=== PATIENT | female | born 1930 | race Caucasian/White ===

== ENCOUNTER 2018-01-20 19:40 | Emergency (ER) | payer MEDICARE, BC ==
[2018-01-20] MEDS: MORPHINE 2 MG/ML 1ML SYRINGE (J2270) IM (20:15)
[2018-01-20] MEDS: OXYCODONE/APAP 5MG/325MG(BULK FOR ED) 1 TABLET PO (21:30)
== END 2018-01-20 21:51 | disposition home or self-care (01) ==
LOC: M ED 19:40
DX: S43.102A Unspecified dislocation of left acromioclavicular joint, initial encounter (principal); X50.1XXA Overexertion from prolonged static or awkward postures, initial encounter; Y92.098 Other place in other non-institutional residence as the place of occurrence of the external cause; I10 Essential (primary) hypertension; K21.9 Gastro-esophageal reflux disease without esophagitis; F41.9 Anxiety disorder, unspecified; Z79.899 Other long term (current) drug therapy; Z79.4 Long term (current) use of insulin
CPT/HCPCS: J2270

== ENCOUNTER → 2019-01-15 | Outpatient (CLI) | payer MEDICARE, BC ==
[~2019-01-15] MED LIST: AMLO10TA2 PO; ASPI-1 PO; ASPI81TA26 PO; ATOR40TA75 PO; AUGM875T28 PO; BENA25TA10 PO; BENA40TA2 PO; BENA40TA7 PO; CALC20SPR; CALCTAB68 PO; CARV12.5 PO; CITA20TA2 PO; CITA20TA6 PO; CITA20TA7 PO; DOCU100C16 PO; DONETAB6 PO; ESTR62CR PV; GABA-845 PO; HYDR7.5T30 PO; INSUH10VL SC; INSUH10VL SQ; INSULANT SQ; LANTINJ4 SC; LEVE1INJ5 SC; LEVO25TA4 PO; LEVO25TA5 PO; LIPI1TAB2 PO; OMEP20CA3 PO; OMEP20CA4 PO; OXYB5TAB10 PO; PERC5TAB12 PO; TEMA15CA2 PO; TORS10TA3 PO; TOVI4TAB PO; VITMTA PO; ZOFR4TAB14 PO; ZOLP-187 PO
--- NOTE | 2019-01-15 18:34 | REP ---
MRI brain without contrast: History: Headache, weakness, memory loss, unsteady gait. Comparison CT study December 11, 2012. Technique: Axial and sagittal imaging planes are utilized for T1 and T2-weighted scans. Sequences include spin-echo, fast spin echo, FLAIR, and diffusion weighted sequences. MRI findings: Craniocervical junction and upper cervical cord are normal in appearance. 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 This is noted incidentally. This appears to produce mild central canal stenosis at this level in the neck. The bony calvarium is intact. There is no MR evidence of significant paranasal sinus disease. No intraorbital abnormality is appreciated. There is generalized volume loss. Diffusion weighted scans show no evidence to suggest acute ischemia. No extra-axial fluid collection or mass is seen. There is periventricular and subcortical white matter T2 hyperintensity consistent with microvascular ischemic changes. Impression: There is no evidence of acute intracranial abnormality. Generalized volume loss and small vessel changes. Incidental note is made of a 3 mm anterolisthesis at the C4-5 in the upper cervical spine producing what appears to be mild central canal stenosis. Electronically Signed by Jared Bruno MD 01/15/2019 07:27 P
== END ==
LOC: M RAD 15:33
PROVIDERS: ATTEND Nurse Practitioner Family
DX: R20.2 Paresthesia of skin (principal); G31.84 Mild cognitive impairment of uncertain or unknown etiology

== ENCOUNTER → 2019-03-06 | Outpatient (CLI) | payer MEDICARE, BC ==
[2019-03-06 20:12] LABS: CREATININE FOR GFR 1.14 MG/DL (0.55-1.30); GLOMERULAR FILTRATION RATE 48.1 (>32)
== END ==
LOC: M LABDRWAD 13:35
PROVIDERS: ATTEND Internal Medicine Cardiovascular Disease
DX: I50.30 Unspecified diastolic (congestive) heart failure (principal)

== ENCOUNTER → 2019-04-01 | Outpatient (REF) | payer MEDICARE, BC ==
[2019-04-01 13:33] LABS: ALBUMIN 3.5 GM/DL (3.2-5.2); BILIRUBIN,TOTAL 0.5 MG/DL (0.2-1.0); CALCIUM LEVEL 8.9 MG/DL (8.8-10.2); CHOLESTEROL RISK RATIO 1.706 (<5); CREATININE FOR GFR 1.05 MG/DL (0.55-1.30); FOLATE 17.2 NG/ML; FREE T4 0.95 NG/DL (0.76-1.46); GLOMERULAR FILTRATION RATE 52.9 (>32); POTASSIUM SERUM 4.6 MEQ/L (3.5-5.1); PTH INTACT 108.1 PG/ML (18.5-88.0); THYROID STIMULATING HORMONE 2.86 uIU/ML (0.358-3.740); TOTAL 25(OH) VITAMIN D 39.3 NG/ML (30.0-100.0); TOTAL PROTEIN 6.5 GM/DL (6.4-8.2)
[2019-04-01 13:54] LABS: CREATININE, URINE 49.2 MG/DL; CREATININE,RANDOM URINE 49.2 MG/DL; MALB URINE SIEMENS 25.5 MG/L; MAU/CREAT RATIO 51.8 MCG/MG (0.0-30.0)
[2019-04-01 14:22] LABS: HEMOGLOBIN A1c 7.3 %
== END ==
LOC: M LABDRWAD 12:41
DX: E11.9 Type 2 diabetes mellitus without complications (principal); E21.3 Hyperparathyroidism, unspecified; N18.3 Chronic kidney disease, stage 3 (moderate); I10 Essential (primary) hypertension; E03.9 Hypothyroidism, unspecified; M85.80 Other specified disorders of bone density and structure, unspecified site; R80.0 Isolated proteinuria; D64.9 Anemia, unspecified; G62.9 Polyneuropathy, unspecified

== ENCOUNTER → 2020-04-08 | Outpatient (REF) | payer MEDICARE, BC ==
[~2020-04-08] MED LIST changes: +BENA40TA5 PO; -BENA40TA7 PO; +OMEP1CAP73 PO; -OMEP20CA4 PO
[2020-04-08 13:26] LABS: ALBUMIN 3.9 GM/DL (3.2-5.2); BILIRUBIN,TOTAL 0.3 MG/DL (0.2-1.0); CALCIUM LEVEL 9.4 MG/DL (8.8-10.2); CHOLESTEROL RISK RATIO 1.91 (<5); CREATININE FOR GFR 1.24 MG/DL (0.55-1.30); GLOMERULAR FILTRATION RATE 43.6 (>32); POTASSIUM SERUM 4.7 MEQ/L (3.5-5.1); THYROID STIMULATING HORMONE 4.22 uIU/ML (0.358-3.740); TOTAL PROTEIN 6.9 GM/DL (6.4-8.2)
== END ==
LOC: M LABDRWAD 12:11
PROVIDERS: ATTEND Internal Medicine
DX: E78.5 Hyperlipidemia, unspecified (principal); E11.9 Type 2 diabetes mellitus without complications; I10 Essential (primary) hypertension; E03.9 Hypothyroidism, unspecified

== ENCOUNTER → 2020-04-14 | Outpatient (REF) | payer MEDICARE, BC ==
[2020-04-14 18:26] LABS: CREATININE, URINE 38.1 MG/DL; CREATININE,RANDOM URINE 38.1 MG/DL; MALB URINE SIEMENS 54.5 MG/L
== END ==
LOC: M LAB REF 16:54
PROVIDERS: ATTEND Internal Medicine
DX: E03.9 Hypothyroidism, unspecified (principal); E11.9 Type 2 diabetes mellitus without complications; E78.5 Hyperlipidemia, unspecified; I10 Essential (primary) hypertension

== ENCOUNTER 2021-04-01 13:08 | Inpatient (IN) | payer MEDICARE, BC ==
[~2021-04-01] VITALS: Ht 149.9 cm; Wt 51.4 kg
[~2021-04-01 13:08] MED LIST changes: +GABA-283 PO; -GABA-845 PO
--- OUTSIDE RECORDS SUMMARY | 2021-04-01 13:17 | CCD ---
Author Author [facility] Organization [facility] Address Unknown Phone Unavailable Care Team Providers Care Buffet Server Name Role Phone Keon KAUFMAN MD Unavailable Unavailable Wise, D Caroline PA Unavailable Unavailable Wise, D Caroline PA Unavailable Unavailable Wise, D Caroline PA Unavailable Unavailable Wise, D Caroline PA Unavailable Unavailable Wise, D Caroline PA Unavailable Unavailable Wise, D Caroline PA Unavailable Unavailable Wise, D Caroline PA Unavailable Unavailable Wise, D Caroline PA Unavailable Unavailable Wise, D Caroline PA Unavailable Unavailable Wise, D Caroline PA Unavailable Unavailable Wise, D Caroline PA Unavailable Unavailable Wise, D Caroline PA Unavailable Unavailable Wise, D Acroline PA Unavailable Unavailable Wise, D Caroline PA Unavailable Unavailable Wise, D Caroline PA Unavailable Unavailable Wise, D Caroline PA Unavailable Unavailable Wise, D Caroline PA Unavailable Unavailable Yanick Guerrero MD Unavailable Unavailable Yanick Guerrero MD Unavailable Unavailable Yanick Guerrero MD Unavailable Unavailable Yanick Guerrero MD Unavailable Unavailable Yanick Guerrero MD Unavailable Unavailable Yanick Guerrero MD Unavailable Unavailable Yanick Guerrero MD Unavailable Unavailable Yanick Guerrero MD Unavailable Unavailable Yanick Guerrero MD Unavailable Unavailable Yanick Guerrero MD Unavailable Unavailable Yolanda, Yanick MD Unavailable Unavailable Yolanda, Yanick MD Unavailable Unavailable Yolanda, Yanick MD Unavailable Unavailable Yolanda, Yanick MD Unavailable Unavailable Yolanda, Yanick MD Unavailable Unavailable Yolanda, Yanick MD Unavailable Unavailable Yolanda, Yanick MD Unavailable Unavailable Yolanda, Yanick MD Unavailable Unavailable Yolanda, Yanick MD Unavailable Unavailable Yolanda, Yanick MD Unavailable Unavailable Yolanda, Yanick MD Unavailable Unavailable Yolanda, Yanick MD Unavailable Unavailable Yolanda, Yanick MD Unavailable Unavailable Yolanda, Yanick MD Unavailable Unavailable Yolanda, Yanick MD Unavailable Unavailable Yolanda, Yanick MD Unavailable Unavailable Yolanda, Yanick MD Unavailable Unavailable Yolanda, Yanick MD Unavailable Unavailable Yolanda, Yanick MD Unavailable Unavailable Yolanda, Yanick MD Unavailable Unavailable Yolanda, Yanick MD Unavailable Unavailable Yolanda, Yanick MD Unavailable Unavailable Yolanda, Yanick MD Unavailable Unavailable Yolanda, Yanick MD Unavailable Unavailable Yolanda, Yanick MD Unavailable Unavailable Yolanda, Yanick MD Unavailable Unavailable Yolanda, Yanick MD Unavailable Unavailable Yolanda, Yanick MD Unavailable Unavailable Yolanda, Yanick MD Unavailable Unavailable Yolanda, Yanick MD Unavailable Unavailable Yolanda, Yanick MD Unavailable Unavailable Yolanda, Yanick MD Unavailable Unavailable Yolanda, Yanick MD Unavailable Unavailable Yolanda, Yanick MD Unavailable Unavailable Yolanda, Yanick MD Unavailable Unavailable Yolanda, Yanick MD Unavailable Unavailable Yolanda, Yanick MD Unavailable Unavailable Yolanda, Yanick MD Unavailable Unavailable Yolanda, Yanick MD Unavailable Unavailable Yolanda, Yanick MD Unavailable Unavailable Yolanda, Yanick MD Unavailable Unavailable Yolanda, Yanick MD Unavailable Unavailable Yolanda, Yanick MD Unavailable Unavailable Yolanda, Yanick MD Unavailable Unavailable Yolanda, Yanick MD Unavailable Unavailable Yolanda, Yanick MD Unavailable Unavailable Yolanda, Yanick MD Unavailable Unavailable Yolanda, Yanick MD Unavailable Unavailable Yolanda, Yanick MD Unavailable Unavailable Yolanda, Yanick MD Unavailable Unavailable Yolanda, Yanick MD Unavailable Unavailable Yolanda, Yanick MD Unavailable Unavailable Yolanda, Yanick MD Unavailable Unavailable Yolanda, Yanick MD Unavailable Unavailable Yolanda, Yanick MD Unavailable Unavailable Yolanda, Yanick MD Unavailable Unavailable Yolanda, Yanick MD Unavailable Unavailable Yolanda, Yanick MD Unavailable Unavailable Yolanda, Yanick MD Unavailable Unavailable Yolanda, Yanick MD Unavailable Unavailable Yolanda, Yanick MD Unavailable Unavailable Yolanda, Yanick MD Unavailable Unavailable Yolanda, Yanick MD Unavailable Unavailable Yolanda, Yanick MD Unavailable Unavailable Yolanda, Yanick MD Unavailable Unavailable PERRY, ELIZABETH MD Unavailable Unavailable PERRY, ELIZABETH MD Unavailable Unavailable PERRY, ELIZABETH MD Unavailable Unavailable PERRY, ELIZABETH MD Unavailable Unavailable PERRY, ELIZABETH MD Unavailable Unavailable PERRY, ELIZABETH MD Unavailable Unavailable PERRY, ELIZABETH MD Unavailable Unavailable PERRY, ELIZABETH MD Unavailable Unavailable PERRY, ELIZABETH MD Unavailable Unavailable PERRY, ELIZABETH MD Unavailable Unavailable PERRY, ELIZABETH MD Unavailable Unavailable PERRY, ELIZABETH MD Unavailable Unavailable PERRY, ELIZABETH MD Unavailable Unavailable PERRY, ELIZABETH MD Unavailable Unavailable PERRY, ELIZABETH MD Unavailable Unavailable PERRY, ELIZABETH MD Unavailable Unavailable PERRY, ELIZABETH MD Unavailable Unavailable PERRY, ELIZABETH MD Unavailable Unavailable PERRY, ELIZABETH MD Unavailable Unavailable PERRY, ELIZABETH MD Unavailable Unavailable PERRY, ELIZABETH MD Unavailable Unavailable PERRY, ELIZABETH MD Unavailable Unavailable PERRY, ELIZABETH MD Unavailable Unavailable PERRY, ELIZABETH MD Unavailable Unavailable PERRY, ELIZABETH MD Unavailable Unavailable PERRY, ELIZABETH MD Unavailable Unavailable PERRY, ELIZABETH MD Unavailable Unavailable PERRY, ELIZABETH MD Unavailable Unavailable PERRY, ELIZABETH MD Unavailable Unavailable PERRY, ELIZABETH MD Unavailable Unavailable PERRY, ELIZABETH MD Unavailable Unavailable PERRY, ELIZABETH MD Unavailable Unavailable PERRY, ELIZABETH MD Unavailable Unavailable PERRY, ELIZABETH MD Unavailable Unavailable PERRY, ELIZABETH MD Unavailable Unavailable PERRY, ELIZABETH MD Unavailable Unavailable PERRY, ELIZABETH MD Unavailable Unavailable PERRY, ELIZABETH MD Unavailable Unavailable PERRY, ELIZABETH MD Unavailable Unavailable PERRY, ELIZABETH MD Unavailable Unavailable PERRY, ELIZABETH MD Unavailable Unavailable PERRY, ELIZABETH MD Unavailable Unavailable PERRY, ELIZABETH MD Unavailable Unavailable PERRY, ELIZABETH MD Unavailable Unavailable PERRY, ELIZABETH MD Unavailable Unavailable PERRY, ELIZABETH MD Unavailable Unavailable PERRY, ELIZABETH MD Unavailable Unavailable PERRY, ELIZABETH MD Unavailable Unavailable PERRY, ELIZABETH MD Unavailable Unavailable PERRY, ELIZABETH MD Unavailable Unavailable PERRY, ELIZABETH MD Unavailable Unavailable PERRY, ELIZABETH MD Unavailable Unavailable PERRY, ELIZABETH MD Unavailable Unavailable PRERY, ELIZABETH MD Unavailable Unavailable PERRY, ELIZABETH MD Unavailable Unavailable PERRY, ELIZABETH MD Unavailable Unavailable PERRY, ELIZABETH MD Unavailable Unavailable PERRY, ELIZABETH MD Unavailable Unavailable PERRY, ELIZABETH MD Unavailable Unavailable PERRY, ELIZABETH MD Unavailable Unavailable PERRY, ELIZABETH MD Unavailable Unavailable PERRY, ELIZABETH MD Unavailable Unavailable PERRY, ELIZABETH MD Unavailable Unavailable PERRY, ELIZABETH MD Unavailable Unavailable PERRY, ELIZABETH MD Unavailable Unavailable PERRY, ELIZABETH MD Unavailable Unavailable PERRY, ELIZABETH MD Unavailable Unavailable PERRY, ELIZABETH MD Unavailable Unavailable PERRY, ELIZABETH MD Unavailable Unavailable PERRY, ELIZABETH MD Unavailable Unavailable PERRY, ELIZABETH MD Unavailable Unavailable PERRY, ELIZABETH MD Unavailable Unavailable PERRY, ELIZABETH MD Unavailable Unavailable PERRY, ELIZABETH MD Unavailable Unavailable PERRY, ELIZABETH MD Unavailable Unavailable PERRY, ELIZABETH MD Unavailable Unavailable PERRY, ELIZABETH MD Unavailable Unavailable PERRY, ELIZABETH MD Unavailable Unavailable PERRY, ELIZABETH MD Unavailable Unavailable PERRY, ELIZABETH MD Unavailable Unavailable PERRY, ELIZABETH MD Unavailable Unavailable PERRY, ELIZABETH MD Unavailable Unavailable PERRY, ELIZABETH MD Unavailable Unavailable PERRY, ELIZABETH MD Unavailable Unavailable PERRY, ELIZABETH MD Unavailable Unavailable PERRY, ELIZABETH MD Unavailable Unavailable PERRY, ELIZABETH MD Unavailable Unavailable PERRY, ELIZABETH MD Unavailable Unavailable PERRY, ELIZABETH MD Unavailable Unavailable PERRY, ELIZABETH MD Unavailable Unavailable PERRY, ELIZABETH MD Unavailable Unavailable PERRY, ELIZABETH MD Unavailable Unavailable PERRY, ELIZABETH MD Unavailable Unavailable PERRY, ELIZABETH MD Unavailable Unavailable PERRY, ELIZABETH MD Unavailable Unavailable PERRY, ELIZABETH MD Unavailable Unavailable PERRY, ELIZABETH MD Unavailable Unavailable PERRY, ELIZABETH MD Unavailable Unavailable PERRY, ELIZABETH MD Unavailable Unavailable PERRY, ELIZABETH MD Unavailable Unavailable PERRY, ELIZABETH MD Unavailable Unavailable PERRY, ELIZABETH MD Unavailable Unavailable PERRY, ELIZABETH MD Unavailable Unavailable PERRY, ELIZABETH MD Unavailable Unavailable PERRY, ELIZABETH MD Unavailable Unavailable BALBUENA, R CAROLINE DO Unavailable Unavailable BALBUENA, R CAROLINE DO Unavailable Unavailable BALBUENA, R CAROLINE DO Unavailable Unavailable BALBUENA, R CAROLINE DO Unavailable Unavailable BALBUENA, R CAROLINE DO Unavailable Unavailable BALBUENA, R CAROLINE DO Unavailable Unavailable BALBUENA, R CAROLINE DO Unavailable Unavailable BALBUENA, R CAROLINE DO Unavailable Unavailable BALBUENA, R CAROLINE DO Unavailable Unavailable BALBUENA, R CAROLINE DO Unavailable Unavailable BALBUENA, R CAROLINE DO Unavailable Unavailable BALBUENA, R CAROLINE DO Unavailable Unavailable BALBUENA, R CAROLINE DO Unavailable Unavailable BALBUENA, Marino VELAZQUEZ DO Unavailable Unavailable BALBUENA, Marino VELAZQUEZ DO Unavailable Unavailable BALBUENA, R CAROLINE DO Unavailable Unavailable BALBUENA, R CAROLINE DO Unavailable Unavailable BALBUENA, R CAROLINE DO Unavailable Unavailable BALBUENA, R CAROLINE DO Unavailable Unavailable BALBUENA, R CAROLINE DO Unavailable Unavailable Han, Aram DO Unavailable Unavailable Han, Aram DO Unavailable Unavailable Han, Aram DO Unavailable Unavailable Han, Aram DO Unavailable Unavailable Han, Aram DO Unavailable Unavailable Han, Aram DO Unavailable Unavailable Han, Aram DO Unavailable Unavailable Han, Aram DO Unavailable Unavailable Han, Aram DO Unavailable Unavailable Han, Aram DO Unavailable Unavailable Han, Aram DO Unavailable Unavailable Han, Aram DO Unavailable Unavailable Han, Aram DO Unavailable Unavailable Han, Aram DO Unavailable Unavailable Han, Aram DO Unavailable Unavailable Han, Aram DO Unavailable Unavailable Han, Aram DO Unavailable Unavailable Han, Aram DO Unavailable Unavailable Han, Aram DO Unavailable Unavailable Han, Aram DO Unavailable Unavailable Han, Aram DO Unavailable Unavailable Han, Aram DO Unavailable Unavailable Han, Aram DO Unavailable Unavailable Han, Aram DO Unavailable Unavailable Han, Aram DO Unavailable Unavailable Han, Aram DO Unavailable Unavailable Han, Aram DO Unavailable Unavailable Han, Aram DO Unavailable Unavailable Han, Aram DO Unavailable Unavailable Han, Aram DO Unavailable Unavailable Han, Aram DO Unavailable Unavailable Han, Aram DO Unavailable Unavailable Han, Aram DO Unavailable Unavailable Han, Aram DO Unavailable Unavailable Han, Aram DO Unavailable Unavailable Han, Aram DO Unavailable Unavailable Han, Aram DO Unavailable Unavailable Han, Aram DO Unavailable Unavailable Han, Aram DO Unavailable Unavailable Han, Aram DO Unavailable Unavailable Han, Aram DO Unavailable Unavailable Han, Aram DO Unavailable Unavailable Han, Aram DO Unavailable Unavailable Han, Aram DO Unavailable Unavailable Han, Aram DO Unavailable Unavailable Han, Aram DO Unavailable Unavailable Han, Aram DO Unavailable Unavailable Han, Aram DO Unavailable Unavailable Han, Aram DO Unavailable Unavailable Han, Aram DO Unavailable Unavailable Han, Aram DO Unavailable Unavailable Han, Aram DO Unavailable Unavailable Han, Aram DO Unavailable Unavailable Han, Aram DO Unavailable Unavailable Han, Aram DO Unavailable Unavailable Han, Aram DO Unavailable Unavailable Han, Aram DO Unavailable Unavailable Han, Aram DO Unavailable Unavailable Han, Aram DO Unavailable Unavailable Han, Aram DO Unavailable Unavailable Han, Aram DO Unavailable Unavailable Han, Aram DO Unavailable Unavailable Han, Aram DO Unavailable Unavailable Han, Aram DO Unavailable Unavailable Han, Aram DO Unavailable Unavailable Han, Aram DO Unavailable Unavailable Han, Aram DO Unavailable Unavailable Han, Aram DO Unavailable Unavailable Han, Aram DO Unavailable Unavailable Han, Aram DO Unavailable Unavailable Han, Aram DO Unavailable Unavailable Han, Aram DO Unavailable Unavailable Han, Aram DO Unavailable Unavailable Han, Aram DO Unavailable Unavailable Patria Cormier MD Unavailable Unavailable Patria Cormier MD Unavailable Unavailable Patria Cormier MD Unavailable Unavailable Patria Cormier MD Unavailable Unavailable Patria Cormier MD Unavailable Unavailable Patria Cormier MD Unavailable Unavailable Patria Cormier MD Unavailable Unavailable Patria Cormier MD Unavailable Unavailable Patria Cormier MD Unavailable Unavailable Patria Cormier MD Unavailable Unavailable Patria Cormier MD Unavailable Unavailable Iris MCNULTY MD Unavailable Unavailable Iris MCNULTY MD Unavailable Unavailable Iris MCNULTY MD Unavailable Unavailable Iris MCNULTY MD Unavailable Unavailable Iris MCNULTY MD Unavailable Unavailable Iris MCNULTY MD Unavailable Unavailable Iris MCNULTY MD Unavailable Unavailable Iris MCNULTY MD Unavailable Unavailable Iris MCNULTY MD Unavailable Unavailable Iris MCNULTY MD Unavailable Unavailable Iris MCNULTY MD Unavailable Unavailable Iris MCNULTY MD Unavailable Unavailable Iris MCNULTY MD Unavailable Unavailable Iris MCNULTY MD Unavailable Unavailable Iris MCNULTY MD Unavailable Unavailable Iris MCNULTY MD Unavailable Unavailable Iris MCNULTY MD Unavailable Unavailable Iris MCNULTY MD Unavailable Unavailable Iris MCNULTY MD Unavailable Unavailable Iris MCNULTY MD Unavailable Unavailable HAMLET, Iris REAL MD Unavailable Unavailable HAMLET, B MISSAEL FARLEY Unavailable Unavailable Iris MCNULTY MD Unavailable Unavailable HAMLET, B MISSAEL FARLEY Unavailable Unavailable HAMLET, Iris REAL MD Unavailable Unavailable HAMLET, Iris REAL MD Unavailable Unavailable TRUSILO, Pawel IQBAL MD Unavailable Unavailable TRUSILO, Pawel IQBAL MD Unavailable Unavailable TRUSILO, Pawel IQBAL MD Unavailable Unavailable TRUSILO, Pawel IQBAL MD Unavailable Unavailable TRUSILO, Pawel IQBAL MD Unavailable Unavailable TRUSILO, Pawel IQBAL MD Unavailable Unavailable TRUSILO, Pawel IQBAL MD Unavailable Unavailable TRUSILO, Pawel IQBAL MD Unavailable Unavailable TRUSILO, Pawel IQBAL MD Unavailable Unavailable TRUSILO, Pawel IQBAL MD Unavailable Unavailable TRUSILO, Pawel IQBAL MD Unavailable Unavailable TRUSILO, Pawel IQBAL MD Unavailable Unavailable TRUSILO, Pawel IQBAL MD Unavailable Unavailable TRUSILO, Pawel IQBAL MD Unavailable Unavailable TRUSILO, Pawel IQBAL MD Unavailable Unavailable TRUSILO, Pawel IQBAL MD Unavailable Unavailable TRUSILO, Pawel IQBAL MD Unavailable Unavailable TRUSILO, Pawel IQBAL MD Unavailable Unavailable TRUSILO, Pawel IQBAL MD Unavailable Unavailable TRUSILO, Pawel IQBAL MD Unavailable Unavailable TRUSILO, Pawel IQBAL MD Unavailable Unavailable TRUSILO, Pawel IQBAL MD Unavailable Unavailable TRUSILO, Pawel IQBAL MD Unavailable Unavailable TRUSILO, Pawel IQBAL MD Unavailable Unavailable TRUSILO, Pawel IQBAL MD Unavailable Unavailable TRUSILO, Pawel IQBAL MD Unavailable Unavailable TRUSILO, Pawel IQBAL MD Unavailable Unavailable TRUSILO, Pawel IQBAL MD Unavailable Unavailable TRUSILO, Pawel IQBAL MD Unavailable Unavailable TRUSILO, Pawel IQBAL MD Unavailable Unavailable TRUSILO, Pawel IQBAL MD Unavailable Unavailable TRUSILO, Pawel IQBAL MD Unavailable Unavailable TRUSILO, Pawel IQBAL MD Unavailable Unavailable TRUSILO, Pawel IQBAL MD Unavailable Unavailable TRUSILO, Pawel IQBAL MD Unavailable Unavailable TRUSILO, Pawel IQBAL MD Unavailable Unavailable TRUSILO, Pawel IQBAL MD Unavailable Unavailable TRUSILO, Pawel IQBAL MD Unavailable Unavailable TRUSILO, Pawel IQBAL MD Unavailable Unavailable TRUSILO, Pawel IQBAL MD Unavailable Unavailable TRUSILO, Pawel IQBAL MD Unavailable Unavailable TRUSILO, Pawel IQBAL MD Unavailable Unavailable TRUSILO, Pawel IQBAL MD Unavailable Unavailable TRUSILO, Pawel IQBAL MD Unavailable Unavailable Other, Other Unavailable Unavailable Reina GONZALES MD Unavailable Unavailable Reina GONZALES MD Unavailable Unavailable Reina GONZALES MD Unavailable Unavailable SAGCAN, G MAILE MD Unavailable Unavailable SAGCAN, G MAILE MD Unavailable Unavailable SAGCAN, G MAILE MD Unavailable Unavailable SAGCAN, G MAILE MD Unavailable Unavailable SAGCAN, G MAILE MD Unavailable Unavailable SAGCAN, G MAILE MD Unavailable Unavailable SAGCAN, G MAILE MD Unavailable Unavailable SAGCAN, G MAILE MD Unavailable Unavailable SAGCAN, G MAILE MD Unavailable Unavailable SAGCAN, G MAILE MD Unavailable Unavailable SAGCAN, G MAILE MD Unavailable Unavailable SAGCAN, G MAILE MD Unavailable Unavailable SAGCAN, G MAILE MD Unavailable Unavailable SAGCAN, G MAILE MD Unavailable Unavailable SAGCAN, G MAILE MD Unavailable Unavailable SAGCAN, G MAILE MD Unavailable Unavailable Paoletti, J Becky Unavailable Unavailable Paoletti, J Becky Unavailable Unavailable Paoletti, J Becky Unavailable Unavailable Paoletti, J Becky Unavailable Unavailable Paoletti, J Becky Unavailable Unavailable Paoletti, J Becky Unavailable Unavailable Paoletti, J Becky Unavailable Unavailable Paoletti, J Becky Unavailable Unavailable Paoletti, J Becky Unavailable Unavailable Paoletti, J Becky Unavailable Unavailable Paoletti, J Becky Unavailable Unavailable Paoletti, J Becky Unavailable Unavailable Paoletti, J Becky Unavailable Unavailable Paoletti, J Becky Unavailable Unavailable Paoletti, J Becky Unavailable Unavailable Paoletti, J Becky Unavailable Unavailable Paoletti, J Becky Unavailable Unavailable Paoletti, J Becky Unavailable Unavailable Paoletti, J Becky Unavailable Unavailable Rodrigo Ba MD Unavailable Unavailable Rodrigo Ba MD Unavailable Unavailable Rodrigo Ba MD Unavailable Unavailable Rodrigo Ba MD Unavailable Unavailable Rodrigo Ba MD Unavailable Unavailable Rodrigo Ba MD Unavailable Unavailable Rodrigo Ba MD Unavailable Unavailable Rodrigo Ba MD Unavailable Unavailable Rodrigo Ba MD Unavailable Unavailable Rodrigo Ba MD Unavailable Unavailable Rodrigo Ba MD Unavailable Unavailable Rodrigo Ba MD Unavailable Unavailable Rodrigo Ba MD Unavailable Unavailable Rodrigo Ba MD Unavailable Unavailable Rodrigo Ba MD Unavailable Unavailable Rodrigo Ba MD Unavailable Unavailable Rodrigo Ba MD Unavailable Unavailable Rodrigo Ba MD Unavailable Unavailable Rodrigo Ba MD Unavailable Unavailable Rodrigo Ba MD Unavailable Unavailable Rodrigo Ba MD Unavailable Unavailable Rodrigo Ba MD Unavailable Unavailable Rodrigo Ba MD Unavailable Unavailable Hardeman, Rodrigo Fran MD Unavailable Unavailable Hardeman, Rodrigo Fran MD Unavailable Unavailable Mejia, Rodrigo Fran MD Unavailable Unavailable Mejia, Rodrigo Fran MD Unavailable Unavailable Hardeman, Rodrigo Fran MD Unavailable Unavailable Mejia, Rodrigo Fran MD Unavailable Unavailable Hardeman, Rodrigo Fran MD Unavailable Unavailable Hardeman, Rodrigo Fran MD Unavailable Unavailable Hardeman, Rodrigo Fran MD Unavailable Unavailable Mejia, Rodrigo Fran MD Unavailable Unavailable Mejia, Rodrigo Fran MD Unavailable Unavailable Hardeman, Rodrigo Fran MD Unavailable Unavailable Hardeman, Rodrigo Fran MD Unavailable Unavailable Hardeman, Rodrigo Fran MD Unavailable Unavailable Mejia, Rodrigo Fran MD Unavailable Unavailable Hardeman, Rodrigo Fran MD Unavailable Unavailable Mejia, Rodrigo Fran MD Unavailable Unavailable Mejia, Rodrigo Fran MD Unavailable Unavailable Mejia, Rodrigo Fran MD Unavailable Unavailable Hardeman, Rodrigo Fran MD Unavailable Unavailable Hardeman, Rodrigo Fran MD Unavailable Unavailable Mejia, Rodrigo Fran MD Unavailable Unavailable Hardeman, Rodrigo Fran MD Unavailable Unavailable Hardeman, Rodrigo Fran MD Unavailable Unavailable Mejia, Rodrigo Fran MD Unavailable Unavailable Hardeman, Rodrigo Fran MD Unavailable Unavailable Hardeman, Rodrigo Fran MD Unavailable Unavailable Mejia, Rodrigo Fran MD Unavailable Unavailable Hardeman, Rodrigo Fran MD Unavailable Unavailable Hardeman, Rodrigo Fran MD Unavailable Unavailable Mejia, Rodrigo Fran MD Unavailable Unavailable Hardeman, Rodrigo Fran MD Unavailable Unavailable Hardeman, Rodrigo Fran MD Unavailable Unavailable Hardeman, Rodrigo Fran MD Unavailable Unavailable Hardeman, Rodrigo Fran MD Unavailable Unavailable Hardeman, Rodrigo Fran MD Unavailable Unavailable Hardeman, Rodrigo Fran MD Unavailable Unavailable Hardeman, Rodrigo Fran MD Unavailable Unavailable Hardeman, Rodrigo Fran MD Unavailable Unavailable Hardeman, Rodrigo Fran MD Unavailable Unavailable Re-disclosure Warning The records that you are about to access may contain information from federally-assisted alcohol or drug abuse programs. If such information is present, then the following federally mandated warning applies: This information has been disclosed to you from records protected by federal confidentiality rules (42 CFR part 2). The federal rules prohibit you from making any further disclosure of this information unless further disclosure is expressly permitted by the written consent of the person to whom it pertains or as otherwise permitted by 42 CFR part 2. A general authorization for the release of medical or other information is NOT sufficient for this purpose. The Federal rules restrict any use of the information to criminally investigate or prosecute any alcohol or drug abuse patient.The records that you are about to access may contain highly sensitive health information, the redisclosure of which is protected by Article 27-F of the [place] State Public Health law. If you continue you may have access to information: Regarding HIV / AIDS; Provided by facilities licensed or operated by the [facility] Office of Mental Health; or Provided by the [facility] Office for People With Developmental Disabilities. If such information is present, then the following [facility] mandated warning applies: This information has been disclosed to you from confidential records which are protected by state law. State law prohibits you from making any further disclosure of this information without the specific written consent of the person to whom it pertains, or as otherwise permitted by law. Any unauthorized further disclosure in violation of state law may result in a fine or half-way sentence or both. A general authorization for the release of medical or other information is NOT sufficient authorization for further disc losure. Allergies and Adverse Reactions Type Description Substance Reaction Status Data Source(s ) Drug allergy No Known Allergies No Known Allergies [facility] Propensity to adverse reactions NO KNOWN ALLERGIES NO KNOWN ALLERGIES [facility] Family History Family Member Name Family Member Gender Family Member Status Date o f Status Description Data Source(s) Unknown Condition [facility] Unknown [facility] Unknown Condition [facility] Unknown Condition [facility] Unknown Condition [facility] Unknown Condition [facility] Unknown Condition [facility] Unknown [facility] Unknown [facility] Unknown Condition [facility] Unknown Condition [facility] Unknown Condition [facility] Unknown Male Problem [facility] ([facility]) Unknown Unknown Problem [facility] ([facility] Encounters Encounter Providers Location Date Indications Data Source(s ) Outpatient Attender: Caroline Wise PAReferrer: Yanick Guerrero MD 05/17/2021 02:30:00 PM EST 3 mo f/u [facility] 3 mo f/u Outpatient Referrer: ELIZABETH PERRY MD 02/22/2021 03:23:22 PM EDT [facility] Outpatient Referrer: ELIZABETH PERRY MD 02/17/2021 10:31:22 AM EDT [facility] Outpatient Attender: CAROLINE Clark: Yanick Guerrero MD 02/14/2021 03:30:00 PM EDT - 02/14/2021 04:07:00 PM EDT Right hip pain, injection [facility] Right hip pain, injection Patient discharged. Outpatient Attender: Caroline Rojo: Yanick Guerrero MD 02/08/2021 01:52:00 PM EDT - 02/08/2021 02:32:00 PM EDT 3 mo fu [facility] 3 mo fu Patient discharged. Outpatient Referrer: ELIZABETH PERRY MD 02/08/2021 10:34:49 AM EDT [facility] Outpatient Attender: CAROLINE Clark: Yanick Guerrero MD 01/14/2021 10:14:00 AM EDT - 01/14/2021 11:13:00 AM EDT Bilateral hip pain, left worse [facility] Bilateral hip pain, left worse Patient discharged. Outpatient Attender: CAROLINE Clark: Yanick Guerrero MD 01/14/2021 10:14:00 AM EDT - 01/14/2021 11:13:00 AM EDT [facility] Outpatient Attender: Yanick Guerrero MD Main Office 12/29/2020 02:00:00 PM EDT [facility] ([facility]) Outpatient Attender: Caroline Rojo: Fran Ba MD 11/24/2020 01:18:00 PM EDT - 11/24/2020 02:05:00 PM EDT 1yr f/u - LMTC [facility] 1yr f/u - LMTC Patient discharged. Outpatient Attender: CAROLINE BALBUENA DOAtt jill: Other OtherReferrer: Yanick Guerrero MD 11/22/2020 11:41:00 AM EDT - 11/22/2020 12:50:00 PM EDT L hip trochanteric bursitis [facility] L hip trochanteric bursitis Patient discharged. Outpatient Attender: CAROLINE Clark: Yanick Guerrero MD 11/22/2020 11:41:00 AM EDT - 11/22/2020 12:50:00 PM EDT [facility] Outpatient Attender: Yanick Guerrero MD 11/11/2020 01:12:00 P M EDT [facility] lab Outpatient Attender: Yanick Guerrero MD Main Office 11/02/2020 02:15:00 PM EDT [facility] ([facility]) Recurring Patient Attender: CHARMAINE SOLISCARMEN MDReferrer: Yanick Quezada i, MD 04/14/2020 09:34:[address] [facility] Outpatient Attender: CHARMAINE CORBETT MDReferrer: Yanick Guerrero MD 04/09/2020 01:08:[address] [facility] Recurring Patient Attender: CHARMAINE CORBETT MDReferrer: Yanick Quezada i, MD 04/08/2020 01:33:[address] [facility] Recurring Patient Referrer: Yanick Guerrero MD 04/08/2020 07: 47:[address] [facility] Outpatient Attender: Yanick Guerrero MD Main Office 03/24/2020 02:00:00 PM EDT [facility] ([facility]) Recurring Patient Referrer: Yanick Guerrero MD 03/24/2020 08: 30:[address] [facility] Outpatient Attender: Becky Harrell 03/03/2020 02:04:00 PM EDT [facility] Outpatient Attender: Aram Short DO [id number] 03/03/20 20 12:00:00 AM EDT - 03/03/2020 04:02:57 PM EDT Chronic kidney disease, stage 3 (moderate) [facility] Chronic kidney disease, stage 3 (moderat e) Outpatient Attender: Yanick Guerrero MD Main Office 02/11/2020 01:45:00 PM EDT [facility] ([facility]) Outpatient Attender: MAILE Del Rio nder: Patria Cormier MDAttender: MISSAEL MCNULTY MDAttender: EUGENIO KAUFMAN MDAdmitter: MISSAEL MCNULTY MDReferrer: EUGENIO KAUFMAN MD 1-OB2 02/04/2020 12:23:30 AM EDT - 02/06/2020 01:51:00 PM EDT [facility] Patient discharged. Outpatient Attender: Aram Short DO 02/04/2020 12:00:00 AM EDT [facility] Immunizations Vaccine Date Status Description Data Source(s) New in 2012. IIV4 03/24/2020 02:15:00 PM EDT completed [facility] ([facility]) Medications Medication Brand Name Start Date Product Form Dose Route Admi nistrative Instructions Pharmacy Instructions Status Indications Reaction Description Data Source(s) 3 mg 03/23/2021 12:00:00 AM EDT tablet 90 TAKE ONE TABLET BY MOUTH EVERY DAY TAKE ONE TABLET BY MOUTH EVERY DAY SOLD: 03/25/2021 [facility] 50 mcg 03/19/2021 12:00:00 AM EDT tablet 90 TAKE ONE TABLET BY MOUTH EVERY DAY TAKE ONE TABLET BY MOUTH EVERY DAY SOLD: 03/22/2021 [facility] 5 mg 03/09/2021 12:00:00 AM EDT tablet 90 TAKE ONE TABLET BY MOUTH EVERY DAY TAKE ONE TABLET BY MOUTH EVERY DAY SOLD: 03/10/2021 [facility] 100 mg 03/09/2021 12:00:00 AM EDT capsule 90 TAKE ONE CAPSULE BY MOUTH EVERY MORNING AND 2 CAPSULES EVERY EVENING TAKE ONE CAPSULE BY MOUTH EVERY MORNING AND 2 CAPSULES EVERY EVENING SOLD: 03/10/2021 [facility] 40 mg 02/17/2021 12:00:00 AM EDT tablet 90 TAKE ONE TABLET BY MOUTH EVERY DAY TAKE ONE TABLET BY MOUTH EVERY DAY SOLD: 02/19/2021 [facility] 10 mg 02/17/2021 12:00:00 AM EDT tablet 90 TAKE 1 TABLET BY MOUTH AT NIGHT TAKE 1 TABLET BY MOUTH AT NIGHT SOLD: 02/19/2021 [facility] methylprednisolone acetate 80 MG/ML Inje ctable Suspension Depo-Medrol (methylprednisolone acetate) 80 mg/mL suspension for injection Depo-Medrol (methylprednisolone acetate) 80 mg/mL suspension for injection 02/14/2021 03:30:52 PM EDT SUSPENSION 80 MG INTRAMUSC completed [facility] Lidocaine Hydrochloride 10 MG/ML Injecta ble Solution lidocaine (PF) 10 mg/mL (1 %) injection solution lidocaine (PF) 10 mg/mL (1 %) injection solution 02/14/2021 03:30:52 PM EDT SOLUTION 40 MG INTRAMUSC completed [facility] rivaroxaban 15 MG Oral Tablet Rivaroxaban (Xarelto) 15 mg tablet Rivaroxaban (Xarelto) 15 mg tablet 02/11/2021 04:04:49 PM EDT TABLET TABLET active [facility] apixaban 2.5 MG Oral Tablet Apixaban (Eliquis) 2.5 mg tablet Apixaban (Eliquis) 2.5 mg tablet 02/11/2021 08:25:57 AM EDT TABLET TABLET complet ed [facility] 15 mg 02/10/2021 12:00:00 AM EDT tablet 30 TAKE ONE TABLET BY MOUTH EVERY DAY WITH EVENING MEAL TAKE ONE TABLET BY MOUTH EVERY DAY WITH EVENING MEAL S OLD: 02/10/2021 [facility] 10 mg 02/10/2021 12:00:00 AM EDT tablet 90 TAKE ONE TABLET BY MOUTH THREE TIMES A DAY TAKE ONE TABLET BY MOUTH THREE TIMES A DAY SOLD: 02/10/2021 [facility] Hydralazine Hydrochloride 10 MG Oral Tablet Hydralazine 02/09/2021 02:23:29 PM EDT TABLET 10 MG ORAL active [facility] 50 mg 02/08/2021 12:00:00 AM EDT tablet 120 TAKE ONE TABLET BY MOUTH FOUR TIMES A DAY NEEDED MAXIMUM DAILY DOSE = 4 TAKE ONE TABLET BY MOUTH FOUR TIMES A DAY NEEDED MAXIMUM DAILY DOSE = 4 SOLD: 02/10/2021 [facility] 50 mg 02/08/2021 12:00:00 AM EDT tablet 120 TAKE ONE TABLET BY MOUTH FOUR TIMES A DAY NEEDED MAXIMUM DAILY DOSE = 4 TAKE ONE TABLET BY MOUTH FOUR TIMES A DAY NEEDED MAXIMUM DAILY DOSE = 4 SOLD: 03/22/2021 [facility] rivaroxaban 15 MG Oral Tablet Rivaroxaban (Xarelto) 15 mg tablet Rivaroxaban (Xarelto) 15 mg tablet 02/04/2021 11:11:35 AM EDT TABLET 15 MG ORAL active [facility] 5 mg 02/03/2021 12:00:00 AM EDT tablet 30 TAKE ONE TABLET BY MOUTH EVERY DAY TAKE ONE TABLET BY MOUTH EVERY DAY SOLD: 02/03/2021 [facility] 250 mg 02/02/2021 12:00:00 AM EDT tablet 6 TAKE ONE TABLET BY MOUTH TWICE A DAY TAKE ONE TABLET BY MOUTH TWICE A DAY SOLD: 02/03/2021 [facility] 50 mg 02/02/2021 12:00:00 AM EDT tablet 90 TAKE ONE TABLET BY MOUTH EVERY EVENING NEEDED TAKE ONE TABLET BY MOUTH EVERY EVENING NEEDED SOLD: 02/03/2021 [facility] carvedilol 12.5 MG Oral Tablet CARVEDILOL 01/29/2021 12:00:00 AM EDT tablet 90 TAKE ONE TABLET BY MOUTH TWICE A DAY TAKE ONE TABLET BY MOUT H TWICE A DAY SOLD: 01/30/2021 [facility] carvedilol 12.5 MG Oral Tablet CARVEDILOL 01/29/2021 12:00:00 AM EDT tablet 90 TAKE ONE TABLET BY MOUTH TWICE A DAY TAKE ONE TABLET BY MOUT H TWICE A DAY SOLD: 03/10/2021 [facility] apixaban 2.5 MG Oral Tablet Apixaban (Eliquis) 2.5 mg tablet Apixaban (Eliquis) 2.5 mg tablet 01/26/2021 04:37:21 PM EDT TABLET 2.5 MG ORAL complet [facility] 100 mg 01/26/2021 12:00:00 AM EDT capsule 90 TAKE ONE CAPSULE BY MOUTH EVERY MORNING AND TAKE TWO CAPSULES IN THE EVENING TAKE ONE CAPSULE BY MOUTH EVERY MORNING AND TAKE TWO CAPSULES IN THE EVENING SOLD: 01/30/2021 [facility] atorvastatin 40 MG Oral Tablet ATORVASTATIN CALCIUM 01/24/2021 1 2:00:00 AM EDT tablet 90 TAKE ONE TABLET BY MOUTH EVERY D AY TAKE ONE TABLET BY MOUTH EVERY DAY SOLD: 01/26/2021 [facility] 100 unit/mL (3 mL) 01/23/2021 12:00:00 AM EDT insulin pen 15 INJECT 3 UNITS UNDER THE SKIN BEFORE BREAKFAST , 5 UNITS BEFORE LUNCH AND 10 UNITS BEFORE DINNER INJECT 3 UNITS UNDER THE SKIN BEFORE NIYAH AKFAST , 5 UNITS BEFORE LUNCH AND 10 UNITS BEFORE DINNER SOLD: 01/23/2021 [facility] Lidocaine Hydrochloride 10 MG/ML Injecta ble Solution lidocaine (PF) 10 mg/mL (1 %) injection solution lidocaine (PF) 10 mg/mL (1 %) injection solution 01/14/2021 10:14:25 AM EDT SOLUTION 40 MG INTRAMUSC [facility] methylprednisolone acetate 80 MG/ML Inje ctable Suspension Depo-Medrol (methylprednisolone acetate) 80 mg/mL suspension for injection Depo-Medrol (methylprednisolone acetate) 80 mg/mL suspension for injection 01/14/2021 10:14:25 AM EDT SUSPENSION 80 MG INTRAMUSC completed [facility] 2.5 mg 01/09/2021 12:00:00 AM EDT tablet 60 TAKE ONE TABLET BY MOUTH TWICE A DAY TAKE ONE TABLET BY MOUTH TWICE A DAY SOLD: 01/09/2021 [facility] 100 mg 12/29/2020 12:00:00 AM EDT capsule 90 TAKE ONE CAPSULE BY MOUTH EVERY MORNING AND TWO CAPSULES IN THE EVENING TAKE ONE CAPSULE BY MOUTH EVERY MORNING AND TWO CAPSULES IN THE EVENING SOLD: 12/31/2020 [facility] Clonidine Hydrochloride 0.1 MG Oral Tablet CLONIDINE HCL 2020 12:00:00 AM EDT tablet 90 TAKE ONE TABLET BY MOUTH CAITY TAKE ONE TABLET BY MOUTH EVERY DAY SOLD: 12/31/2020 [facility] carvedilol 12.5 MG Oral Tablet CARVEDILOL 12/13/2020 12:00:00 AM EDT tablet 90 TAKE ONE TABLET BY MOUTH TWICE A DAY TAKE ONE TABLET BY MOUT H TWICE A DAY SOLD: 12/14/2020 [facility] 25 mcg 12/08/2020 12:00:00 AM EDT tablet 90 TAKE ONE TABLET BY MOUTH EVERY DAY TAKE ONE TABLET BY MOUTH EVERY DAY SOLD: 12/08/2020 [facility] pantoprazole 40 MG Delayed Release Oral Tablet PANTOPRAZOLE SODIUM 12/02/2020 12:00:00 AM EDT tablet,delayed release (DR/EC) 180 T BIRGIT ONE TABLET BY MOUTH TWICE A DAY NEEDED TAKE ONE TABLET BY MOUTH TWICE A DAY NEEDED SOLD: 12/05/2020 [facility] 100 mg 12/02/2020 12:00:00 AM EDT capsule 90 TAKE ONE CAPSULE BY MOUTH EVERY MORNING AND TWO CAPSULES IN THE EVENING TAKE ONE CAPSULE BY MOUTH EVERY MORNING AND TWO CAPSULES IN THE EVENING SOLD: 12/05/2020 [facility] pantoprazole 40 MG Delayed Release Oral Tablet PANTOPRAZOLE SODIUM 12/02/2020 12:00:00 AM EDT tablet,delayed release (DR/EC) 180 T BIRGIT ONE TABLET BY MOUTH TWICE A DAY NEEDED TAKE ONE TABLET BY MOUTH TWICE A DAY NEEDED SOLD: 02/26/2021 [facility] 50 mg 11/30/2020 12:00:00 AM EDT tablet 120 TAKE ONE TABLET BY MOUTH FOUR TIMES A DAY NEEDED MAXIMUM DAILY DOSE = 4 TAKE ONE TABLET BY MOUTH FOUR TIMES A DAY NEEDED MAXIMUM DAILY DOSE = 4 SOLD: 01/09/2021 [facility] 50 mg 11/30/2020 12:00:00 AM EDT tablet 120 TAKE ONE TABLET BY MOUTH FOUR TIMES A DAY NEEDED MAXIMUM DAILY DOSE = 4 TAKE ONE TABLET BY MOUTH FOUR TIMES A DAY NEEDED MAXIMUM DAILY DOSE = 4 SOLD: 12/05/2020 [facility] 40 mg 11/26/2020 12:00:00 AM EDT tablet 90 TAKE ONE TABLET BY MOUTH EVERY DAY TAKE ONE TABLET BY MOUTH EVERY DAY SOLD: 11/29/2020 [facility] Amlodipine 10 MG Oral Tablet Amlodipine 11/24/2020 01:59:13 PM EDT TA BLET 10 MG ORAL active [facility] Cholecalciferol 1000 UNT Oral Capsule Cholecalciferol (Vitamin D3) Cholecalciferol (Vitamin D3) 11/24/2020 01:49:24 PM EDT CAPSULE 25 MCG ORAL active [facility] Amlodipine 5 MG Oral Tablet Amlodipine 11/24/2020 01:49:00 PM EDT TAB LET 5 MG ORAL completed [facility] Levothyroxine Sodium 0.05 MG Oral Capsule Levothyroxine 11/24/2020 01:48:51 PM EDT CAPSULE 50 MCG ORAL active [facility] Trazodone Hydrochloride 50 MG Oral Tablet Trazodone 2020 01:47:52 PM EDT TABLET 50 MG ORAL active [facility] torsemide 10 MG Oral Tablet Torsemide Torsemide 11/24/2020 01:47:12 PM EDT TABLET 10 MG ORAL active [facility] Clonidine Hydrochloride 0.1 MG Oral Tablet Clonidine Hcl Aviva nidine Hcl 11/24/2020 01:42:24 PM EDT TABLET 0.1 MG ORAL active [facility] Diphenhydramine Hydrochloride 25 MG Oral Capsule Diphenhydramine Hcl (Allergy Medication) 25 mg capsule Diphenhydramine Hcl (Allergy Medication) 25 mg capsule 11/22/2020 12:08:18 PM EDT CAPSULE 25 MG [facility]AL [facility] 3 ML insulin detemir 100 UNT/ML Pen Inje ctor Insulin Detemir U-100 (Levemir Flextouch U-100 Insuln) 100 unit/mL (3 mL) insulin pen Insulin Detemir U-100 (Levemir Flextouch U-100 Insuln) 100 unit/mL (3 mL) insulin pen 11/22/2020 12:07:54 PM EDT UNASSIGNED 10 UNIT SUBCUTANEOUSLY active [facility] Trazodone Hydrochloride 50 MG Oral Tablet Trazodone 2020 12:07:23 PM EDT TABLET 25 MG ORAL [facility] Clonidine Hydrochloride 0.1 MG Oral Tablet Clonidine Hcl Aviva nidine Hcl 11/22/2020 12:05:10 PM EDT TABLET 0.05 MG ORAL [facility] Lidocaine Hydrochloride 10 MG/ML Injecta ble Solution lidocaine (PF) 10 mg/mL (1 %) injection solution lidocaine (PF) 10 mg/mL (1 %) injection solution 11/22/2020 11:41:51 AM EDT SOLUTION 40 MG INTRAMUSC [facility] methylprednisolone acetate 40 MG/ML Inje ctable Suspension Depo-Medrol (methylprednisolone acetate) 40 mg/mL suspension for injection Depo-Medrol (methylprednisolone acetate) 40 mg/mL suspension for injection 11/22/2020 11:41:51 AM EDT SUSPENSION 40 MG INTRAMUSC [facility] Basaglar Kwikpen Basaglar Kwikpen 11/03/2020 12:00:00 AM EDT active [facility] ([facility]) Amlodipine 5 MG Oral Tablet Amlodipine Besylate 11/02/2020 12:00:00 A M EDT ORAL active [facility] ([facility]) salmon calcitonin 200 UNT/ACTUAT Nasal [place] [Miacalcin] Jayna calcin 11/02/2020 12:00:00 AM EDT active M [facility] ([facility]) gabapentin 100 MG Oral Capsule Gabapentin 04/27/2020 12:00:00 AM EST active [facility] ([facility]) Levothyroxine Sodium 0.05 MG Oral Tablet Levothyroxine Sodiu m 04/23/2020 12:00:00 AM EST active M [facility] ([facility]) 5 mg 03/25/2020 12:00:00 AM EDT tablet 60 TAKE ONE TABLET BY MOUTH TWICE A DAY TAKE ONE TABLET BY MOUTH TWICE A DAY SOLD: 03/06/2021 [facility] 5 mg 03/25/2020 12:00:00 AM EDT tablet 60 TAKE ONE TABLET BY MOUTH TWICE A DAY TAKE ONE TABLET BY MOUTH TWICE A DAY SOLD: 01/26/2021 [facility] Oxybutynin chloride 5 MG Oral Tablet OXYBUTYNIN CHLORIDE 01/2020 12:00:00 AM EDT tablet 60 TAKE ONE TABLET BY MOUTH TWI CE A DAY TAKE ONE TABLET BY MOUTH TWICE A DAY SOLD: 03/26/2020 [facility] Clonidine Hydrochloride 0.1 MG Oral Tablet CLONIDINE HCL 03/25/2020 12:00:00 AM EDT tablet 90 TAKE ONE TABLET BY MOUTH TAKE ONE TABLET BY MOUTH EVERY DAY SOLD: 03/26/2020 [facility] 5 mg 03/25/2020 12:00:00 AM EDT tablet 60 TAKE ONE TABLET BY MOUTH TWICE A DAY TAKE ONE TABLET BY MOUTH TWICE A DAY SOLD: 12/31/2020 [facility] 50 mg 03/25/2020 12:00:00 AM EDT tablet 120 TAKE ONE TABLET BY MOUTH FOUR TIMES A DAY NEEDED * MAXIMUM DAILY DOSE = 4 TAKE ONE TABLET BY MOUTH FOUR TIMES A DAY NEEDED * MAXIMUM DAILY DOSE = 4 SOLD: 03/26/2020 [facility] 5 mg 03/25/2020 12:00:00 AM EDT tablet 60 TAKE ONE TABLET BY MOUTH TWICE A DAY TAKE ONE TABLET BY MOUTH TWICE A DAY SOLD: 12/05/2020 [facility] 0.5 ML darbepoetin cristel 0.2 MG/ML Prefil led Syringe darbepoetin cristel (ARANESP) 100 MCG/0.5ML injection 100 mcg darbepoetin cristel (ARANESP) 100 MCG/0.5ML injection 100 mcg 03/03/2020 03:45:00 PM EDT 100 ug Subcutaneous completed Anemia 100 mcg, Subcutaneou s, Once, Indications: Anemia, 03/03/20 at 1545, For 1 dose [facility] Anemia Medication administered onsite carvedilol 12.5 MG Oral Tablet CARVEDILOL 03/02/2020 12:00:00 AM EDT tablet 90 TAKE ONE TABLET BY MOUTH TWICE A DAY TAKE ONE TABLET BY MOUT H TWICE A DAY SOLD: 03/05/2020 [facility] carvedilol 12.5 MG Oral Tablet CARVEDILOL 03/02/2020 12:00:00 AM EDT tablet 90 TAKE ONE TABLET BY MOUTH TWICE A DAY TAKE ONE TABLET BY MOUT H TWICE A DAY SOLD: 04/14/2020 [facility] BLOOD SUGAR DIAGNOSTIC 02/27/2020 12:00:00 AM EDT strip 100 TEST BLOOD SUGAR THREE TIMES A DAY TEST BLOOD SUGAR THREE TIMES A DAY SOLD: 02/29/2020 [facility] 40 mg 02/27/2020 12:00:00 AM EDT tablet,delayed release (DR/EC) 180 TAKE ONE TABLET BY MOUTH TWICE A DAY NEEDED TAKE ONE TABLET BY MOUTH TWICE A DAY NEEDED SOLD: 02/29/2020 [facility] BLOOD SUGAR DIAGNOSTIC 02/27/2020 12:00:00 AM EDT strip 100 TEST BLOOD SUGAR THREE TIMES A DAY TEST BLOOD SUGAR THREE TIMES A DAY SOLD: 01/23/2021 [facility] 40 mg 02/17/2020 12:00:00 AM EDT tablet 90 TAKE ONE TABLET BY MOUTH EVERY DAY TAKE ONE TABLET BY MOUTH EVERY DAY SOLD: 02/20/2020 [facility] 50 mg 02/12/2020 12:00:00 AM EDT tablet 120 TAKE ONE TABLET BY MOUTH FOUR TIMES A DAY NEEDED * MAXIMUM DAILY DOSE = 4 TAKE ONE TABLET BY MOUTH FOUR TIMES A DAY NEEDED * MAXIMUM DAILY DOSE = 4 SOLD: 02/12/2020 [facility] Clonidine Hydrochloride 0.1 MG Oral Tablet Clonidine HCL 02/11/2020 12:00:00 AM EDT ORAL active [facility] ([facility]) Clonidine Hydrochloride 0.1 MG Oral Tablet CLONIDINE HCL 02/06/2020 12:00:00 AM EDT tablet 60 TAKE ONE TABLET BY MOUTH TWI CE A DAY TAKE ONE TABLET BY MOUTH TWICE A DAY SOLD: 02/07/2020 [facility] Clonidine Hydrochloride 0.1 MG Oral Tablet cloNIDine ( CATAPRES) 0.1 MG tablet cloNIDine (CATAPRES) 0.1 MG tablet 02/06/2020 12:00:00 AM EDT 0.1 mg Oral active Take 1 tablet (0.1 mg total) by mouth 2 (two) times a day [facility] carvedilol 12.5 MG Oral Tablet carvedilol (COREG) 12.5 MG tablet carvedilol (COREG) 12.5 MG tablet 02/06/2020 12:00:00 AM EDT 12.5 mg Oral active Take 1 tablet (12.5 mg total) by mouth 2 (two) times a day [facility] technetium sestamibi (CARDIOLITE) injection 11 millicurie 02/05/2020 03:00:00 PM EDT 11 mCi Intravenous completed 11 millicurie, Intravenous, Once, Cher 820 at 1500, For 1 dose [facility] Medication administered onsite technetium sestamibi (CARDIOLITE) injection 34 millicurie 02/05/2020 03:00:00 PM EDT 34 mCi Intravenous completed 34 millicurie, Intravenous, Once, Cher 820 at 1500, For 1 dose [facility] Medication administered onsite Hydralazine Hydrochloride 25 MG Oral Tab let hydrALAZINE (APRESOLINE) tablet 25 mg hydrALAZINE (APRESOLINE) tablet 25 mg 02/05/2020 02:00:00 PM EDT 25 mg Oral active 25 mg, Oral, E very 8 hours (scheduled), First dose on Cher 02/05/20 at 1400
Hold for systolic blood pressure less than 140
[facility] Medication administered onsite Clonidine Hydrochloride 0.1 MG Oral Tablet cloNIDine ( CATAPRES) tablet 0.1 mg cloNIDine (CATAPRES) tablet 0.1 mg 02/05/2020 10:00:00 AM EDT 0.1 mg Oral active 0.1 mg, Oral, 2 times daily, Fir st dose on Cher 02/05/20 at 1000 [facility] Medication administered onsite gabapentin 100 MG Oral Capsule gabapentin (NEURONTIN) capsule 100 mg gabapentin (NEURONTIN) capsule 100 mg 02/05/2020 09:00:00 AM EDT 100 mg Oral active 100 mg, Oral, Daily, First dose on Sun at 0900 [facility] Medication administered onsite Hydralazine Hydrochloride 20 MG/ML Injec table Solution hydrALAZINE (APRESOLINE) injection 10 mg hydrALAZINE (APRESOLINE) injection 10 mg 02/05/2020 07 :00:00 AM EDT 10 mg completed 10 mg, Intravenous Push, Once, Cher 02/05/20 at 0700, For 1 dose [facility] Medication administered onsite gabapentin 100 MG Oral Capsule gabapentin (NEURONTIN) capsule 200 mg gabapentin (NEURONTIN) capsule 200 mg 02/04/2020 09:00:00 PM EDT 200 mg Oral active 200 mg, Oral, Nightly, First dose on Sun02/04/20 at 2100 [facility] Medication administered onsite Trazodone Hydrochloride 50 MG Oral Tablet traZODone (D ESYREL) tablet 50 mg traZODone (DESYREL) tablet 50 mg 02/04/2020 09:00:00 PM EDT 50 mg Oral active 50 mg, Oral, Nightly, First dose on Sun02/04/20 at 2100 [facility] Medication administered onsite Benazepril hydrochloride 10 MG Oral Tablet benazepril (LOTENSIN) tablet 40 mg benazepril (LOTENSIN) tablet 40 mg 02/04/2020 09:00:00 PM EDT 40 mg Oral active 40 mg, Oral, Nightly , First dose on Sun02/04/20 at 2099
Hold if SBP < 115 or DBP < 70 and call if held to discuss.
[facility] Medication administered onsite Donepezil hydrochloride 10 MG Oral Tablet donepezil (A RICEPT) tablet 10 mg donepezil (ARICEPT) tablet 10 mg 02/04/2020 09:00:00 PM EDT 10 mg Oral active 10 mg, Oral, Nightly, First dose on Sun02/04/20 at 2099 [facility] Medication administered onsite Hydralazine Hydrochloride 10 MG Oral Tab let hydrALAZINE (APRESOLINE) tablet 10 mg hydrALAZINE (APRESOLINE) tablet 10 mg 02/04/2020 06:00:00 PM EDT 10 mg Oral aborted 10 mg, Oral, E very 8 hours (scheduled), First dose on Sun02/04/20 at 1800
Hold for systolic blood pressure less than 140
[facility] Medication administered onsite regadenoson (LEXISCAN) solution 0.4 mg [id number] 02/04/2020 11:5 0:00 AM EDT 0.4 mg Intravenous completed 0.4 mg, Intravenous, Once, Sun02/04/20 at 1150, For 1 dose, [employer]
No Caffeine, Theophylline, or Dipyridamole (Aggrenox) for 12 hours prior to dose. If patient has had any of these, contact MD immediately
[facility] Medication administered onsite pantoprazole 40 MG Delayed Release Oral Tablet pantoprazole (PROTONIX) EC tablet 40 mg pantoprazole (PROTONIX) EC tablet 40 mg 02/04/2020 09:00:00 AM E DT 40 mg Oral active Gastroesophageal Reflux Diseas e 40 mg, Oral, 2 times daily, Indications: Gastroesophageal Reflux Disease, First dose on Sun02/04/20 at 0900 [facility] Gastroesophageal Reflux Disease Medication administered onsite Amlodipine 10 MG Oral Tablet amLODIPine (NORVASC) tabl et 10 mg amLODIPine (NORVASC) tablet 10 mg 02/04/2020 09:00:00 AM EDT 10 mg Oral active 10 mg, Oral, Daily, First dose on Sun02/04/20 at 0900
Hold if SBP < 115 or DBP < 70 and call if held to discuss.
[facility] Medication administered onsite atorvastatin 40 MG Oral Tablet atorvastatin (LIPITOR) tablet 40 mg atorvastatin (LIPITOR) tablet 40 mg 02/04/2020 09:00:00 AM EDT 40 mg Oral active 40 mg, Oral, Daily, First dose on Sun02/04/20 at 0900 [facility] Medication administered onsite Citalopram 20 MG Oral Tablet citalopram (CeleXA) table t 20 mg citalopram (CeleXA) tablet 20 mg 02/04/2020 09:00:00 AM EDT 20 mg Oral active 20 mg, Oral, Daily, First dose on Sun02/04/20 at 0900 [facility] Medication administered onsite gabapentin 100 MG Oral Capsule gabapentin (NEURONTIN) capsule 200 mg gabapentin (NEURONTIN) capsule 200 mg 02/04/2020 09:00:00 AM EDT 200 mg Oral aborted 200 mg, Oral, TIDSS, First dose on Sun at 0900 [facility] Medication administered onsite Oxybutynin chloride 5 MG Oral Tablet oxybutynin (DITRO NEVES) tablet 5 mg oxybutynin (DITROPAN) tablet 5 mg 02/04/2020 09:00:00 AM EDT 5 mg Oral active 5 mg, Oral, 2 times daily, First dose on Sun02/04/20 at 0900 [facility] Medication administered onsite Aspirin 81 MG Chewable Tablet aspirin chewable tablet 81 mg aspirin chewable tablet 81 mg 02/04/2020 09:00:00 AM EDT 81 mg Oral activ e 81 mg, Oral, Daily, First dose on Sun02/04/20 at 0900 [facility] Medication administered onsite heparin (porcine) injection 5,000 Units [id number] 02/04/20 09:00:00 AM EDT 5000 U Subcutaneous active 5,000 Units , Subcutaneous, Every 12 hours (scheduled), First dose on Sun02/04/20 at 0900
If platelet count is less than 100,000 or hematocrit is less than 25, or if there is a 5 point decrease in hematocrit, do not give the dose and call physician/designee.
[facility] Medication administered onsite tramadol hydrochloride 50 MG Oral Tablet traMADol (ULT EL) tablet 50 mg traMADol (ULTRAM) tablet 50 mg 02/04/2020 08:19:32 AM EDT 50 mg Oral active 50 mg, Oral, Every 8 hours PRN, moderate pain (4-6), severe pain (7-10), Starting Sun02/04/20 at 0819 [facility] Medication administered onsite Nitroglycerin 0.02 MG/MG Topical Ointmen t nitroglycerin (NITROSTAT) 2 % ointment 0.5 inch nitroglycerin (NITROSTAT) 2 % ointment 0.5 inch 2019 08:10:00 AM EDT 0.5 g Topical completed Angina Pectoris 0.5 inch (0.5 g), Topical, Once, Sun02/04/20 at 0810, For 1 dose [facility] Angina Pectoris Medication administered onsite carvedilol 6.25 MG Oral Tablet carvedilol (COREG) tabl et 12.5 mg carvedilol (COREG) tablet 12.5 mg 02/04/2020 08:10:00 AM EDT 12.5 mg Oral active 12.5 mg, Oral, 2 times daily, First dose on Sun02/04/20 at 0810
Hold if HR < 60 or SBP < 105 and call if held.
[facility] Medication administered onsite Insulin Lispro 100 UNT/ML Injectable Irena ution insulin lispro (HumaLOG) injection 1-6 Units insulin lispro (HumaLOG) injection 1-6 Units 0 08:00:00 AM EDT Subcutaneous active 1-6 Units, Subcutaneous, MEALSS, First dose on Sun02/04/20 at 0800
Frail 3 units Nutritional and Correction Insulin Scale Blood Glucose (mg/dl) <70 start hypoglycemia protocol Glucose &nbsp ; Eats >=50% Eats &l t;50% Eats Nothing (mg/dl) of meal of meal or NPO &nb sp; 70- 120 2 units 1 units 0 units 121-170 & nbsp; 3 units 2 units 0 units 171-220 &nbsp ; 4 units 2 units 1 units 221-270 &am p;nbsp; 4 units 3 units 1 units 271-320 &n bsp; 5 units 3 units 2 units 321- 370 5 units 4 units 2 units 371- 420 6 units 4 units 3 units >420 call MD 6 units 5 units 3 units Test glucose within 30 minutes of insulin administration. Administer insulin within 15 minutes (before or after) of t he patient starting to eat. For patients that are NPO, use the NPO (correction) scale to cover POC glucose at 08:00, 12:00, 17:00.
[facility] Medication administered onsite sodium chloride 0.9% (NS) infusion [id number] 02/04/2020 07:00:00 A M EDT Intravenous aborted at 50 mL/hr, Intravenous, Continuous, Starting Sun02/04/20 at 0700 [facility] Medication administered onsite Levothyroxine Sodium 0.025 MG Oral Table t levothyroxine (SYNTHROID, LEVOTHROID) tablet 25 mcg levothyroxine (SYNTHROID, LEVOTHROID) tablet 25 mcg 06:40:00 AM EDT 25 ug Oral active 25 mcg, Oral, Daily, First dose on Sun02/04/20 at 0640
hold for 1 hour before and 1 hour after tube feeds if patient is on tube feed
[facility] Medication administered onsite Docusate Sodium 100 MG Oral Capsule docusate sodium (C OLACE) capsule 100 mg docusate sodium (COLACE) capsule 100 mg 02/04/2020 06:26:22 AM EDT 100 mg Oral active 100 mg, Oral, 2 times daily PRN, constipation, Starting Sun02/04/20 at 0626
hold for loose stools
[facility] Medication administered onsite Acetaminophen 325 MG Oral Tablet acetaminophen (TYLENO L) 325 MG tablet 650 mg acetaminophen (TYLENOL) 325 MG tablet 650 mg 02/04/2020 06:25:10 AM EDT 650 mg Oral active 650 mg, Or al, Every 4 hours PRN, mild pain (1-3), headaches, Starting Sun02/04/20 at 0625
"Maximum dose of acetaminophen is 4,000 mg from all sources in 24 hours."
[facility] Medication administered onsite tramadol hydrochloride 50 MG Oral Tablet traMADol (ULT EL) tablet 50 mg traMADol (ULTRAM) tablet 50 mg 02/04/2020 03:45:00 AM EDT 50 mg Oral completed 50 mg, Oral, Once, Sun02/04/20 at 0345, For 1 dose [facility] Medication administered onsite iopamidol (ISOVUE-370) 76 % 70 mL [id number] 02/04/2020 02:54:43 AM E DT 70 mL Intravenous completed 70 mL, Intrav enous, Once in imaging, contrast, Starting Sun02/04/20 at 0254, For 1 dose [facility] Medication administered onsite Labetalol HCl SOSY 20 mg [id number] 02/04/2020 02:30:00 AM EDT 20 mg completed 20 mg, Intravenous P ush, Once, Sun02/04/20 at 0230, For 1 dose
See Labetalol Notice for Special Handling Instructions
[facility] Medication administered onsite sodium chloride 0.9% (NS) bolus 1,000 mL [id number] 02/04/2020 01:30:00 AM EDT 1000 mL Intravenous completed 1, 000 mL, Intravenous, Administer over 1 Hours, Once, Sun02/04/20 at 0130, For 1 dose [facility] Medication administered onsite pantoprazole 40 MG Delayed Release Oral Tablet PANTOPRAZOLE SODIUM 02/01/2020 12:00:00 AM EDT tablet,delayed release (DR/EC) 60 T BIRGIT ONE TABLET BY MOUTH TWICE A DAY NEEDED TAKE ONE TABLET BY MOUTH TWICE A DAY NEEDED SOLD: 02/01/2020 [facility] 25 mcg 01/29/2020 12:00:00 AM EDT tablet 90 TAKE ONE TABLET BY MOUTH EVERY DAY TAKE ONE TABLET BY MOUTH EVERY DAY SOLD: 02/01/2020 [facility] torsemide 10 MG Oral Tablet Torsemide Torsemide 2019 01:22:08 PM EDT TABLET 10 MG ORAL completed [facility] Oxybutynin chloride 5 MG Oral Tablet OXYBUTYNIN CHLORIDE 01/2020 12:00:00 AM EDT tablet 60 TAKE ONE TABLET BY MOUTH TWI CE A DAY TAKE ONE TABLET BY MOUTH TWICE A DAY SOLD: 02/17/2020 [facility] 100 mg 03/28/2019 12:00:00 AM EDT capsule 180 TAKE ONE CAPSULE BY MOUTH TWICE A DAY FOR 1 WEEK THEN 2 CAPSULES TWO TIMES A DAY TAKE ONE CAPSULE BY MOUTH TWICE A DAY FOR 1 WEEK THEN 2 CAPSULES TWO TIMES A DAY SOLD: 02/17/2020 [facility] 10 mg 02/05/2019 12:00:00 AM EDT tablet 90 TAKE ONE TABLET BY MOUTH EVERY DAY TAKE ONE TABLET BY MOUTH EVERY DAY SOLD: 02/01/2020 [facility] Amlodipine 10 MG Oral Tablet Amlodipine 02/04/2019 02:27:16 PM EDT TA BLET 10 MG ORAL completed [facility] Zolpidem tartrate 5 MG Oral Tablet Zolpidem 03/13/2017 01:31:00 PM EDT TABLET 5 MG ORAL completed [facility] Aspirin 81 MG Delayed Release Oral Tablet Aspirin 2016 10:23:25 AM EDT UNASSIGNED 81 MG ORAL completed [facility] Levothyroxine Sodium 0.025 MG Oral Tablet Levothyroxine 12/07/2016 02:05:41 PM EDT TABLET 25 MCG ORAL completed [facility] Citalopram 20 MG Oral Tablet Citalopram (Celexa) 20 MG tablet Citalopram (Celexa) 20 MG tablet 12/07/2016 02:05:41 PM EDT TABLET 20 MG ORAL completed [facility] 3 ML Insulin Glargine 100 UNT/ML Pen Inj tanner Insulin Glargine (Lantus Solostar U-100 Insulin) 100 UNIT/ML insulin pen Insulin Glargine (Lantus Solostar U-100 Insulin) 100 UNIT/ML insulin pen 12/07/2016 02:05:41 PM EDT UNASSIGNED 16 U NIT SUBCUTANEOUSLY completed [facility] Insulin Glargine 100 UNT/ML Injectable S olution insulin glargine (LANTUS) 100 UNIT/ML injection insulin glargine (LANTUS) 100 UNIT/ML injection 16 U Subcutaneous aborted Inject 16 Units u nder the skin nightly [facility] meloxicam 7.5 MG Oral Tablet meloxicam (MOBIC) 7.5 MG tablet meloxicam (MOBIC) 7.5 MG tablet 7.5 mg Oral aborted Ta ke 7.5 mg by mouth 2 (two) times a day [facility] Docusate Sodium 100 MG Oral Capsule docusate sodium (C OLACE) 100 MG capsule docusate sodium (COLACE) 100 MG capsule 50 mg Oral aborted Take 50 mg by mouth 2 (two) times a day [facility] carvedilol 12.5 MG Oral Tablet carvedilol (COREG) 12.5 MG tablet carvedilol (COREG) 12.5 MG tablet 12.5 mg Oral aborted Take 12.5 mg by mouth 2 (two) times a day [facility] Zolpidem tartrate 5 MG Oral Tablet zolpidem (AMBIEN) 5 MG tablet zolpidem (AMBIEN) 5 MG tablet 5 mg Oral aborted Take 5 mg by mouth nightly as needed for sleep [facility] Insurance Providers Payer name Policy type / Coverage type Policy ID Covered democrat ID Covered democrat's relationship to portillo Policy [place] Plan Information MEDICARE A [id number] Self [id number] N77 [facility] [id number] Self [id number] MEDICARE [id number] Taya [id number] N77 MEDICARE [id number] SP [id number] N77 Medicare C [id number] SELF [id number] A MEDICARE A [id number] Self [id number] A MEDICARE [id number] SP [id number] A MEDICARE [id number] [id number] MEDICARE A [id number] Self [id number] U97 MEDICARE [id number] Taya [id number] U97 Blue Cross Blue Shield P [id number] SELF [id number] Blue Cross Blue Shield P [id number] SELF [id number] Blue Cross Blue Shield P [id number] SELF [id number] BC/BS Pos Health Maintenance Organization (HMO) [id number] Self [id number] [id number] BC/BS Pos Health Maintenance Organization (HMO) [id number] [id number] Self [id number] [id number] BLUE CROSS [id number] SP [id number] EXCELLUS C [id number] Self [id number] BC/BS Pos Health Maintenance Organization (HMO) [id number] 2.16.840.1.061258.3.227.99.8656.462.0 Self VY [id number] BC/BS Pos Health Maintenance Organization (HMO) [id number] Self [id number] EXCELLUS BCBS [id number] [employer]CELLUS BCBS [id number] Taya [id number] BC/BS Pos Health Maintenance Organization (HMO) [id number] 2.16.840.1.164731.3.227.99.8656.462.0 Self VY [id number] BC/BS Pos Health Maintenance Organization (HMO) [id number] Self [id number] BC/BS Pos Health Maintenance Organization (HMO) [id number] 07 2.16.840.1.711665.3.227.99.8656.462.0 Self VY [id number] BC/BS Pos Health Maintenance Organization (HMO) [id number] 07 2.16.840.1.704025.3.227.99.8656.462.0 Self VY [id number] BC/BS Pos Health Maintenance Organization (HMO) [id number] 07 2.16.840.1.233392.3.227.99.8656.462.0 Self VY [id number] BC/BS Pos Health Maintenance Organization (HMO) [id number] 07 2.16.840.1.841834.3.227.99.8656.462.0 Self VY [id number] BC/BS Pos Health Maintenance Organization (HMO) [id number] Se lf BLUE CROSS [id number] SP [id number] BC/BS Pos Health Maintenance Organization (HMO) [id number] 07 2.16.840.1.592569.3.227.99.8656.462.0 Self VY [id number] BC/BS Pos Health Maintenance Organization (HMO) [id number] 07 2.16.840.1.786167.3.227.99.8656.462.0 Self VY [id number] BC/BS Pos Health Maintenance Organization (HMO) [id number] 07 2.16.840.1.104967.3.227.99.8656.462.0 Self VY [id number] BC/BS Pos Health Maintenance Organization (HMO) [id number] 07 2.16.840.1.604834.3.227.99.8656.462.0 Self VY [id number] BC/BS Pos Health Maintenance Organization (HMO) [id number] 07 2.16.840.1.949228.3.227.99.8656.462.0 Self VY [id number] DME Jurisdiction A NHIC C [id number] SELF [id number] BS [employer] Medigap Part B [id number] 2.16.840.1.989739.3.227.99.991.373344.0 Self [id number] Medicare [place] Medicare Primary [id number] 2.0.1.548756.3.227.99.991.601040.0 Self [id number] [facility] Part B [id number] 2.0.1.175872.3.227.99.991.425372.0 Self [id number] Medicare [place] Medicare Primary [id number] 2.0.1.509934.3.227.99.991.251964.0 Self [id number] BLUE CROSS [id number] SP [id number] SELF PAY MEDICARE [id number] SP [id number] N77 SELF PAY MEDICARE [id number] SP [id number] N77 BLUE CROSS [id number] SP [id number] SELF PAY BLUE CROSS [id number] SP [id number] MEDICARE [id number] SP [id number] N77 SELF PAY BLUE CROSS [id number] SP [id number] MEDICARE [id number] SP [id number] N77 MEDICARE [id number] SP [id number] N77 SELF PAY BLUE CROSS [id number] SP [id number] MEDICARE [id number] SP [id number] N77 SELF PAY SELF PAY BLUE CROSS [id number] SP [id number] MEDICARE [id number] SP [id number] N77 SELF PAY BLUE CROSS [id number] SP [id number] MEDICARE [id number] SP [id number] N77 MEDICARE [id number] SP [id number] U97 SELF PAY BLUE CROSS [id number] SP [id number] MEDICARE [id number] SP [id number] N77 SELF PAY BLUE CROSS [id number] SP [id number] BLUE CROSS [id number] SP [id number] SELF PAY MEDICARE [id number] SP [id number] N77 MEDICARE [id number] SP [id number] U97 SELF PAY BLUE CROSS [id number] SP [id number] MEDICARE [id number] SP [id number] N77 Medicare C [id number] SELF [id number] U97 SELF PAY BLUE CROSS [id number] SP [id number] SELF PAY MEDICARE [id number] SP [id number] U97 MEDICARE [id number] SP [id number] N77 INSURANCE COVID-19 COVID Taya C OVID SELF PAY BLUE CROSS [id number] SP [id number] MEDICARE [id number] SP [id number] U97 MEDICARE [id number] SP [id number] U97 BLUE CROSS [id number] SP [id number] SELF PAY BLUE CROSS [id number] SP [id number] MEDICARE [id number] SP [id number] SELF PAY SELF PAY SELF PAY SELF PAY BLUE CROSS [id number] SP [id number] MEDICARE [id number] SP [id number] U97 MEDICARE [id number] SP [id number] U97 SELF PAY BLUE CROSS [id number] SP [id number] SELF PAY BLUE CROSS [id number] SP [id number] MEDICARE [id number] SP [id number] U97 BLUE CROSS [id number] SP [id number] SELF PAY MEDICARE [id number] SP [id number] U97 BS CN[place] Medigap Part B [id number] Self [id number] BS [place] Medigap Part B [id number] 2.16.840.1.183156.3.227.99.8656. 462.0 Self [id number] Medicare Medicare Primary [id number] 2.16.840.1.197576.3.227.99.865 6.462.0 Self [id number] MEDICARE [id number] SP [id number] A MEDICARE [id number] SP [id number] N77 MEDICARE [id number] SP [id number] U97 Medicare Medicare Primary [id number] 2.16.840.1.502445.3.227.99.865 6.462.0 Self [id number] [place] Medigap Part B [id number] 2.0.1.679807.3.227.99.8656. 462.0 Self [id number] Medicare Medicare Primary [id number] 2.840.1.415835.3.227.99.865 6.462.0 Self [id number] BS [place] Medigap Part B [id number] 2.840.1.944804.3.227.99.8656. 462.0 Self [id number] BS [place] Medigap Part B [id number] 2.840.1.520142.3.227.99.8656. 462.0 Self [id number] [place] Medigap Part B [id number] Self [id number] Medicare Medicare Primary [id number] 2.840.1.920669.3.227.99.865 6.462.0 Self [id number] [id number] S [id number] BS [place] Medigap Part B [id number] 2.0.1.128345.3.227.99.8656. 462.0 Self [id number] Medicare Medicare Primary [id number] 2.840.1.124755.3.227.99.865 6.462.0 Self [id number] MEDICARE C [id number] S [id number] A BS [place] Medigap Part B [id number] 2.840.1.275814.3.227.99.8656. 462.0 Self [id number] Medicare Medicare Primary [id number] 2.840.1.252736.3.227.99.865 6.462.0 Self [id number] BCBS [place] 304/804 [id number] SP [id number] BS [place] Medigap Part B [id number] 2.0.1.957633.3.227.99.8656. 462.0 Self [id number] Medicare Medicare Primary [id number] 2.0.1.872058.3.227.99.865 6.462.0 Self [id number] Medicare Medicare Primary [id number] Self [id number] [place] Medigap Part B [id number] 2.0.1.269065.3.227.99.8656. 462.0 Self [id number] Medicare Medicare Primary [id number] 2.0.1.219291.3.227.99.865 6.462.0 Self [id number] BLUE CROSS [id number] SP [id number] BS [place] Medigap Part B [id number] 2.0.1.281400.3.227.99.8656. 462.0 Self [id number] Medicare Medicare Primary [id number] 2.0.1.560161.3.227.99.865 6.462.0 Self [id number] [place]BS [place] 306/806 [id number] SP [id number] BS [place] Medigap Part B [id number] 2.16.840.1.703268.3.227.99.8656. 462.0 Self [id number] Medicare Medicare Primary [id number] 2.16.840.1.678914.3.227.99.865 6.462.0 Self [id number] Medicare Medicare Primary [id number] 2.16.840.1.092182.3.227. 99.8656.462.0 Self [id number] [place] Medigap Part B [id number] 2.16.840.1.913400.3.227.99.8656. 462.0 Self [id number] Medicare Medicare Primary [id number] 2.16.840.1.911160.3.227.99.865 6.462.0 Self [id number] BS [place] Medigap Part B [id number] 2.16.840.1.777297.3.227.99.8656. 462.0 Self [id number] BS [place] Medigap Part B [id number] 2.16.840.1.696801.3.227.99.8656. 462.0 Self [id number] Medicare Medicare Primary [id number] 2.16.840.1.326500.3.227.99.865 6.462.0 Self [id number] [employer] BCBS B [id number] S [id number] MEDICARE C [id number] S [id number] N77 BC/BS [employer] [id number] Self BS [place] Medigap Part [id number] Self Medicare Medicare Primary 1430 Self BCBS [place] 304/804 [id number] SP [id number] BCBS [place] 304/804 [id number] SP [id number] BC/BS [employer] [id number] Self [id number] Medicare Medicare Primary [id number] Self [id number] Problems, Conditions, and Diagnoses Code Display Name Description Problem Type Effective Dates Data Source(s) M25.551 Pain in right hip M25.551 - Pain in right hip Diagnosi s 02/14/2021 03:30:00 PM EDT [facility] M16.11 Unilateral primary osteoarthritis, right hip M16.11 - Unilateral primary osteoarthritis, right hip Diagnosis 01/14/2021 10:14:00 AM EDT [facility] M70.62 Trochanteric bursitis, left hip M70.62 - Trochan teric bursitis, left hip Diagnosis 01/14/2021 10:14:00 AM EDT [facility] M48.061 Spinal stenosis, lumbar region without n eurogenic claudication M48.061 - Spinal stenosis, lumbar region without neurogenic claudication Diagnosis 01/14/2021 10:14:00 AM EDT [facility] M48.062 Spinal stenosis, lumbar region with neur ogenic claudication M48.062 - Spinal stenosis, lumbar region with neurogenic claudication Diagnosis 01/14/2021 10:14:00 AM EDT [facility] N18.30 N18.30 - Chronic kidney disease, stage 3 unspecified N18.30 - Chronic kidney disease, stage 3 unspecified Diagnosis 11/24/2020 01:18:00 PM E DT [facility] I34.0 Nonrheumatic mitral (valve) insufficienc y I34.0 - Nonrheumatic mitral (valve) insufficiency Diagnosis 11/24/2020 01:18:00 PM EDT [facility] I50.30 Unspecified diastolic (congestive) heart failure I50.30 - Unspecified diastolic (congestive) heart failure Diagnosis 11/24/2020 01:18:00 PM EDT [facility] I48.0 Paroxysmal atrial fibrillation I48.0 - Paroxysma l atrial fibrillation Diagnosis 11/24/2020 01:18:00 PM EDT [facility] E78.5 Hyperlipidemia, unspecified E78.5 - Hyperlipidemia, un specified Diagnosis 11/24/2020 01:18:00 PM EDT [facility] I10 Essential (primary) hypertension I10 - Essential (primary) hypertension Diagnosis 11/24/2020 01:18:00 PM EDT [facility] Z98.61 Coronary angioplasty status Z98.61 - Coronary an gioplasty status Diagnosis 11/24/2020 01:18:00 PM EDT [facility] I25.10 Atherosclerotic heart diseas e of [place] coronary artery without angina pectoris I25.10 - Atherosclerotic heart disease o f [place] coronary artery without angina pectoris Diagnosis 11/24/2020 01:18:00 PM EDT [facility] E87.1 Hypo-osmolality and hyponatremia E87.1 - Hypo-os molality and hyponatremia Diagnosis 11/11/2020 01:12:00 PM EDT [facility] E61.1 Iron deficiency Iron deficiency Diagnosis 03/03/2020 03:4 4:23 PM EDT [facility] N18.3 Chronic kidney disease, stage 3 (moderat e) N18.3 - Chronic kidney disease, stage 3 (moderate) Diagnosis 03/03/2020 02:04:00 [facility] I16.1 Hypertensive emergency Hypertensive emergency Diagnosi s 02/04/2020 12:23:30 AM EDT [facility] F02.80 Dementia in other diseases c lassified elsewhere without behavioral disturbance Dementia in other diseases classified el Diagnosis 02/04/2020 12:23:30 AM EDT [facility] 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 Diagnosis 02/04/2020 12:23:30 AM EDT [facility] R07.9 Chest pain, unspecified Chest pain, unspecified Diagno sis 02/04/2020 12:23:30 AM EDT [facility] R07.9 Chest pain Chest pain [id number] 02/05/2020 12:00:00 AM ED T [facility] G30.1 Uncomplicated late onset Alzheimer's dem entia Uncomplicated late onset Alzheimer's dementia [id number] 02/04/2020 12:00:00 AM EDT [facility] I25.10 Coronary artery disease, moderate, 2019 CATH Coronary artery disease, moderate, 2019 CATH [id number] 02/04/2020 12:00:00 AM EDT [facility] I38 VHD (valvular heart disease) VHD (valvular heart disea se) [id number] 02/04/2020 12:00:00 AM EDT [facility] I16.1 Hypertensive emergency Hypertensive emergency [id number] 02/04/2020 12:00:00 AM EDT [facility] I10 Episode of hypertension, severe Episode of hypertensio n, severe [id number] 02/04/2020 12:00:00 AM EDT [facility] R07.89 Chest discomfort Chest discomfort [id number] 02/04/2020 12 :00:00 AM EDT [facility] E78.5 Hyperlipidemia Hyperlipidemia [id number] 02/04/2020 12:00: 00 AM EDT [facility] E03.9 Hypothyroidism Hypothyroidism [id number] 02/04/2020 12:00: 00 AM EDT [facility] I10 Essential hypertension Essential hypertension [id number] 02/04/2020 12:00:00 AM EDT [facility] Surgeries/Procedures Procedure Description Date Indications Data Source(s) Plain x-ray of pelvis and lower extremity (procedure) 01/14/2021 10:33:48 AM EDT [facility] OFFICE OUTPATIENT VISIT 25 MINUTES 12/29/2020 12:00:00 AM EDT [facility] ([facility]) OFFICE OUTPATIENT VISIT 25 MINUTES 11/02/2020 12:00:00 AM EDT [facility] ([facility]) GLUC BLD GLUC MNTR DEV CLEARED FDA SPEC HOME USE <td>P OCT GLUCOSE</td><td>Routine</td><td>02/05/2020 5:29 PM EDT</td><td></td><td> </td> 02/05/2020 09:29:00 PM EDT [facility] MYOCARDIAL SPECT MULTIPLE STUDIES <td>NM CARDIAC GATED SPEC IMG EFWM</td><td>Routine</td><td>02/05/2020 2:43 PM EDT</td><td></td><td> </td> 02/05/2020 06:43:45 PM EDT [facility] CV STRS TST XERS&/OR RX CONT ECG PHYS SI&R <td>STRESS TEST, CARDIOVASCULAR</td><td>Routine</td><td>02/05/2020 1:36 PM EDT</td><td></td><td></td> 02/05/2020 05:36:56 PM EDT [facility] GLUC BLD GLUC MNTR DEV CLEARED FDA SPEC HOME USE <td>P OCT GLUCOSE</td><td>Routine</td><td>02/05/2020 9:03 AM EDT</td><td></td><td> </td> 02/05/2020 01:03:00 PM EDT [facility] GLUC BLD GLUC MNTR DEV CLEARED FDA SPEC HOME USE <td>P OCT GLUCOSE</td><td>Routine</td><td>02/04/2020 4:41 PM EDT</td><td></td><td> </td> 02/04/2020 08:41:00 PM EDT [facility] ECHO TTHRC R-T 2D W/WOM-MODE COMPL SPEC&COLR DOP <td>E CHOCARDIOGRAM TRANSTHORACIC</td><td>Routine</td><td>02/04/2020 3:29 PM EDT</td><td></td><td> </td> 02/04/2020 07:29:01 PM EDT [facility] GLUC BLD GLUC MNTR DEV CLEARED FDA SPEC HOME USE <td>P OCT GLUCOSE</td><td>Routine</td><td>02/04/2020 2:01 PM EDT</td><td></td><td> </td> 02/04/2020 06:01:00 PM EDT [facility] CV STRS TST XERS&/OR RX CONT ECG PHYS SI&R <td>STRESS TEST, CARDIOVASCULAR</td><td>Routine</td><td>02/04/2020 11:34 AM EDT</td><td></td><td></td> 02/04/2020 03:34:54 PM EDT [facility] 2018 NCOV AMPLIFIED <td>2018 NCOV AMPLIFIED</td> <td>STAT</td><td>02/04/2020 4:37 AM EDT</td><td></td><td> </td> 02/04/2020 08:37:00 AM EDT [facility] TROPONIN QUANTITATIVE <td>POCT TROPONIN</td><td>Ro utine</td><td>02/04/2020 4:28 AM EDT</td><td></td><td> </td> 02/04/2020 08:28:00 AM EDT [facility] ECG ROUTINE ECG W/LEAST 12 LDS TRCG ONLY W/O I&R <td>E CG 12- LEAD</td><td>STAT</td><td>02/04/2020 4:17 AM EDT</td><td></td><td> </td> 02/04/2020 08:17:10 AM EDT [facility] CT ANGIOGRAPHY CHEST W/CONTRAST/NONCONTRAST <td>CT ANG IOGRAM CHEST</td><td>STAT</td><td>02/04/2020 3:20 AM EDT</td><td></td><td> </td> 02/04/2020 07:20:51 AM EDT [facility] XR CHEST PA AND LATERAL <td>XR CHEST PA AND LATERAL</td><td>STAT</td><td>02/04/2020 1:40 AM EDT</td><td></td><td> </td> 02/04/2020 05:40:56 AM EDT [facility] TROPONIN QUANTITATIVE <td>POCT TROPONIN</td><td>Ro utine</td><td>02/04/2020 12:51 AM EDT</td><td></td><td> </td> 02/04/2020 04:51:00 AM EDT [facility] ECG ROUTINE ECG W/LEAST 12 LDS TRCG ONLY W/O I&R <td>E CG 12- LEAD</td><td>STAT</td><td>02/04/2020 12:44 AM EDT</td><td></td><td> </td> 02/04/2020 04:44:31 AM EDT [facility] NT PRO BNP <td>NT PRO BNP</td><td>STAT< /td><td>02/04/2020 12:42 AM EDT</td><td></td><td> </td> 02/04/2020 04:42:00 AM EDT [facility] TROPONIN QUANTITATIVE <td>TROPONIN I</td><td>STAT< /td><td>02/04/2020 12:42 AM EDT</td><td></td><td> </td> 02/04/2020 04:42:00 AM EDT [facility] THROMBOPLASTIN TIME PARTIAL PLASMA/WHOLE BLOOD <td>APT T</td><td>Add- On</td><td>02/04/2020 12:42 AM EDT</td><td></td><td> </td> 02/04/2020 04:42:00 AM EDT [facility] PROTHROMBIN TIME <td>PROTIME-INR</td><td>Add- On</td><td>02/04/2020 12:42 AM EDT</td><td></td><td> </td> 02/04/2020 04:42:00 AM EDT [facility] BLOOD COUNT COMPLETE AUTO&AUTO DIFRNTL WBC COUNT <td>C BC AND DIFFERENTIAL</td><td>STAT</td><td>02/04/2020 12:42 AM EDT</td><td></td><td> </td> 02/04/2020 04:42:00 AM EDT [facility] THYROID STIMULATING HORMONE TSH <td>TSH</td><td>Add-On </td><td>02/04/2020 12:42 AM EDT</td><td></td><td> </td> 02/04/2020 04:42:00 AM EDT [facility] THYROXINE FREE <td>T4, FREE</td><td>Add-On< /td><td>02/04/2020 12:42 AM EDT</td><td></td><td> </td> 02/04/2020 04:42:00 AM EDT [facility] MAGNESIUM <td>MAGNESIUM</td><td>STAT</ td><td>02/04/2020 12:42 AM EDT</td><td></td><td> </td> 02/04/2020 04:42:00 AM EDT [facility] LIPASE <td>LIPASE</td><td>STAT</td> <td>02/04/2020 12:42 AM EDT</td><td></td><td> </td> 02/04/2020 04:42:00 AM EDT [facility] HEMOGLOBIN GLYCOSYLATED A1C <td>HEMOGLOBIN A1C</td><td >Add-On</td><td>02/04/2020 12:42 AM EDT</td><td></td><td> </td> 02/04/2020 04:42:00 AM EDT [facility] HEPATIC FUNCTION PANEL <td>HEPATIC FUNCTION PANEL</td><td>STAT</td><td>02/04/2020 12:42 AM EDT</td><td></td><td> </td> 02/04/2020 04:42:00 AM EDT [facility] BASIC METABOLIC PANEL CALCIUM TOTAL <td>BASIC METABOLI C PANEL</td><td>STAT</td><td>02/04/2020 12:42 AM EDT</td><td></td><td> </td> 02/04/2020 04:42:00 AM EDT [facility] Results ID Date Data Source [id number] 02/14/2021 03:31:00 PM EDT [facility] [address], [address] [place] [address] [place] [address] Orthopedics Follow Up : [id number] Signed Patient: Manasa Calle Acct:[id number] Visit Date: 02/14/21 : 1930 Intake Vital Signs 02/14/21 15:42 Height 4 ft 8 in Weight 52.617 kg BMI 25.9 BP 166/68 H Blood Pressure Location Left Arm Position Sitting / Chair Pulse 60 Pulse Source O2 sat Monitor Temp 98.2 F Temp Source Temporal Artery Scan Pulse Oximetry (%) 95 Intake Patient Status Have you had an UC/ED visit and/or been admitted to the hospital since your last visit?: No Have you been diagnosed with COVID- 19?: No Visit Reasons: Right hip pain Nurse Note: 89 yr old female, follow up for right hip pain. Patient as a left hip injection on 01/14/21 and is requesting a right hip injection today. Zhane Cade LPN acted as a painting supervisor and accompanied Dr. Balbuena through out the entire office visit. Gyroscope Technician Required: No Is patient in pain?: Yes Pain Scale (0-10): 6 Pain scale used: 0- 10 numeric scale Primary Care Physician:: Perla Guerrero Have you smoked within the past year: No Allergies No Known Allergies Allergy (Verified 02/14/21 15:32) Home Medications - Last Reconciled 02/14/21 by Zhane Cade LPN amlodipine 10 mg tablet 10 mg PO QDAY atorvastatin 40 mg tablet (Lipitor) 40 mg PO DAILY benazepril 40 mg tablet 40 mg PO QDAY calcium carbonate 600 mg (1,500 mg)- vitamin D3 400 unit tablet 1 tab PO DAILY carvedilol 12.5 mg tablet 12.5 mg PO BID cholecalciferol (vitamin D3) 25 mcg (1,000 unit) capsule 25 mcg PO DAILY clonidine HCl 0.1 mg tablet 0.1 mg PO DAILY diphenhydramine HCl 25 mg capsule (Allergy Medication) 25 mg PO TID PRN docusate sodium 50 mg capsule (Colace Clear) 50 mg PO DAILY donepezil 10 mg tablet 10 mg PO HS gabapentin 300 mg capsule 300 mg PO TID hydralazine 10 mg tablet 10 mg PO TID insulin aspart U-100 100 unit/mL subcutaneous cartridge (Novolog PenFill U-100 Insulin aspart) 10 units subcut AC BREAKFAST SUPPER insulin detemir U- 100 100 unit/mL (3 mL) subcutaneous pen (Levemir FlexTouch U-100 Insulin) 10 units subcut DAILY levothyroxine 50 mcg capsule 50 mcg PO DAILY multivitamin,ol-dcjo-zjydlxth (Complete Multivitamin) 1 tab PO DAILY oxybutynin chloride 5 mg tablet 5 mg PO BID pantoprazole 40 mg tablet,delayed release (Protonix) 40 mg PO BID rivaroxaban 15 mg tablet 15 mg PO DAILY rivaroxaban 15 mg tablet (Xarelto) [Sample] torsemide 10 mg tablet 10 mg PO DAILY tramadol 50 mg tablet 50 mg PO Q4H PRN trazodone 50 mg tablet 50 mg PO DAILY Patient understands their medications: Yes Patient given information on their new medications: No History of Smoking/Tobacco Use: Never Smoker Tobacco Product: Cigarettes Annual Influenza Vaccine: Yes Pneumococcal Vaccine (+65): Yes Have you received the Covid-19 vaccine?: Yes Did you complete the series?: Yes Immunizations up to date: Yes Recent Travel Travel Outside of the country in last 30 days?: No Mask given: Yes [facility] Medical History Alzheimer's disease Anemia Chronic renal insufficiency, stage III (moderate) Coronary artery disease catheterization 1996 - LAD 40% stenosis, fist diagonal 75% followed by a 90% stenosis, RCA 20% stenosis. At that time PCI to the diagonal branch of the LAD was performed. Diastolic dysfunction Gastroesophageal reflux disease Hiatal hernia Hyperlipidemia Hypertension Mild aortic stenosis Moderate mitral insufficiency Osteoarthritis Severe tricuspid valve insufficiency Type II diabetes mellitus Surgical History Stented coronary artery 1996 - LAD 40% stenosis, fist diagonal 75% followed by a 90% stenosis, RCA 20% stenosis. Mrs. Calle underwent PCI to the diagonal branch of the LAD. Family History Mother Diabetes mellitus Stroke Father Heart failure Social History Marital Status: / Occupational status: retired Nutrition Concerns: No Concerns at this time Alcohol Use: None Substance Use: never Orthopedics - HPI Injury/Condition Work related: No No fault: No Ortho Exam- F/U ONLY Exam Details: Subjective: The patient presents today for re- evaluation of her previous left hip injection and also presents today requesting a right hip injection. The patient is being evaluated with Zhane Cade LPN, who functioned as a painting supervisor and was present during the entire office visi t. The patient also presents with her daughter. The patient states that for 2 weeks her left hip felt wonderful after the injection, but that the pain has returned back to normal at this time. She does have complaints of global right hip pain. Objective: Evaluation of the left hip reveals improvement in her overall function with a preponderance of her pain still most likely stemming from referred lumbar pain. Full consent, taking a time-out, and marking the right greater trochanteric hip area, the area was injected with 80 mg of Depo- Medrol. 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 Mild bilateral hip bursitis Plan: We discussed the natural history. We discussed the my concern that most her pain is probably stemming from referred lumbar spine pain, and that the injections will not be all that effective for long periods of time. We will continue to monitor. Unfortunately, she is not a candidate for any other aggressive intervention related to her spine in terms of any surgery. Her condition was discussed with her and her daughter. Their questions were fielded to her satisfaction. I will see her back only as needed Assessment Plan (AMB) Assessment Plan (1) Right hip pain: Code(s): M25.551 - Pain in right hip Problems Did you add a problem (diagnosis code) to the patient?: No Medications Patient given information on their new medications: No Ortho Charges Long Injections Major joint/bursa: Yes Coding Diagnoses Right hip pain M25.551 Additional Codes Injections - Major joint/bursa: Yes () Comment mod25 Signed By:Caroline Balbuena DO <<Signature on File>> Signed Date/Time: 02/14/21 1604 Co-Signer: Co-Signed Date/Time: Initializing User: Caroline Balbuena DO 01/18 1531 1531 153 Name Value Range Interpretation Code Description Data Nita rce(s) Supporting Document(s) ID Date Data Source [id number] 02/08/2021 01:55:00 PM EDT [facility] [address], [address] [place] [address] Cardiology Note : [id number] Signed Patient: Manasa Calle Acct:[id number] Visit Date: 02/08/21 : 1930 cc: Yanick Guerrero MD Cardiology HPI History of present illness History of present illness: 89-year-old female who has a past medical history that is significant for coronary artery disease. She is status post percutaneous intervention to the diagonal branch ofthe LAD in 1996. Cardiac catheterization on March 05, 2019 revealed 60% stenosis involving the LAD, 60% stenosis involving the diagonal, 50% stenosis involving the right coronary artery, a 50% stenosis involving the ramus. Her other medical problems include paroxysmal atrial fibrillation, hypertension, diastolic heart dysfunctio n, mild mitral regurgitation, mild tricuspid regurgitation, mild aortic stenosis, hyperlipidemia, stage III chronic renal insufficiency, and Alzheimer disease. ----- She reports she slid off the edge of her bed the other day. She reports she usually slides forward to stand up and she just slid too far and she slid to the ground. She did bump her buttocks. She is having some back pain. She did not have a syncopal episode. She denies chest pain. Her dyspnea is stable. Denies palpitations. Does have some lower extremityedema. She reports the swelling came back once her left hip started to hurt again. Denies lightheadedness and syncope. She had a bed delivered today. She forgot to take her medications. She is still on Eliquis. She has not yet picked up the Xarelto. She reports she saw Nephrology in [place]. ----- TTE August of 2020 in [place]. Normal LVEF. Moderately dilated left atrium. Moderate MR. Moderate TR with no pulmonary hypertension. She underwent a TTE on 02/04/2020 at [facility]. LVEF 60%, diastolic dysfunction, moderate concentric LVH,left atrium moderately dilated, mild MR, mild TR with RVSP 40 mmHg. She underwent a pharmacologic nuclear stress test on 02/05/2020. No ischemia or infarct with normalLVEF. Intake Vital Signs 02/08/21 13:55 02/08/21 14:32 02/08/21 14:33 Height 4 ft 8 in Weight 51.71 kg BMI 25.5 BP 228/78 H 200/70 H 190/72 H Blood Pressure Location Left Arm Left Arm Right Arm Position Sitting / Chair Sitting / Chair Sitting / Chair Respiration 16 Pulse 58 L Pulse Source O2 sat Monitor Temp 98.0 F Temp Source Temporal Artery Scan Pulse Oximetry (%) 98 Oxygen Delivery Method room air Cardiology Intake Patient Status Have you had an UC/ED visit and/or been admitted to the hospital since your last visit?: No Have you been diagnosed with COVID-19?: No Recent Travel Travel Outside of the country in last 30 days?: No Mask given: No Visit Reasons: 3 mo fu Nurse Note: Manasa presents today for a follow up visit. She complains of swelling in her lower extremities. Gyroscope Technician Required: No Primary Care Physician:: Yanick Guerrero MD Have you smoked within the past year: No Allergies No Known Allergies Allergy (Verified 02/08/21 14:04) Home Medications - Last Reconciled 02/08/21 by TYRON Bhat amlodipine 10 mg tablet 10 mg PO QDAY atorvastatin 40 mg tablet (Lipitor) 40 mg PO DAILY benazepril 40 mg tablet 40 mg PO QDAY calcium carbonate 600 mg (1,500 mg)-vitamin D3 400 unit tablet 1 tab PO DAILY carvedilol 12.5 mg tablet 12.5 mg PO BID cholecalciferol (vitamin D3) 25 mcg (1,000 unit) capsule 25 mcg PO DAILY clonidine HCl 0.1 mg tablet 0.1 mg PO DAILY diphenhydramine HCl 25 mg capsule (Allergy Medication) 25 mg PO TID PRN docusate sodium 50 mg capsule (Colace Clear) 50 mg PO DAILY donepezil 10 mg tablet 10 mg PO HS gabapentin 300 mg capsule 300 mg PO TID insulin aspart U-100 100 unit/mL subcutaneous cartridge (Novolog PenFill U-100 Insulin aspart) 10 units subcut AC BREAKFAST SUPPER insulin detemir U-100 100 unit/mL (3 mL) subcutaneous pen (Levemir FlexTouch U-100 Insulin) 10 units subcut DAILY levothyroxine 50 mcg capsule 50 mcg PO DAILY multivitamin,sf-ubab-eltaxuxg (Complete Multivitamin) 1 tab PO DAILY oxybutynin chloride 5 mg tablet 5 mg PO BID pantoprazole 40 mg tablet,delayed release (Protonix) 40 mg PO BID rivaroxaban 15 mg tablet 15 mg PO DAILY torsemide 10 mg tablet 10 mg PO DAILY tramadol 50 mg tablet 50 mg PO Q4H PRN trazodone 50 mg tablet 50 mg PO DAILY History of Smoking/Tobacco Use: Never Smoker Tobacco Product: Cigarettes Annual Influenza Vaccine: Yes Pneumococcal Vaccine (+65): Yes Have you received the Covid-19 vaccine?: Yes Did you complete the series?: Yes Immunizations up to date: Yes Risk Assessment Predictor Tool (RAPT) Which gait aid do you use (more often t bowser not): Single-point stick [facility] Medical History Alzheimer's disease Anemia Chronic renal insufficiency, stage III (moderate) Coronary artery disease catheterization 1996 - LAD 40% stenosis, fist diagonal 75% followed by a 90% stenosis, RCA 20% stenosis. At that time PCI to the diagonal branch of the LAD was performed. Diastolic dysfunction Gastroesophageal reflux disease Hiatal hernia Hyperlipidemia Hypertension Mild aortic stenosis Moderate mitral insufficiency Osteoarthritis Severe tricuspid valve insufficiency Type II diabetes mellitus Surgical History Stented coronary artery 1996 - LAD 40% stenosis, fist diagonal 75% followed by a 90% stenosis, RCA 20% stenosis. Mrs. Calle underwent PCI to the diagonal branch of the LAD. Family History Mother Diabetes mellitus Stroke F ather Heart failure Social History Marital Status: / Occupational status: retired Nutrition Concerns: No Concerns at this time Alcohol Use: None Substance Use: never Cardiology ROS Const Details: A complete review of systems was performed and pertinent positives and negatives are noted in the HPI and below. Musc Details: Back pain, left hip pain Cardiology Exam Const General: cooperative, comfortable, no acute distress and well developed Nutritional Appearance: average body habitus Orientation: alert and awake Skin General skin exam: other (Warm and dry) Normal color: Yes Neck Neck: supple and no JVD present Carotids: normal carotid upstroke and no bruits Chest Chest: normal inspection of the chest Resp Effort Inspection: normal respiratory effort and able to speak in complete sentences Auscultation: clear to auscultation bilaterally, No rales, no rhonchi heard and No wheezes Cardio Rate: regular rate Rhythm: regular rhythm Heart Sounds: Yes S1 normal, S2 normal, gallop S4 gallop and murmur (Systolic 2/6 at the right uppersternal border and the apex) Pulses: radial pulses present bilaterally and posterior tibial pulses present bilaterally Neuro General: patient alert and patient awake Extrem General: no calf tenderness bilaterally, no cyanosis and edema (+1 left lower extremity, trace to +1on the right) Pulse: Posterior tibial R/L and Radial R/L Assessment Plan (AMB) Assessment Plan (1) Coronary artery disease: Status: Chronic Code(s): I25.10 - Atherosclerotic heart disease of grayling coronary artery without angina pectoris SNOMED Code(s): 15391278 Category: Medical Qualifiers: Coronary Disease-Associated Artery/Lesion type: grayling artery Associated angina: with otherforms of angina (2) Percutaneous transluminal coronary angioplasty status: Code(s): Z98.61 - Coronary angioplasty status (3) Hypertension: Code(s): I10 - Essential (primary) hypertension (4) Hyperlipidemia: Code(s): E78.5 - Hyperlipidemia, unspecified (5) Paroxysmal atrial fibrillation: Code(s): I48.0 - Paroxysmal atrial fibrillation (6) Diastolic heart failure: Code(s): I50.30 - Unspecified diastolic (congestive) heart failure (7) Mild mitral regurgitation: Code(s): I34.0 - Nonrheumatic mitral (valve) insufficiency (8) Chronic renal insufficiency, stage III (moderate): Code(s): N18.30 - Chronic kidney disease, stage 3 unspecified Problems Did you add a problem (diagnosis code) to the patient?: Yes Plan: Hypertension. Significantly elevated. She is asymptomatic. She reports she did not take themedications today. She forgot. She is going to go home and take them. I will have the nurse call her tomorrow and see what her blood pressures are. She was advised to call 911 if she develops any symptoms with her high blood pressure. Coronary artery disease status post PCI. No chest pain and dyspnea is stable. Continue statin therapy. Continue beta-blockade. She is on systemic anticoagulant. Nuclear stress test last year was normal. Hyperlipidemia. Continue atorvastatin for goal LDL less than 70. Moderate mitral and tricuspid regurgitation. Routine outpatient surveillance. Repeat echocardiogram in spring. Back pain. I encouraged her to call her PCP or go to the urgent care. Chronic renal insufficiency stage III. She is following with nephrology. Paroxysmal atrial fibrillation. No symptoms. Continue anticoagulant. She is finishing up the Eliquis and then will go to Xarelto. Continue beta-blockade. Call for questions or concerns or changes. Follow-up in 3 months. We will call her tomorrow regarding the blood p ressures. Comment: Please note that this document or parts of this document were dictated using HEXIO software. A reasonable attempt at proofreading has been made to minimize errors. Please call with any questions or corrections. Please do not hesitate to contact me with any questions. Coding Level of Care Code 50671 Estab Pt Level 4 Diagnoses Coronary artery disease I25.10 Coronary Disease-Associated Artery/Lesion type: grayling artery Associated angina: with other forms of angina Percutaneous transluminal coronary angioplasty status Z98.61 Hypertension I10 Hyperlipidemia E78.5 Paroxysmal atrial fibrillation I48.0 Diastolic heart failure I50.30 Mild mitral regurgitation I34.0 Chronic renal insufficiency, stage III (moderate) N18.30 Signed By:Caroline Wise <<Signature on File>> Signed Date/Time: 02/08/21 1441 Co-Signer: Fran Ba MD Co-Signed Date/Time: 02/08/21 1508 Initializing User: Caroline ACKERMAN [id number] 1355 Name Value Range Interpretation Code Description Data Nita rce(s) Supporting Document(s) ID Date Data Source [id number] 01/14/2021 11:56:00 [place] [address] Patient Name: Manasa Calle Exam Date: 01/14/21 : 1930 Ordering Doctor: Caroline Balbuena DO Attending Doctor: Caroline Balbuena DO CC: AP pelvis with right Hip: CLINICAL HISTORY: Pain Digital Radiography was utilized for this exam. Comparisons are made with a AP view of the pelvis obtained on 11/22/2020 Three views obtained. AP pelvis, AP and lateral views right hip were obtained. FINDINGS: No acute fracture, dislocation or bony abnormalities identified. There is mild narrowing of the superior aspect of the right hip joint.. The femoral head is normal and symmetric without deformity or other abnormality. There are no abnormal periarticular calcifications. The bones are osteopenic. There is a small enthesophyte arising from the inferior aspect of the greater trochanter. IMPRESSION: 1. There are no acute osseous abnormalities. There is mild narrowing of the superior aspect of the right hip joint. Professional interpretation performed at [facility] . End of diagnostic report: [id number] Signed: Buddy Campos MD 01/14/21 3087 Interpreted by: Corrine Camposcribed by: Buddy Campos Name Value Range Interpretation Code Description Data Nita rce(s) Supporting Document(s) ID Date Data Source [id number] 01/14/2021 10:20:00 AM EDT [facility] [address] [place] [address] [place] [address] Orthopedics Follow Up : Signed with Trina Patient: Manasa Calle Acct:[id number] Visit Date: 01/14/21 : 1930 ADDENDUM Office Procedure Documentation entered by Franky Guzmán MA 01/14/21 13:23: Office Meds Depo-Medrol Performing Provider: Caroline Balbuena DO Administered by: Caroline Balbuena DO on 01/14/21 13:22 Dose Route Admin Location Lot Number Expiration Date [facility] Manufactu rer 80 mg IM Left Hip [id number] 03/18/22 PFIZER lidocaine (PF) Performing Provider: Caroline Balbuena DO Administered by: Caroline Balbuena DO on 01/14/21 13:22 Dose Route Admin Location Lot Number Expiration Date [facility] Manufactu rer 40 mg IM Left Hip [id number] 05/18/22 HOSPIRA Addendum Signed By: Signed Date/Time: 01/14/21 1324 Addendum Co-Sign By: Co- Sign Date/Time: Intake Vital Signs 01/14/21 10:36 Height 4 ft 8 in Weight 58.06 kg BMI 28.7 BP 134/82 Blood Pressure Location Left Arm Position Sitting / Chair Pulse 82 Pulse Source O2 sat Monitor Temp 98.1 F Temp Source Temporal Artery Scan Pulse Oximetry (%) 94 L Intake Patient Status Have you had an UC/ED visit and/or been admitted to the hospital since your last visit?: No Have you been diagnosed with COVID-19?: No Visit Reasons: Bilateral hip pain, left worse Nurse Note: 89 y/o establitshed female presents with new problem of Bilateral Hip pain. Patient was evaluated by Dr. Caroline Balbuena with Maddie Guzmán CMA acting as Pilot Safety Inspector for the entirety of the visit. Gyroscope Technician Required: No Is patient in pain?: Yes Pain Scale (0-10): 6 Pain scale used: 0-10 numeric scale Primary Care Physician:: Yolanda Have you smoked within the past year: No Allergies No Known Allergies Allergy (Verified 01/14/21 10:22) Home Medications - Last Reconciled 01/14/21 by Franky Guzmán MA amlodipine 5 mg tablet 5 mg PO DAILY amlodipine 10 mg tablet 10 mg PO QDAY aspirin 81 mg tablet,delayed release 81 mg PO DAILY atorvastatin 40 mg tablet (Lipitor) 40 mg PO DAILY benazepril 40 mg tablet 40 mg PO QDAY calcium carbonate 600 mg (1,500 mg)-vitamin D3 400 unit tablet 1 tab PO DAILY carvedilol 12.5 mg tablet 12.5 mg PO BID cholecalciferol (vitamin D3) 25 mcg (1,000 unit) capsule 25 mcg PO DAILY clonidine HCl 0.1 mg tablet 0.1 mg PO DAILY diphenhydramine HCl 25 mg capsule (Allergy Medication) 25 mg PO TID PRN docusate sodium 50 mg capsule (Colace Clear) 50 mg PO DAILY donepezil 10 mg tablet 10 mg PO HS gabapentin 300 mg capsule 300 mg PO TID insulin aspart U-100 100 unit/mL subcutaneous cartridge (Novolog PenFill U-100 Insulin aspart) 10 units subcut AC BREAKFAST SUPPER insulin detemir U-100 100 unit/mL (3 mL) subcutaneous pen (Levemir FlexTouch U-100 Insulin) 10 units subcut DAILY levothyroxine 50 mcg capsule 50 mcg PO DAILY multivitamin,[id number]-[id number] (C omplete Multivitamin) 1 tab PO DAILY oxybutynin chloride 5 mg tablet 5 mg PO BID pantoprazole 40 mg tablet,delayed release (Protonix) 40 mg PO BID torsemide 10 mg tablet 10 mg PO DAILY tramadol 50 mg tablet 50 mg PO Q4H PRN trazodone 50 mg tablet 50 mg PO DAILY Patient understands their medications: Yes History of Smoking/Tobacco Use: Never Smoker Tobacco Product: Cigarettes Annual Influenza Vaccine: Yes Pneumococcal Vaccine (+65): Yes Have you received the Covid-19 vaccine?: Yes Did you complete the series?: Yes Immunizations up to date: Yes Recent Travel Travel Outside of the country in last 30 days?: No Mask given: Yes [facility] Medical History (Updated 01/14/21 @ 11:15 by Caroline Balbuena DO) Alzheimer's disease Anemia Chronic renal insufficiency, stage III (moderate) Coronary artery disease catheterization 1996 - LAD 40% stenosis, fist diagonal 75% followed by a 90% stenosis, RCA 20% stenosis. At that time PCI to the diagonal branch of the LAD was performed. Diastolic dysfunction Gastroesophageal reflux disease Hiatal hernia Hyperlipidemia Hypertension Mild aortic stenosis Moderate mitral insufficiency Osteoarthritis Severe tricuspid valve insufficiency Type II diabetes mellitus Surgical History Stented coronary artery 1996 - LAD 40% stenosis, fist diagonal 75% followed by a 90% stenosis, RCA 20% stenosis. Mrs. Calle underwent PCI to the diagonal branch of the LAD. Family History Mother Diabetes mellitus Stroke Father Heart failure Social History Marital Status: / Occupational status: retired Nutrition Concerns: No Concerns at this time Alcohol Use: None Substance Use: never Orthopedics - HPI Injury/Condition Referring Physician: Yolanda Work related: No No fault: No Ortho Exam- F/U ONLY Exam Details: Subjective: Patient is a pleasant 82-year-old woman presents today to establish care for both her hips. Patient is being evaluated with Franky Guzmán CMA, functioned as a painting supervisor was present during theentire office visit. The patient presents to day with complaints of global bilateral hip and leg pain. Patient has symptoms consistent with lumbar dysfunction with sciatica. She also has symptoms consistent with osteoarthritis, and also presents with symptoms consistent with hip bursitis. The patient has no complaints of bowel or bladder dysfunction. Patient ambulates with a cane. She has no complaints of significant left lower extremity weakness. Objective: Past medical and surgical histories reviewed. Allergies and review of systems was also performed. Evaluation of both her hips reveals evidence of swelling about the left greater trochanter and pain to palpation consistent with greater trochanteric bursitis. The right hip is involved to a lesser extent. There is no evidence to suggest infection or DVT. The patient does exhibit mild bilateral degenerative changes with bilateral Tereso and FRANKIE tests,right worse than left. X-rays of the pelvis were interpreted, which revealed evidence of moderate to advanced right hip osteoarthritis, and mild to moderate left hip osteoarthritis with significant osteopenia. After full consent, taking a time-out, and marking the left hip, the left greater trochanteric bursawas injected with 80 mg of Depo-Medrol. Impression: 1. Bilateral greater trochanteric bursitis, left worse than right 2. Bilateral hip osteoarthritis, right worse than left 3. Chronic lumbar dysfu nction with neurogenic claudication and bilateral transient sciatica Plan: We discussed her condition in detail. We discussed that her condition appears to be multifactorial. We discussed that the only reasonable treatment will be her hip bursitis, with cortisone injections. Patient would not appear to be a suitable candidate for total hip arthroplasty or lumbar surgery atthis time. Good news is that the patient is still ambulating quite well. Discussed the natural history. Her questions were fielded to her satisfaction. The patient is well informed about her orthopedic condition and additional treatment options available. Assessment Plan (AMB) Assessment Plan (1) Right hip pain: Status: Acute Code(s): M25.551 - Pain in right hip SNOMED Code(s): 47860547 Category: Medical (2) Lumbar stenosis with neurogenic claudication: Status: Acute Code(s): M48.062 - Spinal stenosis, lumbar region with neurogenic claudication SNOMED Code(s): 75268393 Category: Medical (3) Spinal stenosis of lumbar region: Status: Acute Code(s): M48.061 - Spinal stenosis, lumbar region without neurogenic claudication SNOMED Code(s): 69776907 Category: Medical (4) Trochanteric bursitis, left hip: Status: Acute Code(s): M70.62 - Trochanteric bursitis, left hip SNOMED Code(s): 4038102 Category: Medical (5) Osteoarthritis of right hip: Status: Acute Code(s): M16.11 - Unilateral primary osteoarthritis, right hip SNOMED Code(s): 626134910036687 Category: Medical Orders: Orders XR HIP W PEL 2 OR 3 VW RT Today M25.551 - Pain in right hip Problems Did you add a problem (diagnosis code) to the patient?: No Coding Level of Care Code 78261 Estab Pt Level 3 Diagnoses Right hip pain M25.551 Lumbar stenosis with neurogenic claudication M48.062 Spinal stenosis of lumbar region M48.061 Trochanteric bursitis, left hip M70.62 Osteoarthritis of right hip M16.11 Signed By:Caroline Balbuena DO <<Signature on File>> Signed Date/Time: 01/14/21 1148 Co-Signer: Co-Signed Date/Time: Initializing User: Caroline Balbuena DO 12/18 1020 1020 1020 Name Value Range Interpretation Code Description Data Nita rce(s) Supporting Document(s) ID Date Data Source [id number] 12/29/2020 02:39:00 PM EDT [facility] ([facility] [place] [facility]) Name Value Range Interpretation Code Description Data Nita rce(s) Supporting Document(s) Glucose [Mass/volume] in Serum or Plasma 143 [facility] ([facility] [place] [facility]) ID Date Data Source [id number] 12/29/2020 02:11:00 PM EDT [facility] ([facility]) Name Value Range Interpretation Code Description Data Nita rce(s) Supporting Document(s) Dexa Scan, Axial Skeleton, One Or More Sites Laboratory test result [facility] ([facility] and [facility]) ID Date Data Source [id number] 11/24/2020 01:21:00 PM EDT [facility] [address] [place] [address], [address] [place] [address] Cardiology Note : [phone] Signed Patient: Manasa Calle Acct:[id number] Visit Date: 11/24/20 : 1930 Cardiology HPI History of present illness History of present illness: 89-year-old female who has a past medical history that is significant for coronary artery disease. She is status post percutaneous intervention to the diagonal branch ofthe LAD in 1996. Cardiac catheterization on March 05, 2019 revealed 60% stenosis involving the LAD, 60% stenosis involving the diagonal, 50% stenosis involving the right coronary artery, a 50% stenosis involving the ramus. Her other medical problems include hypertension, diastolic heart dysfunction, mild mitral regurgitation, mild tricuspid regurgit ation, mild aortic stenosis, hyperlipidemia, stage III chronicrenal insufficiency, and Alzheimer disease. Since her last visit she was admitted to [facility] in January of 2020 for chest pain and hypertensive urgency. Her blood pressure was managed. She underwent a TTE on 02/04/2020. LVEF 60%, diastolic dysfunction, moderate concentric LVH, left atrium moderately dilated, mild MR, mild TR with RVSP 40 mmHg. She underwent a pharmacologic nuclear stress test on 02/05/2020. No ischemiaor infarct with normal LVEF. She then went to [place] for the winter. She reports she was in a hospital in [place] in August 2020. She reports she was diagnosed with atrial fibrillation. She reports she was on Eliquis but does not know the dose. Records are not available to me today. She reports her PCP is sending her to Nephrology. She presents today reporting overall she is doing fairly well. She has no symptoms suggestive ischemic heart disease and/or congestive heart failure. The patient denies chest pressure, shortness of breath at rest, palpitations, orthopnea, PND, bipedal edema, lightheadedness, and syncope. Intake Vital Signs 11/24/20 13:21 11/24/20 14:04 Height 4 ft 10 in Weight 51.313 kg BMI 23.6 BP 148/72 H 158/70 H Blood Pressure Location Left Arm Left Arm Position Sitting / Chair Sitting / Chair Pulse 59 L Pulse Source O2 sat Monitor Temp 97.8 F Temp Source Temporal Artery Scan Pulse Oximetry (%) 97 Oxygen Delivery Method room air Cardiology Intake Patient Status Have you had an UC/ED visit and/or been admitted to the hospital since your last visit?: Yes Have you been diagnosed with COVID-19?: No Recent Travel Travel Outside of the country in last 30 days?: No Mask given: Yes Visit Reasons: 1yr f/u - LMTC Nurse Note: Manasa presents today for a follow up visit. She states she was evaluated at a Hospital in [place] a few months ago. She states she was diagnosed with afib and started on Eliquis. She c/o SOB. Gyroscope Technician Required: No Primary Care Physician:: Yanick Guerrero MD Have you smoked within the past year: No Allergies No Known Allergies Allergy (Verified 11/22/20 11:52) Home Medications - Last Reconciled 11/24/20 by Meghna Casas amlodipine 5 mg tablet 5 mg PO DAILY aspirin 81 mg tablet,delayed release 81 mg PO DAILY atorvastatin 40 mg tablet (Lipitor) 40 mg PO DAILY benazepril 40 mg tablet 40 mg PO QDAY calcium carbonate 600 mg (1,500 mg)-vitamin D3 400 unit tablet 1 tab PO DAILY carvedilol 12.5 mg tablet 12.5 mg PO BID cholecalciferol (vitamin D3) 25 mcg (1,000 unit) capsule 25 mcg PO DAILY clonidine HCl 0.1 mg tablet 0.1 mg PO DAILY diphenhydramine HCl 25 mg capsule (Allergy Medication) 25 mg PO TID PRN docusate sodium 50 mg capsule (Colace Clear) 50 mg PO DAILY donepezil 10 mg tablet 10 mg PO HS gabapentin 300 mg capsule 300 mg PO TID insulin aspart U-100 100 unit/mL subcutaneous cartridge (Novolog PenFill U-100 Insulin aspart) 10 units subcut AC BREAKFAST SUPPER insulin detemir U-100 100 unit/mL (3 mL) subcutaneous pen (Levemir FlexTouch U-100 Insulin) 10 units subcut DAILY levothyroxine 50 mcg capsule 50 mcg PO DAILY multivitamin,[id number]-[id number] (Complete Multivitamin) 1 tab PO DAILY oxybutynin chloride 5 mg tablet 5 mg PO BID pantoprazole 40 mg tablet,delayed release (Protonix) 40 mg PO BID torsemide 10 mg tablet 10 mg PO DAILY tramadol 50 mg tablet 50 mg PO Q4H PRN trazodone 50 mg tablet 50 mg PO DAILY History of Smoking/Tobacco Use: Never Smoker Annual Influenza Vaccine: Yes Pneumococcal Vaccine (+65): Yes Have you received the Covid-19 vaccine?: Yes Did you complete the series?: Yes Immunizations up to date: Yes Patient or : No Risk Assessment Predictor Tool (RAPT) Which gait aid do you use (more often than not): Single-point stick PFSH - [place] PFSH - [place] Medical History Alzheimer's disease Anemia Chronic renal insufficiency, stage III (moderate) Coronary artery disease catheterization 1996 - LAD 40% stenosis, fist diagonal 75% followed by a 90% stenosis, RCA 20% stenosis. At that time PCI to the diagonal branch of the LAD was performed. Diastolic dysfunction Gastroesophageal reflux disease Hiatal hernia Hyperlipidemia Hypertension Mild aortic stenosis Moderate mitral insufficiency Osteoarthritis Severe tricuspid valve insufficiency Type II diabetes mellitus Surgical History Stented coronary artery 1996 - LAD 40% stenosis, fist diagonal 75% followed by a 90% stenosis, RCA 20% stenosis. Mrs. Calle underwent PCI to the diagonal branch of the LAD. Family History Mother Diabetes mellitus Stroke Father Heart failure Social History Marital Status: / Occupational status: retired Nutrition Concerns: No Concerns at this time Alcohol Use: None Substance Use: never Cardiology ROS Const Const All systems reviewed are unremarkable except as noted in HPI and below Cardiology Exam Const General: cooperative, comfortable, no acute distress, well developed and other (Walks with a cane, hard of hearing) Nutritional Appearance: average body habitus Orientation: alert, awake and oriented x3 Skin General skin exam: other (Warm and dry) Normal color: Yes Neck Neck: supple and no JVD present Carotids: normal carot id upstroke and no bruits Chest Chest: normal inspection of the chest Resp Effort Inspection: normal respiratory effort and able to speak in complete sentences Auscultation: clear to auscultation bilaterally, No rales, no rhonchi heard and No wheezes Cardio Rate: bradycardic Rhythm: regular rhythm Heart Sounds: Yes S1 normal, S2 normal, gallop S4 gallop and murmur (Systolic 2/6 at left lower sternal border); No rub Pulses: radial pulses present bilaterally and posterior tibial pulses present bilaterally Extrem General: no calf tenderness bilaterally, no cyanosis and no edema Pulse: Posterior tibial R/L and Radial R/L ECG Results Date of this EC11/24/20 Additional details: Sinus bradycardia with a heart rate of 57 beats per minute, left axis deviation,LVH with ST-T abnormalities Assessment Plan (AMB) Assessment Plan (1) Coronary artery disease: Status: Chronic Code(s): I25.10 - Atherosclerotic heart disease of grayling coronary artery without angina pectoris SNOMED Code(s): 76523393 Category: Medical Qualifiers: Coronary Disease-Associated Artery/Lesion type: grayling artery Associated angina: with otherforms of angina (2) Percutaneous transluminal coronary angioplasty status: Code(s): Z98.61 - Coronary angioplasty status (3) Hypertension: Code(s): I10 - Essential (primary) hypertension (4) Hyperlipidemia: Code(s): E78.5 - Hyperlipidemia, unspecified (5) Paroxysmal atrial fibrillation: Code(s): I48.0 - Paroxysmal atrial fibrillation (6) Diastolic heart failure: Code(s): I50.30 - Unspecified diastolic (congestive) heart failure (7) Mild mitral regurgitation: Code(s): I34.0 - Nonrheumatic mitral (valve) insufficiency (8) Chronic renal insufficiency, stage III (moderate): Code(s): N18.30 - Chronic kidney disease, stage 3 unspecified Problems Did you add a problem (diagnosis code) to the patient?: Yes Plan: Coronary artery disease status post PCI. No anginal symptoms. Recent nuclear stress test in January of 2020 without ischemia or infarct and normal LVEF. Continue high- intensity statin therapy. For now continue aspirin. Call for any anginal symptoms. Hypertension. Elevated today. Increase amlodipine from 5 mg to 10 mg. Continue other medications and reassess in 2 months. Hyperlipidemia. 04/08/2020. LDL 54 with an HDL of 78 and triglycerides 84. Continue atorvastatin 40 mg once daily. Paroxysmal atrial fibrillation. New diagnosis. Request records from [place]. She is on Eliquis. We will try to get the dose to make sure she is dosed correctly. Continue beta-percy. Diastolic dysfunction. Euvolemic today. Continue torsemide 10 mg. Low-salt diet. Mild MR. Continue routine outpatient surveillance. CKD 3. Stable. PCP is referring to Nephrology. Call for questions or concerns or changes. Return to clinic in 2 months time or sooner if clinically indicated. Other Medications: Refilled: amlodipine 10 mg PO QDAY 90 tabs 3RF Cardiology Charges Charges 73902 Electrocardiogram Complete: Yes Incident To Is this Incident to:: No Coding Level of Care Code 20687 Estab Pt Level 4 Exam Detailed Diagnoses Coronary artery disease I25.10 Coronary Disease-Associated Artery/Lesion type: grayling artery Associated angina: with other forms of angina Percutaneous transluminal coronary angioplasty status Z98.61 Hypertension I10 Hyperlipidemia E78.5 Paroxysmal atrial fibrillation I48.0 Diastolic heart failure I50.30 Mild mitral regurgitation I34.0 Chronic renal insufficiency, stage III (moderate) N18.30 Additional Codes Charges - 79373 Electrocardiogram Complete: Yes (35505) Signed By:Caroline Wise <<Signature on File>> Signed Date/Time: 11/28/20 0840 Co-Signer: Fran Ba MD Co-Signed Date/Time: 11/29/20 0544 Initializing User: Caroline ACKERMAN 03/08 1321 1321 132 Name Value Range Interpretation Code Description Data Nita rce(s) Supporting Document(s) ID Date Data Source [id number] 11/22/2020 12:26:00 PM EDT [facility] [address] [address] Patient Name: Manasa Calle Exam Date: 11/22/20 : 1930 Ordering Doctor: Caroline Balbuena DO Attending Doctor: Caroline Balbuena DO CC: Hip LEFT 2V Or 3V WOW Pelvis INDICATION: M70.62 - Trochanteric bursitis, left hip COMPARISON: 03/01/2011 FINDINGS: There is no fracture or dislocation of the left hip. The femoral head has a normal configuration. Bone density is normal. Diffuse vascular calcification, new compared with 2010. No focal soft tissue abnormality. CONCLUSION: Diffuse arteriosclerosis. No arthropathy or fracture. Professional interpretation performed at [facility] [phone]. End of diagnostic report: [id number] Signed: Parker Blakely MD 11/22/20 1458 Interpreted by: Parker BlakelyTranscribed by: Parker Blakely Name Value Range Interpretation Code Description Data Nita rce(s) Supporting Document(s) ID Date Data Source [id number] 11/22/2020 11:43:00 AM EDT [facility] [address], [address], [address] [place] [address] [place] [address] Orthopedics Initial Consult : [phone] Signed Patient: Manasa Calle Acct:[id number] Visit Date: 11/22/20 : 1930 Intake Vital Signs 11/22/20 11:44 Height 4 ft 10 in Weight 51.71 kg BMI 23.8 BP 156/87 H Blood Pressure Location Right Arm Position Sitting / Chair Pulse 58 L Pulse Source O2 sat Monitor Temp 98.3 F Temp Source Temporal Artery Scan Pulse Oximetry (%) 96 Oxygen Delivery Method room air Intake Patient Status Have you had an UC/ED visit and/or been admitted to the hospital since your last visit?: No Have you been diagnosed with COVID-19?: No Visit Reasons: L hip trochanteric bursitis Nurse Note: Patient here today for initial consult for left hip bursitis. Patient states that she has had lower back issues and she had a procedure about 5-6 weeks ago for her back. She states that she was told originally that her back was the cause of her hip pain, but her hip pain has only gotten worse since the procedure. Patient denies any numb ness or tingling at this time in her legs,but previous the back procedure she had numbness and tingling in her feet. Patient states she does have pain in her groin which started about 10 days ago. Patient takes pain pills prescribed by her primary care physician daily to help every 4 hours. Natty Machuca LPN acted as a painting supervisor for patient's entire office visit with Dr Balbuena today. Gyroscope Technician Required: No Is patient in pain?: Yes Pain Scale (0-10): 9 Primary Care Physician:: Yolanda Have you smoked within the past year: No Allergies No Known Allergies Allergy (Verified 11/22/20 11:52) Home Medications - Last Reconciled 11/22/20 by Natty Machuca LPN amlodipine 10 mg tablet 10 mg PO QDAY aspirin 81 mg tablet,delayed release 81 mg PO DAILY atorvastatin 40 mg tablet (Lipitor) 40 mg PO DAILY benazepril 40 mg tablet 40 mg PO QDAY calcium carbonate 600 mg (1,500 mg)-vitamin D3 400 unit tablet 1 tab PO DAILY carvedilol 12.5 mg tablet 12.5 mg PO BID citalopram 20 mg tablet (Celexa) 20 mg PO DAILY clonidine HCl 0.1 mg tablet 0.05 mg PO DAILY diphenhydramine HCl 25 mg capsule (Allergy Medication) 25 mg PO TID PRN docusate sodium 50 mg capsule (Colace Clear) 50 mg PO DAILY donepezil 10 mg tablet 10 mg PO HS gabapentin 300 mg capsule 300 mg PO TID insulin aspart U-100 100 unit/mL subcutaneous cartridge (Novolog PenFill U-100 Insulin aspart) 10 units subcut AC BREAKFAST SUPPER insulin detemir U-100 100 unit/mL (3 mL) subcutaneous pen (Levemir FlexTouch U-100 Insulin) 10 units subcut DAILY insulin glargine 100 unit/mL (3 mL) subcutaneous pen (Lantus Solostar U-100 Insulin) 16 units subcut HS levothyroxine 25 mcg tablet 25 mcg PO DAILY multivitamin,[id number]-rvrrreuu (Complete Multivitamin) 1 tab PO DAILY oxybutynin chloride 5 mg tablet 5 mg PO BID pantoprazole 40 mg tablet,delayed release (Protonix) 40 mg PO BID torsemide 10 mg tablet 10 mg PO DAILY PRN tramadol 50 mg tablet 50 mg PO Q4H PRN trazodone 50 mg tablet 25 mg PO DAILY zolpidem 5 mg tablet 5 mg PO HS Patient understands their med ications: Yes Patient given information on their new medications: No History of Smoking/Tobacco Use: Never Smoker Annual Influenza Vaccine: Yes Pneumococcal Vaccine (+65): Yes Have you received the Covid-19 vaccine?: Yes Did you complete the series?: Yes Immunizations up to date: Yes Patient or : No Recent Travel Travel Outside of the country in last 30 days?: No Mask given: Yes [facility] Medical History (Updated 11/22/20 @ 17:03 by Caroline Balbuena DO) Alzheimer's disease Anemia Chronic renal insufficiency, stage III (moderate) Coronary artery disease catheterization 1996 - LAD 40% stenosis, fist diagonal 75% followed by a 90% st enosis, RCA 20% stenosis. At that time PCI to the diagonal branch of the LAD was performed. Diastolic dysfunction Gastroesophageal reflux disease Hiatal hernia Hyperlipidemia Hypertension Mild aortic stenosis Moderate mitral insufficiency Osteoarthritis Severe tricuspid valve insufficiency Type II diabetes mellitus Surgical History Stented coronary artery 1996 - LAD 40% stenosis, fist diagonal 75% followed by a 90% stenosis, RCA 20% stenosis. Mrs. Calle underwent PCI to the diagonal branch of the LAD. Family History Mother Diabetes mellitus Stroke Father Heart failure Social History Marital Status: / Occupational status: retired Nutrition Concerns: No Concerns at this time Alcohol Use: None Substance Use: never Orthopedics - HPI Injur y/Condition Work related: No No fault: No Ortho Exam- H P Exam Details: Subjective: The patient is a pleasant 89-year-old woman who presents with a family member today for evaluation of her lumbar spine and left hip. The patient is being evaluated with Natty Machuca LPN, who functioned as a painting supervisor and was presentduring the entire office visit. The patient presents with complaints of chronic lumbar dysfunction. Patient underwent a lumbar surgical procedure approximately 6 weeks ago. The patient notes improvement, but still presents with complaints of bilateral leg pain and weakness when ambulating and standing for long periods of time. The patient also presents with complaints of mechanical left hip pain as well as soft tissue pain topalpation. The patient presents with a cane. The patient presents with no complaints of a progressive neurological deficit. No bowel or bladder dysfunction is noted. Objective: Past medical and surgical histories were reviewed. Allergies and review of systems was also performed. Evaluation of the left hip reveals intact range of motion with negative Tereso and FRANKIE test. No hip pain is noted with provocative range of motion maneuvers. Patient has intact left hip range of motion. She exhibits an ectomorphic body habitus. Patient does have left greater trochanteric pain to palpation with mild bursal swelling. X- rays reveal no evidence of advanced degenerative changes about the left hip. After full consent, taking a time-out, and marking the left hip, the left hip was injected in an extra-articular fashion with 40 mg of Depo-Medrol. Impression: 1. Left hip greater check tear bursitis 2. 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 The patient does appear to have symmetrical lower extremity symptoms and weakness consistent with a lumbar spine etiology. We discussed that I would recommend a return to her spine surgeon to discuss additional treatment options for would appear to be spinal stenosis. We will assess the efficacy of the greater trochanteric hip injection. I do not believe that the intra-articular hip structures are contributing all that much in terms of pain. We discussed the natural history. The patient and her caregivers questions were fielded to their satisfaction. I will see her back only as needed. We discussed that we can proceed with a right hip greater trochanteric cortisone injection if the left hip injection is effective. We also discussed she can receive these injections every 6 months. Their questions were fielded to their satisfaction. They were pleased with her visit. They are well informed about her orthopedic issues as well as the differential diagnosis and overlap between her spine pathology and soft tissue leg pathology. I do suspect that the preponderance of dysfunction and pain she is experiencing in her lower extremities, is related to her lumbar spine yung referred pain pattern. Office Meds Depo-Medrol Performing Provider: Caroline Balbuena DO Administered by: Caroline Balbuena DO on 11/22/20 15:54 Dose Route Admin Location Lot Number Expiration Date [facility] Manufactu rer 40 mg IM Left Hip Bursa [id number] 03/18/21 [employer] lidocaine (PF) Performing Provider: Caroline Balbuena DO Administered by: Caroline Balbuena DO on 11/22/20 15:54 Dose Route Admin Location Lot Number Expiration Date [employer] Manufactu rer 40 mg IM Left Hip Bursa [id number] 05/18/22 [facility] Assessment Plan (AMB) Assessment Plan (1) Trochanteric bursitis, left hip: Status: Acute Code(s): M70.62 - Trochanteric bursitis, left hip SNOMED Code(s): 8742744 Category: Medical Orders: Orders: XR HIP W PEL 2 OR 3 VWS LT Today (2) Spinal andrew nosis of lumbar region: Status: Acute Code(s): M48.061 - Spinal stenosis, lumbar region without neurogenic claudication SNOMED Code(s): 05364900 Category: Medical (3) Lumbar stenosis with neurogenic claudication: Status: Acute Code(s): M48.062 - Spinal stenosis, lumbar region with neurogenic claudication SNOMED Code(s): 14674377 Category: Medical Problems Did you add a problem (diagnosis code) to the patient?: Yes Other Orders: Orders: Depo-Medrol Injection 40 mg Today Lidocaine injection 4 mg Today Medications Patient given information on their new medications: No Coding Level of Care Code 91951 New Patient Level 3 Diagnoses Trochanteric bursitis, left hip M70.62 Spinal stenosis of lumbar region M48.061 Lumbar stenosis with neurogenic claudication M48.062 Signed By:Caroline Balbuena DO <<Signature on File>> Signed Date/Time: 11/22/20 1704 Co-Signer: Co-Signed Date/Time: Initializing User: Caroline Balbuena DO 01/05 1143 1143 1143 Name Value Range Interpretation Code Description Data Nita rce(s) Supporting Document(s) ID Date Data Source [id number] 11/11/2020 01:24:00 PM EDT [facility] ([facility] [employer] [facility] and [facility]) Name Value Range Interpretation Code Description Data Nita rce(s) Supporting Document(s) Sodium [Moles/volume] in Serum or Plasma 137 meq/L 135-145 MED[facility] ([place] [employer] [facility] and [facility]) Carbon dioxide, total [Moles/volume] in Serum or Plasma 27 meq/L 22 -33 MED[facility] ([facility]) Potassium [Moles/volume] in Serum or Plasma 4.0 meq/L 3.5-5.3 [facility] ([facility] and [facility]) Chloride [Moles/volume] in Serum or Plasma 106 meq/L 94-110 [facility] ([facility]) Urea nitrogen [Mass/volume] in Serum or Plasma 14 mg/dL 7-25 [facility] ([facility] and [facility]) Anion gap in Serum or Plasma 8 5-16 [facility] ([facility] and [facility]) Creatinine [Mass/volume] in Serum or Plasma 1.0 mg/dL 0.6-1.4 [facility] ([facility] and [facility]) GFR 52.4 mL/min MED[facility] ([facility] and [facility]) Stage G3a - Mildly to moderately decreas ed kidney function The GFR is an estimate of the Glomerular Filtration Rate. It is an aid to assess a patient's renal function. It is not a conclusive diagnosis of kidney disease. GFR normal is >=90 The MDRD GFR calculation is considered valid between the ages of 18 and 75 years only. Calcium [Mass/volume] in Serum or Plasma 9.0 mg/dL 8.7-10.5 MED[facility] ([facility] and [facility]) Glucose [Mass/volume] in Serum or Plasma 206 mg/dL 70-100 [facility] ([facility]) Urea nitrogen/Creatinine [Mass Ratio] in Serum or Plasma 14 8 -36 [facility] ([facility]) ID Date Data Source [id number] 11/11/2020 02:31:00 PM EDT [facility] Name Value Range Interpretation Code Description Data Nita rce(s) Supporting Document(s) SODIUM 137 MEQ/L 135-145 N [facility] POTASSIUM 4.0 MEQ/L 3.5-5.3 N [facility] CHLORIDE 106 MEQ/L 94-110 [facility] CARBON DIOXIDE 27 MEQ/L 22-33 N [facility] ANION GAP 8 5-16 N [facility] BLOOD UREA NITRO 14 MG/DL 7-25 N [facility] CREATININE 1.0 MG/DL 0.6-1.4 N [facility] GFR 52.4 ML/MIN [facility] Stage G3a - Mildly to moderately decrea sed kidney function The GFR is an estimate of the Glomerular Filtration Rate. It is an aid to assess a patient's renal function. It is not a conclusive diagnosis of kidney disease. GFR normal is >=90 The MDRD GFR calculation is considered valid between the ages of 18 and 75 years only. BUN/CREAT RATIO 14 8-36 N [facility] GLUCOSE 206 MG/DL 70-100 H [facility] CA 9.0 MG/DL 8.7-10.5 N [facility] ID Date Data Source [id number] 11/02/2020 02:43:00 PM EDT [facility] ([facility] [employer] [facility]) Name Value Range Interpretation Code Description Data Nita rce(s) Supporting Document(s) Glucose [Mass/volume] in Serum or Plasma 206 [facility] ([employer] [facility] and [place] [employer] [facility]) ID Date Data Source [id number] 04/16/2020 12:30:00 PM EDT [facility] Name Value Range Interpretation Code Description Data Nita rce(s) Supporting Document(s) SARS coronavirus 2 RNA [Presence] in Res piratory specimen by YADIEL with probe detection [facility] This lab was ordered by [facility] and reported by [employer]. ID Date Data Source [id number] 04/14/2020 02:16:00 PM EDT [facility] ([employer] and [facility]) Name Value Range Interpretation Code Description Data Nita rce(s) Supporting Document(s) Creatinine [Mass/volume] in Urine 38.1 mg/dL [facility] ([employer] and [place] [employer] [facility]) ID Date Data Source [id number] 04/14/2020 02:16:00 PM EDT [facility] ([employer] [facility]) Name Value Range Interpretation Code Description Data Nita rce(s) Supporting Document(s) Creatinine, Urine 38.1 mg/dL [facility] ([employer] [facility]) Laboratory test finding (navigational concept) 54.5 mg/L [facility] ([facility]) Laboratory test finding (navigational concept) 143.0 MCG/MG 0.0-30.0 [facility] ([facility]) THE [employer] STATES THAT MICROALBUMINURIA IS PRESENT IF THE MICROALBUMIN/CREATININE RATIO EXCEEDS 30 MCG/MG. THE THRESHOLD FOR CLINICAL ALBUMINURIA IS REACHED AT 300 MCG/MG. THE CLASSIFICATION OF A PATIENT SHOULD BE BASED UPON AT LEAST 2 OF 3 ABNORMAL RESULTS ON SPECIMENS COLLECTED WITHIN A 3 TO 6 MONTH TIME FRAME. ID Date Data Source [id number] 04/09/2020 01:08:35 PM EDT [facility], PCName: Sumaya WinterNataliaOB: 3Provider: AricCharmaineCHEIKH: 04/08/2020 Chief ComplaintLower back pain that radiates into the left lower extremity. Chief Complaint 2 MA completing section: Deepika Mclain LPN Established Intake At today's visit patient presents with their Daughter . Patient is not currently working. Implanted Devices The patient does not have any implanted devices. Glucose Monitor Device The patient does not have a glucose monitoring device. The patient is being seen for an initial evaluation. History of Present IllnessPain Location: The pain is located in the lower back and radiates into the left lower extremity. Pain Quality: The pain is described as alternately numbness, pins and needles, burning, aching, stabbing, and sharp in nature. Timing: The pain is constantly present. Progression: The pain is gradually worsening. Palliation (Relieving Factors): These include medications and certain positions. Exacerbating Factors: These include any activity. Pain Score: The patient rates the pain today an 8/10. On a good day an 8/10. On a bad day an 8/10. <OBX.5.1><OBX.5.1.1>Associated Signs </OBX.5.1.1><OBX.5.1.2> Symptoms: The pain does not keep her awake at night. </OBX.5.1.2></OBX.5.1>DOI/DOO: The patient reports that she has had long- standing pain in her lower back that radiates into her left lower extremity. She reports that she had previously been seen in [place] but was told 3 years ago that there are no longer any procedures available to her. Past Treatment Effectiveness: Effective treatments: The patient reports that her pain diminishes somewhat with the medications that she takes. She reports nerve blocks did help in the past. She does report that the gabapentin is helpful in controlling her pain somewhat as well as the tramadol 50 mg tablets she takes as needed 4 times per day. Past Treatment Effectiveness: Non-Effective treatments: The patient reports that acupuncture was not helpful. Interval History: The patient denies a history of surgery. Review of SystemsConstitutional: Normal. Eyes: eyesight problems. ENT: hearing loss. Cardiovascular: Normal. Respiratory: Normal. Gastrointestinal: constipation. Genitourinary: Normal. Musculoskeletal: lower back pain and limb pain. Integumentary: Normal. Neurological: Normal. Psychiatric: Normal. Endocrine: thyroid problems and diabetes. Hematologic/Lymphatic: Normal. I reviewed the above with the patient and I feel the ROS to be negative/normal other than lower back pain that radiates into the left lower extremity.. Active Problems 1. Lumbar radiculopathy (724.4) (M54.16) Allergies No Known Drug Allergies Recorded By: Marisol Mclain; 04/08/2020 1:59:00 PMDenied Adhesive Tape Recorded By: Marisol Mclain; 1 1:59:00 PM Iodinated Contrast Media Recorded By: Marisol Mclain; 04/08/2020 1:59:00 PM Latex Recorded By: Marisol Mclain; 04/08/2020 1:59:00 PM Current Meds amLODIPine Besylate TABS;Therapy: (Recorded:08Apr2020) to Recorded Aranesp SOLN;Therapy: (Recorded:08Apr2020) to Recorded Aricept TABS;Therapy: (Recorded:08Apr2020) to Recorded Atorvastatin Calcium TABS;Therapy: (Recorded:08Apr2020) to Recorded Baby Aspirin 81 MG CHEW;Therapy: (Recorded:08Apr2020) to Recorded Benazepril HCl TABS;Therapy: (Recorded:[id number]) to Recorded Bisacodyl TBEC;Therapy: (Recorded:08Apr2020) to Recorded Calcium + D TABS;Therapy: (Recorded:08Apr2020) to Recorded Carvedilol TABS;Therapy: (Recorded:08Apr2020) to Recorded Citalopram Hydrobromide TABS;Therapy: (Recorded:08Apr2020) to Recorded cloNIDine HCl TABS;Therapy: (Recorded:08Apr2020) to Recorded Gabapentin 100 MG TABS;Therapy: (Recorded:08Apr2020) to Recorded Insulin Lispro SOLN;Therapy: (Recorded:08Apr2020) to Recorded Oxybutynin Chloride TABS;Therapy: (Recorded:08Apr2020) to Recorded Pantoprazole Sodium TBEC;Therapy: (Recorded:08Apr2020) to Recorded Synthroid TABS;Therapy: (Recorded:08Apr2020) to Recorded Torsemide TABS;Therapy: (Recorded:08Apr2020) to Recorded traMADol HCl - 50 MG Oral Tablet;Therapy: (Recorded:08Apr2020) to Recorded traZODone HCl TABS;Therapy: (Recorded:08Apr2020) to Recorded Vitamin D CAPS;Therapy: (Nirmal rded:08Apr2020) to Recorded Past Medical History Denied: History of Clotting disorder History of anemia (V12.3) (Z86.2) Denied: History of anticoagulant therapy History of arthritis (V13.4) (Z87.39) History of cardiac murmur (V12.59) (Z86.79) History of diabetes mellitus (V12.29) (Z86.39) History of hypertension (V12.59) (Z86.79) History of hypothyroidism (V12.29) (Z86.39) History of renal calculi (V13.01) (Z87.442) Surgical History Denied: History of Cardioverter defibrillator insertion History of Carpal tunnel surgery History of Cholecystectomy Denied: History of Pacemaker insertion History of Partial hysterectomy History of [place] tooth extraction Social History Never a smoker No illicit drug use Occasional alcohol use Retired from employment (V61.07) (Z63.4) VitalsVital Signs Recorded: 08Apr2020 01:59PM Height: 4 ft 11 inWeight: 124 lb BMI Calculated: 25.04BSA Calculated: 1.5Systolic: 133Diastolic: 63Heart Rate: 57Respiration: 16Temperature: 97.4 FHeight measured w/wo shoes: w/shoesPain Scale: 5Depression: 3ORT: LR Physical ExamGeneral: The patient is a well nourished/well developed, female, with a medium build (elderly), who is in no acute distress and appears stated age . 4-prong cane. Eyes: Lids are atraumatic, no lesions, sclerae are anicteric. PERRL. Ears, Nose, Mouth, Throat: external ears and nose without trauma. Patient wearing a mask due to COVID-19. Respiratory: Normal chest expansion and respiratory effort. Gait and Station: Gait was normal. Lungs are clear to auscultation bilaterally Cardiovascular: Extremities without peripheral edema, auscultation of heart reveals S1, S2 regular rate and rhythm, without murmur.Lumbosacral Spine:- Inspection: normal appearance. No deformity, ecchymosis, erythema or swelling noted. Normal Lordosis.. - Palpation/Tenderness: Tenderness on palpation of the LEFT: paraspinal (mild), sciatic notch and sacroiliac joint (minimal). - Palpation/Tenderness: Tenderness on palpation of the RIGHT: paraspinal (mild), but negative right sacroiliac joint. Palpatory Findings include There is mild tenderness to palpation in the lumbar spine.- ROM: Normal flexion, extension, rotation normal without painRight Lower Extremity Motor:- Hip: 5/5 flexion, 5/5 extension- Knee: 5/5 flexion, 5/5 extension- Foot: 5/5 Plantar , 5/5 DorsiFlexionSpecial Tests: flip test was negative and positive facet challenge Left Lower Extremity Motor:- Hip: 5/5 flexion, 5/5 extension- Knee: 5/5 flexion, 5/5 extension- Foot: 5/5 Plantar , 5/5 DorsiFlexionSpecial Tests: flip test was negative and positive facet challenge , Straight leg raise is positive on the left.Neurological:Sensation Left Lower: normalSensation Right Lower: normal. Strength is 5/5 in the bilateral and equal lower extremities. Skin: Warm, dry, acyanotic. Psychological: Alert and oriented to person, place and time. Mood and affect are pleasant and appropriate. Judgement intact. Insight normal without delusions or hallucinations. Denies suicidal/homicidal ideation. Results/ DataX-ray of the lumbosacral spine performed on 12/02/2013 demonstrates marked facet arthritis in the lower spine. There is mild grade 1 spondylolisthesis at L4-5 and L5-S1. There is a T11 compression fracture which may have been new or old at that time. Assessment 1. Chronic low back pain (724.2,338.29) (M54.5,G89.29) 2. Lumbosacral radiculopathy (724.4) (M54.17) 3. 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 SOFTWARE APPLICATIONS ARCHITECT was consulted by my designee and I have reviewed the information presented to me and find no aberrant compliance issues. Patient has been informed. Nerve Blocks: An order was placed for a lumbar interlaminar epidural steroid block at L5-S1 under fluoroscopy with sedation. The patient is taking 81 mg of aspirin. Clearance, no. ASIPP Risk Stratification of Patients presenting for Interventional Pain Procedures: Decreasing Morbidity of COVID-19 Points: 3Points: 2Points: 2Points: 1Points: 2Points: 0Points: 0Points: 0Total Points: 10 According to the Covid-19 ASIPP guidelines and the medical history as relayed to me by the patient, the Covid-19 risk stratification is medium. NERVE BLOCK: The material risks, benefits, alternatives have been discussed with the patient, including no treatment. They include, but are not limited to, bleeding, bruising, infection, damage to targeted and non-targeted tissue, increased pain, nerve injury or other reaction, if severe, could lead to CVA, arrhythmias or . The patient was given procedure instructions and educational material for this specific procedure at the time of the visit. Discussion/SummaryThe patient is a very pleasant 89-year-old female who is extremely hard of hearing. She was present today with her daughter. The patient has historically done well with epidural steroid blocks but approximately 3 years ago her pain physician at that time decided they were of no additional benefit. The patient over the past 3 years has had gradually worsening pain in her lower back. Currently her pain appears to be a left lumbosacral radiculopathy. We will proceed with a lumbar interlaminar epidural steroid block at L5-S1 targeting this left-sided pain. She will follow up in the office following this injection. The patient has had radiofrequency ablations in the past with decent success. We may update her MRI at a subsequent visit. ScribeNYSW Scribe Detail Form: Florinda Ni . ([employer]) Signatures Electronically signed by : Charmaine Corbett MD; Apr 09 2020 1:08PM EST Name Value Range Interpretation Code Description Data Nita rce(s) Supporting Document(s) ID Date Data Source [id number] 04/08/2020 10:47:00 AM EDT [facility] ([facility]) Name Value Range Interpretation Code Description Data Nita rce(s) Supporting Document(s) Creatinine For GFR 1.24 mg/dL 0.55-1.30 [facility] ([facility]) Glucose, Fasting 75 mg/dL 70-100 [facility] ( [facility]) Blood Urea Nitrogen 24 mg/dL 7-18 MEDEN T ([facility]) Sodium Level 137 meq/L 136-145 [facility] ([facility]) Potassium Serum 4.7 meq/L 3.5-5.1 [facility] ([facility] and [facility]) Glomerular Filtration Rate 43.6 [facility] ([facility]) <content>Units are mL/min/1.73 m2</content>
<content></content>
<content>Chronic Kidney Disease Staging per NKF:</content>
<content></content>
<content>Stage I & II GFR >=60 Normal to Mildly Decreased</content>
<content>Stage III GFR 30- 59 Moderately Decreased</content>
<content>Stage IV GFR 15-29 Severely Decreased</content>
<content>Stage V GFR <15 Very Little GFR Left</content>
<content>ESRD GFR <15 on BIODIESEL ENGINEERING MANAGER</content>
<content></content> Chloride Level 102 meq/L 98-107 [facility] ([facility]) Carbon Dioxide Level 29 meq/L 21-32 MEDE NT ([facility]) Anion Gap 6 meq/L 8-16 [facility] ([facility]) Ast/Sgot 31 U/L 7-37 [facility] ([facility]) Alt/SGPT 35 U/L 12-78 [facility] ([facility]) Calcium Level 9.4 mg/dL 8.8-10.2 [facility] ([facility]) Total Protein 6.9 GM/DL 6.4-8.2 [facility] ([facility]) Bilirubin,Total 0.3 mg/dL 0.2-1.0 [facility] ([facility]) Alkaline Phosphatase 154 U/L 45-117 MEDE NT ([facility]) Albumin 3.9 GM/DL 3.2-5.2 [facility] ([facility]) Albumin/Globulin Ratio 1.3 1.2-2.2 MS DENT ([facility]) ID Date Data Source [id number] 04/08/2020 10:47:00 AM EDT [facility] ([facility]) Name Value Range Interpretation Code Description Data Nita rce(s) Supporting Document(s) Laboratory test finding (navigational concept) 84 mg/dL [facility] ([facility]) HDL Cholesterol 78 mg/dL [facility] ([facility]) LDL Cholesterol 54 mg/dL [facility] ([facility]) Laboratory test finding (navigational concept) 71 mg/dL [facility] ([facility]) Laboratory test finding (navigational concept) 149 mg/dL [facility] ([place] [employer] [facility]) Laboratory test finding (navigational concept) 1.910 [facility] ([place] [employer] [facility]) ID Date Data Source [id number] 04/08/2020 10:47:00 AM EDT [facility] ([facility] [employer] [facility]) Name Value Range Interpretation Code Description Data Nita rce(s) Supporting Document(s) Thyrotropin [Units/volume] in Serum or Plasma 4.220 uIU/ML 0.358-3.74 0 [facility] ([place] [employer] [facility]) ID Date Data Source [id number] 04/08/2020 10:47:00 AM EDT [facility] ([facility] [employer] [facility]) Name Value Range Interpretation Code Description Data Nita rce(s) Supporting Document(s) Creatine kinase [Enzymatic activity/volume] in Serum or Plasma 282 U/L 26-192 [facility] ([place] [employer] [facility]) ID Date Data Source [id number] 03/24/2020 02:23:00 PM EDT [facility] ([facility] [employer] [facility]) Name Value Range Interpretation Code Description Data Nita rce(s) Supporting Document(s) Hemoglobin A1c/Hemoglobin.total in Blood 6.7 [facility] ([place] [employer] [facility]) ID Date Data Source [id number] 03/24/2020 02:08:00 PM EDT [facility] ([facility] [employer] [facility]) Name Value Range Interpretation Code Description Data Nita rce(s) Supporting Document(s) Glucose [Mass/volume] in Serum or Plasma 60 [facility] ([place] [employer] [facility] and [place] [employer] [facility]) ID Date Data Source [id number] 03/12/2020 03:28:41 PM EDT [facility] Name Value Range Interpretation Code Description Data Nita rce(s) Supporting Document(s) Progress Note [facility] [id number] lbm [file] [id number] ID Date Data Source [id number] 03/12/2020 03:28:36 PM EDT [facility] Name Value Range Interpretation Code Description Data Nita rce(s) Supporting Document(s) Progress Note [facility] [id number] lbm [file] [id number]== ID Date Data Source [id number] 03/03/2020 02:30:00 PM EDT [facility] Name Value Range Interpretation Code Description Data Nita rce(s) Supporting Document(s) WHITE BLOOD COUNT 7.32 10^3/uL 4.00-10.50 [facility] RED BLOOD COUNT 3.28 10^6/uL 3.90-5.20 [facility] HEMOGLOBIN 10.6 G/DL 11.5-15.6 [facility] HEMATOCRIT 31.0 % 35.0-46.0 [facility] MCV 94.5 FL 80.0-100.0 [facility] MCH 32.3 PG 27.0-34.0 [facility] MCHC 34.2 G/DL 32-36 [facility] RDW 12.7 % 11.5-14.5 [facility] PLATELET COUNT 290 10^3/uL 130-400 [facility] MPV 8.5 FL 8.7-13.2 [facility] GRAN % (AUTO) 59.7 % 42.0-75.0 [facility] LYMPH % (AUTO) 25.3 % 20.0-51.0 [facility] MONO % (AUTO) 9.6 % 2.0-15.0 [facility] EOS % (AUTO) 4.5 % 0.0-11.0 [facility] BASO % (AUTO) 0.8 % 0.0-2.0 [facility] IG % (AUTO) 0.1 % 1.00-5.00 [facility] IG # (AUTO) 0.0 10^3/uL <0.5 [facility] GRAN # (AUTO) 4.37 10^3/uL 1.50-6.50 [facility] LYMPH # (AUTO) 1.9 k/uL 1.0-5.0 [facility] MONO # (AUTO) 0.70 k/uL 0.20-1.50 N [facility] EOS # (AUTO) 0.33 10^3/uL 0.00-1.10 [facility] BASO # (AUTO) 0.06 10^3/uL 0.00-0.20 [facility] ID Date Data Source [id number] 03/03/2020 02:44:00 PM EDT [facility] Name Value Range Interpretation Code Description Data Nita rce(s) Supporting Document(s) SODIUM 136 MEQ/L 135-145 N [facility] POTASSIUM 4.4 MEQ/L 3.5-5.3 N [facility] CHLORIDE 105 MEQ/L 94-110 N [facility] CARBON DIOXIDE 24 MEQ/L 22-33 N [facility] ANION GAP 11 5-16 N [facility] BLOOD UREA NITRO 23 MG/DL 7-25 N [facility] CREATININE 1.1 MG/DL 0.6-1.4 [facility] GFR 47.0 ML/MIN [facility] Stage G3a - Mildly to moderately decrea sed kidney function The GFR is an estimate of the Glomerular Filtration Rate. It is an aid to assess a patient's renal function. It is not a conclusive diagnosis of kidney disease. GFR normal is >=90 The MDRD GFR calculation is considered valid between the ages of 18 and 75 years only. BUN/CREAT RATIO 20 8-36 [facility] GLUCOSE 193 MG/DL 70-100 H [facility] CA 8.9 MG/DL 8.7-10.5 [facility] BILIRUBIN,TOTAL 0.3 MG/DL 0.1-1.3 [facility] AST 21 U/L 5-40 N [facility] ALT 25 U/L 5-48 [facility] ALKALINE PHOSPHATASE 152 U/L 40-140 [facility] TOTAL PROTEIN 6.3 G/DL 5.9-8.3 N [facility] ALBUMIN 4.4 G/DL 3.0-5.1 N [facility] GLOBULIN 1.9 G/DL 1.5-3.5 [facility] ALB/GLOB RATIO 2.3 G/DL 1.0-3.0 N [facility] ID Date Data Source [id number] 03/03/2020 02:44:00 PM EDT [facility] Name Value Range Interpretation Code Description Data Nita rce(s) Supporting Document(s) IRON 92 UG/DL 35-150 N [facility] TIBC 243 UG/DL 260-400 [facility] % IRON SATURATION 38.0 % 20-50 [facility] ID Date Data Source [id number] 03/03/2020 02:44:00 PM EDT [facility] Name Value Range Interpretation Code Description Data Nita rce(s) Supporting Document(s) FERRITIN 444.0 NG/ML 22-322 [facility] ID Date Data Source [id number] 02/07/2020 05:15:18 PM EDT [facility] NT INFORMATIONPatient MRN Name Date of Age Gend*PT [id number] Manasa Calle 1930 89 years F OBSPT Location Admission Date/Time Visit ID Attending [id number] 02/04/20 0023 --- --- EPI ID CSN Admitting Provider [id number] Missael Mcnulty MD([id number]) Attestation signed by Maile Gonzales MD at 02/07/2020 5:15 PMCase discussed with nurse practitioner. Patient is an 89-year-old female whopresented with chest pain rating down her back between her shoulder blades.She was admitted for rule out ACS. She underwent Lexiscan stress testing whichwas negative. It was noted that she was hypertensive and was kept overnightfor control of her blood pressure. Addition of clonidine twice a day hasimproved her pressures. She will be stable for discharge to home with closeoutpatient follow-up of her blood pressures. Agree with discharge note andplan of care by Rob Cruz NP -- [facility] DISCHARGE SUMMARYPatient Name: Manasa Calle of : 1930 Age 89 yearsPrimary Physician: Yanick Guerrero MD PCP Gul[place]irqg Date: 02/04/2020 Discharge Date: 02/06/2020Shgeorgia will be discharged from [facility] to Home.Discharge Diagnoses:Principal Problem: Chest discomfortActive Problems: Coronary artery disease, moderate, 2019 CATH Chronic renal insufficiency, stage III (moderate) Essential hypertension Hypothyroidism Hyperlipidemia Uncomplicated late onset Alzheimer's dementia Episode of hypertension, severe Hypertensive emergency VHD (valvular heart disease) Chest painDischarge Medications:Current Discharge Medication ListSTART taking these medications DetailscloNIDine (CATAPRES) 0.1 MG tablet Take 1 tablet (0.1 mg total) by mouth 2 (two)times a dayQty: 60 tablet, Refills: 0CONTINUE these medications which have CHANGED Detailscarvedilol (COREG) 12.5 MG tablet Take 1 tablet (12.5 mg total) by mouth 2 (two)times a dayQty: 60 tablet, Refills: 0CONTINUE these medications which have NOT CHANGED DetailsamLODIPine (NORVASC) 10 MG tablet Take 10 mg by mouth dailyaspirin 81 MG EC tablet Take 81 mg by mouth dailyatorvastatin (LIPITOR) 40 MG tablet Take 40 mg by mouth nightlybenazepril (LOTENSIN) 40 MG tablet Take 40 mg by mouth nightlybisacodyl (DULCOLAX) 5 MG EC tablet Take 5 mg by mouth dailyCalcium Carb-Cholecalciferol (CALCIUM-VITAMIN D) 600-400 MG-UNIT TABS Take 1tablet by mouth dailycholecalciferol (VITAMIN D3) 1000 units capsule Take 1,000 Units by mouth dailycitalopram (CELEXA) 20 MG tablet Take 20 mg by mouth dailyDAILY ALINA (THERAGRAN) per tablet Take 1 tablet by mouth dailydonepezil (ARICEPT) 10 MG tablet Take 10 mg by mouth nightly!! gabapentin (NEURONTIN) 100 MG capsule Take 100 mg by mouth daily!! gabapentin (NEURONTIN) 100 MG capsule Take 200 mg by mouth nightlyInsulin Aspart 100 UNIT/ML SOCT Inject under the skin Twice daily sliding scaleinsulin detemir (LEVEMIR) 100 UNIT/ML injection Inject 11 Units under the skinnightlylevothyroxine (SYNTHROID, LEVOTHROID) 25 MCG tablet Take 25 mcg by mouth dailyoxybutynin (DITROPAN) 5 MG tablet Take 5 mg by mouth 2 (two) times a daypantoprazole (PROTONIX) 40 MG tablet Take 40 mg by mouth 2 (two) times a daytorsemide (DEMADEX) 10 MG tablet Take 10 mg by mouth daily as needed (forswelling)traMADol (ULTRAM) 50 MG tablet Take 50 mg by mouth every 6 (six) hours as neededfor paintraZODone (DESYREL) 50 MG tablet Take 50 mg by mouth nightly !! - Potential duplicate medications found. Please discuss with provider.STOP taking these medications docusate sodium (COLACE) 100 MG capsuleFollow Up Instructions:The patient was given an after visit summary.Fo llow-up with PCP in 7 to 10 days.Patient to take blood pressures daily 1 hour after blood pressure medicationadministration. She was advised to bring this daily log to her PCP follow-up todetermine if she needs more or less dosing of her blood pressure medications.Brief Hospital Course:This is an 89-year-old white female with a past medical historysignificant for CAD, Alzheimer's dementia, hypertension, hypothyroidism,hyperlipidemia who presented to [facility] on 02/04/2020 withcomplaints of chest pain radiating to her back between her shoulder blades. Sheis admitted to the observation unit under the hospitalist service. Sheunderwent a Lexiscan stress test which was negative for inducible ischemia orinfarct. Her blood pressures were also noted to be significantly elevated,likely the cause of her chest discomfort as she is currently asymptomatic sinceher blood pressures have improved. She was kept overnight for observation foranother 24 hours after the stress test for further monitoring of blood pressureto ensure that her blood pressures were stable prior to discharge. Clonidine0.1 mg twice daily was added to her blood pressure medication regimen, this willbe continued for now with her PCP follow-up appointment. She is medicallyready/stable for discharge home today. All questions answered to hersatisfaction. No further concerns.Discharge Exam:Blood Pressure: BP: 178/63 Pulse: Heart Rate: 66Temperature: Temp: 98 F Respirations: Resp: 17Admission Weight: Weight: 54.4 kg (120 lb) O2 Saturation: SpO2: 99 %Discharge Weight: Weight: 54.4 kg (120 lb) BMI: Body mass index is 23.44 kg/m .Physical Exam General well developed, well nourished, in no apparent distress HEENT Normal Lungs normal Heart regular rate and rhythm Abdomen soft, non-tender, non-distended, no organomegaly or masses Musculoskeletal negative Neuro normal without focal findings, mental status, speech normal, alert andoriented x3 and PERLADiagnostics:Imaging:Echo Transthoracic (tte)Result Date: . Left ventricular cavity size is normal with moderate increase in wallthickness. 2. LV systolic function is normal with resting estimated ejectionfraction is 60-65 %. 3. The left ventricular wall motion is normal 4. LVdiastolic function is abnormal with elevated filling pressure 5. Left atrialsize is moderately dilated 6. Estimated PA pressure is 40 mm hg . 7. Mildmyxomatous degeneration of the mitral leaflet, mild mitral annularcalcification, mild mitral regurgitation 8. Aortic valve is mildly sclerotic, nostenosis or regurgitation. 9. No significant valvular heart disease based on the2D, M-mode, color and spectral Doppler.X-ray Chest Two ViewsResult Date: 02/04/2020. [place] [address] Patie nt Name: MANASA REEDER : 1930 Sex: F Ordering Provider: EUGENIO KAUFMAN AuthorizingProv: EUGENIO KAUFMAN Referring Provider: Procedure Performed: XR CHEST PAAND LATERAL Exam Date: 02/04/2020 01:40 Patient Class: Emergency Reason for Exam:CP/SOB Technique: AP and lateral views obtained. Comparison: CT February 04, 2020Findings: There is mild diffuse interstitial lung disease. No infiltrate isdemonstrated. There is mild cardiomegaly. No adenopathy or pleural effusiondemonstrated.IMPRESSION: Diffuse interstitial lung disease. CT shows groundglass opacities.These findings can be related to inflammatory disease, edema or chronicinterstitial disease. Report electronically signed by: VIVEK BORDEN On02/04/2020 7:40 AM Workstation ID: [id number] Angiogram ChestResult Date: 02/04/2020[place] [address] Patient Name: Manasa Reeder : 1930 Sex: F Ordering Provider: EUGENIO HERMANuthgabe Prov: EUGENIO KAUFMAN Referring Provider: ProcedurePerformed: CT ANGIOGRAM CHEST Exam Date: 02/04/2020 03:07 AccessionNumber: [id number] Patient Class: PROCEDURE INFORMATION:Exam: CT Angiography Chest With Contrast Exam date and time: 02/04/2020 3:07 AMAge: 89 years old Clinical indication: Chest pain and other: Back pain;Additional info: Chest and backpain TECHNIQUE: Imaging protocol: Computedtomographic angiography of the chest with intravenous contrast. 3D rendering(Not supervised by radiologist): MIP and/or 3D reconstruc natanael images were createdby the technologist. Radiation optimization: All CT scans at this facility useat least one of these dose optimization techniques: automated exposure control;mA and/or kV adjustment per patient size (includes targeted exams where dose ismatched to clinical indication); or iterative reconstruction. Contrastmaterial:ISOVUE 370; Contrast volume: 70 ml; Contrast route: INTRAVENOUS (IV);COMPARISON: CR XR CHEST PA AND LATERAL 02/04/2020 1:23 AM FINDINGS: Pulmonaryarteries: The main pulmonary artery measures 25 mm. No pulmonary embolism isidentified. Aorta: The ascending thoracic aorta measures 33 mm. No gross orobvious aortic dissection is identified, particularly distal to the mid arch.Artifact and image degradation precludes detailed evaluation of the ascendingthoracic aorta. Lungs: Minimal scattered bilateral ground-glass infiltrates withslight interstitial coarsening. Pleural space: Unremarkable. No pneumothorax. Nopleural effusion. Heart: The left atrium measures 4.3 cm in its AP dimension.Mediastinal space: Mild hiatal hernia. Lymph nodes: Unremarkable. No enlargedlymph nodes. Liver: Hepatic calcification. Kidneys and ureters: There is a rightrenal cyst measuring 3.2 cm with a Hounsfield measurement of 12 consistent witha Bosniak 1 cyst. No follow-up imaging is recommended. Bones/joints:Unremarkable. No acute fracture. Soft tissues: Unremarkable.IMPRESSION: 1. Minimal scattered bilateral ground-glass infiltrates with slightinterstitial coarsening consistent with pneumonia. 2. Mild hiatal hernia. 3.Borderline cardiomegaly. 4. Otherwise negative CTA chest. No pulmonary embolismis identified. No gross or obvious aortic dissection is identified, particularlydistal to the mid arch. Artifact and image degradation precludes detailedevaluation of the ascending thoracic aorta. Report electronically signed by:MEET HERNÁNDEZ MD on 02/04/2020 03:52:19Nm Cardiac Gated Spect Imaging With Ef And WmResult Date: 02/05/2020[place] [address] Patient Name: MANASA REEDER : 1930 Sex: F Ordering Provider: PATRIA CORMIER AuthorizingProv: PATRIA CORMIER Referring Provider: Procedure Performed: NM CARDIAC GATEDSPEC IMG EFWM Exam Date: 02/05/2020 14:43 Patient Class: Outpatient Reason for study:ACS, possible, negative troponin COMPARISON: None Technique: Pharmacologicstress test was performed. LEXISCAN was administered under the direction of theCardiology Department. For the resting study the patient received 11 mCi ofCARDIOLITE intravenously. For the pharmacologic st ress portion the patientreceived 34 mCi of CARDIOLITE intravenously. Gated SPECT imaging was performedat rest and stress. Gated wall motion study and ejection fraction were alsoperformed. FINDINGS: Stress SPECT myocardial tomographic images demonstrate anormal pattern of tracer distribution within the left ventricular myocardium.Rest SPECT myocardial tomographic images demonstrate a normal, unchanged patternof tracer distribution within the left ventricular myocardium. The leftventricular chamber is not dilated. The transient ischemic dilatation score is1.26. EJECTION FRACTION WALL MOTION STUDY: Review of the gated imagesdemonstrates normal wall motion in the left ventricular myocardium. The leftventricular ejection fraction is calculated to be 87%.IMPRESSION: Negative exam for ischemia and infarct. Excellent wall motion in allsegments. The left ventricular ejection fraction is calculated to be 87%. Reportelectronically signed by: JESS ALVARADO On 02/05/2020 3:12 PM Workstation ID:[id number]:NoneConsultants:NoneRecent Labs:BMP:Lab ResultsComponent Value Date NA 133 (L) 02/04/2020 K 4.3 02/04/2020 CL 102 02/04/2020 CO2 27 02/04/2020 ANIONGAP 4 (L) 02/04/2020 CALCIUM 8.9 02/04/2020 GLU 139 (H) 02/04/2020 BUN 14 02/04/2020 CREATININE 0.95 02/04/2020 GFRAA >60 02/04/2020 GFRNONAA 56 (L) 02/04/2020Cardiac:Lab ResultsComponent Value Date TROPONINI <0.05 02/04/2020 POCTROP <0.01 (L) 02/04/2020 POCTROP 0.01 02/04/2020 PROBNP 385 02/04/2020CBC without Diff:Lab ResultsComponent Value Date WBC 6.6 02/04/2020 RBC 3.47 (L) 02/04/2020 HGB 11.3 (L) 02/04/2020 HCT 33.3 (L) 02/04/2020 MCV 96.1 (H) 02/04/2020 MCH 32.6 (H) 02/04/2020 MCHC 34.0 02/04/2020 RDW 14.2 02/04/2020 PLT 331 02/04/2020 MPV 6.6 (L) 02/04/2020Rob Cruz, NP11:19 AMTotal time spent for discharge on date of discharge: 38 minutes Name Value Range Interpretation Code Description Data Nita rce(s) Supporting Document(s) ID Date Data Source [id number] 02/05/2020 05:30:24 PM EDT [facility] [place] Name Value Range Interpretation Code Description Data Nita rce(s) Supporting Document(s) POC NOVA GLU 150 mg/dL (70-99) H [facility] [place] [facility] [place] [facility] ID Date Data Source [id number] 02/05/2020 03:12:31 PM EDT [address] [place] [id number] Name: MANASA LEIJAOB: 1930Sex: FOrdering Provider: PATRIA Barryhoamy Prov: PATRIA Stoddard Provider: Procedure Performed: NM CARDIAC GATED SPEC IMG EFWMExam Date: 02/05/2020 14:43MRN: [id number] Number: [id number] Class: OutpatientAccount #: [id number] for study: ACS, possible, negative troponinCOMPARISON: NoneTechnique: Pharmacologic stress test was performed. LEXISCAN was administered under the direction of the Cardiology Department. For the resting study the patient received 11 mCi of CARDIOLITE intravenously. For the pharmacologic stress portion the patient received 34 mCi of CARDIOLITE intravenously. Gated SPECT imaging was performed at rest and stress.Gated wall motion study and ejection fraction were also performed.FINDINGS: Stress SPECT myocardial tomographic images demonstrate a normal pattern of tracer distribution within the left ventricular myocardium.Rest SPECT myocardial tomographic images demonstrate a normal, unchanged pattern of tracer distribution within the left ventricular myocardium.The left ventricular chamber is not dilated.The transient ischemic dilatation score is 1.26.EJECTION FRACTION WALL MOTION STUDY:Review of the gated images demonstrates normal wall motion in the left ventricular myocardium.The left ventricular ejection fraction is calculated to be 87%.IMPRESSION:Negative exam for ischemia and infarct. Excellent wall motion in all segments.The left ventricular ejection fraction is calculated to be 87%.Report electronically signed by: JESS ALVARADO On 02/05/2020 3:12 PMWorkstation ID: [id number] Name Value Range Interpretation Code Description Data Nita rce(s) Supporting Document(s) ID Date Data Source [id number] 02/05/2020 09:04:57 AM EDT [facility] [place] Name Value Range Interpretation Code Description Data Nita rce(s) Supporting Document(s) POC NOVA GLU 143 mg/dL (70-99) H [facility] [place] [facility] [place] [facility] ID Date Data Source [id number] 02/04/2020 04:42:58 PM EDT [facility] [place] Name Value Range Interpretation Code Description Data Nita rce(s) Supporting Document(s) POC NOVA GLU 168 mg/dL (70-99) H [facility] [place] [facility] [place] [facility] ID Date Data Source [id number] 02/04/2020 04:07:02 PM EDT [facility] Name Value Range Interpretation Code Description Data Nita rce(s) Supporting Document(s) &PDF [facility] BDVFDx0pIbEUQlGm62/LNVhcTBVrn1UpAMtyOUv7WPugZFTjB1WoePmeCQGBL8aJQmHLGBaBCHRDTK1x vci [file] SvyPza/Ig9Q3QdM1KcEK4/uN+/MARÍA+3kv9CYe+3myW4Q92hTD1LQyoCOyRtsZEU5/lD86Tbpxzb2ELGs [file] AgICAgICAgICAgICAgICAgICAgICAgICAgICAgICAg ICAgICAgICAgICAgICAgICAgICAgICAgICAgICAgICAgICAgICAgICAgICAgICAgICAgICAgICAgICAg UQQtHR1XDETvKDTfDREjJSRiJEAqSAKfWPHrFGXyNTZbFCGvYFUoTZByNKXoVUAsYAAnBXHfYCEoBKQa ICAgICAgICAgICAgICAgICAgICAgICAgICAgICAgIC KsOWUlRAXvEQUaCLKzLI0ETENlKHYxVNSbDPHlDVOpFLMkAQRdMMRnHHJkIXFpLDWgZDJjPZJuQSUjXX AiAOCjOJAqFNOiWGPuLHSsYBDmITNsWOKqKBNjXSNqQAXgIESfSHKqIGWeWSPrCVWkFBQrWKLvGB4IUD AgICAgICAgICAgICAgICAgICAgICAgICAgICAgICAg ICAgICAgICAgICAgICAgICAgICAgICAgICAgICAgICAgICAgICAgICAgICAgICAgICAgICAgICAgICAg HPQeLPQnBH8IJXMxICQzWSFbCPSeIXIeSBVeGAUhADDjEPOfJCGeFUQzKXIjJMZoPLRdRBJoVUWjMDOo ICAgICAgICAgICAgICAgICAgICAgICAgICAgICAgIC YzFVIvLELlZDUzMLXxFMFsOA2HZILvRZGxUFGbFKIfTMPcJEVzLUDhITEqGTLgCZWuHVSqNBFlZEKmBB AgICAgICAgICAgICAgICAgICAgICAgICAgICAgICAgICAgICAgICAgICAgICAgICAgICAgICAgICAgIA 0KICAgICAgICAgICAgICAgICAgICAgICAgICAgICAg ICAgICAgICAgICAgICAgICAgICAgICAgICAgICAgICAgICAgICAgICAgICAgICAgICAgICAgICAgICAg BVNbPPUfGVSvTP0OQESoVLDkZKCiFOSfJHHjEWRfCFTiKZClENMyAAJuJYCgGAArBLNcCHYjIGRjFUSj ICAgICAgICAgICAgICAgICAgICAgICAgICAgICAgIC LcTQJyEEOdXJEcQCKgQTFeTYKlVT5KXMShQPHkHVMoTCFpEWPkJGYsKFKvETJcBJTuCFCtAZSiYZOrBQ AgICAgICAgICAgICAgICAgICAgICAgICAgICAgICAgICAgICAgICAgICAgICAgICAgICAgICAgICAgIC OpHV6BTV61rUBpk9H0YVQhXQ4ftof/Cp2BSRaaqiBv tEIyBV1HMgViQW8pve3MOqXdDR9xza2IEBoHWmXlS5Y5cVAySIBwAEFLXuFmI37mLVazOh72RChqIRRd WzTjYNe9Lq3CQuOnM3gfFTRnWeP1KKIcLqW2LZQuIcN2SJTgNpBmOMQbZJEpIB5TCXUlF797gyVyNH9V Gc8FVgDkJJ7mgj3VEsmdSAQhVkoUWjn9MEalHB5IkE OtP2VauUXpp9jUWpFcJ3RJSIT5VIXfDn0ZRQRxJcOpUVFyVSkkBX7nAMKkMPKBfBfzepA6LE6AKU7uux GcFM1OQtQkDa8lNk7FKzLzB8ZmN6QnKCXxSUZFVNclFX9JOVAaNVA9ZCHwGUAlADXCDwJtG98kOI1LP9 Zad99aMmI9KSTuCeFuNGsdXG58nJlwnlLvoASuyNvt MV2NDd3+SMpkvoBrZkmDKzpqPZOMUvHeVHBGFrLlXDVaNQOxXKRbExT9SaWdXf9MFLTiGPAtOYRsMbFt TTBrNOBpMOllTXNySTT4Gyp7DDZxRFBnKZ0BGuCuSUUwBqtnTIUsIBPcAIQjgq7SKIIrJJCqLQU5ExNs KQEeRTVcKYqiQTYzQHGlJcX6ZQLmHATvXR3BPeCpRD QiPOA9ZIltDLHuCUZxxv3NPDXvMZGdCWr8XQWdVIGySZEvLQiiLGTvHFF8TRU8HVEqOCDuLO9MBpItSK ZeWFt9ABJcEGAlORIxii2GCWIrQMKdIju5RVYyWPSnTRQgXPyvPRQvFVU8FRW3YISeRCQwWO8SXzDeBI JkRSbhWLRmTKSeJLPzqb1BYQRtRLWbUIYbUWQqKPSj CUQdNIkaVCQbCOVmVYOtNWUuTZYlYG5UQkCaICQlGOT3LPYeTLVuJLRwnb7SVAPsLTYjTYS0AVViKRIb RYYqSDfnMPJeIUQhJyM7XAZpARIjXO1JHpTvAHHpNZT5MVEdLMDcUZRand4IZXLjQUAwTgocZtTrBUIe PLOeOWmzARGbUBEoGEByPOIoJJJkMX0OEiVfKGAjCD ElGEGhGOFzHHMgva0BZVPxRELjAVS9KUSmYAErWTCuYFlcOUCsAJRzQwM6EMLeYXUkGW3PJnZgSAMyDa ZjIQaxHBZsKDChdo4LDABcNLXcCOigJJRaNKHhOCJyLSljCKNpZZH5KjPuFRLdHGFsZC9ZXiWxXGVjXz A7RZZdXTDyREOcxl5ROLWbPVWyCEAcPjHvMVCwRMWw SPhyGBZgTLZ3CUDgQSDeONPhAW1MWgGjVYSoTSU3IYHcRPAoISYegt9VHDJrUUS0GrdrPHCmWOPrKDMl TRkcJDMfSPV3CjCmOHRwJDEtWU8ARdWfLCNuQLH9BWCpWLZuCCQynu9JRDSnFOT7HCq6YXUgQQBuSAHv HKxaFFJbVVS7VMWeIGHiPZFxPS5URdShSCUfAoRcRx BpPZWiPZQvog0QKWFgLEL9BWX9UoNvLTToPZHvTLkhFUOcNXZ5KTIyBAHiCSVkIG4FIhGlGPOsUnvxJC xfHDWmVMJcjq0AkNAhiIvqlb0JYHvXTz4MfLtsWNPaIGzhUg5ytYJmUHBqIKONLh6VduUbWTEbKHTMQO swHZHmVXTcPoKkXdE8DxguAzm3TNG9PLbkMTXqAXL5 BeHmAAZ8PkH5V2LnFQLpWLJgUDBuQmAhCQFlHVSrHxV1UtKzSBX4Umy+DD8kAFs+Za5Yu3AmfhZ9jeWd SIg3EfK2GQ0YHYOKN2IJRs== ID Date Data Source [id number] 02/04/2020 02:02:58 PM EDT [facility] [place] [facility] [place] Name Value Range Interpretation Code Description Data Nita rce(s) Supporting Document(s) POC NOVA GLU 240 mg/dL (70-99) H [facility] [place] [facility] [place] [facility] ID Date Data Source [id number] 02/04/2020 09:35:03 AM EDT [facility] Name Value Range Interpretation Code Description Data Nita rce(s) Supporting Document(s) EKG [facility] LJXUHw3iKpWUJpDte5RcMbLbXCUwQK1svzl5B7U2oHWnW6HujMYip7kvK1WrC6YwPRLoXKKXUH3NhKFb jb2 [file] hu57V3sAwMCE9XV17dAK2gTGtJPn2F4FsEppVMiWZwbiciic0602fNy/5271K25/QvTv3//7f//featheredger and reducer machine+L/ /H//8wf8/ffP//Je/L/+8z//13/+j//1f/tY1Kioh/6f//k//dd/5Y9jcijkM55Mv//7X/+X/7g//0j8 /fPf/zmXPv/+/fef/+0/bZDscAmVkYL6kBnBEXzA9l eOLSgPKtEGGOGuEMbS4sUDCjw+SJbD4rVLYmh+BhlG3faTD+1+XljJ8bwYI+1+OmvX7nnZS+1+KfzS7p fCL+1+Djln1vvLE+t+Javv7qtJZ+t+Pwzb6lnCN+t+Vxwv2hvTN+t+Itq7yz0Fgx7k94Hte/h30Blewu 05IevwM29T3bqYF6O0JfUM8F99/VFje4Zi7634/PLu g3Om82395rX7UN+8++Vzd2jhMx+8+kRpH6vgSb+i+fNbJ4fyOh+i+uUwS957YtdO0f+GR7W5CshU5c4J h1t4y1Ay7w1e3Ad4dod2ad7mQe7t49gWf/mLs0JF594K+DW7Xwt+re7Xgl+r+7Xg1+p+Exw2wc5Dyi1m 14Jfq/q42Vi3Xs18zOW/Zdat0p3Bw7f6n5Wd3v6i6Y r0rum54s8pDb8864uVc9201zMq/47LbWD+WTdqKz9Ah5z7bXD+duboo8Tm5sM+Upliy75R+uEQ/fyM0Q 1K6pnjjD45VB1/loSG4e5ccFCYbfatCxMNbHYG1euYmoS7JBYPlzphpDIEkgAUbzS/ekQoSORHkQglie to4pok62vDfiP43RXVVSJ/idJuBeZLsxtCnokcE9P2 xD38QmKs1lJVaPTZexZVWRRI/arKJit//KRQkR+cVfPi9gUWkKLMasFNGP8Oz39YDiz6IRrAeCD/mkUo WuRHtQhli/zoFqFwkR/xQxEt7sOsgRMZuqKVNL2Qh50QOvb5VCPEBLX/GkYoYuRHxQhljPj/2I6V7VlJ Pda67FFDNZA/akYoZ+PPjhxDmyaiNoApsI1PWdG52n NqhLJGfnSNUNhI/E5V7s5poHFZZ/CpuvMtJi23ePZfnX/CEUoc+nC6WeXaKruDVXFwA+oZqL50GB9c9Z EfrSMUO/MfomXrK443svPkqY/iEUoe+nJ9HeEeU0aQXLksX/cIhY/8KB+o2RDs7ZQLR/GuplUrM800c4 OAiI4MKoyv+cUNRlWpCdiFKSUeYzsPrZG0LNVjSYRb LSQUQ/OvppMhFZ41dKVU5Q9nUedv/dEMVo8wC2jTwLg5Om2s0TU+6CGlHtIfPaTUQ/iwj2I4GR/0kFIP 0L7gIdro/uWMDw3tO1eCoEe1Rw8x2UJ+6CGlHtIfPaTUQ/xuw8P8IP/lU3vExq6BTVze+R/maNokzY+f uYmbu33mNwQ1fbW7mMgobNg6OnJ8A8Oir714uTPN9L 8eUuoh/iUVFi5tW4cEuHf7Ep0s3ST+6CGlHtIfPaTUQ/swp2T0MU/5zIWH8H1qGqov/iCQHw7lD8fVbX g1Jf7i3TR+6CGlHtIfPaTUQ/vuq0K6AS/7bQEU2C3iIxng/cNVRe7uD8fSiMl9Sl4g7HR+6CGlHtIfPa TUQ/lww6G8SK/4tWTI0B6xFtbw/mXLDd9bM7uXnXq6 Vg9i1GF+6CGlHtIfPaTUQ/kri3M2JG/2kXDM6K2oWqcu/fPO34IPcjX1fqfuqhaqBboU9OCe4CnoWJqd QHQcBYyAAuFJJUH7p/RH6Y/SH6U/Sn+M/nf5Pclo8Vmcj6Aadq5Eo6a+GP0x+mP0x+iP0R+jP0Z/Bv0Z 1RlOg7G/Rt4U3EpXh6V/Zv3U0OlDv2E/Po6C0NhOw9 F/nP44/XH64/TH6Y/TH6c/Tn+c/wq1ucbOIjhIG5q/Tn+c/zM8SrdC6ZncX3PysL9Kr1T+BP0J+hP0J+ hP0J+gP0F/gv5M+jPpz6Q/k/5M+jPpz6Q/k/5M+jPpz6Q/k/5M+jPpz6Q/k/4s+rPoz6I/i/4s+rPoz6 I/i/4s+rPoz6I/i/4s+rPoz6I/i/5s+rPpz6Y/m/5s +rPpz6Y/m/5s+rPpz6Y/m/5s+rPpz6Y/m/3yMPY7mMocxczUlHMEFYeEmUxgzMnHS8lD4yxMnT7xOV65 ws0xyH5sd4I6q+afNP+k+SfNP2n+SfNPmn/S/WEfF7jCAUs82bZSV5iPMC4YMlECZRH4VQNHO7pFLrMF oKSOTM3PJLSL9hXDWKmeSSmMGpRD8LZ4JODWY1zPRL GTnNRJPD8QSVOT9eCNSQpqTMkWEtzQyVD1xKBAG8vLM2NLtPD6LY8rPHKR2iOWJFjdYSOUWvnFGKR0lQ GXI0nWPmKQbxDoFT7dAMFf8kKOAYomVF7UJevFOBf8bWKCn7rFOmMAqvCOPI43CYMq4uPe5vntlzEcI3 +Dpm5BXWuVcts2iqMukZNX5LdJHBUkSIFbs2VImF4D HBv9JXIu7mYJCjZvLyUuCDcog/zbyjiiyiFmAh5JrQY144Oz4NIU9Rs297Tf7CZr4Ux453of/fOM+ZB/ nvLDx/b8PPiZQ/b7girT8RzZEvj0hZltDKWkRtYjCn0sRouF+YkUYaiI/UZzC+efnAwX+YhRGbTYJ6LW Q0Z+YkYYNPITNcKwkZ+4EQaO/JWYFBXlJ7sIiZN/0S MMH/dUG6ESuG2GGICTklGHOQS0Q2TMLXWvVKPHnV6LhMUS3QzhsB4Rc0/BblkcAZODmE2BcVXX8QsJlL YdTiPzlRN5qYNtLSpFJIduAT3kNEzQ+wTNzbrHjakrclkT7JTn1hb4hKKSnJdPc1aBsLaMg7jhQP2fcm J1g9tplQi5dZvrmZX9cnpLwYU5IbLR7nqAQ2exEg6k buD2p1d714te0aigiOz/p3uGKirAKulW0keGXr5lN3rZF8BMZmlITUvMrJItQJgyMDT0aGGVQ5VWX4qh UKgWiaBhZXtyDEf87IJzzZjm/85rpw0sMVZx7/i9zh/9f34+mP3f1Qjjv/3xiJo759/HuQJP6e9W/nyq wKxMviQwyQ0e4ahVOZ6aI7hlzd7hH6HbxG0MdHS9O/ QG3a8FD3b3ZR5HpTD0WeF5Km3YbDV7HbJ6Ul9SrBN1OfO7BQ0ZdIj3UyV2CF5LqKn6FaA8YB4CzLa6bv Y3Ca7DaTg5onJ1Di1BjJo5unc60jT588onDY3pIh3cjIts7on5ux1mlk9Ousl1CqLxmF07AgavlihzCr yX31jnrvn6liK0ObqR6RncA6QwlP5PiJU7P/Uo [file] Sm9Kz1J5o+E6298wpr2X1W81uk23q/2IpIjuSARvu7 pdBXuhHPG/Gc+hn3FnqaMZE+kQ5/oa904/joZX14p8602/lw2OMYQ3wiK45qVJUW1VpSSrPLuH+kO9Id 3IN1CNzA+zG0MR7Q+sqejd/v11ybz69X/VJ6V1Y5+KuIbNX4CQ5ooSHthX2/Is9H1AzBv6/vgyb3/chS W4U7ii9c8M/CX4W/Cn8V/cd6MZxvojWMCV+Fv3rbr+ mhs0eZ3INz0ErFg6xdrKAo4nhyjH+9/bKebyeqx42Fkp2+Ihl0FKgTtitfE+nw1+RlgS9OuBL3Tp4ulY +40lmn8jreu9oaWXf+qa+fyxYB6iMSQzoG98O9Udscmct2KG8X7Khk7Lx+A/4O+Mao3tKe7CECrdwg9N V/N1X/XX/3VNecmKW+eq+LfmkZmLoILqcG2rpcbl9P uZ00TDbpiUgkf/Gdn20miG/x381kcnFZ/qa+obh0an52ciqA+x8vumGVKE3U8WtQdp/g+Qaeb+qr7GdS R059o4Chsb+d1x9/34xdI1kl/cd6vw410t/rj7/vb/b5/Uk/+qrKOfrqvZbn/ollx37iE127HzmNEfpI 4IvC15dcXJxdN85x/Y97NkJ32BI0gg9zgeB82P9g+i hQJ5lyr+E54Nr5q8Yn4ff0/Ke+yj3vqa/na5ZNtJ/8MwuWpe9zbrYI+cS6IOxZ+kL6Rvq+1OI0J2jG4m GhzyOVCvjq3NxLqHOfBhTI/XHucVd+vo7phiui5zoqWga5s707U2xi4aye5El46Pedr4xhVOe06t2wA+ gFz497A77dwvA5VSgt3Kajn+dEVqki62qAPSeyM/Ann-Marie [file] fqpU6RdtYCL3P3suIfY2ldA3GzHwIdUxmNUBWqLlXK+Z4lcXjKagD0J9q0R+[place]/LvHcOOjkXIW3LpAs [file] Nf31/GYbw4HxM+n66Bx3xD4rombLfWOf+Z6SqUGO32MZ/check totaler/66Tv+ca4wv8q215J2JIdkIpjbwysN2a JkbtSNF/Veronica/gSG0D8w4Q7zp/cgN14/5ngzWqah4R1 [file] WG86M1/v9So01bg7facccLoOTPkJnPopr3Ae8UVMlkmR4uD3pjiY65U4tUKmv/91pKDOOYQvFdebC+Upper sorbian [file] F0Ws3TvvBwWLJwIDMKUg5Fo480SVPtIGFGMxh+HuuikVRcpChfXQUBBOXxRGUOICGMN7V= ID Date Data Source [id number] 02/04/2020 09:34:55 AM EDT [facility] Name Value Range Interpretation Code Description Data Nita rce(s) Supporting Document(s) EKG [facility] LCCGGz7fKfPEHiDnq2AoJmCzJABePC6tzgt9D4Q0gNCaZ8GjnYHyl9qnB9XmY7CzZGZnODTESP1JjENg jb2 [file] a3msdpFMnL7IHC8ui4hulP3pQgE7+5Uqu4GriAr6ESjkNu2rRfOfmlqE+Mz2mRDglTU4otrCarhK/Roslyn vaoy+AK+gD/Bn+Nll92Oy198ko0qY5/BLosLl7s2Bo RdBn+Am9OT9Myrucy1jNMWW13+5hey09FCeksPsHFKH8DP3LU4ayKDi1XcmScuWDy/x/B/A9/Bd9QT/d G5ezaj94c1tv+3DP4B/zR/R3/mPGuqk20eEo23SvMB/PqzGQsAcyVkuUzON9fLrHyfZhEu6MDB2+Bv8A /4p/kH/T0P+SG6Pa668J20G6W+5oMy+Hi+B8/34Pke PN+D53sc/AX+An+Dv8E/4J+BR3IcMTFzCsTLveVWmSh9KR/An+ZY2PU0Ti/AN/B7/rC1OB9vSY/pMvgb /A3+Af80P/WrW/5VHOd13vySE/AF/An+BF/BV/ANfAMf/R3o74j+KpT28Bkkvi9hS//n4P+n+dA8LQa2 Rz7ZxJbaYfTLppami3K+ivb9i+H/Jp3V54pa1WpW7w 1KWzSZ7S6mdsE/0/j0ZOuDk/T1BW6jdnCt2VxTVczAkxVn5Gg8Ss0H90dwkRjrKC1uKc+D3/F7hpl13G d1MyTUF+OA5INbYnS/WoSCBG0G84ytumQoOvT/6iB0mxQjfZazs1h+usE/0Dd3DdV1vpcxEp2t6xdhyk /h+Rqer+M4Bv0t4sxrsu/h+Rqer+A8Hg5r8pnyuu/h +Rqer+T0DyIl6oq6a3P/yrnpmL/b97YWp6L6C0EkpK9I6Tjo03DfUd13YkhL6MTVogCt7Wc7EXC8XfrJ MI0ug7/TP61ube3l6vW/Pf3/0Cd1yxHauRkqb1LUG8WL/5/4f/R35n/0QRn/N/zf8H/H/LtDUs3LN80L dHma8G0Tsue8DogFK3861kdnV5yofcGBd1lC6zyHBa AF/An+BF+kkjCTd3Yj4/GZ+iWwz23QtuH4vHC/kr3x/1C6J9z12M+B4quixYnUu2D/umXwJ/ejC5bcM8 rlvs/Og0239urzqB1oaP/Ql5zwbrLV6G/wN+o5qOd8/Ku07Z6MR3Se1Jt4Tf7gx/Concession Cashier/Xk+Cr6Cb+Ab+I 44h08u9iwzzc34W0/SLH/r6oR+FREVNRcioKLmUcRT 8VytvVHZ5WjqQqh3ExGI5J2ivNN/39FZz/zsIRFJUd/mEUhR3+8RR/KS1hb4lKFcAX1sqp/nf+J7v+4t 7TlPlru/oV+t7FfoV/5k+r5mbdn4Gu2PPuFPicuJWBF+41f9oV+Nnf95n+/I+kO/SjNKe3cWsDU/f5+v vEsFfGmKfZrT6CTIqK/PzbJDtrxGtX6UYj7dW6iRUl Ea8twdyop4xn2/fb6e8g/6fw95ffO5d7bjM9yy+q7pxorZ36+d16Z+lf2dGM+zv4/mxHieGM+z16s5+/ znfe6K9eA+GsMenyjiD2Kr/u/gO/erM26Oe8mN4Av3DRMB/t/65NR+/059wB/gD/AFfPnW/8l8LmwiE+ sYIAbcFPhF38F24V68n27wvak8dhJ/ulHP+bZ1kylR llO/uuX+v7W+MVO/qrKAL+Cjv4b+Gvpr6K/198K0/h4B6zV3/y4gw3CvGVqq042i3hjqY/BgzyWvf9v+ gD/AH+AL+AL+BL/i3qJm1k2Yk9kaEo2es/8dfAd/tP4VuzokI4t/ijmb+oRu0hqBrNImgIkZ6hYIGUyw J8ymja23x77cwxR+dcufHXKutk/E4U8q7J21Jmma8L 3C4p3bw4mrF8asU6Rjt3CFq/Lb5U129/9r1RLWJCk6tFUwz3yMERGcHrIJ/srJH5+vYsVLxNrwPJ22Ds SDln1m1OqmSrJ1S/twBC/ol6SOp10jwZaarFrsxB5KOy7GOA/t/i4a41NDW4ZV0cOsaXOSdV+T0KY8qi p/9eYEVJq3bqFugG62jlICNk/UTq2KtEya00XJhg78 +bf1N1Wwq2k73coqa0nCjz8d0/6hWjzeSX0Qs5u+H5y6Y2agL+xnoU4w7lkhU0yywH13aWwfp0pXnWnW AAjE5aICF3pgqHbU8ndDHAIXzCjHhAXHASt5ztEavwyDPMULXa4bVwnKXUQBmnxSK4j0E+FP5O7I8Opo eX/aHjNK8ZFE+Xq2kT2w3+Yk9LQ5ER05Jefs18fd/T 5V3tZapn4TV3/v6+uqpR5FzvUh0Vk6A/wF/ga/q1933No1DEQ+sAHn8cGO+1WV+3tEcj2WHRM3rn1i9u l7rEp/V0omtqQ/0/qzSuvPmvarWwa/9WeV/a8U0i7BXonSqQ/+966SPhw5SjKp4BipQ/BHpWc6R2+6Zf AVfAU/+itZT/S3yg6+g7/AX+Ck8Nm5F/zT/NSvbhn8 Af7o+8f93tlWZ35E/GO0U7Dspd+Xrw0EpbH5Uh1l0tv7EzY5Fgzj/A3+Ab/7ORz48E0OZ2olrl6SNEGd wJ/gYzwbxrMp+Aa+ge/gt/5Clk2Nhx7qO1q5imvR/+D/bd9Qb/uk+gM+5q9j/sdgztb0ot1Sk5vynmQq 2Sn4Ax0JT3n43Ta/R38d/ZIkK610hbUfIdnSS/1d6O 7Zysr2q3Zdmxr05HsYkd/F5298zunRj+H5pn+azlyV3B5f/IMK/2JWK2ykF7vqr3EZ1S67NnubjNcO0z esanwZ7064GR8EsbCa4Uf0Cy6M724ew3OsMo7PX7449/cHtuSL81ZlN9BDcZHi6aB5VbR+QYX9Sg/eR2 m/wrLfnt5Ok6V77vX/B/602R9Fu68Ga+119vTztecB f4A/wBfwBfx+giq0454v/eqWwTfw+/na46i/4QL42Zr9S6K/wd/gH/C2FWhr2cbEK/4AH/9p2S0Spop3 T5w5RseOkdD6l3C+Czhvps3yjVd/2MMfNonx4k6ftrxpb7P4/+qWwT/gn+bn/qtbBn+HTe3218Y/VfEF /5+ffmu5/4zJEt8Gx+Ab+K46WdMwr8Ylvpu54GUc08 UTu0KF0M/e0DuHBLghzlq3483zpA/pk1xob3LoROz1DI/Tv19MciPlbtkiK/6/UM8Cv/UrK/5hi868dr hAw44wwE2wR2ka1hI9cjE5fa/GP006z1vwv53YhTI/2JbT3Jay5q++/8SsEbuau7+V//h4iaOza49Ma/ 9+i8WG+t4TV4Ax8Yk3Kk5uoaM/iu9BS/3qlvs+U7+6 ZfzfUY+j/re/e1e5+zW00v6Cqg8H4o/7Ehq4OsStO+k0f1Xum8oD1ZeKuG2dErg+dh5L+8TfG4km7rk2 4iQPiLD02Bm7NHdUw53+NtTXfrnYT/46iiQ8bl5LlVq+7c3YYlc/qSReGBuH3x/pn80v9Z8NR6Wq+pUl P/NipwXIw3lwUWhn75PYoCs8mw9CEgb2aS9P1/PNb/ MKYz9xa2OldcfOEAnCe+7Bi+2yWl6w651+fx1M6yDXR/83H/Ci4gkiBm+InfOhsL/l9/chgo4Op8AwGe l4WKz90Ow/UyrjHkK/Rxap9T67fiuSr9h9/3Ew0QVp3Npz52zUgcuv5B++svV/QSw8x1tm62ptehrb4B 9uGfwF/gJ/55egFT318ncv41Y6wL6oL/yOTzgo1V8p KqoA2oq+NZIf8/xAyWytOGmX55Mn8Y/wN/al91Yet69pe9w//jzgD/DHJzdP/FzoI3cES/qKqt08dfK+ Q/0Gfq/P/rQ+6U/7f/1Z4G/w2x/qT9s3/Gn7ho/eX+xYi4e1JegKiiw7xU/B/0iu4VULt+Ar+IZ6Wp/0 7z6HOogtPrj/gb/K35petI3+/nXp/Rao4cjnM/B7v5 mn/Jjdrt54Oa26A4rUdmDcM/uyWH3Fa+U5DfhyM41hl94TJ8+nGy6tI9Vll4ch/D32t6c/12N/e9pFPf g6u79TC7774hK51tdy2ozP/e1p2/eI9536jL/97fl+7owzxg2We/4bzmX22V3EP43S/kk87Udzq3/br0 /98xD57D/Pfdoe+6axKg2MhPg19E/C44KJ1r/tsb89 /bke+1bpyqUoz13Exs9590Hj+9vzHeexv/0rf/Ztj/1zE5xfFjedi/tXBr/93a7t7/bc3/7/qTpjZQta SAvy5ut+9HFhuNMMRdSpFy1KbGrrn3/ya0TcsVUxkg9yixJsNSNQE4g/ZqP+fv/uim+a0tjY92kqphxc 9Tik49F/EN++M749+7zi2+/rUpo6kxu1SGyvcRxp93 ttpb9ByWphAcNJ4d++G15801Ov1he+2Rnfns/FVv6hI11r3mHj1D97/uBO/4YRsats6ckZok230/Bf7d 3f+3v39/2lQU04vu/z4kjs2p7z9Iw/yrZvrM/xu3btt967+q+eb9xfn0saz96j09/3ygRC8DR0t+9rX3 3l1l/03wn7Eq53691/Vd5D+t7lNtjA/YR+tM6oGtn+ w3ofwdF+7OSbD/H3p3imkWWYasg4mAa8xcnQfj7mjKum3lw1g/IBwl914JE288jsqNG0Zr9DP4Oc0T/P HttpX+H8hT56kpCz6Ey6Oi1Mj/Ze++qVD/Sn9de++srQC/QC/Y3z0r45c0tEg28Ge+LaV6+8oF/QG/QG /c7zeE4i490x58E8T1m13aj36GL050C3ex++sr2x5N e++srQK/T6jUO/5gXKwd5Mb8u2spv9b068buBycb42fF56j94o2aB3y9vV5DQKvX694Ve/65BwnzHZ7D v0Ar1+drtLz1+Xnr8uE/oF/bK+1lCPQb+m05lOu3/EbqeRziM0L/94Af9jf+OkK2LKuUxlojwd1qadU+ lm6Fo9QM/M79F9J67Q8/e+K9qraK/2+nakVQ4z/uqV Wz/IUXk9tDttFL8eh18+6b9I9n7+LzNZ03e+F/QGvUG/od+o31G/Qx+6q5N2vn1g68k6pM1Po60Zuo8O +3N8tT/Hl0I/oZ/QYzwvjOfV/hxf/h45ybe6Zg8rtIw7XWzLE/wzSZ9mK//VLcN/5bk/mPUYxrNh/hrm r2H+wn/lhvlraK+brbGrnuW0ibFkje/h+GenhbA8Vh 3BfZ7+3435uzF/O2wejzOidU/d37+e9pVW+qvw7R2yl503/4k23b509ahz+4OO84O++/yR7z5/5DugD+ gP9H3+nJ6UC8k3oV13o1+4d/yGe5+XdO/zku4T+zz0gm2sWqX/Gu6nzx+1r76x2PgeKU/r3t+/jv1B9z 5P57k/mO+v3B/UKvfzCjzfwPocGM+H9IoYh6Z6M0a/ QgLzWOfM5leGidSzhar/Tb2D8yrM+yjw/oX/nsz88Fzk56FU8OV74l22/Fd+Jn4/7nsW46P2Rpl/HryP 0r7K/jl4H53+ImFQ3eh+8D46eB+d/l7w0+vesB0bf+dvRXk8YEMxWnthECkhxiD0rx+n2OzcA5/4vaGe jfvZuJ9+/3cg4NoP++sC9lWU/yp/0/u/OG1PNYRvYi K+uVI9902Z3gCsWI4/GRzt3VS9f0BFL17hOop2urvq91wyFdv0AUZ9HdWMI+7+5UiJ3m7IVWJ/f0Lc/U Gp+w/c/6+9vlL/a6/yqT1Bfwl1qcnucUU4QejydMsB0w821oQvKcRuti/66vFi6hz5EdE3m0H/E9e+kr wYqxSg1k8N990Ov72q+5wraS00veBep+drM//393yt uuJ8wlyTl6pjudz5g8/2GT7J3eqq0K+462SkfZXtSvsq+j15YvL2eJ3JEkX+9vlomMK2D6g/KGbbkzF7 /yimQd/rVcC+irmhd+gd+zT2rzfM3Cb/n/uDrwx9+86F3WaI/Fifi/bHqYc5Ag/7nywu1C4qVx/h97w/G 4wZmiKs4am/jnQAHoxvP7Z/f5t6ksFF/dd8qVtzh/w 6l03BzFg2Yx8Y2jMfPx6uCCfmT+j6/EDg/GLahd+gd+k9SYqHdmS0h8/7j4A8P8mpoj/01tk8gwM9mtT B3ffnWP/oJ/frsikB+emd8wiX4Lm+n9902Tnte+QV0ht54p/RC2ea8wFsgAQH0r5Mqse28lESe88U75V 5cFUk5qXYhe1ccAErK+cEqQ7+tM6Ms9wqAyX+v8v78 lpHnB6/eMfK4AC4ngP2a3tEC173n5EBw1JnnK139t0rEm+n8eDg6LOoB534pRTMbt3JbhhEFowx7/l6/ eOnI+PZRZXs+1tm28itxC+49Mr79+aip7vwix9Syd6ITy1g9ggq5teWCfebynkC7v8AwG038fHH5d02K Gd/+yl/ce2R8e/JC9xpR9k3T+Stephanie+PYqQ7+gX1/8fG R8+fsFq2eyx53/0g0vbZav00VoEg35ril61oZq86gP8b8BqKlen0/ijPHZA+fGt2fc+yy8zaZWha6l82 rxBRsT223w/Camz23iw7lzLD1y4SC1+33fnYxvv+/gG9r1g7dwO2s3fw3suTexwJ7/5W8+oneuK2A+5v VB/quD+PaD+PZT+Mdj0FyrP/lEYfBbMXY2N0PhTrRq ZXalO5Fw97Azf38x7M763p131J07CyP2wXwOqmx98rYrPdz4Kc0vYfpt/dCjCn2/f4/29+/Rjn8+2vHP R3v/96T/SlO/B8rQO/PVkUBi85+Shalom/B928OWry907uZjfAqmRCsOfcW/+41nsqfxxd4shkI42rZ+OrCv WfwtS4OigP8ucRtrmNcoiV+d1d+/p+LbsyzQC/QKvU KP9iK+/SC+/SC+/JeLxx0eU/slZJ68jG2hB5qrD8nsP3lxJ7keD9ybCE+6pCDa94cXyg2woKVvnup+r9 XIwu0hS+Djq3G4pg7nSpnVb2My/TvNVaBUrOGa7Uv5I/rT+cKqFkh0tF3cG+ixXsG+LzEyouC9ybUviM O+z+Mc+R8V0ygCducx+oA+aQv3L0ancZ+wzL29Cm/V Qf6rU/mvsoznm/6rKi/oF/JTuv2fkgYE3Z5A41O0L8odnJkyE1h941SS1Fw+cJE1NX86bcFoRlWeS/p7 4SC+/xZT1spd9lDBM/A+CryPAu+jwPsoHPqAPqA/0Pd+3hoqs8EK0m/B/K9l04GfThcQ/YR+QY/2HrT3 4PkePN+V76mxi5n2pm/qIP/VOQe/7+i0Z956X/4J3x 84So7ot3OFuOuKAIXUSxteiQzgGsFiA3tPdBrQFHSL4QSph8NM9FTjU+H7+voT+hj0T/i+s/4E/Q4i/o ARiwuQ9yhl0FF+W/BJpGQixtewdkxE3VVkD5Bk9FTnzE6jIHrUoPOtvTyOJmlOmQHz5xb2Sbq/BBkUiC pQVBQJ4Ontk9Dwd8h+nJI85r5JzY0UFb6pOtOrB/ann-marie [file] d5pOnavHGJPouhxxvdYh6N+CORPORATE RELATIONS MANAGER+H7btQx+xbKA2xZBxxidUFteYodbnb8lN1syUT1BggiKL/2bDjUmYZ8 [file] UgMDAwMDAgbiAKMDAwMDAwMTYwOSAwMDAwMCBuIAow YOEcDQAlJvR5QOMkBHYwJR7zFoFkBEAoEKY3YZBrNTNbEOFjlcCAEEFaGFSnINIlOKN4NJZuLUHeBYk9 ipJrzYMsGvf2Un9LaCcuAIG3Jk9WevQbAYQySNKMXi2Oq731AEEdQTZXAjp+PgpzdGFydHhyZWYKOTgz MaoBDHGNI2N= ID Date Data Source [id number] 02/04/2020 08:17:48 AM EDT [facility] NT INFORMATIONPatient MRN Name Date of Age Gend*PT [id number] Manasa Calle 1930 89 years F OBSPT Location Admission Date/Time Visit ID Attending [id number] 02/04/20 0023 --- Patria Cormier MD([id number]) EPI ID CSN Admitting Provider [id number] Missael Mcnulty MD([id number])Inpatient History & PhysicalManasa WintersMRN: [id number] and Plan:Principal Problem: Chest discomfortActive Problems: Hypertensive emergency Coronary artery disease, moderate, 2019 CATH Uncomplicated late onset Alzheimer's dementia Episode of hypertension, severe VHD (valvular heart disease) Chronic renal insufficiency, stage III (moderate) Essential hypertension Hypothyroidism Hyperlipidemia1. Chest discomfort that sounds anginalPain in her back and front with pressureShe said she never felt it like this before this was new and very much caughther attentionShe had been medically managed for moderate multi-vessel grayling CAD CATH 02/2019Chicken vs EggIs worse CAD triggering HTN response?Is worse HTN aggravating moderate diffuse CAD?CTA no dissection or aneurysm or PENo proof of ischemia or MIShe is feeling improved at the present timeWould try to avoid CATH angiogram today since had CTASBP is very high again this am and she is NOT appropriate for Lexiscan which Iwas contemplating...NTG paste trial 1/2 inch first and if tolerates consider advance to full 1 inchpaste2. Alzheimer's late onset, mildOverall she gives fair historyModerate deafness noted does better with her hearing aidsContinue her AriceptI think she has somewhat of a senility type gradual onset of memory impairment???She is still independent soundingI think she may still be a candidate to at least investigate her symptomsfurther in order to know how to best manage3. CKD 3 c/w age and history HTN give gentle IVF hydration after CTA and monitorI/O BMP4. Hypothyroidism chronic continue routine hormone replacement5. HLD continue STATIN6. DVT Px heparin subQHistory of Present Illness: The patient developed new pressure and discomfort inher chest and in her back between her shoulder blades. This was something new.Her blood pressure was out of control this week. She just feel generally moretired and wiped out. Due to the presentation ED performed CTA chest which didnot reveal any acute disease. She had no EKG or cardiac enzyme abnormalities tosugg est myocardial infarction. Her blood pressure improved overnight and hersymptoms resolved.She sees Dr. Ba in [place] for cardiology.She denies lapse in her medications.She is on Torsemide 10 mg daily per her list but she admits to me she just takesthis infrequently sometimes PRN if her feet swell. She denies any new dyspnea orcough.At the present time no symptoms or complaints she is feeling improved.Past Medical History:Past Medical History:Diagnosis Date Essential hypertension 02/04/2020 Hyperlipidemia 02/04/2020 Hypothyroidism 02/04/2020 Late onset Alzheimer's uncomplicated Moderate CAD by CATH 02/2019 no interventions just medications recommended at that time VHD (valvular heart disease) 02/04/2020Past Surgical History:Past Surgical History:Procedure Laterality Date CARDIAC CATHETERIZATION N/A 03/05/2019 Procedure: CATHETERIZATION, HEART, LEFT; Surgeon: Flakito Christopher MD;Laterality: N/A; pt needs extra ivh arrival at 10amMedications:Medication reconciliation has been input by the nursing/triage staff and I havereviewed. Official lead pharmacy technician consult requested.Allergies:Patient has no known drug allergies.Family History:History reviewed. No pertinent family history.Social History:Social HistorySocioeconomic History Marital status: Spouse name: Not on file Number of children: Not on file Years of education: Not on file Highest education level: Not on fileOccupational History Not on fileSocial Needs Financial resource strain: Not on file Food insecurity: Worry: Not on file Inability: Not on file Transportation needs: Medical: Not on file Non-medical: Not on fileTobacco Use Smoking status: Never Smoker Smokeless tobacco: Never UsedSubstance and Sexual Activity Alcohol use: Not Currently Drug use: Not on file Sexual activity: Not on fileLifestyle Physical activity: Days per week: Not on file Minutes per session: Not on file Stress: Not on fileRelationships Social connections: Talks on phone: Not on file Gets together: Not on file Attends latter-day service: Not on file Active member of club or organization: Not on file Attends meetings of clubs or organizations: Not on file Relationship status: Not on file Intimate partner violence: Fear of current or ex partner: Not on file Emotionally abused: Not on file Physically abused: Not on file Forced sexual activity: Not on fileOther Topics Concern Not on fileSocial History Narrative Not on fileReview of SystemsAll other systems reviewed and are negative.All systems were reviewed and foundto be negative except for those mentioned in the HPI.Temp: [97.8 F] 97.8 FHeart Rate: [54-64] 60Resp: [16-18] 16BP: (177-230)/(71-90) 220/86Physical ExamConstitutional: She is oriented to person, place, and time. She appearswell- nourished. No distress.HENT:Head: Normocephalic and atraumatic.Right Ear: External ear normal.Left Ear: External ear normal.Nose: Nose normal.Mouth/Throat: Oropharynx is clear and moist. No oropharyngeal exudate.Eyes: Pupils are equal, round, and reactive to light. Conjunctivae and EOM arenormal. Right conjunctiva is not injected. Left conjunctiva is not injected. Noscleral icterus.Neck: Neck supple. No JVD present.Cardiovascular: Normal rate, regular rhythm and intact distal pulses. Examreveals no gallop and no friction rub.No murmur heard.Peripheral Edema: no lower extremity edema.Pulmonary/Chest: Effort normal and breath sounds normal. No respiratorydistress. She has no wheezes. She has no rhonchi. She has no rales. She exhibitsno tenderness.Abdominal: Soft. Bowel sounds are normal. She exhibits no distension and nomass. There is no tenderness. There is no rebound and no guarding. No hernia.Lymphadenopathy: She has no cervical adenopathy.Neurological: She is alert and oriented to person, place, and time. No cranialnerve deficit. She exhibits normal muscle tone. Coordination normal.Skin: Skin is warm and dry. No rash noted. She is not diaphoretic. No erythema.No pallor.Psychiatric: She has a normal mood and affect. Her behavior is normal. Judgmentand thought content normal.Vitals reviewed.Labs, Imaging and Other Diagnostic Tests:Diagnostic test reviewed for today's visit include: Labs, ECG, X-ray and OldRecords Reviewed.Significant findings: Results for MANASA CALLE ([id number]) as of 02/04/2020 06:238 00:42Sodium: 133 (L)Potassium: 4.3Chloride: 102CO2: 27Anion Gap: 4 (L)Urea nitrogen: 14Creatinine, Ser: 0.95BUN/Creatinine Ratio: 14.7GLUCOSE: 139 (H)Calcium: 8.9Total Protein: 7.8Albumin: 3.7Globulin: 4.1Alb/Glob ratio: 0.9Bilirubin, Total: 0.3AST: 28ALT: 28GFR MDRD Non Af Amer: 56 (L)GFR MDRD Af Amer: >60Bilirubin, Direct: <0.1Bilirubin, Indirect: NOT CALCULATEDGlom Filt Rate, Est: SEE NOTESLipase: 65Magnesium: 2.2Alkaline Phosphatase: 170 (H)Troponin I: <0.05NT-pro BNP: 385WBC: 6.6RBC: 3.47 (L)Hematocrit: 33.3 (L)Hemoglobin: 11.3 (L)MCV: 96.1 (H)MCH: 32.6 (H)MCHC: 34.0RDW: 14.2Platelets: 331MPV: 6.6 (L)Neutrophils %: 57.2Lymphocytes Relative: 26.9Monocytes Relative: 10.8 (H)Eosinophils Relative: 4.2Basophils Relative: 0.9Neutrophils Absolute: 3.8Lymphocytes Absolute: 1.8Monocytes Absolute: 0.7Basophils Absolute: 0. 00:51POC Troponin I: 0.018 04:28POC Troponin I: <0.01 (L).Signature: Missael Mcnulty MDDate: February 04, 2020Time: 8:17 AM Name Value Range Interpretation Code Description Data Nita rce(s) Supporting Document(s) ID Date Data Source [id number] 02/04/2020 07:40:01 AM EDT [address] [address] Name: MANASA WINTERSDOB: 1930Sex: FOrdering Provider: EUGENIO CAMERONOAuthorijose Prov: EUGENIO CAMERONOReferring Provider: Procedure Performed: XR CHEST PA AND LATERALExam Date: 02/04/2020 01:40MRN: [id number] Number: [id number] Class: EmergencyAccount #: [id number] for Exam: CP/SOBTechnique: AP and lateral views obtained.Comparison: CT February 04, 2020Findings: There is mild diffuse interstitial lung disease. No infiltrate is demonstrated. There is mild cardiomegaly. No adenopathy or pleural effusion de monstrated.IMPRESSION: Diffuse interstitial lung disease. CT shows groundglass opacities. These findings can be related to inflammatory disease, edema or chronic interstitial disease.Report electronically signed by: VIVEK BORDEN On 02/04/2020 7:40 AMWorkstation ID: [id number] Name Value Range Interpretation Code Description Data Nita rce(s) Supporting Document(s) ID Date Data Source [id number] 02/04/2020 06:22:01 AM EDT [facility] NT INFORMATIONPatient MRN Name Date of Age Gend*PT [id number] Manasa Calle 1930 89 years F EDPT Location Admission Date/Time Visit ID Attending [id number] 02/04/20 0023 --- Eugenio Kaufman MD([id number]) EPI ID CSN Admitting Provider [id number] ---Provider in Triage NotesNo notes on fileHistory of Present IllnessChief ComplaintPatient presents with Chest Pain around 2200 experienced sharp pain between shoulder blades, mid sternal. [id number] ASA, pain resolved prior to EMS. Reports cardic hx. Reports fatigue x1 weekHPIPatient is a 89-year-old female who presents to the ED for evaluation of chestpain. Patient states that when she was getting ready to get in the shower sheis experience some very sharp back pain with radiation to her chest. She saysthat the back pain seemed to resolve after a short time that she felt heavinessand pressure in her left-sided chest. She denies associated shortness of breathdiaphoresis nausea or vomiting. She follows up with Dr. Ba for cardiologyand says her last stress test was in November and was reported to be normal. Shedenies fevers chills cough abdominal pain or any other physical complaintstoday. Patient states her pain resolved after aspirin and she is currentlychest pain-free.HistoryNo past medical history on file.Past Surgical History:Procedure Laterality Date CARDIAC CATHETERIZATION N/A 03/05/2019 Procedure: CATHETERIZATION, HEART, LEFT; Surgeon: Flakito Christopher MD;Laterality: N/A; pt needs extra ivh arrival at 10amNo family history on file.Social HistoryTobacco Use Smoking status: Not on fileSubstance Use Topics Alcohol use: Not on file Drug use: Not on fileROSReview of SystemsConstitutional: Negative for chills and fever.HENT: Negative for ear discharge, facial swelling and hearing loss.Eyes: Negative for discharge, redness and itching.Respiratory: Negative for cough, chest tightness and shortness of breath.Cardiovascular: Positive for chest pain. Negative for palpitations.Gastrointestinal: Negative for abdominal distention, abdominal pain,constipation, diarrhea, nausea and vomiting.Genitourinary: Negative for difficulty urinating and dysuria.Musculoskeletal: Positive for back pain.Skin: Negative for color change and rash.Neurological: Negative for light-headedness, numbness and headaches.Psychiatric/Behavioral: Negative for agitation and confusion.Physical ExamBP (!) 214/90 | Pulse 64 | Temp 97.8 F (Oral) | Resp 16 | Ht 60" | Wt 54.4kg | SpO2 98% | BMI 23.44 kg/m Physical ExamConstitutional: She is oriented to person, place, and time. She appearswell-developed.HENT:Head: Normocephalic and atraumatic.Eyes: Pupils are equal, round, and reactive to light. Conjunctivae and EOM arenormal.Neck: Normal range of motion. Neck supple.Cardiovascular: Normal rate, regular rhythm, normal heart sounds and intactdistal pulses.Pulmonary/Chest: Effort normal and breath sounds normal. No respiratorydistress.Abdominal: Soft. She exhibits no distension. There is no tenderness.Musculoskeletal:4x extremities with FROM, compartments soft. NVI, 2+ distal pulses, sensationintact throughout.Neurological: She is alert and oriented to person, place, and time.Skin: Skin is warm and dry. Capillary refill takes less than 2 seconds.Nursing note and vitals reviewed.ED [id number] years female seen and evaluated in the ED. Patients history and exam areconcerning for ACS versus heart failure versus aortic dissection versuspneumonia versus viral syndrome versus hypertensive urgency.Will obtain blood work, chest x-ray, EKG, CT angiogram chest. Pt given IV fluidbolus and labetalol for treatment in the ED.Patient presents afebrile, and nontoxic-appearing and not in acute distresshowever given her concerning history of back pain with radiation to the chestand her hypertension will obtain angiogram to rule out dissection.Blood work largely within normal limits and not acutely actionable. EKG showsnormal sinus rhythm and first troponin negative.CTA results appreciated, no evidence of PE or dissection but was read as concernfor groundglass opacities bilaterally concerning for pneumonia.On re-evaluation pt is still nontoxic-appearing. Clinically I do not think sheis presenting like classic pneumonia given her vital signs, blood work results,and lack of cough. Patient tells me she does not feel she has pneumonia either.Repeat EKG shows sinus bradycardia and repeat troponin again negative. Givenher age and risk factors still have concern for ACS as a cause of her symptoms.Given the CTA read and her symptoms COVID swab was sent. Case was discussedwith Dr. Mcnulty hospitalist, he and I along with the patient's input decidedthe best plan will be to admit her for further chest pain work-up and hold offon antibiotics now to see if the pneumonia declares itself or if she worsens atall. On review of the angiogram myself, groundglass opacities do not appearvery severe and look more like some chronic changes in the periphery of the lungparenchyma in an 89-year-old female.Patient is agreeable with plan to stay overnight and further work-up. Patientaccepted by Dr. Mcnulty to the medicine service.Clinical impression: Chest painCondition: StableDisposition: Admit to medicineA portion of this chart was dictated and transcribed, a reasonable attempt wasmade to proofread and correct errors and typos before it was signed.This was electronically signed by Eugenio Kaufman MD, 02/04/20 1:10 AM.Eugenio Kaufman MD02/04/20 0622 Name Value Range Interpretation Code Description Data Nita rce(s) Supporting Document(s) ID Date Data Source [id number] 02/04/2020 04:37:00 AM EDT [facility] [place] [facility] Name Value Range Interpretation Code Description Data Nita rce(s) Supporting Document(s) SARS coronavirus 2 RNA [Presence] in Res piratory specimen by YADIEL with probe detection [facility] [place] [facility] This lab was reported by [facility] [place] [facility]. ID Date Data Source [id number] 02/04/2020 07:09:19 AM EDT [facility] [place] [facility] Name Value Range Interpretation Code Description Data Nita rce(s) Supporting Document(s) SPECIMEN DESCRIPTION [facility] COVID19 RESULT (NDET) Lab [facility] THIS ASSAY AMPLIFIES AND DETECTSTHE TARG ET RNA USING REAL-TIME PCR.NEGATIVE 2019_NCOV RT-PCR RESULTS DONOT PRECLUDE 2019_NCOV INFECTION ANDSHOULD NOT BE USED THE SOLE BASISFOR PATIENT MANAGEMENT DECISIONS. COMMENT Lab [facility] UNDER AN EMERGENCY USE AUTHORIZATION(EUA ) FOR THE DETECTION AND/OR DIAGNOSISOF THE VIRUS THAT CAUSES COVID-19.RESULT EMAILED TO [facility] AT 0706 ON 02/04/20 [id number]. ID Date Data Source [id number] 02/04/2020 04:39:55 AM EDT Lab [facility] Name Value Range Interpretation Code Description Data Nita rce(s) Supporting Document(s) POC CTNI <0.01 ng/mL (0.01-0.07) L Lab [facility] Less than 0.08: Myocardial injury unlike lyGreater than or equal to 0.08: Highlysuggestive of myocardial injuryCorrelation with rise and/or fall ofserial troponins, clinical symptoms,and ECG changes is necessary.PERFORMED BY [facility]INICAL STAFF ID Date Data Source [id number] 02/04/2020 03:52:19 AM EDT [address] [id number] Name: Manasa LeijaOB: 1930Sex: FOrdering Provider: EUGENIO CAMERONOAuthorijose Prov: EUGENIO BENITESECOReferring Provider: Procedure Performed: CT ANGIOGRAM CHESTExam Date: 02/04/2020 03:07MRN: [id number] Number: [id number] Class: INFORMATION: Exam: CT Angiography Chest With Contrast Exam date and time: 02/04/2020 3:07 AM Age: 89 years old Clinical indication: Chest pain and other: Back pain; Additional info: Chest and backpain TECHNIQUE: Imaging protocol: Computed makayla ographic angiography of the chest with intravenous contrast. 3D rendering (Not supervised by radiologist): MIP and/or 3D reconstructed images were created by the technologist. Radiation optimization: All CT scans at this facility use at least one of these dose optimization techniques: automated exposure control; mA and/or kV adjustment per patient size (includes targeted exams where dose is matched to clinical indication); or iterative reconstruction. Contrast material: ISOVUE 370; Contrast volume: 70 ml; Contrast route: INTRAVENOUS (IV); COMPARISON: CR XR CHEST PA AND LATERAL 02/04/2020 1:23 AM FINDINGS: Pulmonary arteries: The main pulmonary artery measures 25 mm. No pulmonary embolism is identified. Aorta: The ascending thoracic aorta measures 33 mm. No gross or obvious aortic dissection is identified, particularly distal to the mid arch. Artifact and image degradation precludes detailed evaluation of the ascending thoracic aorta. Lungs: Minimal scattered bilateral ground-glass infiltrates with slight interstitial coarsening. Pleural space: Unremarkable. No pneumothorax. No pleural effusion. Heart: The left atrium measures 4.3 cm in its AP dimension. Mediastinal space: Mild hiatal hernia. Lymph nodes: Unremarkable. No enlarged lymph nodes. Liver: Hepatic calcification. Kidneys and ureters: There is a right renal cyst measuring 3.2 cm with a Hounsfield measurement of 12 consistent with a Bosniak 1 cyst. No follow-up imaging is recommended. Bones/joints: Unremarkable. No acute fracture. Soft tissues: Unremarkable. IMPRESSION: 1. Minimal scattered bilateral ground-glass infiltrates with slight interstitial coarsening consistent with pneumonia. 2. Mild hiatal hernia. 3. Borderline cardiomegaly. 4. Otherwise negative CTA chest. No pulmonary embolism is identified. No gross or obvious aortic dissection is identified, particularly distal to the mid arch. Artifact and image degradation precludes detailed evaluation of the ascending thoracic aorta. Report electronically signed by: MEET HERNÁNDEZ MD on 02/04/2020 03:52:19 Name Value Range Interpretation Code Description Data Nita rce(s) Supporting Document(s) ID Date Data Source [id number] 02/04/2020 01:03:22 AM EDT Lab [facility] [place] Name Value Range Interpretation Code Description Data Nita rce(s) Supporting Document(s) POC CTNI 0.01 ng/mL (0.01-0.07) [facility] [place] [facility] [place] Less than 0.08: Myocardial injury unlike lyGreater than or equal to 0.08: Highlysuggestive of myocardial injuryCorrelation with rise and/or fall ofserial troponins, clinical symptoms,and ECG changes is necessary.PERFORMED BY [facility]IN[facility] ID Date Data Source [id number] 02/05/2020 05:09:55 PM EDT [facility] [place] Name Value Range Interpretation Code Description Data Nita rce(s) Supporting Document(s) FREE THYROXINE @ 1.05 ng/dL (0.76-1.46) Lab [facility] [place] PERFORMED AT [address] [place] [address] [place] [address] ID Date Data Source [id number] 02/05/2020 05:09:55 PM EDT [facility] [place] Name Value Range Interpretation Code Description Data Nita rce(s) Supporting Document(s) TSH,ULTRASENSITIVE @ 3.520 mIU/L (0.360-4.170) [facility] [place] [facility] [place] PER[place] AT [address] [place] [address] N [place] [address] ID Date Data Source [id number] 02/04/2020 08:44:16 AM EDT [facility] [place] Name Value Range Interpretation Code Description Data Nita rce(s) Supporting Document(s) APTT 17.1 s (22.0-34.3) L [facility] [place] [facility] [place] PERFORMED BY ALTERNATE METHOD. REFERENCE RANGE = 24.7 - 33.3 ID Date Data Source [id number] 02/04/2020 08:44:16 AM EDT [facility] [place] Name Value Range Interpretation Code Description Data Nita rce(s) Supporting Document(s) PT 10.2 s (9.2-11.9) [facility] [place] [facility] [place] INR 0.97 [facility] [place] SUGGESTED THERAPEUTIC RANGES USING INR F ORSTABILIZED ANTICOAGULATED PATIENTS:STANDARD DOSE THERAPY INR 2.0-3.0 DVT, PE, PREVENT DVT OR EMBOLISMHIGH DOSE THERAPY INR 2.5-3.5 PREVENT EMBOLISM FROM MECHANICAL HEART VALVE ID Date Data Source [id number] 02/04/2020 08:01:17 AM EDT [facility] [place] Name Value Range Interpretation Code Description Data Nita rce(s) Supporting Document(s) HEMOGLOBIN A1C @ 6.8 % (4.0-6.0) H [facility] [place] [facility] [place] Performed using Siemens [place] immunoassa y.Care must be taken when interpreting [id number] in patients with a hemoglobin variantor decreased erythrocyte lifespan. Values 5.7 - 6.4% suggest prediabetes.Values >=6.5% are diagnostic for diabetes.REFERENCE: DIABETES CARE 2018: 41(S13-S27).PERFORMED AT [address] [place] [address] [place] [address] EST AVERAGE GLUCOSE 148 mg/dL Lab [facility] [place] ID Date Data Source [id number] 02/04/2020 04:50:55 AM EDT [facility] [place] Name Value Range Interpretation Code Description Data Nita rce(s) Supporting Document(s) TROPONIN I <0.05 ng/mL (<0.05) [facility] [place] [facility] [place] Less than 0.05: Myocardial injury unlike lyGreater than or equal to 0.05: Highly suggestive of myocardial injuryCorrelation with rise and/or fall ofserial troponins, clinical symptomsand ECG changes is necessary. ID Date Data Source [id number] 02/04/2020 01:47:08 AM EDT [facility] [place] Name Value Range Interpretation Code Description Data Nita rce(s) Supporting Document(s) NT PRO BNP 385 pg/mL (0-450) [facility] [place] ID Date Data Source [id number] 02/04/2020 01:47:08 AM EDT [facility] [place] Name Value Range Interpretation Code Description Data Nita rce(s) Supporting Document(s) TOTAL PROTEIN 7.8 g/dL (6.4-8.2) [facility] [place] [facility] [place] ALBUMIN 3.7 g/dL (3.2-4.5) [facility] [place] [facility] [place] GLOBULIN 4.1 g/dL (2.7-4.3) [facility] [place] [facility] [place] ALB/GLOB RATIO 0.9 RATIO [facility] [place] [facility] [place] BILIRUBIN,TOTAL 0.3 mg/dL (0.0-1.0) [facility] [place] [facility] [place] PLEASE NOTE:Total bilirubin results may be falselyelevated in patients taking Eltrombopag. BILIRUBIN,CONJUGATED <0.1 mg/dL (0.0-0.3) Lab [facility] [place] BILIRUBIN,UNCONJ. (0.0-0.7) [facility] [place] [facility] [place] ALKALINE PHOSPHATASE 170 U/L (45-117) H [facility] [place] AST (SGOT) 28 U/L (11-39) [facility] [place] [facility] [place] ALT (SGPT) 28 U/L (12-78) [facility] [place] [facility] [place] ID Date Data Source [id number] 02/04/2020 01:44:14 AM EDT [facility] [place] [facility] [place] Name Value Range Interpretation Code Description Data Nita rce(s) Supporting Document(s) MAGNESIUM 2.2 mg/dL (1.7-2.4) [facility] [place] [facility] [place] ID Date Data Source [id number] 02/04/2020 01:44:14 AM EDT [facility] [place] [facility] [place] Name Value Range Interpretation Code Description Data Nita rce(s) Supporting Document(s) LIPASE 65 U/L (65-230) [facility] [place] [facility] [place] ID Date Data Source [id number] 02/04/2020 01:44:14 AM EDT [facility] [place] [facility] [place] Name Value Range Interpretation Code Description Data Nita rce(s) Supporting Document(s) SODIUM 133 mmol/L (136-145) L [facility] [place] [facility] [place] POTASSIUM 4.3 mmol/L (3.6-5.2) [facility] [place] [facility] [place] CHLORIDE 102 mmol/L (100-108) [facility] [place] [facility] [place] CO2 27 mmol/L (22-31) [facility] [place] [facility] [place] ANION GAP 4 mmol/L (7-16) L [facility] [place] [facility] [place] UREA NITROGEN 14 mg/dL (7-24) [facility] [place] [facility] [place] CREATININE 0.95 mg/dL (0.60-1.00) [facility] [place] [facility] [place] BUN/CREAT RATIO 14.7 RATIO (10.0-20.0) [facility] [place] GLUCOSE 139 mg/dL (70-99) H [facility] [place] [facility] [place] CALCIUM 8.9 mg/dL (8.4-10.2) [facility] [place] [facility] [place] GFR 56 ml/min/1.73m2 (>59) L [facility] [place] [facility] [place] GFR ( AMER) >60 ml/min/1.73m2 (>59) [facility] [place] [facility] [place] GFR INTERPRETATION [facility] [place] --NORMAL KIDNEY FUNCTION OR MILD DISEASE - GFR >OR= 60CHRONIC KIDNEY DISEASE - GFR 15 - 59RENAL FAILURE - GFR <15 Est. GFR calculation based on the MDRDstudy equation, which assumes a steadystate for creatinine. Est. GFR should notbe used for medication dosing. ID Date Data Source [id number] 02/04/2020 01:33:58 AM EDT [facility] [place] [facility] [place] Name Value Range Interpretation Code Description Data Nita rce(s) Supporting Document(s) WBC 6.6 10*3/uL (4.1-11.0) [facility] [place] [facility] [place] RBC 3.47 10*6/uL (4.00-5.40) L [facility] [place] [facility] [place] HGB 11.3 g/dL (12.0-16.0) L [facility] [place] [facility] [place] HCT 33.3 % (36.0-47.0) L [facility] [place] [facility] [place] MCV 96.1 fL (80.0-95.0) H [facility] [place] [facility] [place] MCH 32.6 pg (27.0-32.0) H [facility] [place] [facility] [place] MCHC 34.0 g/dL (32.0-36.0) [facility] [place] [facility] [place] RDW 14.2 % (10.5-14.5) [facility] [place] [facility] [place] PLT 331 10*3/uL (150-450) [facility] [place] [facility] [place] MPV 6.6 fL (7.1-10.7) L [facility] [place] [facility] [place] NEUT % 57.2 % (35.0-75.0) [facility] [place] [facility] [place] LYMPH % 26.9 % (16.0-52.0) [facility] [place] [facility] [place] MONO % 10.8 % (0.0-8.0) H [facility] [place] [facility] [place] EOS % 4.2 % (0.0-5.0) [facility] [place] [facility] [place] BASO % 0.9 % (0.0-4.0) [facility] [place] [facility] [place] NEUT # 3.8 10*3/uL (1.8-7.7) [facility] [place] [facility] [place] LYMPH # 1.8 10*3/uL (1.2-4.8) [facility] [place] [facility] [place] MONO # 0.7 10*3/uL (0.0-0.8) [facility] [place] [facility] [place] Eosinophils [#/volume] in Blood by Automated count 0.3 10*3/uL (0.0-0 .5) [facility] [place] [facility] [place] BASO # 0.1 10*3/uL (0.0-0.2) [facility] [place] [facility] [place] Procedure Social History Code Duration Value Status Description Data Source(s ) 02/14/2021 03:34:54 PM EDT Never Smoker completed Never S [facility] 02/14/2021 03:34:54 PM EDT Cigarettes completed Cigarette [facility] 02/14/2021 03:34:54 PM EDT Never Smoker completed Never S [facility] 02/14/2021 03:34:54 PM EDT Cigarettes completed Cigarette s [facility] Sm[facility] 02/14/2021 03:34:00 PM EDT Never smoked tobacco (findi ng) completed Never smoked tobacco (finding) [facility] 02/08/2021 01:58:21 PM EDT Never Smoker completed Never S [facility] 02/08/2021 01:58:21 PM EDT Cigarettes completed Cigarette s [facility] 02/08/2021 01:58:21 PM EDT Never Smoker completed Never S [facility] 02/08/2021 01:58:21 PM EDT Cigarettes completed Cigarette s [facility] Smoking 02/08/2021 01:58:00 PM EDT Never smoked tobacco (findi ng) completed Never smoked tobacco (finding) [facility] 01/14/2021 10:41:20 AM EDT Cigarettes completed Cigarette s [facility] 01/14/2021 10:41:20 AM EDT Cigarettes completed Cigarette s [facility] 01/14/2021 10:23:52 AM EDT Never Smoker completed Never S moker [facility] 01/14/2021 10:23:52 AM EDT Never Smoker [facility] 01/14/2021 10:23:00 AM EDT Never smoked tobacco (findi ng) completed [facility]finding[facility] 11/02/2020 12:00:00 AM EDT Patient has never smoked co mpleted Patient has never smoked [facility] ([employer] [facility] [employer] Alcohol intake 02/04/2020 12:00:00 AM EDT Not Currently completed [facility] Smoking 02/04/2020 12:00:00 AM EDT Never smoker completed Never s [facility] Vital Signs ID Date Data Source UNK Name Value Range Interpretation Code Description Data Source(s) Body height 142.24 cm 142.24 cm [facility] [employer] Body temperature 98.2 [degF] 97.6-99.6 98.2 [degF] [facility] [employer] Heart rate 60 /min 60-100 60 /min [facility] [employer] Oxygen saturation in Arterial blood by Pulse oximetry 95 % 95-1 00 95 % [facility] [employer] Systolic blood pressure 166 mm[Hg] 90-139 166 mm[Hg] [facility] [employer] Diastolic blood pressure 68 mm[Hg] 50-89 68 mm[Hg] [facility] [employer] Body mass index (BMI) [Ratio] 25.9 kg/m2 25.9 k g/m2 [facility] [employer] Body weight 52.61 kg 52.61 kg [facility] [employer] Systolic blood pressure 190 mm[Hg] 90-139 190 mm[Hg] [facility] [employer] Diastolic blood pressure 72 mm[Hg] 50-89 72 mm[Hg] [facility] [employer] Respiratory rate 16 /min 12-20 16 /[facility] 98.0 [degF] 97.6-99.6 98.0 [degF] [facility] Heart rate 58 /min 60-100 58 /min [facility] Oxygen saturation in Arterial blood by Pulse oximetry 98 % 95-1 00 98 % [facility] Body weight 51.70 kg 51.70 kg [facility] Body mass index (BMI) [Ratio] 25.5 kg/m2 25.5 k g/m2 [facility] Systolic blood pressure 228 mm[Hg] 90-139 228 mm[Hg] [facility] Diastolic blood pressure 78 mm[Hg] 50-89 78 mm[Hg] [facility] Diastolic blood pressure 82 mm[Hg] 50-89 82 mm[Hg] [facility] Body weight 58.05 kg 58.05 kg [facility] Body temperature 98.1 [degF] 97.6-99.6 98.1 [degF] [facility] Heart rate 82 /min 60-100 82 /min [facility] Oxygen saturation in Arterial blood by Pulse oximetry 94 % 95-1 00 94 % [facility] Systolic blood pressure 134 mm[Hg] 90-139 134 mm[Hg] [facility] Body mass index (BMI) [Ratio] 28.7 kg/m2 28.7 k g/m2 [facility] Body height 142.24 cm 142.24 cm [facility] Body weight 113.00 [lb_av] 113.00 [lb_av] [facility] ([employer] [facility]) Body height 59 [in_i] 59 [in_i] [facility] ([facility]) 4'11" Heart rate 82 /min 82 /min [facility] ([facility]) Body mass index (BMI) [Ratio] 22.8 kg/m2 22.8 k g/m2 [facility] ([employer] [facility]) Systolic blood pressure 142 mm[Hg] 142 mm[Hg] M EDENT ([employer] [employer] [facility]) Oxygen saturation in Arterial blood by Pulse oximetry 99 % 99 % [facility] ([employer] [facility]) Diastolic blood pressure 70 mm[Hg] 70 mm[Hg] [facility] ([employer] [facility]) Body temperature 97.6 [degF] 97.6 [degF] [facility] ([employer] [facility]) Diastolic blood pressure 68 mm[Hg] 68 mm[Hg] [facility] ([employer] [facility]) Heart rate 78 /min 78 /min [facility] ([facility] [employer] [facility]) Systolic blood pressure 128 mm[Hg] 128 mm[Hg] M EDENT ([employer] [facility]) Body weight 114.00 [lb_av] 114.00 [lb_av] [facility] T ([employer] [facility]) Body height 59 [in_i] 59 [in_i] [facility] ([facility] [employer] [facility]) 4'11" Body mass index (BMI) [Ratio] 23.0 kg/m2 23.0 k g/m2 [facility] ([employer] [facility] [employer] [facility]) Oxygen saturation in Arterial blood by Pulse oximetry 97 % 97 % [facility] ([employer] [facility]) Body temperature 97.3 [degF] 97.3 [degF] [facility] ([employer] [facility]) Heart rate 76 /min 76 /min [facility] ([facility] [employer] [facility] [facility]) Body height 59 [in_i] 59 [in_i] [facility] ([employer] [facility] [employer] [facility]) 4'11" Body temperature 97.4 [degF] 97.4 [degF] [facility] ([employer] [facility]) Systolic blood pressure 124 mm[Hg] 124 mm[Hg] M EDENT ([employer] [facility]) Body weight 122.50 [lb_av] 122.50 [lb_av] [facility] T ([employer] [facility] [employer] [facility] [employer] [facility]) Body mass index (BMI) [Ratio] 24.7 kg/m2 24.7 k g/m2 [facility] ([employer] [facility] [facility] [employer] [facility]) Oxygen saturation in Arterial blood by Pulse oximetry 95 % 95 % [facility] ([employer] [facility]) Diastolic blood pressure 58 mm[Hg] 58 mm[Hg] [facility] ([employer] [facility]) Body height 59 [in_i] 59 [in_i] [facility] ([facility] [employer] [facility]) 4'11" Heart rate 62 /min 62 /min [facility] ([facility] [employer] [facility]) Systolic blood pressure 120 mm[Hg] 120 mm[Hg] M EDENT ([employer] [facility] and [place] [employer] [facility]) Diastolic blood pressure 70 mm[Hg] 70 mm[Hg] [facility] ([employer] [facility]) Oxygen saturation in Arterial blood by Pulse oximetry 98 % 98 % [facility] [employer] [facility]) Body weight 122.00 [lb_av] 122.00 [lb_av] MED[facility] T ([employer] [employer] [facility]) Body mass index (BMI) [Ratio] 24.6 kg/m2 24.6 k g/m2 [facility] ([employer] [employer] [facility]) Body temperature 96.7 [degF] 96.7 [degF] [facility] ([place] [employer] [facility]) Systolic blood pressure 145 mm[Hg] 145 mm[Hg] [facility] Diastolic blood pressure 78 mm[Hg] 78 mm[Hg] [facility] Heart rate 67 /min 67 /min [facility] Oxygen saturation in Arterial blood by Pulse oximetry 91 % 91 % [facility] Respiratory rate 17 /min 17 /min [facility] Body temperature 36.67 [place] 36.67 [place] [facility] Body height 152.4 cm 152.4 cm [facility] Body weight 54.432 kg 54.432 kg [facility] Body mass index (BMI) [Ratio] 23.44 kg/m2 23.44 kg/m2 [facility] ID Date Data Source [id number] 03/12/2020 03:28:41 PM EDT [facility] Name Value Range Interpretation Code Description Data Source(s) WEIGHT RECORDED 122 lb 122 lb [facility] Patient Treatment Plan of Care Planned Activity Planned Date Details Description Data Source (s) Clonidine Hydrochloride 0.1 MG Oral Tablet 02/06/2020 12:00:00 AM E DT [facility] carvedilol 12.5 MG Oral Tablet 02/06/2020 12:00:00 AM EDT [facility] meloxicam 7.5 MG Oral Tablet [facility] Insulin Glargine 100 UNT/ML Injectable Solution [facility] Docusate Sodium 100 MG Oral Capsule [facility] Zolpidem tartrate 5 MG Oral Tablet [facility] carvedilol 12.5 MG Oral Tablet [facility]
[2021-04-01] MEDS ORDERED: VITMTA PO (13:18)
[2021-04-01] MEDS ORDERED: CLONI1TA PO (13:18)
[2021-04-01] MEDS ORDERED: HYDR10TAB PO (13:18)
[2021-04-01] MEDS ORDERED: PANT40TA29 PO (13:18)
[2021-04-01] MEDS ORDERED: COLA50CA5 PO (13:18)
[2021-04-01] MEDS ORDERED: WARF-58 PO (13:18)
[2021-04-01] MEDS ORDERED: TORS10TA3 PO (13:22)
[2021-04-01] MEDS ORDERED: TRAZ1TAB10 PO (13:22)
[2021-04-01] MEDS ORDERED: GABA-283 PO (13:22)
[2021-04-01] MEDS ORDERED: NORV5TAB PO (13:22)
[2021-04-01] MEDS ORDERED: TRAM50TA2 PO (13:22)
--- OUTSIDE RECORDS SUMMARY | 2021-04-01 16:45 | CCD ---
Author Author [facility] Organization [facility] Address Unknown Phone Unavailable Care Team Providers Care Weight Control Lecturer Name Role Phone Keon KAUFMAN MD Unavailable [...] Unavailable Unavailable Yolanda, Yanick MD Unavailable Unavailable Yolnada, Yanick MD Unavailable Unavailable Yolanda, Yanick MD [...] Unavailable Yolanda, Yanick MD Unavailable Unavailable Yolanda, Yanikc MD Unavailable Unavailable Yolanda, Yanick MD Unavailable [...] Unavailable Unavailable Han, Aram DO Unavailable Unavailable Ahn, Aram DO Unavailable Unavailable Han, Aram DO [...] Pawel IQBAL MD Unavailable Unavailable TRUSILO, Pawel IQABL MD Unavailable Unavailable TRUSILO, Pawel IQBAL MD [...] Unavailable Unavailable Rodrigo Ba MD Unavailable Unavailable [place], Rodrigo Fran MD Unavailable Unavailable [place], Rodrigo Fran MD Unavailable Unavailable Mejia, Rodrigo Fran MD Unavailable Unavailable Mejia, Rodrigo Fran MD Unavailable Unavailable [place], Rodrigo Fran MD Unavailable Unavailable Mejia, Rodrigo Fran MD Unavailable Unavailable [place], Rodrigo Fran MD Unavailable Unavailable [place], Rodrigo Fran MD Unavailable Unavailable [place], Rodrigo Fran MD Unavailable Unavailable Mejia, Rodrigo Fran MD Unavailable Unavailable Mejia, Rodrigo Fran MD Unavailable Unavailable [place], Rodrigo Fran MD Unavailable Unavailable [place], Rodrigo Fran MD Unavailable Unavailable [place], Rodrigo Fran MD Unavailable Unavailable Mejia, Rodrigo Fran MD Unavailable Unavailable [place], Rodrigo Fran MD Unavailable Unavailable Mejia, Rodrigo Fran MD Unavailable Unavailable Mejia, Rodrigo Fran MD Unavailable Unavailable Mejia, Rodrigo Fran MD Unavailable Unavailable [place], Rodrigo Fran MD Unavailable Unavailable [place], Rodrigo Fran MD Unavailable Unavailable Mejia, Rodrigo Fran MD Unavailable Unavailable [place], Rodrigo Fran MD Unavailable Unavailable [place], Rodrigo Fran MD Unavailable Unavailable Mejia, Rodrigo Fran MD Unavailable Unavailable [place], Rodrigo Fran MD Unavailable Unavailable [place], Rodrigo Fran MD Unavailable Unavailable Mejia, Rodrigo Fran MD Unavailable Unavailable [place], Rodrigo Fran MD Unavailable Unavailable [place], Rodrigo Fran MD Unavailable Unavailable Mejia, Rodrigo Fran MD Unavailable Unavailable [place], Rodrigo Fran MD Unavailable Unavailable [place], Rodrigo Fran MD Unavailable Unavailable [place], Rodrigo Fran MD Unavailable Unavailable [place], Rodrigo Fran MD Unavailable Unavailable [place], Rodrigo Fran MD Unavailable Unavailable [place], Rodrigo Fran MD Unavailable Unavailable [place], Rodrigo Fran MD Unavailable Unavailable [place], Rodrigo Fran MD Unavailable Unavailable [place], Rodrigo Fran MD Unavailable Unavailable Re-disclosure Warning [...] is protected by Article 27-F of the [place] Public Health law. If you continue you may have access to information: Regarding HIV / AIDS; Provided by facilities licensed or operated by the [facility]; or Provided by the [facility] Office for People With Developmental Disabilities. If such information is present, then the following [facility] mandated warning applies: This information has been [...] law may result in a fine or nursing home sentence or both. A general authorization for the release of medical or other information is NOT sufficient authorization for further disc losure. Allergies and Adverse Reactions Type Description Substance Reaction Status Data Source(s ) Drug allergy No Known Allergies No Known Allergies [facility] Propensity to adverse reactions NO KNOWN ALLERGIES NO KNOWN ALLERGIES [facility] Family History Family Member Name Family Member Gender Family Member Status Date o f Status Description Data Source(s) Unknown Condition [facility] Unknown Condition [facility] Unknown Condition [facility] Unknown Condition [facility] Unknown Condition [facility] Unknown Condition [facility] Unknown Condition [facility] Unknown Condition [facility] Unknown Condition [facility] Unknown Condition [facility] Unknown Condition [facility] Unknown Condition [facility] Unknown Condition [facility] Unknown Condition [facility] Unknown Condition [facility] Unknown Condition [facility] Unknown Condition [facility] Unknown Condition [facility] Unknown Condition [facility] Unknown Condition [facility] Unknown Condition [facility] Unknown Male Problem [facility] ([facility]) Unknown Unknown Problem [facility] ([facility]) Encounters Encounter Providers Location Date Indications Data Source(s ) Outpatient Attender: Caroline Wise PAReferrer: Yanick Guerrero MD 05/17/2021 02:30:00 PM EST 3 mo f/u [facility] 3 mo f/u Outpatient Referrer: ELIZABETH PERRY MD 02/22/2021 03:23:22 PM EDT [facility] Outpatient Referrer: ELIZABETH PERRY MD 02/17/2021 10:31:22 AM EDT [facility] Outpatient Attender: CAROLINE Clark: Yanick Guerrero [...] ELIZABETH PERRY MD 02/08/2021 10:34:49 AM EDT [facility] Outpatient Attender: CAROLINE Clark: Yanick Guerrero MD 01/14/2021 10:14:00 AM EDT - 01/14/2021 11:13:00 AM EDT Bilateral hip pain, left worse [facility] Bilateral hip pain, left worse Patient discharged. Outpatient Attender: CAROLINE Clark: Yanick Guerrero MD 01/14/2021 10:14:00 AM EDT - 01/14/2021 11:13:00 AM EDT [facility] Outpatient Attender: Yanick Guerrero MD Main Office 12/29/2020 02:00:00 PM EDT [facility] ([facility]) Outpatient Attender: Caroline Rojo: Fran Ba [...] AM EDT - 11/22/2020 12:50:00 PM EDT [facility] Outpatient Attender: Yanick Guerrero MD 11/11/2020 01:12:00 P M EDT [facility] lab Outpatient Attender: Yanick Guerrero MD Main Office 11/02/2020 02:15:00 PM EDT [facility] ([facility]) Recurring Patient Attender: CHARMAINE SOLISCARMEN MDReferrer: [...] Main Office 03/24/2020 02:00:00 PM EDT [facility] ([facility]) Recurring Patient Referrer: Yanick Guerrero MD 03/24/2020 08: 30:[address] [facility] Outpatient Attender: Becky Harrell 03/03/2020 02:04:00 PM EDT [facility] Outpatient Attender: Aram Short DO [id number] 03/03/20 20 12:00:00 AM EDT - 03/03/2020 04:02:57 PM EDT Chronic kidney disease, stage 3 (moderate) [facility] Chronic kidney disease, stage 3 (moderat e) Outpatient Attender: Yanick Guerrero MD Main Office 02/11/2020 01:45:00 PM EDT [facility] ([facility]) Outpatient Attender: MAILE Del Rio nder: Patrai Cormier MDAttender: MISSAEL MCNULTY MDAttender: EUGENIO KAUFMAN MDAdmitter: MISSAEL MCNULTY MDReferrer: EUGENIO KAUFMAN MD 1-OB2 02/04/2020 12:23:30 AM EDT - 02/06/2020 01:51:00 PM EDT [facility] Patient discharged. Outpatient Attender: Aram Short DO 02/04/2020 12:00:00 AM EDT [facility] Immunizations Vaccine Date Status Description Data Source(s) New in 2012. IIV4 03/24/2020 02:15:00 PM EDT completed [facility] ([facility]) Medications Medication Brand Name Start Date [...] PM EDT SUSPENSION 80 MG INTRAMUSC completed [facility] Lidocaine Hydrochloride 10 MG/ML Injecta ble Solution lidocaine (PF) 10 mg/mL (1 %) injection solution lidocaine (PF) 10 mg/mL (1 %) injection solution 02/14/2021 03:30:52 PM EDT SOLUTION 40 MG INTRAMUSC completed [facility] rivaroxaban 15 MG Oral Tablet Rivaroxaban (Xarelto) 15 mg tablet Rivaroxaban (Xarelto) 15 mg tablet 02/11/2021 04:04:49 PM EDT TABLET TABLET active [facility] apixaban 2.5 MG Oral Tablet Apixaban (Eliquis) 2.5 mg tablet Apixaban (Eliquis) 2.5 mg tablet 02/11/2021 08:25:57 AM EDT TABLET TABLET complet ed [facility] 15 mg 02/10/2021 12:00:00 AM EDT [...] PM EDT TABLET 10 MG ORAL active [facility] 50 mg 02/08/2021 12:00:00 AM [...] AM EDT TABLET 15 MG ORAL active [facility] 5 mg 02/03/2021 12:00:00 AM EDT [...] PM EDT TABLET 2.5 MG ORAL complet [facility] 100 mg 01/26/2021 12:00:00 AM EDT capsule [...] AM EDT SOLUTION 40 MG INTRAMUSC [facility] methylprednisolone acetate 80 MG/ML Inje ctable Suspension Depo-Medrol (methylprednisolone acetate) 80 mg/mL suspension for injection Depo-Medrol (methylprednisolone acetate) 80 mg/mL suspension for injection 01/14/2021 10:14:25 AM EDT SUSPENSION 80 MG INTRAMUSC completed [facility] 2.5 mg 01/09/2021 12:00:00 AM EDT tablet [...] TABLET BY MOUTH EVERY DAY SOLD: 11/29/2020 [facility] Amlodipine 10 MG Oral Tablet Amlodipine 11/24/2020 01:59:13 PM EDT TA BLET 10 MG ORAL active [facility] Cholecalciferol 1000 UNT Oral Capsule Cholecalciferol (Vitamin D3) Cholecalciferol (Vitamin D3) 11/24/2020 01:49:24 PM EDT CAPSULE 25 MCG ORAL active [facility] Amlodipine 5 MG Oral Tablet Amlodipine 11/24/2020 01:49:00 PM EDT TAB LET 5 MG ORAL completed [facility] Levothyroxine Sodium 0.05 MG Oral Capsule Levothyroxine 11/24/2020 01:48:51 PM EDT CAPSULE 50 MCG ORAL active [facility] Trazodone Hydrochloride 50 MG Oral Tablet Trazodone 2020 01:47:52 PM EDT TABLET 50 MG ORAL [facility] torsemide 10 MG Oral Tablet Torsemide Torsemide 11/24/2020 01:47:12 PM EDT TABLET 10 MG ORAL active [facility] Clonidine Hydrochloride 0.1 MG Oral Tablet Clonidine Hcl Aviva nidine Hcl 11/24/2020 01:42:24 PM EDT TABLET 0.1 MG ORAL active [facility] Diphenhydramine Hydrochloride 25 MG Oral Capsule Diphenhydramine Hcl (Allergy Medication) 25 mg capsule Diphenhydramine Hcl (Allergy Medication) 25 mg capsule 11/22/2020 12:08:18 PM EDT CAPSULE 25 MG ORAL [facility] 3 ML insulin detemir 100 UNT/ML Pen Inje ctor Insulin Detemir U-100 (Levemir Flextouch U-100 Insuln) 100 unit/mL (3 mL) insulin pen Insulin Detemir U-100 (Levemir Flextouch U-100 Insuln) 100 unit/mL (3 mL) insulin pen 11/22/2020 12:07:54 PM EDT UNASSIGNED 10 UNIT SUBCUTANEOUSLY active [facility] Trazodone Hydrochloride 50 MG Oral Tablet Trazodone 2020 12:07:23 PM EDT TABLET 25 MG ORAL completed [facility] Clonidine Hydrochloride 0.1 MG Oral Tablet Clonidine Hcl Aviva nidine Hcl 11/22/2020 12:05:10 PM EDT TABLET 0.05 MG ORAL completed [facility] Lidocaine Hydrochloride 10 MG/ML Injecta ble Solution lidocaine (PF) 10 mg/mL (1 %) injection solution lidocaine (PF) 10 mg/mL (1 %) injection solution 11/22/2020 11:41:51 AM EDT SOLUTION 40 MG INTRAMUSC completed [facility] methylprednisolone acetate 40 MG/ML Inje ctable Suspension Depo-Medrol (methylprednisolone acetate) 40 mg/mL suspension for injection Depo-Medrol (methylprednisolone acetate) 40 mg/mL suspension for injection 11/22/2020 11:41:51 AM EDT SUSPENSION 40 MG INTRAMUSC completed [facility] Basaglar Kwikpen Basaglar Kwikpen 11/03/2020 12:00:00 AM EDT active [facility] ([facility]) Amlodipine 5 MG Oral Tablet Amlodipine Besylate 11/02/2020 12:00:00 A M EDT ORAL active [facility] ([facility]) salmon calcitonin 200 UNT/ACTUAT Nasal [place] [Miacalcin] Jayna calcin 11/02/2020 12:00:00 AM EDT active M EDENT ([facility]) gabapentin 100 MG Oral Capsule Gabapentin 04/27/2020 12:00:00 AM EST active [facility] ([facility]) Levothyroxine Sodium 0.05 MG Oral Tablet Levothyroxine Sodiu m 04/23/2020 12:00:00 AM EST active M EDENT ([facility]) 5 mg 03/25/2020 12:00:00 AM EDT [...] Anemia, 03/03/20 at 1545, For 1 dose [facility] Anemia Medication administered onsite carvedilol 12.5 MG [...] 02/11/2020 12:00:00 AM EDT ORAL active [facility] ([facility]) Clonidine Hydrochloride 0.1 MG Oral [...] by mouth 2 (two) times a day [facility] carvedilol 12.5 MG Oral Tablet carvedilol (COREG) 12.5 MG tablet carvedilol (COREG) 12.5 MG tablet 02/06/2020 12:00:00 AM EDT 12.5 mg Oral active Take 1 tablet (12.5 mg total) by mouth 2 (two) times a day [facility] technetium sestamibi (CARDIOLITE) injection 11 millicurie 02/05/2020 03:00:00 PM EDT 11 mCi Intravenous completed 11 millicurie, Intravenous, Once, Cher 820 at 1500, For 1 dose [facility] Medication administered onsite technetium sestamibi (CARDIOLITE) injection 34 millicurie 02/05/2020 03:00:00 PM EDT 34 mCi Intravenous completed 34 millicurie, Intravenous, Once, Cher 820 at 1500, For 1 dose [facility] Medication administered onsite Hydralazine Hydrochloride 25 MG Oral Tab let hydrALAZINE (APRESOLINE) tablet 25 mg hydrALAZINE (APRESOLINE) tablet 25 mg 02/05/2020 02:00:00 PM EDT 25 mg Oral active 25 mg, Oral, E very 8 hours (scheduled), First dose on Cher 02/05/20 at 1400
Hold for systolic blood pressure less than 140
[facility] Medication administered onsite Clonidine Hydrochloride 0.1 MG Oral Tablet cloNIDine ( CATAPRES) tablet 0.1 mg cloNIDine (CATAPRES) tablet 0.1 mg 02/05/2020 10:00:00 AM EDT 0.1 mg Oral active 0.1 mg, Oral, 2 times daily, Fir st dose on Cher 02/05/20 at 1000 [facility] Medication administered onsite gabapentin 100 MG Oral Capsule gabapentin (NEURONTIN) capsule 100 mg gabapentin (NEURONTIN) capsule 100 mg 02/05/2020 09:00:00 AM EDT 100 mg Oral active 100 mg, Oral, Daily, First dose on Sun at 0900 [facility] Medication administered onsite Hydralazine Hydrochloride 20 MG/ML Injec table Solution hydrALAZINE (APRESOLINE) injection 10 mg hydrALAZINE (APRESOLINE) injection 10 mg 02/05/2020 07 :00:00 AM EDT 10 mg completed 10 mg, Intravenous Push, Once, Cher 02/05/20 at 0700, For 1 dose [facility] Medication administered onsite gabapentin 100 MG Oral Capsule gabapentin (NEURONTIN) capsule 200 mg gabapentin (NEURONTIN) capsule 200 mg 02/04/2020 09:00:00 PM EDT 200 mg Oral active 200 mg, Oral, Nightly, First dose on Sun02/04/20 at 2100 [facility] Medication administered onsite Trazodone Hydrochloride 50 MG Oral Tablet traZODone (D ESYREL) tablet 50 mg traZODone (DESYREL) tablet 50 mg 02/04/2020 09:00:00 PM EDT 50 mg Oral active 50 mg, Oral, Nightly, First dose on Sun02/04/20 at 2100 [facility] Medication administered onsite Benazepril hydrochloride 10 MG Oral Tablet benazepril (LOTENSIN) tablet 40 mg benazepril (LOTENSIN) tablet 40 mg 02/04/2020 09:00:00 PM EDT 40 mg Oral active 40 mg, Oral, Nightly , First dose on Sun02/04/20 at 2099
Hold if SBP < 115 or DBP < 70 and call if held to discuss.
[facility] Medication administered onsite Donepezil hydrochloride 10 MG Oral Tablet donepezil (A RICEPT) tablet 10 mg donepezil (ARICEPT) tablet 10 mg 02/04/2020 09:00:00 PM EDT 10 mg Oral active 10 mg, Oral, Nightly, First dose on Sun02/04/20 at 2099 [facility] Medication administered onsite Hydralazine Hydrochloride 10 MG Oral Tab let hydrALAZINE (APRESOLINE) tablet 10 mg hydrALAZINE (APRESOLINE) tablet 10 mg 02/04/2020 06:00:00 PM EDT 10 mg Oral aborted 10 mg, Oral, E very 8 hours (scheduled), First dose on Sun02/04/20 at 1800
Hold for systolic blood pressure less than 140
[facility] Medication administered onsite regadenoson (LEXISCAN) solution 0.4 mg [id number] 02/04/2020 11:5 0:00 AM EDT 0.4 mg Intravenous completed 0.4 mg, Intravenous, Once, Sun02/04/20 at 1150, For 1 dose, Nursing Home Assistant Administrator
No Caffeine, Theophylline, or Dipyridamole (Aggrenox) for 12 hours prior to dose. If patient has had any of these, contact MD immediately
[facility] Medication administered onsite pantoprazole 40 MG Delayed Release Oral Tablet pantoprazole (PROTONIX) EC tablet 40 mg pantoprazole (PROTONIX) EC tablet 40 mg 02/04/2020 09:00:00 AM E DT 40 mg Oral active Gastroesophageal Reflux Diseas e 40 mg, Oral, 2 times daily, Indications: Gastroesophageal Reflux Disease, First dose on Sun02/04/20 at 0900 [facility] Gastroesophageal Reflux Disease Medication administered onsite Amlodipine 10 MG Oral Tablet amLODIPine (NORVASC) tabl et 10 mg amLODIPine (NORVASC) tablet 10 mg 02/04/2020 09:00:00 AM EDT 10 mg Oral active 10 mg, Oral, Daily, First dose on Sun02/04/20 at 0900
Hold if SBP < 115 or DBP < 70 and call if held to discuss.
[facility] Medication administered onsite atorvastatin 40 MG Oral Tablet atorvastatin (LIPITOR) tablet 40 mg atorvastatin (LIPITOR) tablet 40 mg 02/04/2020 09:00:00 AM EDT 40 mg Oral active 40 mg, Oral, Daily, First dose on Sun02/04/20 at 0900 [facility] Medication administered onsite Citalopram 20 MG Oral Tablet citalopram (CeleXA) table t 20 mg citalopram (CeleXA) tablet 20 mg 02/04/2020 09:00:00 AM EDT 20 mg Oral active 20 mg, Oral, Daily, First dose on Sun02/04/20 at 0900 [facility] Medication administered onsite gabapentin 100 MG Oral Capsule gabapentin (NEURONTIN) capsule 200 mg gabapentin (NEURONTIN) capsule 200 mg 02/04/2020 09:00:00 AM EDT 200 mg Oral aborted 200 mg, Oral, TIDSS, First dose on Sun at 0900 [facility] Medication administered onsite Oxybutynin chloride 5 MG Oral Tablet oxybutynin (DITRO NEVES) tablet 5 mg oxybutynin (DITROPAN) tablet 5 mg 02/04/2020 09:00:00 AM EDT 5 mg Oral active 5 mg, Oral, 2 times daily, First dose on Sun02/04/20 at 0900 [facility] Medication administered onsite Aspirin 81 MG Chewable Tablet aspirin chewable tablet 81 mg aspirin chewable tablet 81 mg 02/04/2020 09:00:00 AM EDT 81 mg Oral activ e 81 mg, Oral, Daily, First dose on Sun02/04/20 at 0900 [facility] Medication administered onsite heparin (porcine) injection 5,000 Units [id number] 02/04/20 09:00:00 AM EDT 5000 U Subcutaneous active 5,000 Units , Subcutaneous, Every 12 hours (scheduled), First dose on Sun02/04/20 at 0900
If platelet count is less than 100,000 or hematocrit is less than 25, or if there is a 5 point decrease in hematocrit, do not give the dose and call physician/designee.
[facility] Medication administered onsite tramadol hydrochloride 50 MG Oral Tablet traMADol (ULT EL) tablet 50 mg traMADol (ULTRAM) tablet 50 mg 02/04/2020 08:19:32 AM EDT 50 mg Oral active 50 mg, Oral, Every 8 hours PRN, moderate pain (4-6), severe pain (7-10), Starting Sun02/04/20 at 0819 [facility] Medication administered onsite Nitroglycerin 0.02 MG/MG Topical Ointmen t nitroglycerin (NITROSTAT) 2 % ointment 0.5 inch nitroglycerin (NITROSTAT) 2 % ointment 0.5 inch 2019 08:10:00 AM EDT 0.5 g Topical completed Angina Pectoris 0.5 inch (0.5 g), Topical, Once, Sun02/04/20 at 0810, For 1 dose [facility] Angina Pectoris Medication administered onsite carvedilol 6.25 MG Oral Tablet carvedilol (COREG) tabl et 12.5 mg carvedilol (COREG) tablet 12.5 mg 02/04/2020 08:10:00 AM EDT 12.5 mg Oral active 12.5 mg, Oral, 2 times daily, First dose on Sun02/04/20 at 0810
Hold if HR < 60 or SBP < 105 and call if held.
[facility] Medication administered onsite Insulin Lispro 100 UNT/ML [...] cover POC glucose at 08:00, 12:00, 17:00.
[facility] Medication administered onsite sodium chloride 0.9% (NS) infusion 4324-1931-87 02/04/2020 07:00:00 A M EDT Intravenous aborted at 50 mL/hr, Intravenous, Continuous, Starting Sun02/04/20 at 0700 [facility] Medication administered onsite Levothyroxine Sodium 0.025 MG Oral Table t levothyroxine (SYNTHROID, LEVOTHROID) tablet 25 mcg levothyroxine (SYNTHROID, LEVOTHROID) tablet 25 mcg 06:40:00 AM EDT 25 ug Oral active 25 mcg, Oral, Daily, First dose on Sun02/04/20 at 0640
hold for 1 hour before and 1 hour after tube feeds if patient is on tube feed
[facility] Medication administered onsite Docusate Sodium 100 MG Oral Capsule docusate sodium (C OLACE) capsule 100 mg docusate sodium (COLACE) capsule 100 mg 02/04/2020 06:26:22 AM EDT 100 mg Oral active 100 mg, Oral, 2 times daily PRN, constipation, Starting Sun02/04/20 at 0626
hold for loose stools
[facility] Medication administered onsite Acetaminophen 325 MG Oral Tablet acetaminophen (TYLENO L) 325 MG tablet 650 mg acetaminophen (TYLENOL) 325 MG tablet 650 mg 02/04/2020 06:25:10 AM EDT 650 mg Oral active 650 mg, Or al, Every 4 hours PRN, mild pain (1-3), headaches, Starting Sun02/04/20 at 0625
"Maximum dose of acetaminophen is 4,000 mg from all sources in 24 hours."
[facility] Medication administered onsite tramadol hydrochloride 50 MG Oral Tablet traMADol (ULT EL) tablet 50 mg traMADol (ULTRAM) tablet 50 mg 02/04/2020 03:45:00 AM EDT 50 mg Oral completed 50 mg, Oral, Once, Sun02/04/20 at 0345, For 1 dose [facility] Medication administered onsite iopamidol (ISOVUE-370) 76 % 70 mL [id number] 02/04/2020 02:54:43 AM E DT 70 mL Intravenous completed 70 mL, Intrav enous, Once in imaging, contrast, Starting Sun02/04/20 at 0254, For 1 dose [facility] Medication administered onsite Labetalol HCl SOSY 20 mg [id number] 02/04/2020 02:30:00 AM EDT 20 mg completed 20 mg, Intravenous P ush, Once, Sun02/04/20 at 0230, For 1 dose
See Labetalol Notice for Special Handling Instructions
[facility] Medication administered onsite sodium chloride 0.9% (NS) bolus 1,000 mL [id number] 02/04/2020 01:30:00 AM EDT 1000 mL Intravenous completed 1, 000 mL, Intravenous, Administer over 1 Hours, Once, Sun02/04/20 at 0130, For 1 dose [facility] Medication administered onsite pantoprazole 40 MG Delayed [...] TABLET BY MOUTH EVERY DAY SOLD: 02/01/2020 [facility] torsemide 10 MG Oral Tablet Torsemide Torsemide 2019 01:22:08 PM EDT TABLET 10 MG ORAL completed [facility] Oxybutynin chloride 5 MG Oral Tablet OXYBUTYNIN CHLORIDE 01/2020 12:00:00 AM EDT tablet 60 TAKE ONE TABLET BY MOUTH TWI CE A DAY TAKE ONE TABLET BY MOUTH TWICE A DAY SOLD: 02/17/2020 [facility] 100 mg 03/28/2019 12:00:00 AM EDT capsule 180 TAKE ONE CAPSULE BY MOUTH TWICE A DAY FOR 1 WEEK THEN 2 CAPSULES TWO TIMES A DAY TAKE ONE CAPSULE BY MOUTH TWICE A DAY FOR 1 WEEK THEN 2 CAPSULES TWO TIMES A DAY SOLD: 02/17/2020 [facility] 10 mg 02/05/2019 12:00:00 AM EDT tablet 90 TAKE ONE TABLET BY MOUTH EVERY DAY TAKE ONE TABLET BY MOUTH EVERY DAY SOLD: 02/01/2020 [facility] Amlodipine 10 MG Oral Tablet Amlodipine 02/04/2019 02:27:16 PM EDT TA BLET 10 MG ORAL completed [facility] Zolpidem tartrate 5 MG Oral Tablet Zolpidem 03/13/2017 01:31:00 PM EDT TABLET 5 MG ORAL completed [facility] Aspirin 81 MG Delayed Release Oral Tablet Aspirin 2016 10:23:25 AM EDT UNASSIGNED 81 MG ORAL completed [facility] Levothyroxine Sodium 0.025 MG Oral Tablet Levothyroxine 12/07/2016 02:05:41 PM EDT TABLET 25 MCG ORAL completed [facility] Citalopram 20 MG Oral Tablet Citalopram (Celexa) 20 MG tablet Citalopram (Celexa) 20 MG tablet 12/07/2016 02:05:41 PM EDT TABLET 20 MG ORAL completed [facility] 3 ML Insulin Glargine 100 UNT/ML Pen [...] 16 Units u nder the skin nightly [facility] meloxicam 7.5 MG Oral Tablet meloxicam (MOBIC) 7.5 MG tablet meloxicam (MOBIC) 7.5 MG tablet 7.5 mg Oral aborted Ta ke 7.5 mg by mouth 2 (two) times a day [facility] Docusate Sodium 100 MG Oral Capsule docusate sodium (C OLACE) 100 MG capsule docusate sodium (COLACE) 100 MG capsule 50 mg Oral aborted Take 50 mg by mouth 2 (two) times a day [facility] carvedilol 12.5 MG Oral Tablet carvedilol (COREG) 12.5 MG tablet carvedilol (COREG) 12.5 MG tablet 12.5 mg Oral aborted Take 12.5 mg by mouth 2 (two) times a day [facility] Zolpidem tartrate 5 MG Oral Tablet zolpidem (AMBIEN) 5 MG tablet zolpidem (AMBIEN) 5 MG tablet 5 mg Oral aborted Take 5 mg by mouth nightly as needed for sleep [facility] Insurance Providers Payer name Policy type / Coverage type Policy ID Covered republican ID Covered republican's relationship to portillo Policy [place] Plan Information MEDICARE A [id number] Self [id number] N77 [facility] [id number] Self [id number] MEDICARE [id number] Taya [id number] N77 MEDICARE [id number] SP [id number] N77 Medicare C [id number] SELF [id number] A MEDICARE A [id number] Self [id number] A MEDICARE [id number] SP [id number] A MEDICARE [id number] xxxxxxxxxxx [id number] MEDICARE A [id number] Self [id number] U97 MEDICARE [id number] Taya [id number] U97 Blue Cross Blue Shield P [id number] SELF [id number] Blue Cross Blue Shield P [id number] SELF [id number] Blue Cross Blue Shield P [id number] SELF [id number] BC/BS Pos Health Maintenance Organization (HMO) [id number] 07 2.16.840.1.943333.3.227.99.8656.462.0 Self VY [id number] BC/BS Pos Health Maintenance Organization (HMO) [id number] 07 2.16.840.1.676057.3.227.99.8656.462.0 Self VY [id number] BLUE CROSS [id number] SP [id number] EXCELLUS C [id number] Self [id number] BC/BS Pos Health Maintenance Organization (HMO) [id number] 07 2.16.840.1.838375.3.227.99.8656.462.0 Self VY [id number] BC/BS Pos Health Maintenance Organization (HMO) [id number] Self [id number] EXCELLUS BCBS [id number] xxxxxxxxxxxx [id number] EXCELLUS BCBS [id number] Taya [id number] [id number] BC/BS Pos Health Maintenance Organization (HMO) [id number] 2.16.840.1.440141.3.227.99.8656.462.0 Self VY [id number] BC/BS Pos Health Maintenance Organization (HMO) [id number] Self [id number] BC/BS Pos Health Maintenance Organization (HMO) [id number] 07 2.16.840.1.920275.3.227.99.8656.462.0 Self VY [id number] BC/BS Pos Health Maintenance Organization (HMO) [id number] 07 2.16.840.1.714065.3.227.99.8656.462.0 Self VY [id number] BC/BS Pos Health Maintenance Organization (HMO) [id number] 07 2.16.840.1.969344.3.227.99.8656.462.0 Self VY [id number] BC/BS Pos Health Maintenance Organization (HMO) [id number] 07 2.16.840.1.571309.3.227.99.8656.462.0 Self VY [id number] BC/BS Pos Health Maintenance Organization (HMO) [id number] Se lf BLUE CROSS [id number] SP [id number] BC/BS Pos Health Maintenance Organization (HMO) [id number] 07 2.16.840.1.917899.3.227.99.8656.462.0 Self VY [id number] BC/BS Pos Health Maintenance Organization (HMO) [id number] 07 2.16.840.1.959198.3.227.99.8656.462.0 Self VY [id number] BC/BS Pos Health Maintenance Organization (HMO) [id number] 07 2.16.840.1.841791.3.227.99.8656.462.0 Self VY [id number] BC/BS Pos Health Maintenance Organization (HMO) [id number] 07 2.16.840.1.700894.3.227.99.8656.462.0 Self VY [id number] BC/BS Pos Health Maintenance Organization (HMO) [id number] 07 2.16.840.1.244944.3.227.99.8656.462.0 Self VY [id number] DME Jurisdiction A NHIC C [id number] SELF [id number] BS [place] Medigap Part B [id number] 2.16.840.1.348000.3.227.99.991.453136.0 Self [id number] Medicare [place] Medicare Primary [id number] 2.0.1.106872.3.227.99.991.487079.0 Self [id number] [facility] Part B [id number] 2.0.1.943997.3.227.99.991.736680.0 Self [id number] Medicare [place] Medicare Primary [id number] 2.0.1.165905.3.227.99.991.107824.0 Self [id number] BLUE CROSS [id number] SP [id number] SELF PAY MEDICARE [id number] SP [id number] N77 SELF PAY MEDICARE [id number] SP [id number] N77 BLUE CROSS [id number] SP [id number] SELF PAY BLUE CROSS [id number] SP [id number] MEDICARE [id number] SP [id number] N77 SELF PAY BLUE CROSS [id number] SP [id number] MEDICARE [id number] SP [id number] N77 MEDICARE [id number] SP [id number] N77 SELF PAY BLUE CROSS [id number] SP [id number] MEDICARE [id number] SP [id number] N77 SELF PAY SELF PAY BLUE CROSS [id number] SP [id number] MEDICARE [id number] SP [id number] N77 SELF PAY BLUE CROSS [id number] SP [id number] MEDICARE [id number] SP [id number] N77 MEDICARE [id number] SP [id number] U97 SELF PAY BLUE CROSS [id number] SP [id number] MEDICARE [id number] SP [id number] N77 SELF PAY BLUE CROSS [id number] SP [id number] BLUE CROSS [id number] SP [id number] SELF PAY MEDICARE [id number] SP [id number] N77 MEDICARE [id number] SP [id number] U97 SELF PAY BLUE CROSS [id number] SP [id number] MEDICARE [id number] SP [id number] N77 Medicare C [id number] SELF [id number] U97 SELF PAY BLUE CROSS [id number] SP [id number] SELF PAY MEDICARE [id number] SP [id number] U97 MEDICARE [id number] SP [id number] N77 INSURANCE COVID-19 COVID Taya C OVID SELF PAY BLUE CROSS [id number] SP [id number] MEDICARE [id number] SP [id number] U97 MEDICARE [id number] SP [id number] U97 BLUE CROSS [id number] SP [id number] SELF PAY BLUE CROSS [id number] SP [id number] MEDICARE [id number] SP [id number] U97 SELF PAY SELF PAY SELF PAY SELF PAY BLUE CROSS [id number] SP [id number] MEDICARE [id number] SP [id number] U97 MEDICARE [id number] SP [id number] U97 SELF PAY BLUE CROSS [id number] SP [id number] SELF PAY BLUE CROSS [id number] SP [id number] MEDICARE [id number] SP [id number] U97 BLUE CROSS [id number] SP [id number] SELF PAY MEDICARE [id number] SP [id number] U97 BS [place] Medigap Part B [id number] Self [id number] BS [place] Medigap Part B [id number] 2.16.840.1.767001.3.227.99.8656. 462.0 Self [id number] Medicare Medicare Primary [id number] 2.16.840.1.696393.3.227.99.865 6.462.0 Self [id number] MEDICARE [id number] SP [id number] A MEDICARE [id number] SP [id number] N77 MEDICARE [id number] SP [id number] U97 Medicare Medicare Primary [id number] 2.16.840.1.324868.3.227.99.865 6.462.0 Self [id number] [place] Medigap Part B [id number] 2.0.1.014969.3.227.99.8656. 462.0 Self [id number] Medicare Medicare Primary [id number] 2.840.1.186786.3.227.99.865 6.462.0 Self [id number] BS [place] Medigap Part B [id number] 2.840.1.858843.3.227.99.8656. 462.0 Self [id number] BS [place] Medigap Part B [id number] 2.840.1.001587.3.227.99.8656. 462.0 Self [id number] [place] Medigap Part B [id number] Self [id number] Medicare Medicare Primary [id number] 2.840.1.605227.3.227.99.865 6.462.0 Self [id number] [facility] [id number] S [id number] BS [place] Medigap Part B [id number] 2.0.1.921982.3.227.99.8656. 462.0 Self [id number] Medicare Medicare Primary [id number] 2.840.1.173674.3.227.99.865 6.462.0 Self [id number] MEDICARE C [id number] S [id number] A [place] Medigap Part B [id number] 2.840.1.131408.3.227.99.8656. 462.0 Self [id number] Medicare Medicare Primary [id number] 2.840.1.609326.3.227.99.865 6.462.0 Self [id number] BCBS [place] 304/804 [id number] SP [id number] BS [place] Medigap Part B [id number] 2.0.1.121391.3.227.99.8656. 462.0 Self [id number] Medicare Medicare Primary [id number] 2.0.1.495736.3.227.99.865 6.462.0 Self [id number] Medicare Medicare Primary [id number] Self [id number] [place] Medigap Part B [id number] 2.0.1.315365.3.227.99.8656. 462.0 Self [id number] Medicare Medicare Primary [id number] 2.0.1.327949.3.227.99.865 6.462.0 Self [id number] BLUE CROSS [id number] SP [id number] BS [place] Medigap Part B [id number] 2.0.1.991063.3.227.99.8656. 462.0 Self [id number] Medicare Medicare Primary [id number] 2.0.1.192987.3.227.99.865 6.462.0 Self [id number] BCBS [place] 306/806 [id number] SP [id number] [place] Medigap Part B [id number] 2.16.840.1.370924.3.227.99.8656. 462.0 Self [id number] Medicare Medicare Primary [id number] 2.16.840.1.338577.3.227.99.865 6.462.0 Self [id number] Medicare Medicare Primary [id number] 2.16.840.1.051306.3.227. 99.8656.462.0 Self [id number] [place] Medigap Part B [id number] 2.16.840.1.078703.3.227.99.8656. 462.0 Self [id number] Medicare Medicare Primary [id number] 2.16.840.1.167087.3.227.99.865 6.462.0 Self [id number] [place] Medigap Part B [id number] 2.16.840.1.749971.3.227.99.8656. 462.0 Self [id number] BS [place] Medigap Part B [id number] 2.16.840.1.427770.3.227.99.8656. 462.0 Self [id number] Medicare Medicare Primary [id number] 2.16.840.1.775327.3.227.99.865 6.462.0 Self [id number] EX[place]LL[place] BCBS B [id number] S [id number] MEDICARE C [id number] S [id number] N77 BC/BS [id number] Self BS [place] Medigap Part [id number] Self Medicare Medicare Primary 1430 Self BCBS [place] 304/804 [id number] SP [id number] BCBS [place] 304/804 [id number] SP [id number] BC/BS [place] [id number] Self [id number] Medicare Medicare Primary [id number] Self [id number] Problems, Conditions, and Diagnoses Code Display Name [...] PC I25.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 I25.10 - Atherosclerotic heart disease o f resighini coronary artery without angina pectoris Diagnosis 11/24/2020 01:18:00 PM EDT [facility] E87.1 Hypo-osmolality and hyponatremia E87.1 - Hypo-os molality and hyponatremia Diagnosis 11/11/2020 01:12:00 PM EDT [facility] E61.1 Iron deficiency Iron deficiency Diagnosis 03/03/2020 03:4 4:23 PM EDT [facility] N18.3 Chronic kidney disease, stage 3 (moderat e) N18.3 - Chronic kidney disease, stage 3 (moderate) Diagnosis 03/03/2020 02:04:00 PM EDT [facility] I16.1 Hypertensive emergency Hypertensive emergency Diagnosi s 02/04/2020 12:23:30 AM EDT [facility] F02.80 Dementia in other diseases c lassified elsewhere without behavioral disturbance Dementia in other diseases classified el Diagnosis 02/04/2020 12:23:30 AM EDT [facility] 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 Diagnosis 02/04/2020 12:23:30 AM EDT [facility] R07.9 Chest pain, unspecified Chest pain, unspecified Diagno sis 02/04/2020 12:23:30 AM EDT [facility] R07.9 Chest pain Chest pain [id number] 02/05/2020 12:00:00 AM ED T [facility] G30.1 Uncomplicated late onset Alzheimer's dem entia Uncomplicated late onset Alzheimer's dementia [id number] 02/04/2020 12:00:00 AM EDT [facility] I25.10 Coronary artery disease, moderate, 2019 CATH Coronary artery disease, moderate, 2019 CATH [id number] 02/04/2020 12:00:00 AM EDT [facility] I38 VHD (valvular heart disease) VHD (valvular heart disea se) [id number] 02/04/2020 12:00:00 AM EDT [facility] I16.1 Hypertensive emergency Hypertensive emergency [id number] 02/04/2020 12:00:00 AM EDT [facility] I10 Episode of hypertension, severe Episode of hypertensio n, severe [id number] 02/04/2020 12:00:00 AM EDT [facility] R07.89 Chest discomfort Chest discomfort [id number] 02/04/2020 12 :00:00 AM EDT [facility] E78.5 Hyperlipidemia Hyperlipidemia [id number] 02/04/2020 12:00: 00 AM EDT [facility] E03.9 Hypothyroidism Hypothyroidism [id number] 02/04/2020 12:00: 00 AM EDT [facility] I10 Essential hypertension Essential hypertension [id number] 02/04/2020 12:00:00 AM EDT [facility] Surgeries/Procedures Procedure Description Date Indications Data Source(s) Plain x-ray of pelvis and lower extremity (procedure) 01/14/2021 10:33:48 AM EDT [facility] OFFICE OUTPATIENT VISIT 25 MINUTES 12/29/2020 12:00:00 AM EDT [facility] ([facility] OFFICE OUTPATIENT VISIT 25 MINUTES 11/02/2020 12:00:00 AM EDT [facility] ([facility]) GLUC BLD GLUC MNTR DEV CLEARED FDA SPEC HOME USE <td>P OCT GLUCOSE</td><td>Routine</td><td>02/05/2020 5:29 PM EDT</td><td></td><td> </td> 02/05/2020 09:29:00 PM EDT [facility] MYOCARDIAL SPECT MULTIPLE STUDIES <td>NM CARDIAC GATED SPEC IMG EFWM</td><td>Routine</td><td>02/05/2020 2:43 PM EDT</td><td></td><td> </td> 02/05/2020 06:43:45 PM EDT [facility] CV STRS TST XERS&/OR RX CONT ECG PHYS SI&R <td>STRESS TEST, CARDIOVASCULAR</td><td>Routine</td><td>02/05/2020 1:36 PM EDT</td><td></td><td></td> 02/05/2020 05:36:56 PM EDT [facility] GLUC BLD GLUC MNTR DEV CLEARED FDA SPEC HOME USE <td>P OCT GLUCOSE</td><td>Routine</td><td>02/05/2020 9:03 AM EDT</td><td></td><td> </td> 02/05/2020 01:03:00 PM EDT [facility] GLUC BLD GLUC MNTR DEV CLEARED FDA SPEC HOME USE <td>P OCT GLUCOSE</td><td>Routine</td><td>02/04/2020 4:41 PM EDT</td><td></td><td> </td> 02/04/2020 08:41:00 PM EDT [facility] ECHO TTHRC R-T 2D W/WOM-MODE COMPL SPEC&COLR DOP <td>E CHOCARDIOGRAM TRANSTHORACIC</td><td>Routine</td><td>02/04/2020 3:29 PM EDT</td><td></td><td> </td> 02/04/2020 07:29:01 PM EDT [facility] GLUC BLD GLUC MNTR DEV CLEARED FDA SPEC HOME USE <td>P OCT GLUCOSE</td><td>Routine</td><td>02/04/2020 2:01 PM EDT</td><td></td><td> </td> 02/04/2020 06:01:00 PM EDT [facility] CV STRS TST XERS&/OR RX CONT ECG PHYS SI&R <td>STRESS TEST, CARDIOVASCULAR</td><td>Routine</td><td>02/04/2020 11:34 AM EDT</td><td></td><td></td> 02/04/2020 03:34:54 PM EDT [facility] 2018 NCOV AMPLIFIED <td>2018 NCOV AMPLIFIED</td> <td>STAT</td><td>02/04/2020 4:37 AM EDT</td><td></td><td> </td> 02/04/2020 08:37:00 AM EDT [facility] TROPONIN QUANTITATIVE <td>POCT TROPONIN</td><td>Ro utine</td><td>02/04/2020 4:28 AM EDT</td><td></td><td> </td> 02/04/2020 08:28:00 AM EDT [facility] ECG ROUTINE ECG W/LEAST 12 LDS TRCG ONLY W/O I&R <td>E CG 12- LEAD</td><td>STAT</td><td>02/04/2020 4:17 AM EDT</td><td></td><td> </td> 02/04/2020 08:17:10 AM EDT [facility] CT ANGIOGRAPHY CHEST W/CONTRAST/NONCONTRAST <td>CT ANG IOGRAM CHEST</td><td>STAT</td><td>02/04/2020 3:20 AM EDT</td><td></td><td> </td> 02/04/2020 07:20:51 AM EDT [facility] XR CHEST PA AND LATERAL <td>XR CHEST PA AND LATERAL</td><td>STAT</td><td>02/04/2020 1:40 AM EDT</td><td></td><td> </td> 02/04/2020 05:40:56 AM EDT [facility] TROPONIN QUANTITATIVE <td>POCT TROPONIN</td><td>Ro utine</td><td>02/04/2020 12:51 AM EDT</td><td></td><td> </td> 02/04/2020 04:51:00 AM EDT [facility] ECG ROUTINE ECG W/LEAST 12 LDS TRCG ONLY W/O I&R <td>E CG 12- LEAD</td><td>STAT</td><td>02/04/2020 12:44 AM EDT</td><td></td><td> </td> 02/04/2020 04:44:31 AM EDT [facility] NT PRO BNP <td>NT PRO BNP</td><td>STAT< /td><td>02/04/2020 12:42 AM EDT</td><td></td><td> </td> 02/04/2020 04:42:00 AM EDT [facility] TROPONIN QUANTITATIVE <td>TROPONIN I</td><td>STAT< /td><td>02/04/2020 12:42 AM EDT</td><td></td><td> </td> 02/04/2020 04:42:00 AM EDT [facility] THROMBOPLASTIN TIME PARTIAL PLASMA/WHOLE BLOOD <td>APT T</td><td>Add- On</td><td>02/04/2020 12:42 AM EDT</td><td></td><td> </td> 02/04/2020 04:42:00 AM EDT [facility] PROTHROMBIN TIME <td>PROTIME-INR</td><td>Add- On</td><td>02/04/2020 12:42 AM EDT</td><td></td><td> </td> 02/04/2020 04:42:00 AM EDT [facility] BLOOD COUNT COMPLETE AUTO&AUTO DIFRNTL WBC COUNT <td>C BC AND DIFFERENTIAL</td><td>STAT</td><td>02/04/2020 12:42 AM EDT</td><td></td><td> </td> 02/04/2020 04:42:00 AM EDT [facility] THYROID STIMULATING HORMONE TSH <td>TSH</td><td>Add-On </td><td>02/04/2020 12:42 AM EDT</td><td></td><td> </td> 02/04/2020 04:42:00 AM EDT [facility] THYROXINE FREE <td>T4, FREE</td><td>Add-On< /td><td>02/04/2020 12:42 AM EDT</td><td></td><td> </td> 02/04/2020 04:42:00 AM EDT [facility] MAGNESIUM <td>MAGNESIUM</td><td>STAT</ td><td>02/04/2020 12:42 AM EDT</td><td></td><td> </td> 02/04/2020 04:42:00 AM EDT [facility] LIPASE <td>LIPASE</td><td>STAT</td> <td>02/04/2020 12:42 AM EDT</td><td></td><td> </td> 02/04/2020 04:42:00 AM EDT [facility] HEMOGLOBIN GLYCOSYLATED A1C <td>HEMOGLOBIN A1C</td><td >Add-On</td><td>02/04/2020 12:42 AM EDT</td><td></td><td> </td> 02/04/2020 04:42:00 AM EDT [facility] HEPATIC FUNCTION PANEL <td>HEPATIC FUNCTION PANEL</td><td>STAT</td><td>02/04/2020 12:42 AM EDT</td><td></td><td> </td> 02/04/2020 04:42:00 AM EDT [facility] BASIC METABOLIC PANEL CALCIUM TOTAL <td>BASIC METABOLI C PANEL</td><td>STAT</td><td>02/04/2020 12:42 AM EDT</td><td></td><td> </td> 02/04/2020 04:42:00 AM EDT [facility] Results ID Date Data Source [id number] 02/14/2021 03:31:00 PM EDT [facility] Orth[facility] [address], [address], [address] [place] [address] [place] [address] Orthopedics Follow Up : [id number] Signed Patient: Manasa Calle Acct:[id number] Visit Date: 02/14/21 : 1930 Intake Vital [...] today. Zhane Cade LPN acted as a morning show producer and accompanied Dr. Balbuena through out the entire office visit. It Programmer Required: No Is patient in pain?: Yes [...] 50 mcg capsule 50 mcg PO DAILY multivitamin,re-jlbw-wrxekazv (Complete Multivitamin) 1 tab PO DAILY oxybutynin [...] last 30 days?: No Mask given: Yes [facility] Medical History Alzheimer's disease Anemia Chronic renal [...] Zhane Cade LPN, who functioned as a morning show producer and was present during the entire office [...] rce(s) Supporting Document(s) ID Date Data Source [id number] 02/08/2021 01:55:00 PM EDT [facility] [address], [address] [place] [address] Cardiology Note : [id number] Signed Patient: Manasa Calle Acct:[id number] Visit Date: 02/08/21 : 1930 cc: Yanick [...] Xarelto. She reports she saw Nephrology in [place]. ----- TTE August of 2020 in [place]. Normal LVEF. Moderately dilated left atrium. Moderate MR. Moderate TR with no pulmonary hypertension. She underwent a TTE on 02/04/2020 at [facility]. LVEF 60%, diastolic dysfunction, moderate concentric LVH,left [...] complains of swelling in her lower extremities. It Programmer Required: No Primary Care Physician:: Yanick Guerrero [...] 50 mcg capsule 50 mcg PO DAILY multivitamin,kh-zywz-btczzfvm (Complete Multivitamin) 1 tab PO DAILY oxybutynin [...] (more often t bowser not): Single-point stick [facility] [place] Medical History Alzheimer's disease Anemia [...] Code(s): I25.10 - Atherosclerotic heart disease of resighini coronary artery without angina pectoris SNOMED Code(s): 09805205 Category: Medical Qualifiers: Coronary Disease-Associated Artery/Lesion type: resighini artery Associated angina: with otherforms of angina [...] parts of this document were dictated using [employer] software. A reasonable attempt at proofreading has been made to minimize errors. Please call with any questions or corrections. Please do not hesitate to contact me with any questions. Coding Level of Care Code 91007 Estab Pt Level 4 Diagnoses Coronary artery disease I25.10 Coronary Disease-Associated Artery/Lesion type: resighini artery Associated angina: with other forms of [...] rce(s) Supporting Document(s) ID Date Data Source [id number] 01/14/2021 11:56:00 [place] [address] Patient Name: Manasa Calle Exam Date: 01/14/21 [...] Professional interpretation performed at [facility] [phone]. End of diagnostic report: [id number] Signed: Buddy Campos MD 01/14/21 3617 Interpreted by: Corrine Camposcribed by: Buddy Campos Name Value Range Interpretation Code Description Data Nita rce(s) Supporting Document(s) ID Date Data Source [id number] 01/14/2021 10:20:00 AM EDT [facility] [address] [place] [address] [place] [address] Orthopedics Follow Up : Signed with Trina Patient: Manasa Calle Acct:[id number] Visit Date: 01/14/21 : 1930 ADDENDUM Office Procedure Documentation entered by Franky Guzmán MA 01/14/21 13:23: Office Meds Depo-Medrol Performing Provider: Caroline Balbuena DO Administered by: Caroline Balbuena DO on 01/14/21 13:22 Dose Route Admin Location [place] Number Ex[place] [facility] 80 mg IM Left Hip [id number] 03/18/22 [employer] lidocaine (PF) Performing Provider: Caroline Balbuena DO Administered by: Caroline Balbuena DO on 01/14/21 13:22 Dose Route Admin Location Lot Number Expiration Date [facility] rer 40 mg IM Left Hip [id number] 05/18/22 [facility] Addendum Signed By: Signed Date/Time: [...] Balbuena with Maddie Guzmán CMA acting as Front Line Supervisor for the entirety of the visit. It Programmer Required: No Is patient in pain?: Yes [...] 50 mcg capsule 50 mcg PO DAILY multivitamin,cd-tcio-yqvhdlvs (C omplete Multivitamin) 1 tab PO DAILY [...] last 30 days?: No Mask given: Yes [facility] Medical History (Updated 01/14/21 @ 11:15 by [...] with Franky Guzmán CMA, functioned as a morning show producer was present during theentire office visit. The [...] - Pain in right hip SNOMED Code(s): 51277697 Category: Medical (2) Lumbar stenosis with neurogenic claudication: Status: Acute Code(s): M48.062 - Spinal stenosis, lumbar region with neurogenic claudication SNOMED Code(s): 36799684 Category: Medical (3) Spinal stenosis of lumbar region: Status: Acute Code(s): M48.061 - Spinal stenosis, lumbar region without neurogenic claudication SNOMED Code(s): 09754323 Category: Medical (4) Trochanteric bursitis, left hip: Status: Acute Code(s): M70.62 - Trochanteric bursitis, left hip SNOMED Code(s): 1542925 Category: Medical (5) Osteoarthritis of right hip: Status: Acute Code(s): M16.11 - Unilateral primary osteoarthritis, right hip SNOMED Code(s): 967876634599940 Category: Medical Orders: Orders XR HIP W PEL 2 OR 3 VW RT Today M25.551 - Pain in right hip Problems Did you add a problem (diagnosis code) to the patient?: No Coding Level of Care Code 22217 Estab Pt Level 3 Diagnoses Right hip [...] rce(s) Supporting Document(s) ID Date Data Source [id number] 12/29/2020 02:39:00 PM EDT [facility] ([employer] [facility]) Name Value Range Interpretation Code Description Data Nita rce(s) Supporting Document(s) Glucose [Mass/volume] in Serum or Plasma 143 [facility] ([employer] [facility]) ID Date Data Source [id number] 12/29/2020 02:11:00 PM EDT [facility] ([facility]) Name Value Range Interpretation Code Description Data Nita rce(s) Supporting Document(s) Dexa Scan, Axial Skeleton, One Or More Sites Laboratory test result [facility] ([facility]) ID Date Data Source [id number] 11/24/2020 01:21:00 PM EDT [facility] [address] [place] [address], [address] [place] [address] Cardiology Note : [id number] Signed Patient: Manasa Calle Acct:[id number] Visit Date: 11/24/20 : 1930 Cardiology HPI [...] her last visit she was admitted to [facility] in January of 2020 for chest pain and hypertensive urgency. Her blood pressure was managed. She underwent a TTE on 02/04/2020. LVEF 60%, diastolic dysfunction, moderate concentric LVH, left atrium moderately dilated, mild MR, mild TR with RVSP 40 mmHg. She underwent a pharmacologic nuclear stress test on 02/05/2020. No ischemiaor infarct with normal LVEF. She then went to [place] for the winter. She reports she was in a hospital in [place] in August 2020. She reports she was [...] she was evaluated at a Hospital in [place] a few months ago. She states she was diagnosed with afib and started on Eliquis. She c/o SOB. It Programmer Required: No Primary Care Physician:: Yanick Guerrero [...] 50 mcg capsule 50 mcg PO DAILY multivitamin,yq-xkeq-fnzqqdjf (Complete Multivitamin) 1 tab PO DAILY oxybutynin [...] Code(s): I25.10 - Atherosclerotic heart disease of resighini coronary artery without angina pectoris SNOMED Code(s): 32218919 Category: Medical Qualifiers: Coronary Disease-Associated Artery/Lesion type: resighini artery Associated angina: with otherforms of angina [...] atrial fibrillation. New diagnosis. Request records from [place]. She is on Eliquis. We will try [...] QDAY 90 tabs 3RF Cardiology Charges Charges 27936 Electrocardiogram Complete: Yes Incident To Is this Incident to:: No Coding Level of Care Code 67662 Estab Pt Level 4 Exam Detailed Diagnoses Coronary artery disease I25.10 Coronary Disease-Associated Artery/Lesion type: resighini artery Associated angina: with other forms of angina Percutaneous transluminal coronary angioplasty status Z98.61 Hypertension I10 Hyperlipidemia E78.5 Paroxysmal atrial fibrillation I48.0 Diastolic heart failure I50.30 Mild mitral regurgitation I34.0 Chronic renal insufficiency, stage III (moderate) N18.30 Additional Codes Charges - 86449 Electrocardiogram Complete: Yes (06262) Signed By:Caroline Wise <<Signature on File>> Signed Date/Time: 11/28/20 0840 Co-Signer: Fran Ba MD Co-Signed Date/Time: 11/29/20 0544 Initializing User: Caroline ACKERMAN 03/08 1321 1321 132 Name Value Range Interpretation Code Description Data Nita rce(s) Supporting Document(s) ID Date Data Source [id number] 11/22/2020 12:26:00 PM EDT [facility] [address] [address] Patient Name: Manasa Calle Exam Date: 11/22/20 [...] Imaging Center . End of diagnostic report: [id number] Signed: Parker Blakely MD 11/22/20 1458 Interpreted by: Parker BlakelyTranscribed by: Parker Blakely Name Value Range Interpretation Code Description Data Nita rce(s) Supporting Document(s) ID Date Data Source [id number] 11/22/2020 11:43:00 AM EDT [facility] [address], [address], [address] [place] [address] [place] [address] Orthopedics Initial Consult : [phone] Signed Patient: Manasa Calle Acct:[id number] Visit Date: 11/22/20 : 1930 Intake Vital [...] hours. Natty Machuca LPN acted as a morning show producer for patient's entire office visit with Dr Balbuena today. It Programmer Required: No Is patient in pain?: Yes [...] 25 mcg tablet 25 mcg PO DAILY multivitamin,pa-bqqq-kuqmmwcz (Complete Multivitamin) 1 tab PO DAILY oxybutynin [...] last 30 days?: No Mask given: Yes [facility] Medical History (Updated 11/22/20 @ 17:03 by [...] Natty Machuca LPN, who functioned as a morning show producer and was presentduring the entire office visit. [...] Route Admin Location Lot Number Expiration Date [facility] [place] rer 40 mg IM Left Hip Bursa [id number] 03/18/21 [employer]ER lidocaine (PF) Performing Provider: Caroline Balbuena DO Administered by: Caroline Balbuena DO on 11/22/20 15:54 Dose Route Admin Location Lot Number Expiration Date NDC Manufactu rer 40 mg IM Left Hip Bursa [id number] 05/18/22 HOSPIRA Assessment Plan (AMB) Assessment Plan (1) Trochanteric bursitis, left hip: Status: Acute Code(s): M70.62 - Trochanteric bursitis, left hip SNOMED Code(s): 9204676 Category: Medical Orders: Orders: XR HIP W PEL 2 OR 3 VWS LT Today (2) Spinal andrew nosis of lumbar region: Status: Acute Code(s): M48.061 - Spinal stenosis, lumbar region without neurogenic claudication SNOMED Code(s): 36098796 Category: Medical (3) Lumbar stenosis with neurogenic claudication: Status: Acute Code(s): M48.062 - Spinal stenosis, lumbar region with neurogenic claudication SNOMED Code(s): 73952933 Category: Medical Problems Did you add a problem (diagnosis code) to the patient?: Yes Other Orders: Orders: Depo-Medrol Injection 40 mg Today Lidocaine injection 4 mg Today Medications Patient given information on their new medications: No Coding Level of Care Code 67834 New Patient Level 3 Diagnoses Trochanteric bursitis, left hip M70.62 Spinal stenosis of lumbar region M48.061 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 [facility]) Name Value Range Interpretation Code Description Data Nita rce(s) Supporting Document(s) Sodium [Moles/volume] in Serum or Plasma 137 meq/L 135-145 [facility] ([place] [employer] [facility]) Carbon dioxide, total [Moles/volume] in Serum or Plasma 27 meq/L 22 -33 [facility] ([facility]) Potassium [Moles/volume] in Serum or Plasma 4.0 meq/L 3.5-5.3 [facility] ([facility]) Chloride [Moles/volume] in Serum or Plasma 106 meq/L 94-110 [facility] ([facility]) Urea nitrogen [Mass/volume] in Serum or Plasma 14 mg/dL 7-25 [facility] ([facility]) Anion gap in Serum or Plasma 8 5-16 [facility] ([facility]) Creatinine [Mass/volume] in Serum or Plasma 1.0 mg/dL 0.6-1.4 [facility] ([facility]) GFR 52.4 mL/min [facility] ([facility]) Stage G3a - Mildly to moderately [...] Serum or Plasma 9.0 mg/dL 8.7-10.5 [facility] ([facility]) Glucose [Mass/volume] in Serum or Plasma 206 mg/dL 70-100 [facility] ([facility]) Urea nitrogen/Creatinine [Mass Ratio] in Serum or Plasma 14 8 -36 [facility] ([facility]) ID Date Data Source [id number] 11/11/2020 02:31:00 PM EDT [facility] Name Value Range Interpretation Code Description Data Nita rce(s) Supporting Document(s) SODIUM 137 MEQ/L 135-145 N [facility] POTASSIUM 4.0 MEQ/L 3.5-5.3 N [facility] CHLORIDE 106 MEQ/L 94-110 [facility] CARBON DIOXIDE 27 MEQ/L 22-33 N [facility] ANION GAP 8 5-16 N [facility] BLOOD UREA NITRO 14 MG/DL 7-25 N [facility] CREATININE 1.0 MG/DL 0.6-1.4 N [facility] GFR 52.4 ML/MIN [facility] Stage G3a - Mildly to moderately decrea [...] years only. BUN/CREAT RATIO 14 8-36 N [facility] GLUCOSE 206 MG/DL 70-100 H [facility] CA 9.0 MG/DL 8.7-10.5 N [facility] ID Date Data Source [id number] 11/02/2020 02:43:00 PM EDT [facility] ([facility] [employer] [facility]) Name Value Range Interpretation Code Description Data Nita rce(s) Supporting Document(s) Glucose [Mass/volume] in Serum or Plasma 206 [facility] ([email or web address] [facility] [place] [employer] [facility]) ID Date Data Source [id number] 04/16/2020 12:30:00 PM EDT [facility] Name Value Range Interpretation Code Description Data Nita rce(s) Supporting Document(s) SARS coronavirus 2 RNA [Presence] in Res piratory specimen by YADIEL with probe detection [facility] This lab was ordered by [facility] and reported by [employer]. ID Date Data Source [id number] 04/14/2020 02:16:00 PM EDT [facility] ([employer] [facility]) Name Value Range Interpretation Code Description Data Ntia rce(s) Supporting Document(s) Creatinine [Mass/volume] in Urine 38.1 mg/dL [facility] ([employer] [facility] [place] [employer] [facility]) ID Date Data Source [id number] 04/14/2020 02:16:00 PM EDT [facility] ([facility] [email or web address] [facility]) Name Value Range Interpretation Code Description Data Nita rce(s) Supporting Document(s) Creatinine, Urine 38.1 mg/dL [facility] ([employer] [facility]) Laboratory test finding (navigational concept) 54.5 mg/L [facility] ([facility]) Laboratory test finding (navigational concept) 143.0 MCG/MG 0.0-30.0 [facility] ([facility]) THE [employer] STATES THAT MICROALBUMINURIA IS PRESENT IF THE MICROALBUMIN/CREATININE RATIO EXCEEDS 30 MCG/MG. THE THRESHOLD FOR CLINICAL ALBUMINURIA IS REACHED AT 300 MCG/MG. THE CLASSIFICATION OF A PATIENT SHOULD BE BASED UPON AT LEAST 2 OF 3 ABNORMAL RESULTS ON SPECIMENS COLLECTED WITHIN A 3 TO 6 MONTH TIME FRAME. ID Date Data Source [id number] 04/09/2020 01:08:35 PM EDT [facility], PCName: Sumaya WinterNataliaOB: 3Provider: [...] that she had previously been seen in [place] but was told 3 years ago that [...] CHEW;Therapy: (Recorded:08Apr2020) to Recorded Benazepril HCl TABS;Therapy: (Recorded:06Eip5165) to Recorded Bisacodyl TBEC;Therapy: (Recorded:08Apr2020) to Recorded [...] insertion History of Partial hysterectomy History of Imogene tooth extraction Social History Never a smoker [...] are no changes to the medication regimen. 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 ([employer]) Signatures Electronically signed by : Charmaine Corbett MD; Apr 09 2020 1:08PM EST Name Value Range Interpretation Code Description Data Nita rce(s) Supporting Document(s) ID Date Data Source [id number] 04/08/2020 10:47:00 AM EDT [facility] ([facility]) Name Value Range Interpretation Code Description Data Nita rce(s) Supporting Document(s) Creatinine For GFR 1.24 mg/dL 0.55-1.30 [facility] ([facility]) Glucose, Fasting 75 mg/dL 70-100 [facility] ( [facility]) Blood Urea Nitrogen 24 mg/dL 7-18 [facility] ([facility]) Sodium Level 137 meq/L 136-145 [facility] ([facility]) Potassium Serum 4.7 meq/L 3.5-5.1 [facility] ([facility]) Glomerular Filtration Rate 43.6 [facility] ([facility]) <content>Units are mL/min/1.73 m2</content>
<content></content>
<content>Chronic Kidney Disease Staging per NKF:</content>
<content></content>
<content>Stage I & II GFR >=60 Normal to Mildly Decreased</content>
<content>Stage III GFR 30- 59 Moderately Decreased</content>
<content>Stage IV GFR 15-29 Severely Decreased</content>
<content>Stage V GFR <15 Very Little GFR Left</content>
<content>ESRD GFR <15 on CHECK AIRMAN</content>
<content></content> Chloride Level 102 meq/L 98-107 [facility] ([facility]) Carbon Dioxide Level 29 meq/L 21-32 [facility] ([facility]) Anion Gap 6 meq/L 8-16 [facility] ([facility]) Ast/Sgot 31 U/L 7-37 [facility] ([facility]) Alt/SGPT 35 U/L 12-78 [facility] ([facility]) Calcium Level 9.4 mg/dL 8.8-10.2 [facility] ([facility]) Total Protein 6.9 GM/DL 6.4-8.2 [facility] ([facility]) Bilirubin,Total 0.3 mg/dL 0.2-1.0 [facility] ([facility]) Alkaline Phosphatase 154 U/L 45-117 [facility] ([facility]) Albumin 3.9 GM/DL 3.2-5.2 [facility] ([facility]) Albumin/Globulin Ratio 1.3 1.2-2.2 SD [facility] ([facility]) ID Date Data Source [id number] 04/08/2020 10:47:00 AM EDT [facility] ([facility]) Name Value Range Interpretation Code Description Data Nita rce(s) Supporting Document(s) Laboratory test finding (navigational concept) 84 mg/dL [facility] ([facility]) HDL Cholesterol 78 mg/dL [facility] ([facility]) LDL Cholesterol 54 mg/dL [facility] ([facility]) Laboratory test finding (navigational concept) 71 mg/dL [facility] ([facility]) Laboratory test finding (navigational concept) 149 mg/dL [facility] ([place] [employer] [facility]) Laboratory test finding (navigational concept) 1.910 [facility] ([place] [employer] [facility]) ID Date Data Source [id number] 04/08/2020 10:47:00 AM EDT [facility] ([facility] [employer] [facility]) Name Value Range Interpretation Code Description Data Nita rce(s) Supporting Document(s) Thyrotropin [Units/volume] in Serum or Plasma 4.220 uIU/ML 0.358-3.74 0 [facility] ([place] [employer] [facility]) ID Date Data Source [id number] 04/08/2020 10:47:00 AM EDT [facility] ([facility] [employer] [facility]) Name Value Range Interpretation Code Description Data Nita rce(s) Supporting Document(s) Creatine kinase [Enzymatic activity/volume] in Serum or Plasma 282 U/L 26-192 [facility] ([place] [employer] [facility]) ID Date Data Source [id number] 03/24/2020 02:23:00 PM EDT [facility] ([facility] [employer] [facility]) Name Value Range Interpretation Code Description Data Nita rce(s) Supporting Document(s) Hemoglobin A1c/Hemoglobin.total in Blood 6.7 [facility] ([place] [employer] [facility]) ID Date Data Source [id number] 03/24/2020 02:08:00 PM EDT [facility] ([facility] [employer] [facility]) Name Value Range Interpretation Code Description Data Nita rce(s) Supporting Document(s) Glucose [Mass/volume] in Serum or Plasma 60 [facility] ([place] [employer] [facility] [place] [employer] [facility]) ID Date Data Source [id number] 03/12/2020 03:28:41 PM EDT [facility] Name Value Range Interpretation Code Description Data Nita rce(s) Supporting Document(s) Progress Note [facility] BMAVEz9pLbVWXbCg98/BVFnuQPFyo6NoOXscSAo1IDojAEZnX0RvYVN4dJ7hWNT8HWkEWmTfWpFbWFG3 lbm [file] [id number]= ID Date Data Source [id number] 03/12/2020 03:28:36 PM EDT [facility] Name Value Range Interpretation Code Description Data Nita rce(s) Supporting Document(s) Progress Note [facility] GFFNEe1kWzHDVgRg82/YSXegDTFos2SgWOdiZNx9RKjbDDDvL3MoPHA4fU6hDSH9FQtJHmJyZqAvFVI9 lbm [file] YNCg== ID Date Data Source [id number] 03/03/2020 02:30:00 PM EDT [facility] Name Value Range Interpretation Code Description Data Nita rce(s) Supporting Document(s) WHITE BLOOD COUNT 7.32 10^3/uL 4.00-10.50 [facility] RED BLOOD COUNT 3.28 10^6/uL 3.90-5.20 [facility] HEMOGLOBIN 10.6 G/DL 11.5-15.6 [facility] HEMATOCRIT 31.0 % 35.0-46.0 L [facility] MCV 94.5 FL 80.0-100.0 [facility] MCH 32.3 PG 27.0-34.0 N [facility] MCHC 34.2 G/DL 32-36 N [facility] RDW 12.7 % 11.5-14.5 N [facility] PLATELET COUNT 290 10^3/uL 130-400 [facility] MPV 8.5 FL 8.7-13.2 L [facility] GRAN % (AUTO) 59.7 % 42.0-75.0 N [facility] LYMPH % (AUTO) 25.3 % 20.0-51.0 [facility] MONO % (AUTO) 9.6 % 2.0-15.0 N [facility] EOS % (AUTO) 4.5 % 0.0-11.0 N [facility] BASO % (AUTO) 0.8 % 0.0-2.0 N [facility] IG % (AUTO) 0.1 % 1.00-5.00 [facility] IG # (AUTO) 0.0 10^3/uL <0.5 [facility] GRAN # (AUTO) 4.37 10^3/uL 1.50-6.50 [facility] LYMPH # (AUTO) 1.9 k/uL 1.0-5.0 N [facility] MONO # (AUTO) 0.70 k/uL 0.20-1.50 N [facility] EOS # (AUTO) 0.33 10^3/uL 0.00-1.10 [facility] BASO # (AUTO) 0.06 10^3/uL 0.00-0.20 [facility] ID Date Data Source [id number] 03/03/2020 02:44:00 PM EDT [facility] Name Value Range Interpretation Code Description Data Nita rce(s) Supporting Document(s) SODIUM 136 MEQ/L 135-145 N [facility] POTASSIUM 4.4 MEQ/L 3.5-5.3 N [facility] CHLORIDE 105 MEQ/L 94-110 N [facility] CARBON DIOXIDE 24 MEQ/L 22-33 N [facility] ANION GAP 11 5-16 N [facility] BLOOD UREA NITRO 23 MG/DL 7-25 N [facility] CREATININE 1.1 MG/DL 0.6-1.4 [facility] GFR 47.0 ML/MIN [facility] Stage G3a - Mildly to moderately decrea sed kidney function The GFR is an estimate of the Glomerular Filtration Rate. It is an aid to assess a patient's renal function. It is not a conclusive diagnosis of kidney disease. GFR normal is >=90 The MDRD GFR calculation is considered valid between the ages of 18 and 75 years only. BUN/CREAT RATIO 20 8-36 [facility] GLUCOSE 193 MG/DL 70-100 H [facility] CA 8.9 MG/DL 8.7-10.5 [facility] BILIRUBIN,TOTAL 0.3 MG/DL 0.1-1.3 [facility] AST 21 U/L 5-40 N [facility] ALT 25 U/L 5-48 [facility] ALKALINE PHOSPHATASE 152 U/L 40-140 [facility] TOTAL PROTEIN 6.3 G/DL 5.9-8.3 N [facility] ALBUMIN 4.4 G/DL 3.0-5.1 N [facility] GLOBULIN 1.9 G/DL 1.5-3.5 [facility] ALB/GLOB RATIO 2.3 G/DL 1.0-3.0 N [facility] ID Date Data Source [id number] 03/03/2020 02:44:00 PM EDT [facility] Name Value Range Interpretation Code Description Data Nita rce(s) Supporting Document(s) IRON 92 UG/DL 35-150 N [facility] TIBC 243 UG/DL 260-400 [facility] % IRON SATURATION 38.0 % 20-50 [facility] ID Date Data Source [id number] 03/03/2020 02:44:00 PM EDT [facility] Name Value Range Interpretation Code Description Data Nita rce(s) Supporting Document(s) FERRITIN 444.0 NG/ML 22-322 H [facility] ID Date Data Source [id number] 02/07/2020 05:15:18 PM EDT [facility] INFORMATIONPatient MRN Name Date of Age Gend*PT [id number] Manasa Calle 1930 89 years F OBSPT Location Admission Date/Time Visit ID Attending [id number] 02/04/20 0023 --- --- EPI ID CSN Admitting Provider [id number] Missael Mcnulty MD([id number]) Attestation signed by Maile Gonzales MD at [...] of care by Rob Cruz NP -- [facility] DISCHARGE SUMMARYPatient Name: Manasa Calle of : 1930 Age 89 yearsPrimary Physician: Yanick Gurerero MD PCP Dytxydnng Date: 02/04/2020 Discharge Date: 02/06/2020[place] will be discharged from [facility] to Home.Discharge Diagnoses:Principal Problem: Chest discomfortActive Problems: [...] Alzheimer's dementia, hypertension, hypothyroidism,hyperlipidemia who presented to [facility] on 02/04/2020 withcomplaints of chest pain radiating [...] spectral Doppler.X-ray Chest Two ViewsResult Date: 02/04/2020[place] [address] Patie nt Name: MANASA REEDER : 1930 [...] VIVEK BORDEN On02/04/2020 7:40 AM Workstation ID: [id number] Angiogram ChestResult Date: 02/04/2020[place] [address] Patient Name: Manasa Reeder : 1930 Sex: F Ordering Provider: EUGENIO HERMANuthgabe Prov: EUGENIO KAUFMAN Referring Provider: ProcedurePerformed: CT ANGIOGRAM CHEST Exam Date: 02/04/2020 03:07 AccessionNumber: [id number] Patient Class: PROCEDURE INFORMATION:Exam: CT Angiography Chest [...] Imaging With Ef And WmResult Date: 02/05/2020[place] [address] Patient Name: MANASA REEDER : 1930 Sex: [...] JESS ALVARADO On 02/05/2020 3:12 PM Workstation ID:[id number]:NoneConsultants:NoneRecent Labs:BMP:Lab ResultsComponent Value Date NA 133 (L) [...] rce(s) Supporting Document(s) ID Date Data Source [id number] 02/05/2020 05:30:24 PM EDT [facility] [place] [facility] Name Value Range Interpretation Code Description Data Nita rce(s) Supporting Document(s) POC NOVA GLU 150 mg/dL (70-99) H [facility] [place] Sha DEVINE PERFORMED BY [facility] CLINICAL STAFF ID Date Data Source [id number] 02/05/2020 03:12:31 PM EDT [address] [place] [address] Name: MANASA LEIJAOB: 1930Sex: FOrdering Provider: PATRIA Barryhoamy Prov: PATRIA Stoddard Provider: Procedure Performed: NM CARDIAC GATED SPEC IMG EFWMExam Date: 02/05/2020 14:43MRN: [id number] Number: [id number] Class: OutpatientAccount #: [id number] for study: ACS, possible, negative troponinCOMPARISON: NoneTechnique: [...] to be 87%.Report electronically signed by: JESS LAVARADO On 02/05/2020 3:12 PMWorkstation ID: [id number] Name Value Range Interpretation Code Description Data Nita rce(s) Supporting Document(s) ID Date Data Source [id number] 02/05/2020 09:04:57 AM EDT [facility] [place] [facility] Name Value Range Interpretation Code Description Data Nita rce(s) Supporting Document(s) POC NOVA GLU 143 mg/dL (70-99) H [facility] [place] PERFORMED BY [facility] CLINICAL STAFF ID Date Data Source [id number] 02/04/2020 04:42:58 PM EDT [facility] [place] [facility] Name Value Range Interpretation Code Description Data Nita rce(s) Supporting Document(s) POC NOVA GLU 168 mg/dL (70-99) H [facility] [place] PERFORMED BY [facility] CLINICAL STAFF ID Date Data Source [id number] 02/04/2020 04:07:02 PM EDT [facility] Name Value Range Interpretation Code Description Data Nita rce(s) Supporting Document(s) &PDF [facility] EGYDOk7qQwTHVaWa86/RTWfcRMUji3PhJNfvOCe9CBxlHSHjE7SgdUxqMFVCE5vEIoVOQAdLFWMKLA1h vci [file] SvyPza/Ic8M4DhN4BzQO1/uN+/MARÍA+5wz0GTy+5taQ3R23aUB3DNkjLTuIarUKV1/bN96Asqnrk4QWTs [file] AgICAgICAgICAgICAgICAgICAgICAgICAgICAgICAg ICAgICAgICAgICAgICAgICAgICAgICAgICAgICAgICAgICAgICAgICAgICAgICAgICAgICAgICAgICAg OSUlDH2RPSQwXEKvPHTaZSIcFGCiJFHoOFRsIAYnFSKxDGHyHAYmEXIsGARkSYKjEPQtBAJkURPyJDKi ICAgICAgICAgICAgICAgICAgICAgICAgICAgICAgIC XgRZUrRDXaXTLpOIQbTA5XZDHtVPLkBHTdBOAsUBOiACQrMBIxLURtBMQjANEyEZIvWYZbTNTtAIZjBB MwYQCnNJHxYVPzVZRtUUQjNCWdXNQtJNCtEHRcPGPdFEEoAECrIIDeMRItLPVsZXKxXMQpWBXaHY8QDA AgICAgICAgICAgICAgICAgICAgICAgICAgICAgICAg ICAgICAgICAgICAgICAgICAgICAgICAgICAgICAgICAgICAgICAgICAgICAgICAgICAgICAgICAgICAg SYKnNOJnKI1TNUTvQZPtQBMrDDDfPVEcTINzHSHaWTQrIYMvPPUfISCcWXQxNPWkOEEpCOLlYODgTDWs ICAgICAgICAgICAgICAgICAgICAgICAgICAgICAgIC OsMTGwBDTrGHWyCJAoWWFxNC4MIIJuJPNpFREnPDIvDYIhKVKrCCRpNIYiFTYsXKWiFNAeFBTjPAPuOT AgICAgICAgICAgICAgICAgICAgICAgICAgICAgICAgICAgICAgICAgICAgICAgICAgICAgICAgICAgIA 0KICAgICAgICAgICAgICAgICAgICAgICAgICAgICAg ICAgICAgICAgICAgICAgICAgICAgICAgICAgICAgICAgICAgICAgICAgICAgICAgICAgICAgICAgICAg JETiOLTsAVGeAW8PLLKpGMLwELIiGLKmXWIrAPDjVFEfTKCoARYgAFWfMCEqBWCgABWyNNUtXHKgPCJm ICAgICAgICAgICAgICAgICAgICAgICAgICAgICAgIC AzBANrLKGwMYSjSQNiXVJxBPJlNK1IEGKyHHHyXMXnNVCgEPYfNPVtWUTjMHWdKBDxUPWuSPTbAGLfIF AgICAgICAgICAgICAgICAgICAgICAgICAgICAgICAgICAgICAgICAgICAgICAgICAgICAgICAgICAgIC QrUI0ETA30yWBwn0E7FNYyEW8ocuu/In9EUCvzqzRo gTZiJN8GNcXuJZ3gca5ZYbOzJU5ewi9JADiAVtMmM4T1fALqFPZrXGJVQkYiQ72tYFmmPa13CLqhNTIs JfNpUTl4Np4SZnJiZ9vtJGJtBsW6HECuJnO2OLNdLoS3DEUqVrCzJALeYKImQT5JNPLgN530opEkPZ5B Jp8DUrImLZ0brg8ZKmvfAKMtBvxXPvm9PStwXW2ThP VdV9DjrRNpp5tXEeBvL5KALFG3FXAoVk0TSJErQcTkIVXrNMjcHT0yJXEyEZMGuJurmrY0XH2GAQ6dkz YdBZ3ZYeRcGt5bMn9XClLoW0JbR9EuIUJwDORLCHfnYC5PDKCaIQC5ESMaXLIwAASARiEuZ58hHX2AE5 Zfy80zVuF7ZHMiMySgJVeuBW26bPdijzKwcDIcyYet NJ7JAl4+ROgsbuEaRwkFQkfdHCMKEdPbJPSJKkUkGQIpYKWeUKNvClZ5VsOkRe4BHHOuKSKuYQHkKmRu KUCkUXPtTYffYKSsEHL0Svk6QNKwYCHgOU5NKnAwMSFlFikcWOWeZENjETGxgl1FUSCcHLGrXXM4FtIm CHGwPULzKMvmODCvNBHvUnJ5JPQcCGHlYQ8OBsHvUC CsTFV3GXvkYUQvBOWpfw6SVKFzPIKlCMc2IDMyZMUqBZPyOElrTSPvVVV8KJB9WFFgTBEaCI4XLoBfWV HjHQw1WIQvWEYfUKMsgn2JQFYgVCKwWic7ZCBvCDRdKGOrGUruGIMsCSI5GMA1DSQtNQLeNT9THaBeWY KnDAotDWFqPFRbDASlnk6NCJDnBCVvBPKhUVRvYWNk XFSuPJhuCBVrMDUqMCMhDOLoFKRcXV4YNoFuYMNqTRE5YIRaOTDaDBLadv3CMGNlXQPlSJY7ZJVaXSJn MVDaCXdlEOZrQSPpKtJ7YOFsTKSvXH0DUqIcYESlZRF5DSOdEGHnLLEivg8TGXQaMKJcWtwvHqXbWWSy DCVmJRvcQDOoUFWeDBPxHCHuVXLqVD6ITiNnRVJdRQ XuKHQbPIZgMYRixh4WVXIqGTNgMBK0SKOlPOTdQKQwGZboRAWsDICgMfD7YFAoFHGqRB7AZmZwJRAoYo XcXXnfLBIgHGHouf2JCLEhFJQdMUkeABTgSYTkETTmATgfJUZdQOB2EgBlNQXoXJNwBJ7VUjHmALDaFn B4RHElYDBjGDOfqk4BNLCsXXVqONVzDfTvRXPaEYPp IUpqDNYoEQT2ZGHbJSEwTLIaLF4MYlWdSONdGWV5MGWdJVNaJCTvto9ITXFsVHW8JxqgCKQmJZPgMISg EPbnSBLxJHL7MgNrNHDdEYKkDR1QDxStQXJyZQD4OCMjDZPoKSAyvl1ZSWLkWZK0NZy6ELLbXKPwGIRb UVczXIMgWGP8DORiKNVuQJJaPP7YGmDxAKCtVcFtAr CeWNQrLRMyoy6IETTuJNC1XGJ0GxDoBYIvPRIlVXwgVSXpEED8RHYnTTZnWDGuMO9TBrZlHWFzYsfrZA gmDITnRSPwyf2DaRDnjIwpkf3AKUqJMw7DtJgbBDBjLXftIk6hxXTfZHBxMJSQHl4YlqLsAWQjURXOSJ kqLAOmILNsMvHmZwK2GwjmPxo4YVZ5ORznYWIeSVY0 BxBhTIG7RlB8Z2OrXIAoNRCmSBPnYnBrEYYnNODbSlL6FsKnDRF7Hgw+OO9iEGv+Bk5Yz8ZxbpN8icYa BQu7LfC6PR5CLYLTQ3NOBz== ID Date Data Source [id number] 02/04/2020 02:02:58 PM EDT [facility] Name Value Range Interpretation Code Description Data Nita rce(s) Supporting Document(s) POC NOVA GLU 240 mg/dL (70-99) H [facility] [place] [facility] CLINICAL STAFF ID Date Data Source [id number] 02/04/2020 09:35:03 AM EDT [facility] Name Value Range Interpretation Code Description Data Nita rce(s) Supporting Document(s) EKG [facility] OCFMRg0gClNMReAfh6YyRdDhHFCuMQ1zqmo0X8J2lUXmK7EofSLrw2juG8GlZ5BePHRjWILUYA5XaMIc jb2 [file] rb60V3yNyJLJ5MM17hSA5lKYuYNv8F8HbFfnMInOFuntkczz6619tPk/6625J85/QvTv3//7f//office rental clerk+L/ /H//8wf8/ffP//Je/L/+8z//13/+j//1f/cV2Hbaw/6f//k//dd/3Q0vridrO01By//7X/+X/7g//0j8 /fPf/zmXPv/+/fef/+0/aPMoqWxRkBN0vEuSYJkS6x rCWVpAZfCIXBWzBUlH7cKDRrj+DMiR3eYZJlp+AhdO2akOI+1+UwjD4thIP+1+EloC4dpBK+1+KfzS7p fCL+1+Keoa0ptTI+t+Htmj3fmSZ+t+Vbnz6cjTJ+t+Ahoj1wfKU+t+Aig6jr4Wzt5g97Eul/p63Vyldu 21NlaiD57X0gbFF9S3DcIK3Y54/ROsd8Aw6143/PLu m0Ps62257bS4WV+8++Iqf0meJk+8+rArN1tgCw+i+rQkN4pjKa+i+eMxD274GfxM6g+SJ2O7XipL0l4U u3w3e8Ci1c7q9Nt0xbe0bc0bYs6i84mLd/rFx8WM095A+DW7Xwt+re7Xgl+r+7Xg1+p+Yxn9ig0Got6h 14Jfq/u38Kk6Yr07iPN/Jxgj3r2Qw4x3o8Zj4g9q9T s6sho67t7sBk7815pSp4778wHg/47LbWD+SBquXh2No3h5tLK+cpgui6Oz4eQ+Oiofe53V+uEQ/fyM0Q 4Q2fgzlJ49QF6/tzJD4m7chYQJbqckBrZPnHDE7vcAguC5HYMGdvmioTAFiaGVpuX/ekQoSORHkQglie yc1kee99lCsrS55HAYIRU/fbLjPjVGumfLnaglE0X7 hT80XeHa5tQCoQOWocEUNDOS/arKJit//KRQkR+pFuWd7iUPfVEPglCPWT3Hc52XCnd6EUvBgYK/mkUo WuRHtQhli/zoFqFwkR/qSrLz6eWdkJSQhiNXOD6Gm29QDyu4SLLCSER/GkYoYuRHxQhljPj/0K4J3InD Twa56EJVXVJ/akYoZ+DMwauPvmdjEeWldE3VQvZ00k NqhLJGfnSNUNhI/S5L0r9glBYHF/InszPaXu24gENaoG/CEUoc+fM7WlPxTqiCCDGeZ+zGjK12HG5u0P EfrSMUO/AcwqUtC328niWuiR/iEUoe+bY7IaCuL2lQWKctA/cIhY/8KB+q5QQz6WAKY/XntoEfG971t6 CUxM7KAzht+rLIDmNzLbxCNYSqErzPyGO1AFNuHRBj LSQUQ/JcosOpHP36xGAU3C9tBkht/sURKs5tX0wBdNy0Lf0j1WK+6CGlHtIfPaTUQ/tve6Q7PI/0kFIP 8I1lPnzc/wSIGp9dW5iYrJp3Xd2b7LY+6CGlHtIfPaTUQ/muu2B3OJ/bL3sHnc6LXHzd+R/maNokzY+f iFusl66cOxN2srX5sZmtqNf3UlG4F4Ugg049pIRL1F 8eUuoh/yHFEh8fS8zUoWb3Kz9n0JR+6CGlHtIfPaTUQ/jsd4G2PY/7uHFM9Z0nNkva/kDRIe5sM8hAnM s3Gq4a6JN+6CGlHtIfPaTUQ/gvb6V9EQ/1eJXT7K8uInoz/fZSCh2aV5dOhLo1Cu7h1AL+6CGlHtIfPa TUQ/wlw4H3ME/9mSWX3R7jWxtm/tUXXi0cN9zWiCf6 Mc7c8PH+6CGlHtIfPaTUQ/ght9K5CZ/1xIUV8B7fHgqw/nAC42UYohO5ktfpjmifJwgY5FAq8YrgXOvi GXOjKLpOSaLZQSV4o/RH6Y/SH6U/Sn+M/xh3Kyut3Fdln2Jatz8Dk1r+GP0x+mP0x+iP0R+jP0Z/Bv0Z 3GxXj1E/Ie3N8TiEd4F/Xh0H3UwIc9H/Nw5R8AhPb3 F/nP44/XH64/TH6Y/TH6c/Tn+c/oi6rdbLSqsOH3f/Tn+c/bQ9TvvB8EanW5UvlO9Qg9B+BP0J+hP0J+ hP0J+gP0F/gv5M+jPpz6Q/k/5M+jPpz6Q/k/5M+jPpz6Q/k/5M+jPpz6Q/k/4s+rPoz6I/i/4s+rPoz6 I/i/4s+rPoz6I/i/4s+rPoz6I/i/5s+rPpz6Y/m/5s +rPpz6Y/m/5s+rPpz6Y/m/5s+rPpz6Y/m/5hXBR3wOsepwwDjAEIJZfEaIvwbWiOA2cD9ctPwL8ySU91 oa5jgE6zv6N5i+afNP+k+SfNP2n+SfNPmn/S/LJnA2eDWFt19yTNV1fXOG5TRgDXPXF4XXSNZ0sCGcZW aERANQ4GKKNS4vTOFUrvOKoQTiWX7GX4HHIVL4wZVK XWtTSENI9LVIXG2qCKBUcdVZgPBstUhBQ6uUEJY3nMU0ZSzUX1FZ8mXUQS2aRMRAyiEFDNXmhCOCN7eQ QLP0yRQpNZaoClBZ8xZZLs5oNBTRnfNG4GTzfOPQl8uEMHl1pPFoTOzjKBGZ29VAWw4dXd4gftqcZoG3 +His7RCAuBfaa4qzCvsXOO6ZxWMIDkELTjd7JKsY4G QLc2YNXn7kIGEkIpVlTvQGlwh/qxmkmusbBhZo3VbEX322Qh3YHT4Ze442Jc3OMg6Mp069cb/fOM+ZB/ nvLDx/a1PBfOU/o4ktpE0GuKTwo6vBkxRZJdArMgWb6uPkmV+YkUYaiI/UZzC+efnAwX+WhPVdCCX9ZV Q0Z+YkYYNPITNcKwkZ+4EQaO/UKXWKIaN1gFdRS/0S MMH/uUD7EKpM5GFTHHgiKNNLP0Y8WUUDVuDLLRjM4BbVIG3EscqJ6Mm4/YawrbXVELmD8TrOYC1NmGaM TxCwJhkWP0pCSrFVpUYPsnVB3oAQaY+lFSssiMbishlmiF0POk8tk5vKUXkQrWi3vBoNqKg7yvZP7idc W6u6gibNt7sSffxHH9agmCwAU7VmAF4ivJV8pbZe7x fyF2l0m240dz4xdxhAm/w1tAMakNMolW2mgQZq1hX4lVS6QGQtrSXAsItJCrNBysFXO0gOYAI1ICE0if QFtEahGiSCmdKKs09YEugHvt/17wvs2sIVSk6/i9zh/9f34+xA1q9Rwlv/1xxDu504/TmHOC8k8S/nyq kHlKkvDunM4a2upCYX2jW9ihbu7uM9XweS7NnQC1L/ FL9s7UH8a3IN0FwVO2TpJ5Wf4BpOT7ZyF2Jy6HuKB7FgC8DQ9MuRg6EcA9HD5EdHq3ZzB0QU4BiSb1ul V9Yd2QbEl1ptE6Vf0FbTs1pig42lY508yvWS9aMf1kvAwg1hb9co6smi9Bdiu3EePbvV58TfsymtpnZl fP58ipxrr7nhI8HcrZ7ZgxM2QjpN1HlLK1G/Uo [file] Ly4Ll7I2q+T5219fmi0U7P28zi70c/6PkPekCWIre3 pdBXuhHPG/Gc+dm5CtvzKIF+kQ5/oa904/wnOL39g2979/ij6EGGF8mpH10jEBFT8AfAXjNKhX+kO9Id 1HR2LNzL+dQ5BR8T+sqejd/n26jdq97E/HI0N3A0+NaPmFX1LW3ypYMpyX1/Pe1Z6YaFw6/vgyb3/chS M6K4wx7i0J/CX4W/Cn8V/qu8QVvexcEGSA+Fv3rbr+ pzp8zH9ERs0WkAv8zamIZt7foalA+9/oPvtnifm34Onc6+Iev8UYlWkztcY+nw1+AxvR2YiPN7Tq1szU +70kmf5opri8jqMKs+qa+kdpPS9yZRCpqF03N6Tlqmnxi1SF2Z8Tvp3Wt+A/4O+Qun9zYg1TTSwabp3Q V/N1X/XX/3VNecmKW+eq+AakhEaIxJHaeG9blbaw2K uJ01LTuxlGpzt/Fus09bcR/f531mjbOV/qa+grf2cn82miiZ+y3llfRCYK6M8TiPag/g+Qaeb+qr7GdS N866s5Uheg+d1x9/21iwE3ok/wv4px050i/rj7/vb/b5/Uk/+qrKOfrqvZbn/kfeu45iI301DhoAZxbJ 5XzE25ugVTuqH87v/Y93FaO90JV4wk6bmzL92Z6z+i nWJ1ahd+J12Zi1o0Gi9cq7/Ke+yj3vqa/hl9QPmW/4YxjBnx0vhuEJ+mG5BBaC+kL6Rvq+5AU1Y6nB9v WybdJYIizx9MxHnRFkPyTV/XHucVd+mh7zxkhr8pmhZim2p393S6xo6pfg2Gi28Elbz3dsOFc00h8dI+ iCm687P84wuwM5GNrx9Upuz+cGHwmb31uGRXemV/Ann-Marie [file] P1Mc6CuaNcTDZvATOEJy9Sf945MWCuVFQFMyn+CwzowSQmiThwAQGOYUOqAOXPDVEKT5V= ID Date Data Source [id number] 02/04/2020 09:34:55 AM EDT [facility] Name Value Range Interpretation Code Description Data Nita rce(s) Supporting Document(s) EKG [facility] ONGAQo2dNvSASeUfd5VlDuQpVMVwIB8mrsq7C5I7eSVfF5NqmUCjw5nvJ8EjQ3JhWRBeAGOACK2LrTRi jb2 [file] u0fafeOBbM4XFY5xx0dpdA9wDdQ9+8Bga7BvxGo6OAebJe1eKsFyrsxX+Si3rETidTJ9euoDbycP/Roslyn vaoy+AK+gD/Bn+Zmh92Gb991sw1hH0/BBenGh3s3Mt RdBn+Aa9AD2Uqyxxd1iDRXN82+9wdw34APtluPpYEFQ6GB2MK5vhZWx2NreGnmHUf/x/B/A9/Bd9QT/d J9mnme84j6wx+3DP4B/zR/R3/jTEldd44nJb69SbTH/CprNEtXgnTuyIjET6gCnTikSyWs3HWW3+Bv8A /4p/kH/T0P+NZ3In319G48H0Q+5oMy+Hi+B8/34Pke PN+D53sc/AX+An+Dv8E/4J+FX9WlHFWzAyGBoeVPiMd2JF/An+NO9LU9Yu/AN/B7/oD5SW1xKS/pMvgb /A3+Af80P/WrW/3QJAr71beMJ/AF/An+BF/BV/ANfAMf/R3o74j+KfR23Frwgq8tP//n4P+n+nL7PHf5 Fs6JtGqxRhJZazzvg1Y+ivb9i+H/Rd6W05ln4GcV3t 8PScKC8U9rwhN/0/d3UBoXs/M0IS7jgyAc0DgVUrcOheXt5Uh8Rl1J29qclDwuPI1lAz+D3/O0hyw67P p8QnUFW+IV1EOyJkY/OqRZVK7E59ijheKdKfO/3oN0dpDrrFcdh6y+usE/5Eu3HxA0svtkRb0q3yzqdp /h+Rqer+O8Jt8f4xthmb/h+Rqer+E3Kx6h3rilxm/h +Rqer+Q7TgUo6mm1d7J/yrnpmL/t75NOe4N1E6VrbV6S3Rjy40BhEd88DguJ9FVChjDd9Au7OQY3JdwB MI0ug7/HR45rft9j3yA/Pf3/0Tn0kbGabDozk9SBG7TL/5/4f/R35n/0QRn/N/zf8H/H/NmBHq6DX35C dOua6N4Zsdp4XxiJU5098htfY3iccqLEd8kR7bbVTg AF/An+BF+ktzRAt3Gc7/GZ+qLpv42GahA3sHP/kr3x/1H1A7t33R+Z3bewwZqBj0A/umXwJ/pwD9vjQ0 rlvs/Az5725xcraY6arX/Am2yhhkBB4T/wN+o5qOd8/Ac17I6KM3Gg2Sq3Ca4qa/Catering Sales Manager/Xk+Cr6Cb+Ab+I 77q47t8dxiko31O5/SLH/r6oR+FREVNRcioKLmUcRT 4AyktKBM7WwuFze8SgYE2V1iaQB/39FZz/zsIRFJUd/mEUhR3+8RR/PU6xl4aEDbKF9rfc/nf+J7v+4t 7TlPlru/oV+t7FfoV/5k+c3zifm0Jc6QJkENlwwRNNR+41f9oV+Nnf95n+/I+kO/SaRQq4eDqVS/f5+v hMuOiXxUtZwZ8SJRyJ/XifSBpntDdO2ZSu5iO6dUSs Mz4xzthfy4st7/fb6e8g/9wt62bmU3d0mkA1il+m4qhlsA93+d16Z+lf2dGM+zv4/mxHieGM+z16s5+/ lpht3Q5mB+CjEejjonG1Zr/u/gO/gmW26Rz8wV8Fx1BXFJ/t/65NR+/059wB/gD/AFfPnW/4i7LvaiG+ hDYIclSPcA56A23J71d99mfle1pqP/ulHP+mZ5dwiH llO/uuX+v7W+MVO/qrKAL+Cjv4b+Gvpr6K/198K0/r1L3bC4/i0cq2ReGEka600k3yvbL/FllyVla3t+ gD/AH+AL+AL+BL/c6cNl2l2Ur0bpBu1vv/8dfAd/vZ4BdgejW3e/ijmb+jGl6moBwCYpfDzI7sOBZRhc W4baiq03l67padZ+dcufHXKutk/S0S0j4Q95Cuzt4D 9B5k1dg7ooH1zsS4Ivr8NLg/Ql8R862/4e9GEWENc8oWPlf8qBWOObKqDI/srJH5+yGjNDpZxoFK08Xm BSau2c2MvuSpM1B/twBC/oi2FYp64bcNrllZyyxQ8VCs3NBA/t/g2m47DED3ZV9sTtvUIImR+T1RV8ek p/3aYYWRt4bvKjhE28fzJDXe/JNa7ZvRfk18JNtx46 +vs3C5Olq1x41poud4tUlo8n6/8cFsktAH5Ps1g+G2p8O9vxZ+xifY2v3gzeX1kcsJ33cNzcr5gRbWaG XXmY8fVRL0gpiYzN8utPBMSXiHhWnQOQPRx7heMrlbxGMMOENz5zYnwFAOBJchpSN6e0W+SS6L3B1Vfm eX/mJtEW0SDB+Xu0gJ6b4+Qn1CP5YW70Xjkt41ld/T 1H7aLbyu8XV4/v6+wkyW7MuqXt3Aj7G/wF/ga/d2930Uy1RTQ+uQIa2jWB+1WV+6bRts7IKGK2oj8j4x l7rEp/U8qxwjX/0/qzSuvPmvarWwa/9WeV/z5Z8s0LLkhWvJ/+572XHsm8IpHx5FbtA/KCdBp5K8+6Zf AVfAU/+itZT/S3yg6+g7/AX+Nx6Xr1H/zT/NSvbhn8 Af7o+1b59sfYD99I/UC0G5Utsu+Cem2JuyW8Xu8c4sp1RgS2Zabo/A3+Ab/5MYh38N0YS7vbct2NZKMp wJ/gYzwbxrMp+Aa+ge/gt/1Xny8Ryo1eF4u6tvcN/+D/bd9Qb/uk+gM+5q9j/dkkjbh0il0Iv5qjtcBx 7Ar1Yr3TN3c38Sq/R38d/HDjV691mnMpTalEJ/1d6O 6Wtsb8a5Qmzal98OoFoy/M1742bvlWz+H5pn+soupY2O4o/IMK/6KYR6foF4amo6DH4Q94UmfttYsG5t zgkawB6657NH1WgwSg5Bx8Rx2E300ar2BtPx1US7536/fGfdBS25RqI0SWsUCy3vT9QnM+QYX9Sg/eR2 m/ivVrfi6Ua4A05sV/B/335C3Ux00Lg+119vTztecB f4A/wBfwBfx+sro9522y/eqWwTfw+/na46i/9JL84Ap4A7M/wd/gH/Z3ABmx0sgCW/4AH/2w9F7Qudq6 L0p7HmfWtiF1w8Q+Hvddnk5vlXk/7BIhRhei4r6rcltac7W4/+qWwT/gn+bn/qtbBn+WGm2086S/VfEF /5+ffmu5/8aXXk8Ok+Ab+I88KrWyo5Xgbvw60RTc43 FFb3DG2O/o7AhRVEdaxhp6856lnV/xc1xol0EsBZf8RY/Hk86ZvzOyuxzlA/6/UM8Cv/UrK/3ya153qu gKc17hiV6yL5uh6xD7wwI4fl/FO118i2kmb80IpGW/5WuS8Kdb9z++/3JiHieti2+V//w1nuXao67Bz/ 9+i8WG+a2MT2Gn9Qf9Yi0kxeC/iu9BS/3qlvs+U7+6 ZfzfUY+j/re/e1e5+kB82z2Yeb1R7h/9Dnh7YgEpZ+z1x9Etv6nW4BwRgW3cSmc+dh5L+4SpM4cg3bk0 6qHWaBC84Jq2MAxQi50+NtTXfrnYT/04qoL8qx7PsFv+5t3WFkv/jFOkBVjY8e/yp69p2Q0UB6Kb+pUl P/SbwbGFs2ilLUqi64YBxJa1rq9TXth5cT5H5/PNb/ LCZn9rh7NcezmUTMkJg+7Bi+2cPw5j682+wv4F2oQRG/83H/Tk2gvvBi+InfOhsL/l9/kcmm9Pi0UaAw w2LOi72Tx/UyrjHkK/Ijon7W92jhfHr9j2/3Uh3LZa8Mcq87iQpxod8I++svV/KZf1m3sw76hqpgfk7A 9uGfwF/gJ/48ooEM342owq28Z7sA2vL/dXSxff2T4v MsyK9xb+NZIf8/mXrAvdCBlB72Ln8A/wN/xl56Pke56nc8x//jzgD/DHJzdP/GwfM0rQY/rUoy79svB+ Q/0Gfq/P/rQ+6U/7f/1Z4G/w2x/qT9s3/Gn7ho/eX+mQi7m5VlzCkgz7nG/B/4pg8SSTr+Ar+IZ6Wp/0 8d4JEqtcUya/gb/C18bcbO2+/nXp/Cah2jzzL/B7v5 mn/Pugmf44Vm49X5pRraVpP/xjMW9Bb+I1EbpxL22dn06UI7+iHs2cH5Ask5lb/D32t6c/12N/e9pFPf d7b05VN0135cV22sng6xrZ/e1p2/fS8699eZ/97fl+7wbodb9Ss/2olwQ66T5PL08H/la68Znxq7/br0 /02wV07C/Pfdoe+6hzFk7JyWt90F/U11JY4l/tsb89 /bke+3llsfOzj80Kdg7633Oj+9vzHeexv/0rf/Ztj/3eJ7fiJxisl/tXBr/93a7t7/bc3/7/qTpjZQta MNcq6wo+6FWnhHZCUyVsJc8VlVihq0/fl9HrkENmea8bvhJyXOOMQ2i/ZqP+fv/uim+m6htM80jwaogj 2Qfu18K/EN++M749+7zi2+/cGlo1ykb3ECyoyHdj54 blyl7JrGfyLxON0f++A83137Ek3zv+2Rnfns/TFo2fU65r5oCk0O78/uBO/1FPdhnc0poRxg080/Bf7d 3f+3v39/5yMV94em/h9kfm3c1a2Fw/yrZvrM/sv6czd307+q+vt8nbj4uat50c94/4wwNY6DZ5w+9rX3 3l1l/14dq5Fa01937/Vd5D+c0iCkxN/YR+eY4oIfn+ r9erqkB+7OSbD/E1n9zfdHFTwpl1aFf3mblBai8keMws6ua5i/EQfx973LE827uryPG8Xj7SD7Dt6L/P HttpX+L2oC37uqSu1Zc8Ed7Ko/Ze++qVD/Sn9de++srQC/QC/Y6m9e09n8lDs82Rm+LaV6+8oF/QG/QG /w0kgO2q408o00C3P0c16cm91IG041X6tx++sr2x5N e++srQK/T6jUO/8cZIkt3Ou2l2rda9i113ktVhzc81yH80f50a6kF7c7uJ4HLYdC028Vw/54WilsVQ9M v0Ar1+drtLz1+Xnr8uE/oF/bK+1lCPQb+c67bGc1/TjspYdyO2D/77Wu2vg+BeZ8IUpAtdtdlr0ahhI+ ll0Va7ZY/T45E8X05R6/e+K9qraK/2+izqPS2g/uqV Wz/CICs0xIqkJA3ws23+4b3I3w9+OhRV33x+F/QGvUG/od+o31G/Qx+5m3R1uw8a62b0wP1Tj37Juv0D +3N8tT/Hl0I/oZ/QYzwvjOfV/hxf/u80ngk3Fh3olSb8IPiYU/owLU2vZ//VLcN/5bk/mPUYxrNh/hrm r2H+wn/lhvlraK+oqgFbupL1lrQofd/h+UiinlW4Do 3BfZ7+3435uzF/Z2ehqxVwrW/d37+e9pVW+xwi6T0wl653/8h68k248anr+4OO84O++/yR7z5/5DugD+ gP9H3+jN8EG8r7bD36k0+4d/yGe5+XdO/zku4T+vr5cl0aDnA/Gu6nzx+9w59i1MnnBU/r3t+/jv1B9z 5P57k/mO+v3B/UKvfzCjzfwPocGM+J8MdJu1R2H6m/ LuBqSZeK0qtJviSnbwv/Mi5M5jlL+yjw/oX/lex68Hkg32BX4IS42h83/Fd+Jn4/4nvC04U1Fbk/HryP 0r7K/jl4H53+IwPJ2vq+8D46eB+d/l7w0+ywdJ4gj+owAZg9EHBxVkhlVVmfmyO8kz+i9FfpC2/4vaGe jfvZuJ9+/8hj2MhU++sC9lWU/yp/0/u/LE8AMDXmHx K+cQR1072A5kGeCQ1/HDkh2AW9h3ATJ48hFxe4ipwc22eaTyb0GKW3NcSJZ+7+1SyC5x6DDMY/f0Lc/U Gp+w/c/6+9vlL/a6/yfD0Kxho6sipdzCD1PrsomNkL4r535aSoSgKdgy/30uWu2is4DvF0a2C/E9e+kr bIsxRm2z0D701Mf51m+4pelJ84lbIua+drM//393yt ftN5sekQi6fueny2e5/9LD2U1qtu9L+462SkfZXtSvsq+s20AfX3nW4RSvM+5yzpmLF4L1q/KGbbkzF7 /yimQd/rVcC+irmhd+gd+dX1zliY5Aq/n/uDrwx9+49K2IoB/Fifi/vIrJv1Xm/0iqsw6M1uIi/h97w/G 0lZdnZh8jn/qdHPCidoV9X/b8z8giNW/ba1sWrzh/w 2p70GyVr4Wy0G5iMwEa4oGUinU+j6/EDg/GLahd+gd+k9BIaIdoE6u1/3t1B7I0oawt/19jn5xwZ8qaA T6vgeWA/oJ/frsikB+vbm4dqT8Ac+e5711Zynl+KK6aj15h/SD8hr1yZztAPD0b1Nibl69mFJk73S05O 5vKBw1xYVto3sdBSmU+cEqQ7+pC1Of8qcMgH+v8v78 lpHnB6/dPlF1FF4gzK1k2tHP674i3BUj9TurD389p2cGq+d5kLu8FHvG627dLDPwl9JdqjBHvuw2/l6/ eOnI+PZRZXs+8hq48hiaO+49Mr79+bsg1kkxk2For6IJv3o0ewh9qgFRgfbursG3p7XbY872lMD9i10C Gd/+yl/ce2R8e/ET2wkF8l1V+Stephanie+PYqQ7+gX1/8fG R8+hcGr4dyf27/5q2ldRwk50WlTz78ucj52vGf54cZ9q3WwPyca5/ijPHZA+fGt2fc+ny8zzIPfg8e07 qkQWpT461m/Bvxn22py6edTD4d5LH7+33fnYxvv+/oI4d4i1cyT6s9oe3wfQlyoG5/5W8+joegY8A+5v VB/quD+PaD+PZT+Tym5KnmM/vXEiDcBSS6F5EsJfNi YOqzK7Ql23Scy01h1B241b786E08CzZ8aKyLlix63vOzHhq5Zk4aRxxm/dCjCn2/f4/29+/Rjn8+2vHP R3v/96T/SlO/B8rQO/PSfJPj14+Shalom/E489VGsx104pKwsSzgJTlQpxK/+90risccxg5menF56wV+OrCv PtvfN0LupF4ckCuleFnfkA+d1d+/p+LbsyzQC/QKvU KP9iK+/SC+/SC+/XoFpp2yZ/ocYC75iT0oL3wvY2ieP7huD7qeJ5apZR+8bRZi72rXrs6auFGtjro+r9 CKmu3eX+Tbl0D2sb4qFfzAy4Yf/MfAPqDNpKEh0Fl8L/rT+yIiZyc2qW7dF+ixXsG+CwCgroC7gtUvlN O+z+Mc+C2R0saOqmvh+oA+rIy4V9ttkQ+bpP39Iv/V Qf6rU/mvsoznm/6rKi/oF/DQln3tosVP1K1C27J7N6awjYiyQ2w958QA8Kp+lVC2WL04cbRrMjJbS/p7 4SC+/fMN3mzq7dFIO/A+CryPAu+jwPsoHPqAPqA/0Pd+5syzr4RL7m/B/X7t18NmQikM/YR+QY/2HrT3 4PkePN+X65nfi3u4om/qIP/VOQe/7+z5Z302J/4J3x 05Sl6ou8PIjGyUBYQSIpcbzCegOtSwY8bBiOsXTVIL0HHek8AK6RJzN+H7+voT+hj0T/i+s/4E/Q4i/o RHmrmU7jzk2CX+W/CJfLGvjmmiccyV0AOiD6Jp6FNkfV4cUSqAjCRawMmEAckPwIRw9ce5Fyq/BBkUiC kTQOXR4Gqnk9Lnd9p+cLX72w0AsD0PFn2dAaStH/ann-marie [file] r1nNoynLBGBucfaygtVn9K+SHUTTLE CAR OPERATOR+H7btQx+riYR6rYMwpikWAzjRlwmvz3tX7hbNO5SmrwSO/2zYoTfDK8 [file] UgMDAwMDAgbiAKMDAwMDAwMTYwOSAwMDAwMCBuIAow NTLzZVQjZyL0GFLyZIDnBI5vKcEhEUCnDZY9GHCtVVHwPXGqenKUIFTwCXJmCKPnKNQ8GCLjUWEnCAn6 dmRivCNvAsf7Pe1GaWcgHAC7Ix7XgrRsKXUtGJMVOv1Aq549ZTMrPUYBVfs+PgpzdGFydHhyZWYKOTgz AjzAMZEZH3G= ID Date Data Source [id number] 02/04/2020 08:17:48 AM EDT [facility] NT INFORMATIONPatient MRN Name Date of Age Gend*PT [id number] Manasa Calle 1930 89 years F OBSPT Location Admission Date/Time Visit ID Attending [id number] 02/04/20 0023 --- Patria Cormier MD([id number]) EPI ID CSN Admitting Provider [id number] Missael Mcnulty MD([id number])Inpatient History & PhysicalManasa WintersMRN: [id number] and Plan:Principal Problem: Chest discomfortActive Problems: Hypertensive [...] had been medically managed for moderate multi-vessel resighini CAD CATH 02/2019Chicken vs EggIs worse CAD [...] and hersymptoms resolved.She sees Dr. Ba in [place] for cardiology.She denies lapse in her medications.She [...] the nursing/triage staff and I havereviewed. Official pharmacy benefit manager consult requested.Allergies:Patient has no known drug allergies.Family [...] file Gets together: Not on file Attends synagogue service: Not on file Active member of [...] OldRecords Reviewed.Significant findings: Results for MANASA CALLE ([id number]) as of 02/04/2020 06:238 00:42Sodium: 133 (L)Potassium: [...] rce(s) Supporting Document(s) ID Date Data Source [id number] 02/04/2020 07:40:01 AM EDT [address] [id number] Name: MANASA WINTERSDOB: 1930Sex: FOrdering Provider: EUGENIO CAMERONOAuthorijose Prov: EUGENIO CAMERONOReferring Provider: Procedure Performed: XR CHEST PA AND LATERALExam Date: 02/04/2020 01:40MRN: [id number] Number: [id number] Class: EmergencyAccount #: [id number] for Exam: CP/SOBTechnique: AP and lateral views [...] VIVEK BORDEN On 02/04/2020 7:40 AMWorkstation ID: [id number] Name Value Range Interpretation Code Description Data Nita rce(s) Supporting Document(s) ID Date Data Source [id number] 02/04/2020 06:22:01 AM EDT [facility]PAT[facility] NT INFORMATIONPatient MRN Name Date of Age Gend*PT [id number] Manasa Calle 1930 89 years F EDPT Location Admission Date/Time Visit ID Attending [id number] 02/04/20 0023 --- Eugenio Kaufman MD([id number]) EPI ID CSN Admitting Provider [id number] ---Provider in Triage NotesNo notes on fileHistory of Present IllnessChief ComplaintPatient presents with Chest Pain around 2200 experienced sharp pain between shoulder blades, mid sternal. [id number] ASA, pain resolved prior to EMS. Reports [...] than 2 seconds.Nursing note and vitals reviewed.ED KevryeHduajtditeVFJ81 years female seen and evaluated in the [...] rce(s) Supporting Document(s) ID Date Data Source [id number] 02/04/2020 04:37:00 AM EDT [facility] [place] [facility] Name Value Range Interpretation Code Description Data Nita rce(s) Supporting Document(s) SARS coronavirus 2 RNA [Presence] in Res piratory specimen by YADIEL with probe detection [facility] [place] [facility] This lab was reported by [facility] [place] [facility]. ID Date Data Source [id number] 02/04/2020 07:09:19 AM EDT [facility] [place] [facility] Name Value Range Interpretation Code Description Data Nita rce(s) Supporting Document(s) SPECIMEN DESCRIPTION [facility] COVID19 RESULT (NDET) [facility] THIS ASSAY AMPLIFIES AND DETECTSTHE TARG ET RNA USING REAL-TIME PCR.NEGATIVE 2019_NCOV RT-PCR RESULTS DONOT PRECLUDE 2019_NCOV INFECTION ANDSHOULD NOT BE USED THE SOLE BASISFOR PATIENT MANAGEMENT DECISIONS. COMMENT [facility] [place] [facility] UNDER AN EMERGENCY USE AUTHORIZATION(EUA ) FOR THE DETECTION AND/OR DIAGNOSISOF THE VIRUS THAT CAUSES COVID-19.RESULT EMAILED TO [facility] AT 0706 ON 02/04/20 60107. ID Date Data Source [id number] 02/04/2020 04:39:55 AM EDT [facility] Name Value Range Interpretation Code Description Data Nita rce(s) Supporting Document(s) POC CTNI <0.01 ng/mL (0.01-0.07) L [facility] Less than 0.08: Myocardial injury unlike lyGreater than or equal to 0.08: Highlysuggestive of myocardial injuryCorrelation with rise and/or fall ofserial troponins, clinical symptoms,and ECG changes is necessary.PERFORMED BY [facility] CLINICAL STAFF ID Date Data Source [id number] 02/04/2020 03:52:19 AM EDT [address] [id number] Name: Manasa LeijaOB: 1930Sex: FOrdering Provider: EUGENIO CAMERONOAuthorijose Prov: EUGENIO BENITESECOReferring Provider: Procedure Performed: CT ANGIOGRAM CHESTExam Date: 02/04/2020 03:07MRN: [id number] Number: [id number] Class: INFORMATION: Exam: CT Angiography Chest With [...] rce(s) Supporting Document(s) ID Date Data Source [id number] 02/04/2020 01:03:22 AM EDT [facility] [place] [facility] [place] Name Value Range Interpretation Code Description Data Nita rce(s) Supporting Document(s) POC CTNI 0.01 ng/mL (0.01-0.07) [facility] [place] [facility] [place] Less than 0.08: Myocardial injury unlike lyGreater than or equal to 0.08: Highlysuggestive of myocardial injuryCorrelation with rise and/or fall ofserial troponins, clinical symptoms,and ECG changes is necessary.PERFORMED BY [facility] CLINICAL STAFF ID Date Data Source [id number] 02/05/2020 05:09:55 PM EDT [facility] [place] [facility] Name Value Range Interpretation Code Description Data Nita rce(s) Supporting Document(s) FREE THYROXINE @ 1.05 ng/dL (0.76-1.46) [facility] [place] [place] [facility] PERFORMED AT [address] [place] [address] N [place] [address] ID Date Data Source [id number] 02/05/2020 05:09:55 PM EDT [facility] [place] [facility] Name Value Range Interpretation Code Description Data Nita rce(s) Supporting Document(s) TSH,ULTRASENSITIVE @ 3.520 mIU/L (0.360-4.170) [facility] [place] [facility] PER[facility]MED AT [address] [place] [address] N Y [address] ID Date Data Source [id number] 02/04/2020 08:44:16 AM EDT [facility] [place] [facility] Name Value Range Interpretation Code Description Data Nita rce(s) Supporting Document(s) APTT 17.1 s (22.0-34.3) L [facility] [place] [facility] [place] Y PERFORMED BY ALTERNATE METHOD. REFERENCE RANGE = 24.7 - 33.3 ID Date Data Source [id number] 02/04/2020 08:44:16 AM EDT [facility] [place] [facility] Name Value Range Interpretation Code Description Data Nita rce(s) Supporting Document(s) PT 10.2 s (9.2-11.9) [facility] [place] [facility] INR 0.97 [facility] [place] [facility] SUGGESTED THERAPEUTIC RANGES USING INR F ORSTABILIZED ANTICOAGULATED PATIENTS:STANDARD DOSE THERAPY INR 2.0-3.0 DVT, PE, PREVENT DVT OR EMBOLISMHIGH DOSE THERAPY INR 2.5-3.5 PREVENT EMBOLISM FROM MECHANICAL HEART VALVE ID Date Data Source [id number] 02/04/2020 08:01:17 AM EDT [facility] [place] [facility] Name Value Range Interpretation Code Description Data Nita rce(s) Supporting Document(s) HEMOGLOBIN A1C @ 6.8 % (4.0-6.0) H [facility] [place] Performed using Siemens [place] immunoassa y.Care must be taken when interpreting HzL8qhaokivp in patients with a hemoglobin variantor decreased erythrocyte lifespan. Values 5.7 - 6.4% suggest prediabetes.Values >=6.5% are diagnostic for diabetes.REFERENCE: DIABETES CARE 2018: 41(S13-S27).PERFORMED AT [address] [place] [address] [place] [address] EST AVERAGE GLUCOSE 148 mg/dL [facility] [place] ID Date Data Source [id number] 02/04/2020 04:50:55 AM EDT [facility] [place] [facility] Name Value Range Interpretation Code Description Data Nita rce(s) Supporting Document(s) TROPONIN I <0.05 ng/mL (<0.05) [facility] [place] [facility] [place] Less than 0.05: Myocardial injury unlike lyGreater than or equal to 0.05: Highly suggestive of myocardial injuryCorrelation with rise and/or fall ofserial troponins, clinical symptomsand ECG changes is necessary. ID Date Data Source [id number] 02/04/2020 01:47:08 AM EDT [facility] [place] [facility] Name Value Range Interpretation Code Description Data Nita rce(s) Supporting Document(s) NT PRO BNP 385 pg/mL (0-450) [facility] [place] [facility] [place] ID Date Data Source [id number] 02/04/2020 01:47:08 AM EDT [facility] [place] [facility] [place] Name Value Range Interpretation Code Description Data Nita rce(s) Supporting Document(s) TOTAL PROTEIN 7.8 g/dL (6.4-8.2) [facility] [place] [facility] ALBUMIN 3.7 g/dL (3.2-4.5) [facility] [place] [facility] GLOBULIN 4.1 g/dL (2.7-4.3) [facility] [place] [facility] ALB/GLOB RATIO 0.9 RATIO [facility] [place] [facility] BILIRUBIN,TOTAL 0.3 mg/dL (0.0-1.0) [facility] [place] [facility] PLEASE NOTE:Total bilirubin results may be falselyelevated in patients taking Eltrombopag. BILIRUBIN,CONJUGATED <0.1 mg/dL (0.0-0.3) [facility] [place] [place] BILIRUBIN,UNCONJ. (0.0-0.7) [facility] [place] [facility] ALKALINE PHOSPHATASE 170 U/L (45-117) H [facility] [place] [facility] [facility] AST (SGOT) 28 U/L (11-39) [facility] [place] [facility] ALT (SGPT) 28 U/L (12-78) [facility] [place] [facility] ID Date Data Source [id number] 02/04/2020 01:44:14 AM EDT [facility] [place] [facility] Name Value Range Interpretation Code Description Data Nita rce(s) Supporting Document(s) MAGNESIUM 2.2 mg/dL (1.7-2.4) [facility] ID Date Data Source [id number] 02/04/2020 01:44:14 AM EDT [facility] Name Value Range Interpretation Code Description Data Nita rce(s) Supporting Document(s) LIPASE 65 U/L (65-230) [facility] ID Date Data Source [id number] 02/04/2020 01:44:14 AM EDT [facility] Name Value Range Interpretation Code Description Data Nita rce(s) Supporting Document(s) SODIUM 133 mmol/L (136-145) L [facility] POTASSIUM 4.3 mmol/L (3.6-5.2) [facility] CHLORIDE 102 mmol/L (100-108) [facility] CO2 27 mmol/L (22-31) [facility] ANION GAP 4 mmol/L (7-16) L [facility] UREA NITROGEN 14 mg/dL (7-24) [facility] CREATININE 0.95 mg/dL (0.60-1.00) [facility] BUN/CREAT RATIO 14.7 RATIO (10.0-20.0) [facility] GLUCOSE 139 mg/dL (70-99) H [facility] CALCIUM 8.9 mg/dL (8.4-10.2) [facility] GFR 56 ml/min/1.73m2 (>59) L [facility] GFR ( AMER) >60 ml/min/1.73m2 (>59) [facility] GFR INTERPRETATION [facility] --NORMAL KIDNEY FUNCTION OR MILD DISEASE - GFR >OR= 60CHRONIC KIDNEY DISEASE - GFR 15 - 59RENAL FAILURE - GFR <15 Est. GFR calculation based on the MDRDstudy equation, which assumes a steadystate for creatinine. Est. GFR should notbe used for medication dosing. ID Date Data Source [id number] 02/04/2020 01:33:58 AM EDT [facility] [place] [facility] Name Value Range Interpretation Code Description Data Nita rce(s) Supporting Document(s) WBC 6.6 10*3/uL (4.1-11.0) [facility] [place] [facility] [place] RBC 3.47 10*6/uL (4.00-5.40) L [facility] [place] [facility] HGB 11.3 g/dL (12.0-16.0) L [facility] [place] [facility] HCT 33.3 % (36.0-47.0) L [facility] [place] [facility] MCV 96.1 fL (80.0-95.0) H [facility] [place] [facility] MCH 32.6 pg (27.0-32.0) H [facility] [place] [facility] MCHC 34.0 g/dL (32.0-36.0) [facility] [place] [facility] RDW 14.2 % (10.5-14.5) [facility] [place] [facility] PLT 331 10*3/uL (150-450) [facility] [place] [facility] MPV 6.6 fL (7.1-10.7) L [facility] [place] [facility] NEUT % 57.2 % (35.0-75.0) [facility] [place] [facility] LYMPH % 26.9 % (16.0-52.0) [facility] [place] [facility] MONO % 10.8 % (0.0-8.0) H [facility] [place] [facility] EOS % 4.2 % (0.0-5.0) [facility] [place] [facility] BASO % 0.9 % (0.0-4.0) [facility] NEUT # 3.8 10*3/uL (1.8-7.7) [facility] [place] [facility] LYMPH # 1.8 10*3/uL (1.2-4.8) [facility] [place] [facility] MONO # 0.7 10*3/uL (0.0-0.8) [facility] [place] [facility] Eosinophils [#/volume] in Blood by Automated count 0.3 10*3/uL (0.0-0 .5) [facility] [place] [facility] BASO # 0.1 10*3/uL (0.0-0.2) [facility] [place] [facility] Procedure Social History Code Duration Value Status Description Data Source(s ) 02/14/2021 03:34:54 PM EDT Never Smoker completed Never S [facility] 02/14/2021 03:34:54 PM EDT Cigarettes completed Cigarette s [facility] 02/14/2021 03:34:54 PM EDT Never Smoker completed Never S [facility] 02/14/2021 03:34:54 PM EDT Cigarettes completed Cigarette s [facility] 02/14/2021 03:34:00 PM EDT Never smoked tobacco (findi ng) completed Never smoked tobacco (finding) [facility] 02/08/2021 01:58:21 PM EDT Never Smoker completed Never S [facility] 02/08/2021 01:58:21 PM EDT Cigarettes completed Cigarette s [facility] 02/08/2021 01:58:21 PM EDT Never Smoker completed Never S [facility] 02/08/2021 01:58:21 PM EDT Cigarettes completed Cigarette s [facility] Smoking 02/08/2021 01:58:00 PM EDT Never smoked tobacco (findi ng) completed Never smoked tobacco (finding) [facility] 01/14/2021 10:41:20 AM EDT Cigarettes completed [facility] 01/14/2021 10:41:20 AM EDT Cigarettes completed [facility] 01/14/2021 10:23:52 AM EDT Never Smoker completed Never S moker [facility] 01/14/2021 10:23:52 AM EDT Never Smoker completed Never S moker [facility] Smoking 01/14/2021 10:23:00 AM EDT Never smoked tobacco (findi ng) completed Never smoked tobacco (finding) [facility] Smoking 11/02/2020 12:00:00 AM EDT Patient has never smoked co mpleted Patient has never smoked [facility] ([place] [employer] [facility] Alcohol intake 02/04/2020 12:00:00 AM EDT Not Currently completed [facility] Smoking 02/04/2020 12:00:00 AM EDT Never smoker completed Never s [facility] Vital Signs ID Date Data Source UNK Name Value Range Interpretation Code Description Data Source(s) Body temperature 98.2 [degF] 97.6-99.6 98.2 [degF] [facility] Body height 142.24 cm 142.24 cm [facility] Heart rate 60 /min 60-100 60 /min [facility] Oxygen saturation in Arterial blood by Pulse oximetry 95 % 95-1 00 95 % [facility] Systolic blood pressure 166 mm[Hg] 90-139 166 mm[Hg] O [employer] Diastolic blood pressure 68 mm[Hg] 50-89 68 mm[Hg] [facility] Body mass index (BMI) [Ratio] 25.9 kg/m2 25.9 k g/m2 [facility] Body weight 52.61 kg 52.61 kg [facility] Systolic blood pressure 190 mm[Hg] 90-139 190 mm[Hg] [facility] [employer] Diastolic blood pressure 72 mm[Hg] 50-89 72 mm[Hg] [facility] Respiratory rate 16 /min 12-20 16 /min [facility] Body temperature 98.0 [degF] 97.6-99.6 98.0 [degF] [facility] Heart rate 58 /min 60-100 58 /min [facility] Oxygen saturation in Arterial blood by Pulse oximetry 98 % 95-1 00 98 % [facility] Body weight 51.70 kg 51.70 kg [facility] Body height 142.24 cm 142.24 cm [facility] Body mass index (BMI) [Ratio] 25.5 kg/m2 25.5 k g/m2 [facility] Systolic blood pressure 228 mm[Hg] 90-139 228 mm[Hg] [facility] Diastolic blood pressure 78 mm[Hg] 50-89 78 mm[Hg] [facility] Body height 142.24 cm 142.24 cm [facility] Diastolic blood pressure 82 mm[Hg] 50-89 82 mm[Hg] [facility] Body weight 58.05 kg 58.05 kg [facility] Body temperature 98.1 [degF] 97.6-99.6 98.1 [degF] [facility] Heart rate 82 /min 60-100 82 /min [facility] Oxygen saturation in Arterial blood by Pulse oximetry 94 % 95-1 00 94 % [facility] Systolic blood pressure 134 mm[Hg] 90-139 134 mm[Hg] [facility] Body mass index (BMI) [Ratio] 28.7 kg/m2 28.7 k g/m2 [facility] Heart rate 82 /min 82 /min [facility] ([facility]) Body weight 113.00 [lb_av] 113.00 [lb_av] [facility] T ([place] [employer] [facility]) Body height 59 [in_i] 59 [in_i] [facility] ([facility]) 4'11" Body mass index (BMI) [Ratio] 22.8 kg/m2 22.8 k g/m2 [facility] ([place] [employer] [facility]) Oxygen saturation in Arterial blood by Pulse oximetry 99 % 99 % [facility] ([place] [employer] [facility]) Body temperature 97.6 [degF] 97.6 [degF] [facility] ([place] [employer] [facility]) Systolic blood pressure 142 mm[Hg] 142 mm[Hg] M ENT ([facility] Diastolic blood pressure 70 mm[Hg] 70 mm[Hg] [email or web address] Diastolic blood pressure 68 mm[Hg] 68 mm[Hg] [email or web address] Heart rate 78 /min 78 /min [facility] ([facility] [employer] [facility]) Systolic blood pressure 128 mm[Hg] 128 mm[Hg] M EDENT ([facility] Body weight 114.00 [lb_av] 114.00 [lb_av] [facility] T [facility] [employer] [facility] Body height 59 [in_i] 59 [in_i] [facility] ([facility] [employer] [facility] [employer] [facility]) 4'11" Body mass index (BMI) [Ratio] 23.0 kg/m2 23.0 k g/m2 [facility] ([facility] [employer] [facility]) Oxygen saturation in Arterial blood by Pulse oximetry 97 % 97 % [facility] ([facility] [employer] [facility]) Body temperature 97.3 [degF] 97.3 [degF] [facility] ([facility] Heart rate 76 /min 76 /min [facility] ([facility] [employer] [facility] [employer] [facility]) Body height 59 [in_i] 59 [in_i] [facility] ([facility] [employer] [facility] [employer] [facility]) 4'11" Body temperature 97.4 [degF] 97.4 [degF] [facility] ([facility] Systolic blood pressure 124 mm[Hg] 124 mm[Hg] [facility] ([employer] [facility]) Body weight 122.50 [lb_av] 122.50 [lb_av] [facility] T ([facility] [employer] [facility] Body mass index (BMI) [Ratio] 24.7 kg/m2 24.7 k g/m2 [facility] ([employer] [facility] [employer] [facility]) Oxygen saturation in Arterial blood by Pulse oximetry 95 % 95 % [facility] ([email or web address]) Diastolic blood pressure 58 mm[Hg] 58 mm[Hg] [facility] ([email or web address] [facility]) Body height 59 [in_i] 59 [in_i] [facility] ([facility] [employer] [facility]) 4'11" Heart rate 62 /min 62 /min [facility] ([facility] [employer] [facility]) Systolic blood pressure 120 mm[Hg] 120 mm[Hg] M [facility]ENT ([email or web address] [employer] [facility]) Diastolic blood pressure 70 mm[Hg] 70 mm[Hg] [facility] ([email or web address]) Oxygen saturation in Arterial blood by Pulse oximetry 98 % 98 % [facility] [employer] [facility]) Body weight 122.00 [lb_av] 122.00 [lb_av] MED[facility] T ([place] [employer] [facility]) Body mass index (BMI) [Ratio] 24.6 kg/m2 24.6 k g/m2 [facility] ([place] [employer] [facility]) Body temperature 96.7 [degF] 96.7 [degF] [facility] ([place] [employer] [facility]) Systolic blood pressure 145 mm[Hg] 145 mm[Hg] [facility] Diastolic blood pressure 78 mm[Hg] 78 mm[Hg] [facility] Heart rate 67 /min 67 /min [facility] Oxygen saturation in Arterial blood by Pulse oximetry 91 % 91 % [facility] Respiratory rate 17 /min 17 /min [facility] Body temperature 36.67 [place] 36.67 [place] [facility] Body height 152.4 cm 152.4 cm [facility] Body weight 54.432 kg 54.432 kg [facility] Body mass index (BMI) [Ratio] 23.44 kg/m2 23.44 kg/m2 [facility] ID Date Data Source [id number] 03/12/2020 03:28:41 PM EDT [facility] Name Value Range Interpretation Code Description Data Source(s) WEIGHT RECORDED 122 lb 122 lb [facility] Patient Treatment Plan of Care Planned Activity Planned Date Details Description Data Source (s) Clonidine Hydrochloride 0.1 MG Oral Tablet 02/06/2020 12:00:00 AM E DT [facility] carvedilol 12.5 MG Oral Tablet 02/06/2020 12:00:00 AM EDT [facility] meloxicam 7.5 MG Oral Tablet [facility] Insulin Glargine 100 UNT/ML Injectable Solution [facility] Docusate Sodium 100 MG Oral Capsule [facility] Zolpidem tartrate 5 MG Oral Tablet [facility] carvedilol 12.5 MG Oral Tablet [facility]
[2021-04-01 17:05] LABS: BASO # 0.1 10^3/uL (0.0-0.2); BASO % 0.3 % (0.0-1.0); EOS % 0.2 % (0.0-3.0); HEMATOCRIT 32.7 % (36.0-47.0); LYMPH # 1.2 10^3/uL (1.5-5.0); LYMPH % 7.2 % (24.0-44.0); MEAN CORPUSCULAR HEMOGLOBIN 32.9 pg (27.0-33.0); MEAN CORPUSCULAR HGB CONC 33.6 g/dl (32.0-36.5); MEAN CORPUSCULAR VOLUME 97.9 fl (80.0-96.0); MONO # 1.4 10^3/uL (0.0-0.8); MONO % 8.9 % (2.0-8.0); NEUTROPHILS # 13.3 10^3/uL (1.5-8.5); NEUTROPHILS % 82.9 % (36.0-66.0); PLATELET COUNT, AUTOMATED 321 10^3/uL (150-450); RED BLOOD COUNT 3.34 10^6/uL (4.00-5.40); WHITE BLOOD COUNT 16.1 10^3/uL (4.0-10.0)
[2021-04-01] MEDS ORDERED: ACETAMINOPHEN 325 MG TAB PO ONE (17:05)
[2021-04-01 17:38] LABS: ALBUMIN 3.4 GM/DL (3.2-5.2); BILIRUBIN,TOTAL 0.4 MG/DL (0.2-1.0); C REACTIVE PROTEIN QUANTITATIV 2.43 MG/DL (0.00-0.30); CALCIUM LEVEL 8.5 MG/DL (8.8-10.2); CREATININE FOR GFR 0.98 MG/DL (0.55-1.30); TOTAL PROTEIN 6.7 GM/DL (6.4-8.2)
[2021-04-01 17:56] LABS: INR 1.7; PROTHROMBIN TIME 20.4 SECONDS (12.7-14.5)
--- NOTE | 2021-04-01 17:58 | REP ---
INDICATION: swelling erythema COMPARISON: None. TECHNIQUE: Parekh scale and color Doppler evaluation using linear high frequency transducer. FINDINGS: Ultrasound examination of the right lower extremity deep venous structures from the common femoral vein through the calf/ankle to include the tibial veins demonstrates normal compressibility flow and wave patterns in response to respiration and augmentation. There is no evidence for deep venous thrombosis. Contralateral CFV is patent and normal. IMPRESSION: No evidence for deep venous thrombosis. <Electronically signed by Pablo Cochran > 04/01/21 [id number]
[2021-04-01] MEDS ORDERED: ACETAMINOPHEN TAB 650MG DOSE (2X325MG) PO PRN (19:00)
[2021-04-01] MEDS ORDERED: MOM 30ML SUSPENSION UDC PO PRN (19:00)
[2021-04-01] MEDS ORDERED: DEXTROSE 50% 50 ML SYRINGE IV PRN (19:00)
[2021-04-01] MEDS ORDERED: MAALOX 30 ML SUSP *UDC PO PRN (19:00)
[2021-04-01] MEDS ORDERED: GLUCOSE 4GM CHEW TABLET PO PRN (19:00)
[2021-04-01] MEDS ORDERED: MORPHINE 2 MG/ML 1ML VIAL (J2270) IV PRN (19:00)
[2021-04-01] MEDS ORDERED: GLUCAGON INJ 1MG VIAL SC PRN (19:00)
[2021-04-01] MEDS ORDERED: ISOVUE-370 76% 100ML VIAL As Ordered ONE (19:23)
--- OUTSIDE RECORDS SUMMARY | 2021-04-01 19:26 | CCD ---
Author Author [facility] Organization [facility] Address Unknown Phone Unavailable Care Team Providers Care Carpet Repairer Name Role Phone Keon KAUFMAN MD Unavailable Unavailable Wise, D Caroline PA Unavailable Unavailable Wise, D Caroline PA Unavailable Unavailable Wise, D Caroline PA Unavailable Unavailable Wise, D Caroline PA Unavailable Unavailable Wise, D Caroline PA Unavailable Unavailable Wise, D Caroline PA Unavailable Unavailable Wise, D Caroline PA Unavailable Unavailable Wise, D Caroline PA Unavailable Unavailable Wise, D Caroline PA Unavailable Unavailable Wsie, D Caroline PA Unavailable Unavailable Wise, D [...] Unavailable Unavailable Yolanda, Yanick MD Unavailable Unavailable Yloanda, Yanick MD Unavailable Unavailable Yolanda, Yanick MD Unavailable Unavailable Yolanda, Yanick MD Unavailable Unavailable Yolanda, Aynick MD Unavailable Unavailable Yolanda, Yanick MD Unavailable [...] Unavailable PERRY, ELIZABETH MD Unavailable Unavailable PERRY, ELIZABEHT MD Unavailable Unavailable PERRY, ELIZABETH MD Unavailable [...] Unavailable Han, Aram DO Unavailable Unavailable Han, Arma DO Unavailable Unavailable Ahn, Aram DO Unavailable Unavailable Han, Aram DO Unavailable Unavailable Han, Aram DO Unavailable Unavailable Han, Aram DO Unavailable Unavailable Han, Aram DO Unavailable Unavailable Han, Aram DO Unavailable Unavailable Han, Aram DO Unavailable Unavailable Han, Aram DO Unavailable Unavailable Han, Arma DO Unavailable Unavailable Han, Aram DO Unavailable [...] G MAILE MD Unavailable Unavailable SAGCAN, G MIALE MD Unavailable Unavailable SAGCAN, G MAILE MD [...] Unavailable Unavailable Rodrigo Ba MD Unavailable Unavailable Livingston, Rodrigo Fran MD Unavailable Unavailable Livingston, Rodrigo Fran MD Unavailable Unavailable Mejia, Rodrigo Fran MD Unavailable Unavailable Mejia, Rodrigo Fran MD Unavailable Unavailable Livingston, Rodrigo Fran MD Unavailable Unavailable Mejia, Rodrigo Fran MD Unavailable Unavailable Livingston, Rodrigo Fran MD Unavailable Unavailable Livingston, Rodrigo Fran MD Unavailable Unavailable Livingston, Rodrigo Fran MD Unavailable Unavailable Mejia, Rodrigo Fran MD Unavailable Unavailable Mejia, Rodrigo Fran MD Unavailable Unavailable Livingston, Rodrigo Fran MD Unavailable Unavailable Livingston, Rodrigo Fran MD Unavailable Unavailable Livingston, Rodrigo Fran MD Unavailable Unavailable Mejia, Rodrigo Fran MD Unavailable Unavailable Livingston, Rodrigo Fran MD Unavailable Unavailable Mejia, Rodrigo Fran MD Unavailable Unavailable Mejia, Rodrigo Fran MD Unavailable Unavailable Mejia, Rodrigo Fran MD Unavailable Unavailable Livingston, Rodrigo Fran MD Unavailable Unavailable Livingston, Rodrigo Fran MD Unavailable Unavailable Mejia, Rodrigo Fran MD Unavailable Unavailable Livingston, Rodrigo Fran MD Unavailable Unavailable Livingston, Rodrigo Fran MD Unavailable Unavailable Mejia, Rodrigo Fran MD Unavailable Unavailable Livingston, Rodrigo Fran MD Unavailable Unavailable Livingston, Rodrigo Fran MD Unavailable Unavailable Mejia, Rodrigo Fran MD Unavailable Unavailable Livingston, Rodrigo Fran MD Unavailable Unavailable Livingston, Rodrigo Fran MD Unavailable Unavailable Mejia, Rodrigo Fran MD Unavailable Unavailable Livingston, Rodrigo Fran MD Unavailable Unavailable Livingston, Rodrigo Fran MD Unavailable Unavailable Livingston, Rodrigo Fran MD Unavailable Unavailable Livingston, Rodrigo Fran MD Unavailable Unavailable Livingston, Rodrigo Fran MD Unavailable Unavailable Livingston, Rodrigo Fran MD Unavailable Unavailable Livingston, Rodrigo Fran MD Unavailable Unavailable Livingston, Rodrigo Fran MD Unavailable Unavailable Livingston, Rodrigo Fran MD Unavailable Unavailable Re-disclosure Warning [...] is protected by Article 27-F of the [place] State Public Health law. If you continue you may have access to information: Regarding HIV / AIDS; Provided by facilities licensed or operated by the [facility] Office of Mental Health; or Provided by the [facility] Office for People With Developmental Disabilities. If such information is present, then the following [facility] mandated warning applies: This information has [...] law may result in a fine or assisted sentence or both. A general authorization for [...] f Status Description Data Source(s) Unknown Condition [facility] Unknown Condition [facility] Unknown Condition [facility] Unknown Condition [facility] Unknown Condition [facility] Unknown Condition [facility] Unknown Condition [facility] Unknown Condition [facility] Unknown Condition [facility] Unknown Condition [facility] Unknown Condition [facility] Unknown Condition [facility] Unknown Condition [facility] Unknown Condition [facility] Unknown Condition [facility] Unknown Condition [facility] Unknown Condition [facility] Unknown Condition [facility] Unknown Condition [facility] Unknown Condition [facility] Unknown Condition [facility] Unknown Condition [facility] Unknown Male Problem [facility] ([facility]) Unknown Unknown Problem [facility] ([facility]) Encounters Encounter Providers Location Date Indications Data Source(s ) Outpatient Attender: Caroline Wise PAReferrer: Yanick Guerrero MD 05/17/2021 02:30:00 PM EST 3 mo f/u [facility] 3 mo f/u Outpatient Referrer: ELIZABETH PERRY MD 02/22/2021 03:23:22 PM EDT [facility] Outpatient Referrer: ELIZABETH PERRY MD 02/17/2021 10:31:22 AM EDT [facility] Outpatient Attender: CAROLINE Clark: Yanick Guerrero [...] ELIZABETH PERRY MD 02/08/2021 10:34:49 AM EDT [facility] Outpatient Attender: CAROLINE Clark: Yanick Guerrero MD 01/14/2021 10:14:00 AM EDT - 01/14/2021 11:13:00 AM EDT Bilateral hip pain, left worse [facility] Bilateral hip pain, left worse Patient discharged. Outpatient Attender: CAROLINE Clark: Yanick Guerrero MD 01/14/2021 10:14:00 AM EDT - 01/14/2021 11:13:00 AM EDT [facility] Outpatient Attender: Yanick Guerrero MD Main Office 12/29/2020 02:00:00 PM EDT [facility] ([facility]) Outpatient Attender: Caroline Rojo: Fran Ba [...] AM EDT - 11/22/2020 12:50:00 PM EDT [facility] Outpatient Attender: Yanick Guerrero MD 11/11/2020 01:12:00 P M EDT [facility] Outpatient Attender: Yanick Guerrero MD Main Office 11/02/2020 02:15:00 PM EDT [facility] ([facility]) Recurring Patient Attender: CHARMAINE SOLISCARMEN MDReferrer: Yanick Quezada i, MD 04/14/2020 09:34:28 AM EDT [facility] Outpatient Attender: CHARMAINE CORBETT MDReferrer: Yanick Guerrero MD 04/09/2020 01:08:35 PM EDT [facility] Recurring Patient Attender: CHARMAINE CORBETT MDReferrer: Yanick Quezada i, MD 04/08/2020 01:33:34 PM EDT [facility] Recurring Patient Referrer: Yanick Guerrero MD 04/08/2020 07: 47:24 AM EDT [facility] Outpatient Attender: Yanick Guerrero MD Main Office 03/24/2020 02:00:00 PM EDT [facility] ([facility]) Recurring Patient Referrer: Yanick Guerrero MD 03/24/2020 08: 30:11 AM EDT [facility] Outpatient Attender: Becky Harrell 03/03/2020 02:04:00 PM EDT [facility] Outpatient Attender: Aram Short DO [id number] 03/03/20 20 12:00:00 AM EDT - 03/03/2020 04:02:57 PM EDT Chronic kidney disease, stage 3 (moderate) [facility] Chronic kidney disease, stage 3 (moderat e) Outpatient Attender: Yanick Guerrero MD Main Office 02/11/2020 01:45:00 PM EDT [facility] ([facility]) Outpatient Attender: MAILE Del Rio nder: Patria Cormier MDAttender: MISSAEL MCNULTY MDAttender: EUGENIO KAUFMAN MDAdmitter: MISSAEL MCNULTY MDReferrer: EUGENIO KAUFMAN MD 1-OB2 02/04/2020 12:23:30 AM EDT - 02/06/2020 01:51:00 PM EDT [facility] Patient discharged. Outpatient Attender: Aram Short DO 02/04/2020 12:00:00 AM EDT [facility] Immunizations Vaccine Date Status Description Data Source(s) New in 2012. IIV4 03/24/2020 02:15:00 PM EDT completed [facility] ([facility]) Medications Medication Brand Name Start Date [...] PM EDT SUSPENSION 80 MG INTRAMUSC completed [facility] Lidocaine Hydrochloride 10 MG/ML Injecta ble Solution lidocaine (PF) 10 mg/mL (1 %) injection solution lidocaine (PF) 10 mg/mL (1 %) injection solution 02/14/2021 03:30:52 PM EDT SOLUTION 40 MG INTRAMUSC completed [facility] rivaroxaban 15 MG Oral Tablet Rivaroxaban (Xarelto) 15 mg tablet Rivaroxaban (Xarelto) 15 mg tablet 02/11/2021 04:04:49 PM EDT TABLET TABLET active [facility] apixaban 2.5 MG Oral Tablet Apixaban (Eliquis) 2.5 mg tablet Apixaban (Eliquis) 2.5 mg tablet 02/11/2021 08:25:57 AM EDT TABLET TABLET complet ed [facility] 15 mg 02/10/2021 12:00:00 AM EDT [...] PM EDT TABLET 10 MG ORAL active [facility] 50 mg 02/08/2021 12:00:00 AM [...] AM EDT TABLET 15 MG ORAL active [facility] 5 mg 02/03/2021 12:00:00 AM EDT [...] PM EDT TABLET 2.5 MG ORAL complet [facility] 100 mg 01/26/2021 12:00:00 AM EDT capsule [...] AM EDT SOLUTION 40 MG INTRAMUSC [facility] methylprednisolone acetate 80 MG/ML Inje ctable Suspension Depo-Medrol (methylprednisolone acetate) 80 mg/mL suspension for injection Depo-Medrol (methylprednisolone acetate) 80 mg/mL suspension for injection 01/14/2021 10:14:25 AM EDT SUSPENSION 80 MG INTRAMUSC completed [facility] 2.5 mg 01/09/2021 12:00:00 AM EDT tablet [...] TABLET BY MOUTH EVERY DAY SOLD: 11/29/2020 [facility] Amlodipine 10 MG Oral Tablet Amlodipine 11/24/2020 01:59:13 PM EDT TA BLET 10 MG ORAL active [facility] Cholecalciferol 1000 UNT Oral Capsule Cholecalciferol (Vitamin D3) Cholecalciferol (Vitamin D3) 11/24/2020 01:49:24 PM EDT CAPSULE 25 MCG ORAL active [facility] Amlodipine 5 MG Oral Tablet Amlodipine 11/24/2020 01:49:00 PM EDT TAB LET 5 MG ORAL completed [facility] Levothyroxine Sodium 0.05 MG Oral Capsule Levothyroxine 11/24/2020 01:48:51 PM EDT CAPSULE 50 MCG ORAL active [facility] Trazodone Hydrochloride 50 MG Oral Tablet Trazodone 2020 01:47:52 PM EDT TABLET 50 MG ORAL active [facility] torsemide 10 MG Oral Tablet Torsemide Torsemide 11/24/2020 01:47:12 PM EDT TABLET 10 MG ORAL active [facility] Clonidine Hydrochloride 0.1 MG Oral Tablet Clonidine Hcl Aviva nidine Hcl 11/24/2020 01:42:24 PM EDT TABLET 0.1 MG ORAL active [facility] Diphenhydramine Hydrochloride 25 MG Oral Capsule Diphenhydramine Hcl (Allergy Medication) 25 mg capsule Diphenhydramine Hcl (Allergy Medication) 25 mg capsule 11/22/2020 12:08:18 PM EDT CAPSULE 25 MG ORAL [facility] 3 ML insulin detemir 100 UNT/ML Pen Inje ctor Insulin Detemir U-100 (Levemir Flextouch U-100 Insuln) 100 unit/mL (3 mL) insulin pen Insulin Detemir U-100 (Levemir Flextouch U-100 Insuln) 100 unit/mL (3 mL) insulin pen 11/22/2020 12:07:54 PM EDT UNASSIGNED 10 UNIT SUBCUTANEOUSLY active [facility] Trazodone Hydrochloride 50 MG Oral Tablet Trazodone 2020 12:07:23 PM EDT TABLET 25 MG ORAL [facility] Clonidine Hydrochloride 0.1 MG Oral Tablet Clonidine Hcl Aviva nidine Hcl 11/22/2020 12:05:10 PM EDT TABLET 0.05 MG ORAL completed [facility] Lidocaine Hydrochloride 10 MG/ML Injecta ble Solution lidocaine (PF) 10 mg/mL (1 %) injection solution lidocaine (PF) 10 mg/mL (1 %) injection solution 11/22/2020 11:41:51 AM EDT SOLUTION 40 MG INTRAMUSC [facility] methylprednisolone acetate 40 MG/ML Inje ctable Suspension Depo-Medrol (methylprednisolone acetate) 40 mg/mL suspension for injection Depo-Medrol (methylprednisolone acetate) 40 mg/mL suspension for injection 11/22/2020 11:41:51 AM EDT SUSPENSION 40 MG INTRAMUSC [facility] Basaglar Kwikpen Basaglar Kwikpen 11/03/2020 12:00:00 AM EDT active [facility] ([facility]) Amlodipine 5 MG Oral Tablet Amlodipine Besylate 11/02/2020 12:00:00 A M EDT ORAL active [facility] ([facility]) salmon calcitonin 200 UNT/ACTUAT Nasal [place] [Miacalcin] Jayna calcin 11/02/2020 12:00:00 AM EDT active M EDENT ([facility]) gabapentin 100 MG Oral Capsule Gabapentin 04/27/2020 12:00:00 AM EST active [facility] ([facility]) Levothyroxine Sodium 0.05 MG Oral Tablet Levothyroxine Sodiu m 04/23/2020 12:00:00 AM EST active M EDENT ([facility]) 5 mg 03/25/2020 12:00:00 AM EDT [...] 02/11/2020 12:00:00 AM EDT ORAL active [facility] ([facility]) Clonidine Hydrochloride 0.1 MG Oral [...] by mouth 2 (two) times a day [facility] carvedilol 12.5 MG Oral Tablet carvedilol (COREG) 12.5 MG tablet carvedilol (COREG) 12.5 MG tablet 02/06/2020 12:00:00 AM EDT 12.5 mg Oral active Take 1 tablet (12.5 mg total) by mouth 2 (two) times a day [facility] technetium sestamibi (CARDIOLITE) injection 11 millicurie 02/05/2020 03:00:00 PM EDT 11 mCi Intravenous completed 11 millicurie, Intravenous, Once, Cher 820 at 1500, For 1 dose [facility] Medication administered onsite technetium sestamibi (CARDIOLITE) injection 34 millicurie 02/05/2020 03:00:00 PM EDT 34 mCi Intravenous completed 34 millicurie, Intravenous, Once, Chre 820 at 1500, For 1 dose [facility] Medication administered onsite Hydralazine Hydrochloride 25 MG Oral Tab let hydrALAZINE (APRESOLINE) tablet 25 mg hydrALAZINE (APRESOLINE) tablet 25 mg 02/05/2020 02:00:00 PM EDT 25 mg Oral active 25 mg, Oral, E very 8 hours (scheduled), First dose on Cher 02/05/20 at 1400
Hold for systolic blood pressure less than 140
[facility] Medication administered onsite Clonidine Hydrochloride 0.1 MG Oral Tablet cloNIDine ( CATAPRES) tablet 0.1 mg cloNIDine (CATAPRES) tablet 0.1 mg 02/05/2020 10:00:00 AM EDT 0.1 mg Oral active 0.1 mg, Oral, 2 times daily, Fir st dose on Cher 02/05/20 at 1000 [facility] Medication administered onsite gabapentin 100 MG Oral Capsule gabapentin (NEURONTIN) capsule 100 mg gabapentin (NEURONTIN) capsule 100 mg 02/05/2020 09:00:00 AM EDT 100 mg Oral active 100 mg, Oral, Daily, First dose on Sun at 0900 [facility] Medication administered onsite Hydralazine Hydrochloride 20 MG/ML Injec table Solution hydrALAZINE (APRESOLINE) injection 10 mg hydrALAZINE (APRESOLINE) injection 10 mg 02/05/2020 07 :00:00 AM EDT 10 mg completed 10 mg, Intravenous Push, Once, Cher 02/05/20 at 0700, For 1 dose [facility] Medication administered onsite gabapentin 100 MG Oral Capsule gabapentin (NEURONTIN) capsule 200 mg gabapentin (NEURONTIN) capsule 200 mg 02/04/2020 09:00:00 PM EDT 200 mg Oral active 200 mg, Oral, Nightly, First dose on Sun02/04/20 at 2100 [facility] Medication administered onsite Trazodone Hydrochloride 50 MG Oral Tablet traZODone (D ESYREL) tablet 50 mg traZODone (DESYREL) tablet 50 mg 02/04/2020 09:00:00 PM EDT 50 mg Oral active 50 mg, Oral, Nightly, First dose on Sun02/04/20 at 2100 [facility] Medication administered onsite Benazepril hydrochloride 10 MG Oral Tablet benazepril (LOTENSIN) tablet 40 mg benazepril (LOTENSIN) tablet 40 mg 02/04/2020 09:00:00 PM EDT 40 mg Oral active 40 mg, Oral, Nightly , First dose on Sun02/04/20 at 2099
Hold if SBP < 115 or DBP < 70 and call if held to discuss.
[facility] Medication administered onsite Donepezil hydrochloride 10 MG Oral Tablet donepezil (A RICEPT) tablet 10 mg donepezil (ARICEPT) tablet 10 mg 02/04/2020 09:00:00 PM EDT 10 mg Oral active 10 mg, Oral, Nightly, First dose on Sun02/04/20 at 2099 [facility] Medication administered onsite Hydralazine Hydrochloride 10 MG Oral Tab let hydrALAZINE (APRESOLINE) tablet 10 mg hydrALAZINE (APRESOLINE) tablet 10 mg 02/04/2020 06:00:00 PM EDT 10 mg Oral aborted 10 mg, Oral, E very 8 hours (scheduled), First dose on Sun02/04/20 at 1800
Hold for systolic blood pressure less than 140
[facility] Medication administered onsite regadenoson (LEXISCAN) solution 0.4 mg [id number] 02/04/2020 11:5 0:00 AM EDT 0.4 mg Intravenous completed 0.4 mg, Intravenous, Once, Sun02/04/20 at 1150, For 1 dose, [employer]
No Caffeine, Theophylline, or Dipyridamole (Aggrenox) for 12 hours prior to dose. If patient has had any of these, contact MD immediately
[facility] Medication administered onsite pantoprazole 40 MG Delayed Release Oral Tablet pantoprazole (PROTONIX) EC tablet 40 mg pantoprazole (PROTONIX) EC tablet 40 mg 02/04/2020 09:00:00 AM E DT 40 mg Oral active Gastroesophageal Reflux Diseas e 40 mg, Oral, 2 times daily, Indications: Gastroesophageal Reflux Disease, First dose on Sun02/04/20 at 0900 [facility] Gastroesophageal Reflux Disease Medication administered onsite Amlodipine 10 MG Oral Tablet amLODIPine (NORVASC) tabl et 10 mg amLODIPine (NORVASC) tablet 10 mg 02/04/2020 09:00:00 AM EDT 10 mg Oral active 10 mg, Oral, Daily, First dose on Sun02/04/20 at 0900
Hold if SBP < 115 or DBP < 70 and call if held to discuss.
[facility] Medication administered onsite atorvastatin 40 MG Oral Tablet atorvastatin (LIPITOR) tablet 40 mg atorvastatin (LIPITOR) tablet 40 mg 02/04/2020 09:00:00 AM EDT 40 mg Oral active 40 mg, Oral, Daily, First dose on Sun02/04/20 at 0900 [facility] Medication administered onsite Citalopram 20 MG Oral Tablet citalopram (CeleXA) table t 20 mg citalopram (CeleXA) tablet 20 mg 02/04/2020 09:00:00 AM EDT 20 mg Oral active 20 mg, Oral, Daily, First dose on Sun02/04/20 at 0900 [facility] Medication administered onsite gabapentin 100 MG Oral Capsule gabapentin (NEURONTIN) capsule 200 mg gabapentin (NEURONTIN) capsule 200 mg 02/04/2020 09:00:00 AM EDT 200 mg Oral aborted 200 mg, Oral, TIDSS, First dose on Sun at 0900 [facility] Medication administered onsite Oxybutynin chloride 5 MG Oral Tablet oxybutynin (DITRO NEVES) tablet 5 mg oxybutynin (DITROPAN) tablet 5 mg 02/04/2020 09:00:00 AM EDT 5 mg Oral active 5 mg, Oral, 2 times daily, First dose on Sun02/04/20 at 0900 [facility] Medication administered onsite Aspirin 81 MG Chewable Tablet aspirin chewable tablet 81 mg aspirin chewable tablet 81 mg 02/04/2020 09:00:00 AM EDT 81 mg Oral activ e 81 mg, Oral, Daily, First dose on Sun02/04/20 at 0900 [facility] Medication administered onsite heparin (porcine) injection 5,000 Units [id number] 02/04/20 09:00:00 AM EDT 5000 U Subcutaneous active 5,000 Units , Subcutaneous, Every 12 hours (scheduled), First dose on Sun02/04/20 at 0900
If platelet count is less than 100,000 or hematocrit is less than 25, or if there is a 5 point decrease in hematocrit, do not give the dose and call physician/designee.
[facility] Medication administered onsite tramadol hydrochloride 50 MG Oral Tablet traMADol (ULT EL) tablet 50 mg traMADol (ULTRAM) tablet 50 mg 02/04/2020 08:19:32 AM EDT 50 mg Oral active 50 mg, Oral, Every 8 hours PRN, moderate pain (4-6), severe pain (7-10), Starting Sun02/04/20 at 0819 [facility] Medication administered onsite Nitroglycerin 0.02 MG/MG Topical Ointmen t nitroglycerin (NITROSTAT) 2 % ointment 0.5 inch nitroglycerin (NITROSTAT) 2 % ointment 0.5 inch 2019 08:10:00 AM EDT 0.5 g Topical completed Angina Pectoris 0.5 inch (0.5 g), Topical, Once, Sun02/04/20 at 0810, For 1 dose [facility] Angina Pectoris Medication administered onsite carvedilol 6.25 MG Oral Tablet carvedilol (COREG) tabl et 12.5 mg carvedilol (COREG) tablet 12.5 mg 02/04/2020 08:10:00 AM EDT 12.5 mg Oral active 12.5 mg, Oral, 2 times daily, First dose on Sun02/04/20 at 0810
Hold if HR < 60 or SBP < 105 and call if held.
[facility] Medication administered onsite Insulin Lispro [...] cover POC glucose at 08:00, 12:00, 17:00.
[facility] Medication administered onsite sodium chloride 0.9% (NS) infusion [id number] 02/04/2020 07:00:00 A M EDT Intravenous aborted at 50 mL/hr, Intravenous, Continuous, Starting Sun02/04/20 at 0700 [facility] Medication administered onsite Levothyroxine Sodium 0.025 MG Oral Table t levothyroxine (SYNTHROID, LEVOTHROID) tablet 25 mcg levothyroxine (SYNTHROID, LEVOTHROID) tablet 25 mcg 06:40:00 AM EDT 25 ug Oral active 25 mcg, Oral, Daily, First dose on Sun02/04/20 at 0640
hold for 1 hour before and 1 hour after tube feeds if patient is on tube feed
[facility] Medication administered onsite Docusate Sodium 100 MG Oral Capsule docusate sodium (C OLACE) capsule 100 mg docusate sodium (COLACE) capsule 100 mg 02/04/2020 06:26:22 AM EDT 100 mg Oral active 100 mg, Oral, 2 times daily PRN, constipation, Starting Sun02/04/20 at 0626
hold for loose stools
[facility] Medication administered onsite Acetaminophen 325 MG Oral Tablet acetaminophen (TYLENO L) 325 MG tablet 650 mg acetaminophen (TYLENOL) 325 MG tablet 650 mg 02/04/2020 06:25:10 AM EDT 650 mg Oral active 650 mg, Or al, Every 4 hours PRN, mild pain (1-3), headaches, Starting Sun02/04/20 at 0625
"Maximum dose of acetaminophen is 4,000 mg from all sources in 24 hours."
[facility] Medication administered onsite tramadol hydrochloride 50 MG Oral Tablet traMADol (ULT EL) tablet 50 mg traMADol (ULTRAM) tablet 50 mg 02/04/2020 03:45:00 AM EDT 50 mg Oral completed 50 mg, Oral, Once, Sun02/04/20 at 0345, For 1 dose [facility] Medication administered onsite iopamidol (ISOVUE-370) 76 % 70 mL [id number] 02/04/2020 02:54:43 AM E DT 70 mL Intravenous completed 70 mL, Intrav enous, Once in imaging, contrast, Starting Sun02/04/20 at 0254, For 1 dose [facility] Medication administered onsite Labetalol HCl SOSY 20 mg [id number] 02/04/2020 02:30:00 AM EDT 20 mg completed 20 mg, Intravenous P ush, Once, Sun02/04/20 at 0230, For 1 dose
See Labetalol Notice for Special Handling Instructions
[facility] Medication administered onsite sodium chloride 0.9% (NS) bolus 1,000 mL [id number] 02/04/2020 01:30:00 AM EDT 1000 mL Intravenous completed 1, 000 mL, Intravenous, Administer over 1 Hours, Once, Sun02/04/20 at 0130, For 1 dose [facility] Medication administered onsite pantoprazole 40 [...] TABLET BY MOUTH EVERY DAY SOLD: 02/01/2020 [facility] torsemide 10 MG Oral Tablet Torsemide Torsemide 2019 01:22:08 PM EDT TABLET 10 MG ORAL completed [facility] Oxybutynin chloride 5 MG Oral Tablet OXYBUTYNIN CHLORIDE 01/2020 12:00:00 AM EDT tablet 60 TAKE ONE TABLET BY MOUTH TWI CE A DAY TAKE ONE TABLET BY MOUTH TWICE A DAY SOLD: 02/17/2020 [facility] 100 mg 03/28/2019 12:00:00 AM EDT capsule 180 TAKE ONE CAPSULE BY MOUTH TWICE A DAY FOR 1 WEEK THEN 2 CAPSULES TWO TIMES A DAY TAKE ONE CAPSULE BY MOUTH TWICE A DAY FOR 1 WEEK THEN 2 CAPSULES TWO TIMES A DAY SOLD: 02/17/2020 [facility] 10 mg 02/05/2019 12:00:00 AM EDT tablet 90 TAKE ONE TABLET BY MOUTH EVERY DAY TAKE ONE TABLET BY MOUTH EVERY DAY SOLD: 02/01/2020 [facility] Amlodipine 10 MG Oral Tablet Amlodipine 02/04/2019 02:27:16 PM EDT TA BLET 10 MG ORAL completed [facility] Zolpidem tartrate 5 MG Oral Tablet Zolpidem 03/13/2017 01:31:00 PM EDT TABLET 5 MG ORAL completed [facility] Aspirin 81 MG Delayed Release Oral Tablet Aspirin 2016 10:23:25 AM EDT UNASSIGNED 81 MG ORAL completed [facility] Levothyroxine Sodium 0.025 MG Oral Tablet Levothyroxine 12/07/2016 02:05:41 PM EDT TABLET 25 MCG ORAL completed [facility] Citalopram 20 MG Oral Tablet Citalopram (Celexa) 20 MG tablet Citalopram (Celexa) 20 MG tablet 12/07/2016 02:05:41 PM EDT TABLET 20 MG ORAL completed [facility] 3 ML Insulin Glargine 100 UNT/ML Pen [...] 16 Units u nder the skin nightly [facility] meloxicam 7.5 MG Oral Tablet meloxicam (MOBIC) 7.5 MG tablet meloxicam (MOBIC) 7.5 MG tablet 7.5 mg Oral aborted Ta ke 7.5 mg by mouth 2 (two) times a day [facility] Docusate Sodium 100 MG Oral Capsule docusate sodium (C OLACE) 100 MG capsule docusate sodium (COLACE) 100 MG capsule 50 mg Oral aborted Take 50 mg by mouth 2 (two) times a day [facility] carvedilol 12.5 MG Oral Tablet carvedilol (COREG) 12.5 MG tablet carvedilol (COREG) 12.5 MG tablet 12.5 mg Oral aborted Take 12.5 mg by mouth 2 (two) times a day [facility] Zolpidem tartrate 5 MG Oral Tablet zolpidem (AMBIEN) 5 MG tablet zolpidem (AMBIEN) 5 MG tablet 5 mg Oral aborted Take 5 mg by mouth nightly as needed for sleep [facility] Insurance Providers Payer name Policy type / Coverage type Policy ID Covered alliance party ID Covered alliance party's relationship to portillo Policy [place] Plan Information MEDICARE A [id number] Self [id number] N77 [facility] [id number] Self [id number] MEDICARE [id number] Taya [id number] N77 MEDICARE [id number] SP [id number] N77 Medicare C [id number] SELF [id number] A MEDICARE A [id number] Self [id number] A MEDICARE [id number] SP [id number] A MEDICARE [id number] [id number] MEDICARE A [id number] Self [id number] U97 MEDICARE [id number] Taya [id number] U97 Blue Cross Blue Shield P [id number] SELF [id number] Blue Cross Blue Shield P [id number] SELF [id number] Blue Cross Blue Shield P [id number] SELF [id number] BC/BS Pos Health Maintenance Organization (HMO) [id number] [id number] Self VY [id number] BC/BS Pos Health Maintenance Organization (HMO) [id number] 2.16.840.1.383996.3.227.99.8656.462.0 Self VY [id number] BLUE CROSS [id number] SP [id number] EXCELLUS C [id number] Self [id number] BC/BS Pos Health Maintenance Organization (HMO) [id number] 2.16.840.1.711046.3.227.99.8656.462.0 Self VY [id number] BC/BS Pos Health Maintenance Organization (HMO) [id number] Self [id number] EXCELLUS BCBS [id number] xxxxxxxxxxxx [id number] EXCELLUS BCBS [id number] Taya VYY [id number] BC/BS Pos Health Maintenance Organization (HMO) [id number] 2.16.840.1.239391.3.227.99.8656.462.0 Self VY [id number] BC/BS Pos Health Maintenance Organization (HMO) [id number] Self [id number] BC/BS Pos Health Maintenance Organization (HMO) [id number] 2.16.840.1.163958.3.227.99.8656.462.0 Self VY [id number] BC/BS Pos Health Maintenance Organization (HMO) [id number] 07 2.16.840.1.839663.3.227.99.8656.462.0 Self VY [id number] BC/BS Pos Health Maintenance Organization (HMO) [id number] 07 2.16.840.1.937930.3.227.99.8656.462.0 Self VY [id number] BC/BS Pos Health Maintenance Organization (HMO) [id number] 07 2.16.840.1.180158.3.227.99.8656.462.0 Self VY [id number] BC/BS Pos Health Maintenance Organization (HMO) [id number] Se lf BLUE CROSS [id number] SP [id number] BC/BS Pos Health Maintenance Organization (HMO) [id number] 07 2.16.840.1.329417.3.227.99.8656.462.0 Self VY [id number] BC/BS Pos Health Maintenance Organization (HMO) [id number] 07 2.16.840.1.984318.3.227.99.8656.462.0 Self VY [id number] BC/BS Pos Health Maintenance Organization (HMO) [id number] 07 2.16.840.1.183134.3.227.99.8656.462.0 Self VY [id number] BC/BS Pos Health Maintenance Organization (HMO) [id number] 07 2.16.840.1.639819.3.227.99.8656.462.0 Self VY [id number] BC/BS Pos Health Maintenance Organization (HMO) [id number] 07 2.16.840.1.299046.3.227.99.8656.462.0 Self VY [id number] DME Jurisdiction A NHIC C [id number] SELF [id number] BS [place] Medigap Part B [id number] 2.16.840.1.603795.3.227.99.991.107996.0 Self [id number] Medicare [place] Medicare Primary [id number] 2.0.1.517634.3.227.99.991.400135.[id number] [facility] Part B [id number] 2.0.1.604034.3.227.99.991.971906.0 Self [id number] Medicare [place] Medicare Primary [id number] 2.0.1.906788.3.227.99.991.730582.0 Self [id number] BLUE CROSS [id number] SP [id number] SELF PAY MEDICARE [id number] SP [id number] N77 SELF PAY MEDICARE [id number] SP [id number] N77 BLUE CROSS [id number] SP [id number] SELF PAY BLUE CROSS [id number] SP [id number] MEDICARE [id number] SP [id number] N77 SELF PAY BLUE CROSS [id number] SP [id number] MEDICARE [id number] SP [id number] N77 MEDICARE [id number] SP [id number] N77 SELF PAY BLUE CROSS [id number] SP [id number] MEDICARE [id number] SP [id number] N77 SELF PAY SELF PAY BLUE CROSS [id number] SP [id number] MEDICARE [id number] SP [id number] N77 SELF PAY BLUE CROSS [id number] SP [id number] MEDICARE [id number] SP [id number] N77 MEDICARE [id number] SP [id number] SELF PAY BLUE CROSS [id number] SP [id number] MEDICARE [id number] SP [id number] N77 SELF PAY BLUE CROSS [id number] SP [id number] BLUE CROSS [id number] SP [id number] SELF PAY MEDICARE [id number] SP [id number] N77 MEDICARE [id number] SP [id number] U97 SELF PAY BLUE CROSS [id number] SP [id number] MEDICARE [id number] SP [id number] N77 Medicare C [id number] SELF [id number] U97 SELF PAY BLUE CROSS [id number] SP [id number] SELF PAY MEDICARE [id number] SP [id number] U97 MEDICARE [id number] SP [id number] N77 INSURANCE COVID-19 COVID Taya C OVID SELF PAY BLUE CROSS [id number] SP [id number] MEDICARE [id number] SP [id number] U97 MEDICARE [id number] SP [id number] U97 BLUE CROSS [id number] SP [id number] SELF PAY BLUE CROSS [id number] SP [id number] MEDICARE [id number] SP [id number] SELF PAY SELF PAY SELF PAY SELF PAY BLUE CROSS [id number] SP [id number] MEDICARE [id number] SP [id number] U97 MEDICARE [id number] SP [id number] U97 SELF PAY BLUE CROSS [id number] SP [id number] SELF PAY BLUE CROSS [id number] SP [id number] MEDICARE [id number] SP [id number] U97 BLUE CROSS [id number] SP [id number] SELF PAY MEDICARE [id number] SP [id number] [id number] BS CNY Medigap Part B [id number] Self [id number] BS CN[place] Medigap Part B [id number] 2.16.840.1.901033.3.227.99.8656. 462.0 Self [id number] Medicare Medicare Primary [id number] 2.16.840.1.471334.3.227.99.865 6.462.0 Self [id number] MEDICARE [id number] SP [id number] A MEDICARE [id number] SP [id number] N77 MEDICARE [id number] SP [id number] U97 Medicare Medicare Primary [id number] 2.16.840.1.098573.3.227.99.865 6.462.0 Self [id number] BS [place] Medigap Part B [id number] 2.0.1.524282.3.227.99.8656. 462.0 Self [id number] Medicare Medicare Primary [id number] 2.840.1.370172.3.227.99.865 6.462.0 Self [id number] BS [place] Medigap Part B [id number] 2.840.1.331873.3.227.99.8656. 462.0 Self [id number] BS [place] Medigap Part B [id number] 2.840.1.015916.3.227.99.8656. 462.0 Self [id number] BS [place] Medigap Part B [id number] Self [id number] Medicare Medicare Primary [id number] 2.840.1.240519.3.227.99.865 6.462.0 Self [id number] [facility] [id number] S [id number] [id number] BS [place] Medigap Part B [id number] 2.0.1.741650.3.227.99.8656. 462.0 Self [id number] Medicare Medicare Primary [id number] 2.840.1.623196.3.227.99.865 6.462.0 Self [id number] MEDICARE C [id number] S [id number] A BS [place] Medigap Part B [id number] 2.840.1.326834.3.227.99.8656. 462.0 Self [id number] Medicare Medicare Primary [id number] 2.840.1.689388.3.227.99.865 6.462.0 Self [id number] BCBS [place] 304/804 [id number] SP [id number] BS [place] Medigap Part B [id number] 2.0.1.503698.3.227.99.8656. 462.0 Self [id number] Medicare Medicare Primary [id number] 2.0.1.613888.3.227.99.865 6.462.0 Self [id number] Medicare Medicare Primary [id number] Self [id number] BS [place] Medigap Part B [id number] 2.0.1.544687.3.227.99.8656. 462.0 Self [id number] Medicare Medicare Primary [id number] 2.0.1.712016.3.227.99.865 6.462.0 Self [id number] BLUE CROSS [id number] SP [id number] BS [place] Medigap Part B [id number] 2.0.1.349513.3.227.99.8656. 462.0 Self [id number] Medicare Medicare Primary [id number] 2.0.1.602151.3.227.99.865 6.462.0 Self [id number] [place]BS [place] 306/806 [id number] SP [id number] BS CN[place] Medigap Part B [id number] 2.16.840.1.838268.3.227.99.8656. 462.0 Self [id number] Medicare Medicare Primary [id number] 2.16.840.1.179185.3.227.99.865 6.462.0 Self [id number] Medicare Medicare Primary [id number] 2.16.840.1.728920.3.227. 99.8656.462.0 Self [id number] BS [place] Medigap Part B [id number] 2.16.840.1.282835.3.227.99.8656. 462.0 Self [id number] Medicare Medicare Primary [id number] 2.16.840.1.998460.3.227.99.865 6.462.0 Self [id number] BS [place] Medigap Part B [id number] 2.16.840.1.998314.3.227.99.8656. 462.0 Self [id number] BS [place] Medigap Part B [id number] 2.16.840.1.936337.3.227.99.8656. 462.0 Self [id number] Medicare Medicare Primary [id number] 2.16.840.1.583284.3.227.99.865 6.462.0 Self [id number] EXCELL[place] BCBS B [id number] S [id number] MEDICARE C [id number] S [id number] N77 BC/BS [place] [employer] [id number] Self BS [place] Medigap Part B [id number] Self Medicare Medicare Primary 1430 Self BCBS [place] 304/804 [id number] SP [id number] BCBS [place] 304/804 [id number] SP [id number] BC/BS [place] [employer] [id number] Self [id number] Medicare Medicare Primary [id number] Self [id number] Problems, Conditions, and Diagnoses Code Display Name [...] PC 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 I25.10 - Atherosclerotic heart disease o f samish coronary artery without angina pectoris Diagnosis 11/24/2020 01:18:00 PM EDT [facility] E87.1 Hypo-osmolality and hyponatremia E87.1 - Hypo-os molality and hyponatremia Diagnosis 11/11/2020 01:12:00 PM EDT [facility] E61.1 Iron deficiency Iron deficiency Diagnosis 03/03/2020 03:4 4:23 PM EDT [facility] N18.3 Chronic kidney disease, stage 3 (moderat e) N18.3 - Chronic kidney disease, stage 3 (moderate) Diagnosis 03/03/2020 02:04:00 PM EDT [facility] I16.1 Hypertensive emergency Hypertensive emergency Diagnosi s 02/04/2020 12:23:30 AM EDT [facility] F02.80 Dementia in other diseases c lassified elsewhere without behavioral disturbance Dementia in other diseases classified el Diagnosis 02/04/2020 12:23:30 AM EDT [facility] 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 Diagnosis 02/04/2020 12:23:30 AM EDT [facility] R07.9 Chest pain, unspecified Chest pain, unspecified Diagno sis 02/04/2020 12:23:30 AM EDT [facility] R07.9 Chest pain Chest pain [id number] 02/05/2020 12:00:00 AM ED T [facility] G30.1 Uncomplicated late onset Alzheimer's dem entia Uncomplicated late onset Alzheimer's dementia [id number] 02/04/2020 12:00:00 AM EDT [facility] I25.10 Coronary artery disease, moderate, 2019 CATH Coronary artery disease, moderate, 2019 CATH [id number] 02/04/2020 12:00:00 AM EDT [facility] I38 VHD (valvular heart disease) VHD (valvular heart disea se) [id number] 02/04/2020 12:00:00 AM EDT [facility] I16.1 Hypertensive emergency Hypertensive emergency [id number] 02/04/2020 12:00:00 AM EDT [facility] I10 Episode of hypertension, severe Episode of hypertensio n, severe [id number] 02/04/2020 12:00:00 AM EDT [facility] R07.89 Chest discomfort Chest discomfort [id number] 02/04/2020 12 :00:00 AM EDT [facility] E78.5 Hyperlipidemia Hyperlipidemia [id number] 02/04/2020 12:00: 00 AM EDT [facility] E03.9 Hypothyroidism Hypothyroidism [id number] 02/04/2020 12:00: 00 AM EDT [facility] I10 Essential hypertension Essential hypertension [id number] 02/04/2020 12:00:00 AM EDT [facility] Surgeries/Procedures Procedure Description Date Indications Data Source(s) Plain x-ray of pelvis and lower extremity (procedure) 01/14/2021 10:33:48 AM EDT [facility] OFFICE OUTPATIENT VISIT 25 MINUTES 12/29/2020 12:00:00 AM EDT [facility] ([facility]) OFFICE OUTPATIENT VISIT 25 MINUTES 11/02/2020 12:00:00 AM EDT [facility] ([facility]) GLUC BLD GLUC MNTR DEV CLEARED FDA SPEC HOME USE <td>P OCT GLUCOSE</td><td>Routine</td><td>02/05/2020 5:29 PM EDT</td><td></td><td> </td> 02/05/2020 09:29:00 PM EDT [facility] MYOCARDIAL SPECT MULTIPLE STUDIES <td>NM CARDIAC GATED SPEC IMG EFWM</td><td>Routine</td><td>02/05/2020 2:43 PM EDT</td><td></td><td> </td> 02/05/2020 06:43:45 PM EDT [facility] CV STRS TST XERS&/OR RX CONT ECG PHYS SI&R <td>STRESS TEST, CARDIOVASCULAR</td><td>Routine</td><td>02/05/2020 1:36 PM EDT</td><td></td><td></td> 02/05/2020 05:36:56 PM EDT [facility] GLUC BLD GLUC MNTR DEV CLEARED FDA SPEC HOME USE <td>P OCT GLUCOSE</td><td>Routine</td><td>02/05/2020 9:03 AM EDT</td><td></td><td> </td> 02/05/2020 01:03:00 PM EDT [facility] GLUC BLD GLUC MNTR DEV CLEARED FDA SPEC HOME USE <td>P OCT GLUCOSE</td><td>Routine</td><td>02/04/2020 4:41 PM EDT</td><td></td><td> </td> 02/04/2020 08:41:00 PM EDT [facility] ECHO TTHRC R-T 2D W/WOM-MODE COMPL SPEC&COLR DOP <td>E CHOCARDIOGRAM TRANSTHORACIC</td><td>Routine</td><td>02/04/2020 3:29 PM EDT</td><td></td><td> </td> 02/04/2020 07:29:01 PM EDT [facility] GLUC BLD GLUC MNTR DEV CLEARED FDA SPEC HOME USE <td>P OCT GLUCOSE</td><td>Routine</td><td>02/04/2020 2:01 PM EDT</td><td></td><td> </td> 02/04/2020 06:01:00 PM EDT [facility] CV STRS TST XERS&/OR RX CONT ECG PHYS SI&R <td>STRESS TEST, CARDIOVASCULAR</td><td>Routine</td><td>02/04/2020 11:34 AM EDT</td><td></td><td></td> 02/04/2020 03:34:54 PM EDT [facility] 2018 NCOV AMPLIFIED <td>2018 NCOV AMPLIFIED</td> <td>STAT</td><td>02/04/2020 4:37 AM EDT</td><td></td><td> </td> 02/04/2020 08:37:00 AM EDT [facility] TROPONIN QUANTITATIVE <td>POCT TROPONIN</td><td>Ro utine</td><td>02/04/2020 4:28 AM EDT</td><td></td><td> </td> 02/04/2020 08:28:00 AM EDT [facility] ECG ROUTINE ECG W/LEAST 12 LDS TRCG ONLY W/O I&R <td>E CG 12- LEAD</td><td>STAT</td><td>02/04/2020 4:17 AM EDT</td><td></td><td> </td> 02/04/2020 08:17:10 AM EDT [facility] CT ANGIOGRAPHY CHEST W/CONTRAST/NONCONTRAST <td>CT ANG IOGRAM CHEST</td><td>STAT</td><td>02/04/2020 3:20 AM EDT</td><td></td><td> </td> 02/04/2020 07:20:51 AM EDT [facility] XR CHEST PA AND LATERAL <td>XR CHEST PA AND LATERAL</td><td>STAT</td><td>02/04/2020 1:40 AM EDT</td><td></td><td> </td> 02/04/2020 05:40:56 AM EDT [facility] TROPONIN QUANTITATIVE <td>POCT TROPONIN</td><td>Ro utine</td><td>02/04/2020 12:51 AM EDT</td><td></td><td> </td> 02/04/2020 04:51:00 AM EDT [facility] ECG ROUTINE ECG W/LEAST 12 LDS TRCG ONLY W/O I&R <td>E CG 12- LEAD</td><td>STAT</td><td>02/04/2020 12:44 AM EDT</td><td></td><td> </td> 02/04/2020 04:44:31 AM EDT [facility] NT PRO BNP <td>NT PRO BNP</td><td>STAT< /td><td>02/04/2020 12:42 AM EDT</td><td></td><td> </td> 02/04/2020 04:42:00 AM EDT [facility] TROPONIN QUANTITATIVE <td>TROPONIN I</td><td>STAT< /td><td>02/04/2020 12:42 AM EDT</td><td></td><td> </td> 02/04/2020 04:42:00 AM EDT [facility] THROMBOPLASTIN TIME PARTIAL PLASMA/WHOLE BLOOD <td>APT T</td><td>Add- On</td><td>02/04/2020 12:42 AM EDT</td><td></td><td> </td> 02/04/2020 04:42:00 AM EDT [facility] PROTHROMBIN TIME <td>PROTIME-INR</td><td>Add- On</td><td>02/04/2020 12:42 AM EDT</td><td></td><td> </td> 02/04/2020 04:42:00 AM EDT [facility] BLOOD COUNT COMPLETE AUTO&AUTO DIFRNTL WBC COUNT <td>C BC AND DIFFERENTIAL</td><td>STAT</td><td>02/04/2020 12:42 AM EDT</td><td></td><td> </td> 02/04/2020 04:42:00 AM EDT [facility] THYROID STIMULATING HORMONE TSH <td>TSH</td><td>Add-On </td><td>02/04/2020 12:42 AM EDT</td><td></td><td> </td> 02/04/2020 04:42:00 AM EDT [facility] THYROXINE FREE <td>T4, FREE</td><td>Add-On< /td><td>02/04/2020 12:42 AM EDT</td><td></td><td> </td> 02/04/2020 04:42:00 AM EDT [facility] MAGNESIUM <td>MAGNESIUM</td><td>STAT</ td><td>02/04/2020 12:42 AM EDT</td><td></td><td> </td> 02/04/2020 04:42:00 AM EDT [facility] LIPASE <td>LIPASE</td><td>STAT</td> <td>02/04/2020 12:42 AM EDT</td><td></td><td> </td> 02/04/2020 04:42:00 AM EDT [facility] HEMOGLOBIN GLYCOSYLATED A1C <td>HEMOGLOBIN A1C</td><td >Add-On</td><td>02/04/2020 12:42 AM EDT</td><td></td><td> </td> 02/04/2020 04:42:00 AM EDT [facility] HEPATIC FUNCTION PANEL <td>HEPATIC FUNCTION PANEL</td><td>STAT</td><td>02/04/2020 12:42 AM EDT</td><td></td><td> </td> 02/04/2020 04:42:00 AM EDT [facility] BASIC METABOLIC PANEL CALCIUM TOTAL <td>BASIC METABOLI C PANEL</td><td>STAT</td><td>02/04/2020 12:42 AM EDT</td><td></td><td> </td> 02/04/2020 04:42:00 AM EDT [facility] Results ID Date Data Source [id number] 02/14/2021 03:31:00 PM EDT [facility] [address], [address], [address] [place] [address] [place] [address] Orthopedics Follow Up : [id number] Signed Patient: Manasa Calle Acct:[id number] Visit Date: 02/14/21 : 1930 Intake Vital [...] today. Zhane Cade LPN acted as a assistant secretary and accompanied Dr. Balbuena through out the entire office visit. Water Pump Installer Required: No Is patient in pain?: Yes [...] 50 mcg capsule 50 mcg PO DAILY multivitamin,[id number] (Complete Multivitamin) 1 tab PO DAILY oxybutynin [...] last 30 days?: No Mask given: Yes [facility] Medical History Alzheimer's disease Anemia Chronic renal [...] Zhane Cade LPN, who functioned as a assistant secretary and was present during the entire office [...] rce(s) Supporting Document(s) ID Date Data Source [id number] 02/08/2021 01:55:00 PM EDT [facility] [address], [address] [place] [address] Cardiology Note : [id number] Signed Patient: Manasa Calle Acct:[id number] Visit Date: 02/08/21 : 1930 cc: Yanick [...] Xarelto. She reports she saw Nephrology in [place]. ----- TTE August of 2020 in [place]. Normal LVEF. Moderately dilated left atrium. Moderate MR. Moderate TR with no pulmonary hypertension. She underwent a TTE on 02/04/2020 at [facility]. LVEF 60%, diastolic dysfunction, moderate concentric [...] complains of swelling in her lower extremities. Water Pump Installer Required: No Primary Care Physician:: Yanick Guerrero [...] 50 mcg capsule 50 mcg PO DAILY multivitamin,[id number] (Complete Multivitamin) 1 tab PO DAILY oxybutynin [...] (more often t bowser not): Single-point stick [facility] Medical History Alzheimer's disease Anemia [...] Code(s): I25.10 - Atherosclerotic heart disease of samish coronary artery without angina pectoris SNOMED Code(s): 23003496 Category: Medical Qualifiers: Coronary Disease-Associated Artery/Lesion type: samish artery Associated angina: with otherforms of angina [...] parts of this document were dictated using [employer] software. A reasonable attempt at proofreading has been made to minimize errors. Please call with any questions or corrections. Please do not hesitate to contact me with any questions. Coding Level of Care Code 89820 Estab Pt Level 4 Diagnoses Coronary artery disease I25.10 Coronary Disease-Associated Artery/Lesion type: samish artery Associated angina: with other forms of [...] rce(s) Supporting Document(s) ID Date Data Source [id number] 01/14/2021 11:56:00 [place] [address] Patient Name: Manasa Calle Exam Date: 01/14/21 [...] Imaging Center . End of diagnostic report: [id number] Signed: Buddy Campos MD 01/14/21 1297 Interpreted by: Corrine Camposcribed by: Buddy Campos Name Value Range Interpretation Code Description Data Nita rce(s) Supporting Document(s) ID Date Data Source [id number] 01/14/2021 10:20:00 AM EDT [facility] [address] [place] [address] [place] [address] Orthopedics Follow Up : Signed with Trina Patient: Manasa Calle Acct:[id number] Visit Date: 01/14/21 : 1930 ADDENDUM Office Procedure Documentation entered by Franky Guzmán MA 01/14/21 13:23: Office Meds Depo-Medrol Performing Provider: Caroline Balbuena DO Administered by: Caroline Balbuena DO on 01/14/21 13:22 Dose Route Admin Location Lot Number Expiration Date [facility] Manufactu rer 80 mg IM Left Hip [id number] 03/18/22 P[employer]ER lidocaine (PF) Performing Provider: Caroline Balbuena DO Administered by: Caroline Balbuena DO on 01/14/21 13:22 Dose Route Admin Location Lot Number Expiration Date [facility] Manufactu rer 40 mg IM Left Hip [id number] 05/18/22 [facility] Addendum Signed By: Signed Date/Time: [...] Balbuena with Maddie Guzmán CMA acting as English Lecturer for the entirety of the visit. Water Pump Installer Required: No Is patient in pain?: Yes [...] 50 mcg capsule 50 mcg PO DAILY multivitamin,ms-uobk-juqxqerm (C omplete Multivitamin) 1 tab PO DAILY [...] last 30 days?: No Mask given: Yes [facility] Medical History (Updated 01/14/21 @ 11:15 by [...] with Franky Guzmán CMA, functioned as a assistant secretary was present during theentire office visit. The [...] - Pain in right hip SNOMED Code(s): 60209812 Category: Medical (2) Lumbar stenosis with neurogenic claudication: Status: Acute Code(s): M48.062 - Spinal stenosis, lumbar region with neurogenic claudication SNOMED Code(s): 17846563 Category: Medical (3) Spinal stenosis of lumbar region: Status: Acute Code(s): M48.061 - Spinal stenosis, lumbar region without neurogenic claudication SNOMED Code(s): 31609460 Category: Medical (4) Trochanteric bursitis, left hip: Status: Acute Code(s): M70.62 - Trochanteric bursitis, left hip SNOMED Code(s): 8884702 Category: Medical (5) Osteoarthritis of right hip: Status: Acute Code(s): M16.11 - Unilateral primary osteoarthritis, right hip SNOMED Code(s): 796738771231178 Category: Medical Orders: Orders XR HIP W PEL 2 OR 3 VW RT Today M25.551 - Pain in right hip Problems Did you add a problem (diagnosis code) to the patient?: No Coding Level of Care Code 12132 Estab Pt Level 3 Diagnoses Right hip [...] rce(s) Supporting Document(s) ID Date Data Source [id number] 12/29/2020 02:39:00 PM EDT [facility] ([facility] [address] [facility]) Name Value Range Interpretation Code Description Data Nita rce(s) Supporting Document(s) Glucose [Mass/volume] in Serum or Plasma 143 [facility] ([employer] [facility] [address] [facility]) ID Date Data Source [id number] 12/29/2020 02:11:00 PM EDT [facility] ([facility]) Name Value Range Interpretation Code Description Data Nita rce(s) Supporting Document(s) Dexa Scan, Axial Skeleton, One Or More Sites [facility] [facility]) ID Date Data Source [id number] 11/24/2020 01:21:00 PM EDT [facility] [address] [place] [address], [address] [place] [address] Cardiology Note : [id number] Signed Patient: Manasa Calle Acct:[id number] Visit Date: 11/24/20 : 1930 Cardiology HPI [...] with normal LVEF. She then went to [place] for the winter. She reports she was in a hospital in [place] in August 2020. She reports she was [...] she was evaluated at a Hospital in [place] a few months ago. She states she was diagnosed with afib and started on Eliquis. She c/o SOB. Water Pump Installer Required: No Primary Care Physician:: Yanick Guerrero [...] 50 mcg capsule 50 mcg PO DAILY multivitamin,by-lhss-vtsnckso (Complete Multivitamin) 1 tab PO DAILY oxybutynin [...] Code(s): I25.10 - Atherosclerotic heart disease of samish coronary artery without angina pectoris SNOMED Code(s): 14706298 Category: Medical Qualifiers: Coronary Disease-Associated Artery/Lesion type: samish artery Associated angina: with otherforms of angina [...] atrial fibrillation. New diagnosis. Request records from [place]. She is on Eliquis. We will try [...] QDAY 90 tabs 3RF Cardiology Charges Charges 12153 Electrocardiogram Complete: Yes Incident To Is this Incident to:: No Coding Level of Care Code 53905 Estab Pt Level 4 Exam Detailed Diagnoses Coronary artery disease I25.10 Coronary Disease-Associated Artery/Lesion type: samish artery Associated angina: with other forms of angina Percutaneous transluminal coronary angioplasty status Z98.61 Hypertension I10 Hyperlipidemia E78.5 Paroxysmal atrial fibrillation I48.0 Diastolic heart failure I50.30 Mild mitral regurgitation I34.0 Chronic renal insufficiency, stage III (moderate) N18.30 Additional Codes Charges - 95852 Electrocardiogram Complete: Yes (81638) Signed By:Caroline Wise <<Signature on File>> Signed Date/Time: 11/28/20 0840 Co-Signer: Fran Ba MD Co-Signed Date/Time: 11/29/20 0544 Initializing User: Caroline ACKERMAN 03/08 1321 1321 132 Name Value Range Interpretation Code Description Data Nita rce(s) Supporting Document(s) ID Date Data Source [id number] 11/22/2020 12:26:00 PM EDT [facility] [address] [address] Patient Name: Manasa Calle Exam Date: 11/22/20 [...] Professional interpretation performed at [facility] [phone]. End of diagnostic report: [id number] Signed: Parker Blakely MD 11/22/20 1458 Interpreted by: Parker BlakelyTranscribed by: Parker Blakely Name Value Range Interpretation Code Description Data Nita rce(s) Supporting Document(s) ID Date Data Source [id number] 11/22/2020 11:43:00 AM EDT [facility] [address], [address], [address] [place] [address] [place] [address] Orthopedics Initial Consult : [phone] Signed Patient: Manasa Calle Acct:[id number] Visit Date: 11/22/20 : 1930 Intake Vital [...] hours. Natty Machuca LPN acted as a assistant secretary for patient's entire office visit with Dr Balbuena today. Water Pump Installer Required: No Is patient in pain?: Yes [...] 25 mcg tablet 25 mcg PO DAILY multivitamin,hm-egxv-pgnykxpo (Complete Multivitamin) 1 tab PO DAILY oxybutynin [...] last 30 days?: No Mask given: Yes [facility] Medical History (Updated 11/22/20 @ 17:03 by [...] Natty Machuca LPN, who functioned as a assistant secretary and was presentduring the entire office visit. [...] Route Admin Location Lot Number Expiration Date [facility] Manufactu rer 40 mg IM Left Hip Bursa [id number] 03/18/21 PFIZER lidocaine (PF) Performing Provider: Caroline Balbuena DO Administered by: Caroline Balbuena DO on 11/22/20 15:54 Dose Route Admin Location Lot Number Expiration Date NDC Manufactu rer 40 mg IM Left Hip Bursa [id number] 05/18/22 [employer]OSPIR[facility] Assessment Plan (AMB) Assessment Plan (1) Trochanteric bursitis, left hip: Status: Acute Code(s): M70.62 - Trochanteric bursitis, left hip SNOMED Code(s): 6786751 Category: Medical Orders: Orders: XR HIP W PEL 2 OR 3 VWS LT Today (2) Spinal andrew nosis of lumbar region: Status: Acute Code(s): M48.061 - Spinal stenosis, lumbar region without neurogenic claudication SNOMED Code(s): 51493473 Category: Medical (3) Lumbar stenosis with neurogenic claudication: Status: Acute Code(s): M48.062 - Spinal stenosis, lumbar region with neurogenic claudication SNOMED Code(s): 47643963 Category: Medical Problems Did you add a problem (diagnosis code) to the patient?: Yes Other Orders: Orders: Depo-Medrol Injection 40 mg Today Lidocaine injection 4 mg Today Medications Patient given information on their new medications: No Coding Level of Care Code 70470 New Patient Level 3 Diagnoses Trochanteric bursitis, left hip M70.62 Spinal stenosis of lumbar region M48.061 Lumbar stenosis with neurogenic claudication M48.062 Signed By:Caroline Balbuena DO <<Signature on File>> Signed Date/Time: 11/22/20 1704 Co-Signer: Co-Signed Date/Time: Initializing User: Caroline Balbuena DO 01/05 1143 1143 1143 Name Value Range Interpretation Code Description Data Nita rce(s) Supporting Document(s) ID Date Data Source [id number] 11/11/2020 01:24:00 PM EDT [facility] ([facility]) Name Value Range Interpretation Code Description Data Nita rce(s) Supporting Document(s) Sodium [Moles/volume] in Serum or Plasma 137 meq/L 135-145 [facility] ([facility]) Carbon dioxide, total [Moles/volume] in Serum or Plasma 27 meq/L 22 -33 [facility] ([facility]) Potassium [Moles/volume] in Serum or Plasma 4.0 meq/L 3.5-5.3 [facility] ([facility]) Chloride [Moles/volume] in Serum or Plasma 106 meq/L 94-110 [facility] ([facility]) Urea nitrogen [Mass/volume] in Serum or Plasma 14 mg/dL 7-25 [facility] ([facility]) Anion gap in Serum or Plasma 8 5-16 [facility] ([facility]) Creatinine [Mass/volume] in Serum or Plasma 1.0 mg/dL 0.6-1.4 [facility] ([facility]) GFR 52.4 mL/min [facility] ([facility]) Stage G3a - Mildly to moderately [...] Serum or Plasma 9.0 mg/dL 8.7-10.5 [facility] ([facility]) Glucose [Mass/volume] in Serum or Plasma 206 mg/dL 70-100 [facility] ([facility]) Urea nitrogen/Creatinine [Mass Ratio] in Serum or Plasma 14 8 -36 [facility] ([facility]) ID Date Data Source [id number] 11/11/2020 02:31:00 PM EDT [facility] Name Value Range Interpretation Code Description Data Nita rce(s) Supporting Document(s) SODIUM 137 MEQ/L 135-145 N [facility] POTASSIUM 4.0 MEQ/L 3.5-5.3 N [facility] CHLORIDE 106 MEQ/L 94-110 N [facility] CARBON DIOXIDE 27 MEQ/L 22-33 N [facility] ANION GAP 8 5-16 N [facility] BLOOD UREA NITRO 14 MG/DL 7-25 N [facility] CREATININE 1.0 MG/DL 0.6-1.4 N [facility] GFR 52.4 ML/MIN [facility] Stage G3a - Mildly to moderately decrea [...] years only. BUN/CREAT RATIO 14 8-36 N [facility] GLUCOSE 206 MG/DL 70-100 H [facility] CA 9.0 MG/DL 8.7-10.5 N [facility] ID Date Data Source [id number] 11/02/2020 02:43:00 PM EDT [facility]) Name Value Range Interpretation Code Description Data Nita rce(s) Supporting Document(s) Glucose [Mass/volume] in Serum or Plasma 206 [facility] ([facility]) ID Date Data Source [id number] 04/16/2020 12:30:00 PM EDT [facility] Name Value Range Interpretation Code Description Data Nita rce(s) Supporting Document(s) SARS coronavirus 2 RNA [Presence] in Res piratory specimen by YADIEL with probe detection [facility] This lab was ordered by [facility] and reported by [facility]. ID Date Data Source [id number] 04/14/2020 02:16:00 PM EDT [facility] ([facility]) Name Value Range Interpretation Code Description Data Nita rce(s) Supporting Document(s) Creatinine [Mass/volume] in Urine 38.1 mg/dL [facility]) ID Date Data Source [id number] 04/14/2020 02:16:00 PM EDT [facility] ([facility]) Name Value Range Interpretation Code Description Data Nita rce(s) Supporting Document(s) Creatinine, Urine 38.1 mg/dL [facility] ([facility]) Laboratory test finding (navigational concept) 54.5 mg/L [facility] ([facility]) Laboratory test finding (navigational concept) 143.0 MCG/MG 0.0-30.0 [facility] ([facility]) THE [employer] STATES THAT MICROALBUMINURIA IS PRESENT IF THE MICROALBUMIN/CREATININE RATIO EXCEEDS 30 MCG/MG. THE THRESHOLD FOR CLINICAL ALBUMINURIA IS REACHED AT 300 MCG/MG. THE CLASSIFICATION OF A PATIENT SHOULD BE BASED UPON AT LEAST 2 OF 3 ABNORMAL RESULTS ON SPECIMENS COLLECTED WITHIN A 3 TO 6 MONTH TIME FRAME. ID Date Data Source [id number] 04/09/2020 01:08:35 PM EDT [facility], PCName: Sumaya WinterNataliaOB: 3Provider: [...] that she had previously been seen in [place] but was told 3 years ago that [...] CHEW;Therapy: (Recorded:08Apr2020) to Recorded Benazepril HCl TABS;Therapy: (Recorded:38Jbx1081) to Recorded Bisacodyl TBEC;Therapy: (Recorded:08Apr2020) to Recorded [...] insertion History of Partial hysterectomy History of [place] tooth extraction Social History Never a smoker [...] are no changes to the medication regimen. LOG PREPARER was consulted by my designee and I [...] ScribeNYSW Scribe Detail Form: Florinda Ni . ([employer]) Signatures Electronically signed by : Charmaine Corbett MD; Apr 09 2020 1:08PM EST Name Value Range Interpretation Code Description Data Nita rce(s) Supporting Document(s) ID Date Data Source [id number] 04/08/2020 10:47:00 AM EDT [facility] ([facility]) Name Value Range Interpretation Code Description Data Nita rce(s) Supporting Document(s) Creatinine For GFR 1.24 mg/dL 0.55-1.30 [facility] ([facility]) Glucose, Fasting 75 mg/dL 70-100 [facility] ( [facility]) Blood Urea Nitrogen 24 mg/dL 7-18 [facility] ([facility]) Sodium Level 137 meq/L 136-145 [facility] ([facility]) Potassium Serum 4.7 meq/L 3.5-5.1 [facility] ([facility]) Glomerular Filtration Rate 43.6 [facility] ([facility]) <content>Units are mL/min/1.73 m2</content>
<content></content>
<content>Chronic Kidney Disease Staging per NKF:</content>
<content></content>
<content>Stage I & II GFR >=60 Normal to Mildly Decreased</content>
<content>Stage III GFR 30- 59 Moderately Decreased</content>
<content>Stage IV GFR 15-29 Severely Decreased</content>
<content>Stage V GFR <15 Very Little GFR Left</content>
<content>ESRD GFR <15 on ROVING HAND</content>
<content></content> Chloride Level 102 meq/L 98-107 [facility] ([facility]) Carbon Dioxide Level 29 meq/L 21-32 [facility] NT ([facility]) Anion Gap 6 meq/L 8-16 [facility] ([facility]) Ast/Sgot 31 U/L 7-37 [facility] ([facility]) Alt/SGPT 35 U/L 12-78 [facility] ([facility]) Calcium Level 9.4 mg/dL 8.8-10.2 [facility] ([facility]) Total Protein 6.9 GM/DL 6.4-8.2 [facility] ([facility]) Bilirubin,Total 0.3 mg/dL 0.2-1.0 [facility] ([facility]) Alkaline Phosphatase 154 U/L 45-117 [facility] ([facility]) Albumin 3.9 GM/DL 3.2-5.2 [facility] ([facility]) Albumin/Globulin Ratio 1.3 1.2-2.2 [place] [facility] ([facility]) ID Date Data Source [id number] 04/08/2020 10:47:00 AM EDT [facility] ([facility]) Name Value Range Interpretation Code Description Data Nita rce(s) Supporting Document(s) Laboratory test finding (navigational concept) 84 mg/dL [facility] ([facility]) HDL Cholesterol 78 mg/dL [facility] ([facility]) LDL Cholesterol 54 mg/dL [facility] ([facility]) Laboratory test finding (navigational concept) 71 mg/dL [facility] ([facility]) Laboratory test finding (navigational concept) 149 mg/dL [facility] ([facility]) Laboratory test finding (navigational concept) 1.910 [facility] ([facility]) ID Date Data Source [id number] 04/08/2020 10:47:00 AM EDT [facility] ([facility]) Name Value Range Interpretation Code Description Data Nita rce(s) Supporting Document(s) Thyrotropin [Units/volume] in Serum or Plasma 4.220 uIU/ML 0.358-3.74 0 [facility] ([facility]) ID Date Data Source [id number] 04/08/2020 10:47:00 AM EDT [facility] ([facility]) Name Value Range Interpretation Code Description Data Nita rce(s) Supporting Document(s) Creatine kinase [Enzymatic activity/volume] in Serum or Plasma 282 U/L 26-192 [facility] ([facility]) ID Date Data Source [id number] 03/24/2020 02:23:00 PM EDT [facility] ([facility]) Name Value Range Interpretation Code Description Data Nita rce(s) Supporting Document(s) Hemoglobin A1c/Hemoglobin.total in Blood 6.7 [facility] ([facility]) ID Date Data Source [id number] 03/24/2020 02:08:00 PM EDT [facility] ([facility]) Name Value Range Interpretation Code Description Data Nita rce(s) Supporting Document(s) Glucose [Mass/volume] in Serum or Plasma 60 [facility] ([facility] and [facility]) ID Date Data Source [id number] 03/12/2020 03:28:41 PM EDT [facility] Name Value Range Interpretation Code Description Data Nita rce(s) Supporting Document(s) Progress Note [facility] [id number] lbm [file] [id number]= ID Date Data Source [id number] 03/12/2020 03:28:36 PM EDT [facility] Name Value Range Interpretation Code Description Data Nita rce(s) Supporting Document(s) Progress Note [facility] [id number]/[id number] lbm [file] YNCg== ID Date Data Source [id number] 03/03/2020 02:30:00 PM EDT [facility] Name Value Range Interpretation Code Description Data Nita rce(s) Supporting Document(s) WHITE BLOOD COUNT 7.32 10^3/uL 4.00-10.50 [facility] RED BLOOD COUNT 3.28 10^6/uL 3.90-5.20 [facility] th HEMOGLOBIN 10.6 G/DL 11.5-15.6 L [facility] HEMATOCRIT 31.0 % 35.0-46.0 L [facility] MCV 94.5 FL 80.0-100.0 N [facility] MCH 32.3 PG 27.0-34.0 N [facility] MCHC 34.2 G/DL 32-36 N [facility] RDW 12.7 % 11.5-14.5 N [facility] PLATELET COUNT 290 10^3/uL 130-400 [facility] MPV 8.5 FL 8.7-13.2 L [facility] GRAN % (AUTO) 59.7 % 42.0-75.0 N [facility] LYMPH % (AUTO) 25.3 % 20.0-51.0 N [facility] MONO % (AUTO) 9.6 % 2.0-15.0 N [facility] EOS % (AUTO) 4.5 % 0.0-11.0 N [facility] BASO % (AUTO) 0.8 % 0.0-2.0 N [facility] IG % (AUTO) 0.1 % 1.00-5.00 [facility] IG # (AUTO) 0.0 10^3/uL <0.5 [facility] GRAN # (AUTO) 4.37 10^3/uL 1.50-6.50 [facility] LYMPH # (AUTO) 1.9 k/uL 1.0-5.0 N [facility] MONO # (AUTO) 0.70 k/uL 0.20-1.50 N [facility] EOS # (AUTO) 0.33 10^3/uL 0.00-1.10 N [facility] BASO # (AUTO) 0.06 10^3/uL 0.00-0.20 [facility] ID Date Data Source [id number] 03/03/2020 02:44:00 PM EDT [facility] Name Value Range Interpretation Code Description Data Nita rce(s) Supporting Document(s) SODIUM 136 MEQ/L 135-145 N [facility] POTASSIUM 4.4 MEQ/L 3.5-5.3 N [facility] CHLORIDE 105 MEQ/L 94-110 N [facility] CARBON DIOXIDE 24 MEQ/L 22-33 N [facility] ANION GAP 11 5-16 N [facility] BLOOD UREA NITRO 23 MG/DL 7-25 N [facility] CREATININE 1.1 MG/DL 0.6-1.4 [facility] GFR 47.0 ML/MIN [facility] Stage G3a - Mildly to moderately decrea sed kidney function The GFR is an estimate of the Glomerular Filtration Rate. It is an aid to assess a patient's renal function. It is not a conclusive diagnosis of kidney disease. GFR normal is >=90 The MDRD GFR calculation is considered valid between the ages of 18 and 75 years only. BUN/CREAT RATIO 20 8-36 [facility] GLUCOSE 193 MG/DL 70-100 H [facility] CA 8.9 MG/DL 8.7-10.5 [facility] BILIRUBIN,TOTAL 0.3 MG/DL 0.1-1.3 [facility] AST 21 U/L 5-40 N [facility] ALT 25 U/L 5-48 [facility] ALKALINE PHOSPHATASE 152 U/L 40-140 [facility] TOTAL PROTEIN 6.3 G/DL 5.9-8.3 N [facility] ALBUMIN 4.4 G/DL 3.0-5.1 N [facility] GLOBULIN 1.9 G/DL 1.5-3.5 [facility] ALB/GLOB RATIO 2.3 G/DL 1.0-3.0 N [facility] ID Date Data Source [id number] 03/03/2020 02:44:00 PM EDT [facility] Name Value Range Interpretation Code Description Data Nita rce(s) Supporting Document(s) IRON 92 UG/DL 35-150 N [facility] TIBC 243 UG/DL 260-400 [facility] % IRON SATURATION 38.0 % 20-50 [facility] ID Date Data Source [id number] 03/03/2020 02:44:00 PM EDT [facility] Name Value Range Interpretation Code Description Data Nita rce(s) Supporting Document(s) FERRITIN 444.0 NG/ML 22-322 [facility] ID Date Data Source [id number] 02/07/2020 05:15:18 PM EDT [facility] INFORMATIONPatient MRN Name Date of Age Gend*PT [id number] Manasa Calle 1930 89 years F OBSPT Location Admission Date/Time Visit ID Attending [id number] 02/04/20 0023 --- --- EPI ID CSN Admitting Provider [id number] Missael Mcnulty MD([id number]) Attestation signed by Maile Gonzales MD at [...] of care by Rob Cruz NP -- [facility] DISCHARGE SUMMARYPatient Name: Manasa Calle of : 1930 Age 89 yearsPrimary Physician: Yanick Guerrero MD PCP Yvrrlobzb Date: 02/04/2020 Discharge Date: 02/06/2020[place] will be discharged from [facility] to Home.Discharge Diagnoses:Principal Problem: Chest discomfortActive [...] Alzheimer's dementia, hypertension, hypothyroidism,hyperlipidemia who presented to [facility] on 02/04/2020 withcomplaints of chest pain [...] spectral Doppler.X-ray Chest Two ViewsResult Date: 02/04/2020. [place] [address] Patie nt Name: MANASA REEDER : 1930 [...] VIVEK BORDEN On02/04/2020 7:40 AM Workstation ID: [id number] Angiogram ChestResult Date: 02/04/2020[place] [address] Patient Name: Manasa Reeder : 1930 Sex: F Ordering Provider: EUGENIO HERMANuthgabe Prov: EUGENIO KAUFMAN Referring Provider: ProcedurePerformed: CT ANGIOGRAM CHEST Exam Date: 02/04/2020 03:07 AccessionNumber: [id number] Patient Class: PROCEDURE INFORMATION:Exam: CT Angiography Chest [...] Imaging With Ef And WmResult Date: 02/05/2020[place] [address] Patient Name: MANASA REEDER : 1930 Sex: [...] JESS ALVARADO On 02/05/2020 3:12 PM Workstation ID:[id number]:NoneConsultants:NoneRecent Labs:BMP:Lab ResultsComponent Value Date NA 133 (L) [...] rce(s) Supporting Document(s) ID Date Data Source [id number] 02/05/2020 05:30:24 PM EDT [facility] Name Value Range Interpretation Code Description Data Nita rce(s) Supporting Document(s) POC NOVA GLU 150 mg/dL (70-99) H [facility] [place] PERFORMED BY [facility] CLINICAL STAFF ID Date Data Source [id number] 02/05/2020 03:12:31 PM EDT [address] [place] [id number] Name: MANASA LEIJAOB: 1930Sex: FOrdering Provider: PATRIA Barryhoamy Prov: PATRIA Stoddard Provider: Procedure Performed: NM CARDIAC GATED SPEC IMG EFWMExam Date: 02/05/2020 14:43MRN: [id number] Number: [id number] Class: OutpatientAccount #: [id number] for study: ACS, possible, negative troponinCOMPARISON: NoneTechnique: [...] JESS ALVARADO On 02/05/2020 3:12 PMWorkstation ID: [id number] Name Value Range Interpretation Code Description Data Nita rce(s) Supporting Document(s) ID Date Data Source [id number] 02/05/2020 09:04:57 AM EDT [facility] [place] Name Value Range Interpretation Code Description Data Nita rce(s) Supporting Document(s) POC NOVA GLU 143 mg/dL (70-99) H [facility] [place] PERFORMED BY [facility] CLINICAL STAFF ID Date Data Source [id number] 02/04/2020 04:42:58 PM EDT [facility] [place] Name Value Range Interpretation Code Description Data Nita rce(s) Supporting Document(s) POC NOVA GLU 168 mg/dL (70-99) H [facility] [place] PERFORMED BY [facility] CLINICAL STAFF ID Date Data Source [id number] 02/04/2020 04:07:02 PM EDT [facility] Name Value Range Interpretation Code Description Data Nita rce(s) Supporting Document(s) &PDF [facility] [id number]/[id number]AOhJCZOgSSXKQNZ7d vci [file] SvyPza/Nm4I6MhB7IyOS3/uN+/MARÍA+6ld8NTc+3cyB3O46vDQ1UNdiVWsNoiWQT7/wZ61Rwhxmy4BLTb [file] AgICAgICAgICAgICAgICAgICAgICAgICAgICAgICAg ICAgICAgICAgICAgICAgICAgICAgICAgICAgICAgICAgICAgICAgICAgICAgICAgICAgICAgICAgICAg BKCyFM3XYHDiAGGiZIIvPTNeMQNlGQOnMMHoLUSwLBYoKLKyBIUiVGDdWFGuWXXzNAHqYMYoWPYkSWRe ICAgICAgICAgICAgICAgICAgICAgICAgICAgICAgIC RbADTaUTFuOYEuFAOxWU8VTTFiOZXtJRTuKOVoQTWyVQSyVWYjURTiLNIaWNHuCEYgNDBrZQIzLUZaVT ZzSQMgCPNnNAZePYMkLOFwYHEyWOEdFZKeVDWjUAIjVSDlJGTxIVDbHLLaQJLdNFAbQVHxODEjNV9DLR AgICAgICAgICAgICAgICAgICAgICAgICAgICAgICAg ICAgICAgICAgICAgICAgICAgICAgICAgICAgICAgICAgICAgICAgICAgICAgICAgICAgICAgICAgICAg EEEgJSKnLT8GDRJqCZJhKPQbCIGwRKEuSDHlNUSaRZLuLYBpPCDaRCFdCXIuTJOvGGFhQIYcIYBmNZOz ICAgICAgICAgICAgICAgICAgICAgICAgICAgICAgIC LsUZWqDXFqMCJlTANqZWQuEV3YTFPvSAYeBWDwXCPoNQBdFHTeKNAxHAWiHSPnHYAuQGHzERMbNRFjPB AgICAgICAgICAgICAgICAgICAgICAgICAgICAgICAgICAgICAgICAgICAgICAgICAgICAgICAgICAgIA 0KICAgICAgICAgICAgICAgICAgICAgICAgICAgICAg ICAgICAgICAgICAgICAgICAgICAgICAgICAgICAgICAgICAgICAgICAgICAgICAgICAgICAgICAgICAg FXDuOCUlBODuCS3IJSCjFWQrYLAaILOqPYYvAZPkHXIbZNEtKLBjPIZgZYHwXZDoVECbNCJgHXErXGQr ICAgICAgICAgICAgICAgICAgICAgICAgICAgICAgIC TgARDmJISrWDWqWAPyNVEpPHOnHW4CHORvQUXfNWGsHQOrAZSsWHIgRKJfSFOaCMYpZWPpWRPnEKXtVX AgICAgICAgICAgICAgICAgICAgICAgICAgICAgICAgICAgICAgICAgICAgICAgICAgICAgICAgICAgIC TyBW6JHC06dIMwx9E4KBUoOJ9lcbp/Ab8EQCqnkoMm pIJvPU8MYiUgLM1myh3LRqLtSM4yde1VBWrMEsGdG5T5dQCmEGSgXHJUTeHoO34jRRuqTj37RVbrVQBh RcSeZBd0Xs5GWfTaA5wxWUWcLqG9PSTxAgG6LBXvLrJ5DVJqXrWqSXZoUKWgZQ2XFTVrE893zzXfEM5D Im0VKwJuVC4nic3AHcoeMYCpInzJUmc5LLfjYG8SzJ DxA7RmpQUqo9nDZtUkM9NOJUQ7HLVqVr7TJPBwLxAsUNJhCPjxMI1xVGXyMWQFhImbqpH9AJ3LRY6vhj PvWD5HHeLcGk7wQo4SRtZcY1HdI2SwVWMiYYOMFGaqZZ8FFBJnLAO8ZFEkFCNlPAESWjRpW16hUE9CC4 Uzl95tGqG9WBOsIvGoKRgyYO39eUfmrfQrjEGmaTmh TU2LLl8+WXukvrEkZlpREyqeNLBDXySqYUGWApKlGJFfYNIrLHLqDoB4ZqCaTe2MCIEjLBImUYQxTrCn VIIiKQFxIEflZUSmLHZ0Fxd6YTWzQRUuDB7BZxNpIAAiVcodIABeSSWnJSIvln2FAYXaHBXlEPL0TqXr HDNzXUNeHRsvOPFqLJMuRsI7XIMbRQBzCH2QNpVgZT PkDQA9QJahWHAwOXDjxy6QTYRmFKCgJYo2QKSxWEUuUGBlZUreNQYuZJL5UMH6ZFKhMNVvEC9ZIqAcYI PcBGm6ECGjOMLxSJNive8MNFVuCWImXol6ZXScGSRqGHMbNHyoXCCcWBK5DUB7IYLjDWZqLA2MSeCtIB VlOHcxOFAxWMKlKKBgko5VOJEbWNUwPYNzDKCuEHTu IFAeFPfpRJAlMNInHUNrDNGtWHFgAQ8CTuDuNSFtGZG2FKJjCBSpHTZqlk7RQKJbWERmSAD8MAAuSFYt HFXlRCbrNMQbMWXxUzV6JQXsGUJaVU9MGyFaQASwBFH1VSLeXWAiRFZqiw1CYAAiJQKlBsobDxTzQUBw GWIgLTlpXZUdBDVtLDLfVBGvUAEgCJ6QOlLzBDImHZ HqTGRdGOWaVBNgxu0XIVVcGFKyKVJ0BNTdQXAaXSIaWBluKEKdWZVyEbZ7WLPsAJLyUC6HVaRzTDUpJf UdLKrxGGYoJUWqdk9PBCDgFTGqEIswKZPcXXXxYTNdVBtpDUEmJOV9ArEvRCAqUEFcUD5CJjGxNOQqKw G6CKVdTXSlYUVbrx9ROTXmJTSxSHWkHsRkFIFxPVTj EJjqWJYzFUZ6WCRlLSLpUGGkMK9YMaGjYQGtKSW5PCXaJGUeWLPyfi5VSSRyVAU6VsiwBKVhQHYsRCLx HHtySCEbPYF0NjQvAHXjJCDhKN7GYkLkBCSnNAZ1YAHkKESxTAGimu4ZHDExORU5JCj4TFNgPWLlEMHg DAmfOMXdBYK0WKXwJENyFYVsYV2WHkDtJQUbZyVaXo FwPXGkKAMboh3QZAGmGXP9TGD8ZjWaQOGkXWEkOEdsIUJjYNE4KMKhAYBxDIRyDX1IRbBkWIVyAghbMB ouEAIqUTZaxa8JgKGblLyhks8JDEmEGj3QsGccJRHwRXpkCk5jiIHiBIAoOJMXYj5FmwPwETEqTDDAYP noZDNgQLTiYyBkQqR8ByreVar6JQC8QOgeONVzMXF3 CmLcDIM4EtY5N9TwFWPvLPFuXZRjNpWnTNRqLYNaFkE5JxXjPWL0Eqa+RQ8oDPz+Bk4Fn8DsxbK2atGb PMn8UvA3CP0RQSOGK6FDDm== ID Date Data Source [id number] 02/04/2020 02:02:58 PM EDT [facility] Name Value Range Interpretation Code Description Data Nita rce(s) Supporting Document(s) POC NOVA GLU 240 mg/dL (70-99) H [facility] [place] [facility] CLINICAL STAFF ID Date Data Source [id number] 02/04/2020 09:35:03 AM EDT [facility] Name Value Range Interpretation Code Description Data Nita rce(s) Supporting Document(s) EKG [facility] ONQWMp2gMeQAJcTpj6PiTsRlJCIoRX2drra1G1E5kOVqD6NqsEWqf3bgN9OdZ3JcEOMoUVDCUF2BxAQj jb2 [file] tx94G8kHoUGK1UE21qCS3bGWoWBd4O4SoHkiIFiGHnquplro3560hQu/7011A29/QvTv3//7f//surveillance technician+L/ /H//8wf8/ffP//Je/L/+8z//13/+j//1f/iG2Obmq/6f//k//dd/5V5ombfbW82Kn//7X/+X/7g//0j8 /fPf/zmXPv/+/fef/+0/yADxbLvIhEY4fIzLVDzL5k ePEYkQVnFZOTJtUEjO2bNWGdm+GXcF8xDGBfp+GkxI0qdNF+1+FnqK3jmMH+1+MobL4hrXZ+1+KfzS7p fCL+1+Qjiv5dpRV+t+Hxun6wdON+t+Yium7htMQ+t+Tdrt9buXJ+t+Ssf3mq2Euz2d23Zqx/t10Stwbq 02QcyhJ23V4dlQO9O9KgIS2V35/TRvu0To6541/PLu g1Ch91612hO7MO+8++Vko5aoKs+8+nPnO1deSi+i+pNwH8bkNs+i+tIaQ957TemQ5p+LI6F7WphL2u5K p7q0f2Ua4b5g6Zw6aur2lb5gUp4h76eRz/lVn1FK730C+DW7Xwt+re7Xgl+r+7Xg1+p+Yiv2eh1Eyw3e 14Jfq/j21Lj7Kn94rAF/Tzke3i7Yj3i9u1Vh8c1t7C s2euq60r9zKe2379xMi0057aRp/47LbWD+ERazBc5Pm6o2pWJ+artxr3Fw1xC+Mbxei74K+uEQ/fyM0Q 0H8jcmtA82GV8/yaJV3q2isJXGcnqnGqXRcXUM3mtNzlJ3UYRQgditwVUNsaEMzlU/ekQoSORHkQglie oe0pbz36bQweX17FMCSNP/ywDbVpRMckrExgtmN9D5 rR36YtWr2kLXuHQUyyNNZVYC/arKJit//KRQkR+iBxLc8qSHoEKTwzLTJM5Kh81YKnu9VJhVrMK/mkUo WuRHtQhli/zoFqFwkR/aFcKt4fLsvVGRatUAPE1Kt78EWuv7JAQGFFR/GkYoYuRHxQhljPj/4V9C5MmU Drf20BIPVSZ/akYoZ+VTehpPhcigUfKtxD3LCzI37s NqhLJGfnSNUNhI/E8M8e9uqGXNA/EvkqBrFm92iUSzcP/CEUoc+wB3QdEoGldAEHSaK+wGoJ23DG4s0O EfrSMUO/GmxlLlH719vwGupE/iEUoe+wK3LsLcX6pCTQuuC/cIhY/8KB+b6DTp2MSNI/QalfVxO634a6 GRsD4VMamt+bUCQqFnQvoFIAZkZxyNhEK2AQMiBKAs LSQUQ/HipuYjET00zBJR9O6bBmta/yUEPs0kW9lIeKl7Cl8q5AA+6CGlHtIfPaTUQ/iab5K9FC/0kFIP 1O3iQutr/mKQDg7iS0fAzYx9Hd4z7YY+6CGlHtIfPaTUQ/rcb8R0UL/hU6wAni7UDBae+R/maNokzY+f wAjof44fAnJ4dzY3wNewhTl6XbX4O6Ipu837hYHW3H 8eUuoh/uQDOv5lZ4uBuOf7Sa7z7CP+6CGlHtIfPaTUQ/ijo6F8TY/1sKDX0M5pUzil/cSMLh3qC5yEfW k6Xs6p5FG+6CGlHtIfPaTUQ/rjk3A5SB/3bKAT0E0oElqz/dZWBk6cY2gWaAz8Rm0s7VS+6CGlHtIfPa TUQ/yvm9X4OQ/4vHUW0Z6cJirj/bWGAa4fE9jHiVx1 Lg4r6OS+6CGlHtIfPaTUQ/ppc8U6FS/9yQDY5V8rRpbr/pZP17WAvnK2vtlpttzhCwbY1XXz2DdlHAam DTRiLJxFQpRWMIC9h/RH6Y/SH6U/Sn+M/xo6Pwzo6Xunq1Bydo1Wf0b+GP0x+mP0x+iP0R+jP0Z/Bv0Z 5VhJx1B/Fy8J7BgEl0M/Mi8D7ZjLh2D/Ko9X1SbQp1 F/nP44/XH64/TH6Y/TH6c/Tn+c/rt8zymNQqkFW1a/Tn+c/uN6ThtU6CczK5QhbK2Qo8I+BP0J+hP0J+ hP0J+gP0F/gv5M+jPpz6Q/k/5M+jPpz6Q/k/5M+jPpz6Q/k/5M+jPpz6Q/k/4s+rPoz6I/i/4s+rPoz6 I/i/4s+rPoz6I/i/4s+rPoz6I/i/5s+rPpz6Y/m/5s +rPpz6Y/m/5s+rPpz6Y/m/5s+rPpz6Y/m/8sPFK2bDkdqbfAdDENQHrTxCeseGkBP2fS9uaOtJ4yFX26 zy1vjA6ts1Y3b+afNP+k+SfNP2n+SfNPmn/S/NCeQ6aIJRr59nPUE4uNUL9RXqSKSPU6QMYZD1cTFoNR yUOLYR5HGUIY9fXSQYhjWStIIrAK6CG7GLPUY8tKYN WViXBJPC8IFMIG9uSDTAxcMJfIFutUhSQ7qVYBK1oBA0OMgYA3DE3cYVNM2dIVSWqvWPBRKllRTVW2mD RGU8xUCwSYhnLjOP1dUWZx0iZQRLysTD4RFzaDYVg7kRKIe8wJYjKIwlHIRJ85DTAq7gOl5pnzfxXdZ0 +Ier4LERgFwzb0cjOleDOF5BiPOGQkXRKwz0VYdT1J TKe0UYSv6cSJXgXfEmCjAMcsn/dcjxnpziBzDx3MeAX078Bw4GQK2If131Qr9OVc4Bt200oz/fOM+ZB/ nvLDx/v3ICiQO/o8ueeC8UzZDgy9gMzsNPNlPiAnWf0nJpwH+YkUYaiI/UZzC+efnAwX+LlUMwKKC0JU Q0Z+YkYYNPITNcKwkZ+4EQaO/UIGACIhP8bMbUK/0S MMH/hFS3ZIaO0SEWTOvnHJFIK9Q9RVMFVsJOAOxS8ByFRV4VudzC1Us0/NbtpxINKLfT3ApBBA3OiLuZ VvYqGipXG7sXGuHTtPINdoKH7qRAtM+jEZmpqUsojvccdY2KEd3mc9gLITtMwMv5qTfJxGp1pdEI7yue T4s2ggyRi3hVawbJV9thkLsFK8ThDR0ujOE9qlAh1a isZ0m5k386an9uywtJh/t5bKXcrILmdF9ieMZs6bR1hMZ5KCTdvHRZvYzQYjKTddXGN5kKWKN5AFQ5pe VHoDxtBuXWevPFh70NKtgCkt/39adm7gKWIr5/i9zh/9f34+pB5h7Usuf/7tjXk867/OnQRJ2n0M/nyq lAuZxrVtlQ8k0pjYOU9rO5sbyv3sX3YujH4TgDL4P/ IT6z8IT8u9PL3UuMM7UiZ7Bw7YtHN2LfU6Po7GsHX6CcF4WW4UlNp6UsH6RI0LeCu0LvD2AV9WrSh5ed S9Fo6PrUl3wjR1Pg8OiIv1qjc28qF581ogCO6vTa3awIru8cs3ny2hft1Rnwv3MjAowY22WrikpfqvOw dN80dgtae2hvW7XyvK2KlyZ5VpsN6WdPC3T/Uo [file] Vs1Uv6R1w+Z1141ewe0P1J82ls59a/7KqQafUZFtm2 pdBXuhHPG/Gc+nf7YhsiWLG+kQ5/oa904/fgOH76e3635/gy2XPPY2yiS55mKRKM3FoYIkHKjB+kO9Id 8DQ7EEcO+xC5NJ3Q+sqejd/b13xet53M/SM4E8H9+PmLoLF9XE2xhVLevC7/Ce2F8AeRq6/vgyb3/chS L2Q5ru1f2Q/CX4W/Cn8V/oh7DDzbzdRJGH+Fv3rbr+ nwb3nO8ZMs5IpMn5xnyCZn0jzerT+9/tNmtfqrx49Vgw6+Hop5IJmMopmiD+nw1+OkaC0YnCB8Zp6mnB +75riz0nhbg9wwUTb+qa+mvrNJ1cAVBreU07C2Jjlhngb7KB5G9Nia6Bv+A/4O+Rfu4uNs0BKNvdvy9U V/N1X/XX/3VNecmKW+eq+IlwwSqFnPOfsH1wtgdv8A qV50WAluoNvhj/Tmh08joN/q007qbsAF/qa+dku8qj11ajuY+v3qjxAFUN3L5TgCoq/g+Qaeb+qr7GdS V136f3Fvnc+d1x9/12bwY8rf/av1tu347t/rj7/vb/b5/Uk/+qrKOfrqvZbn/ieqw06zJ325FpeHBhxX 5NrK62aiDNfgJ57k/S50AvY34UB7yd3lyzA00I3g+i eEY3wve+N34Iz0u5Bf3ny6/Ke+yj3vqa/az2MNmE/1OyeAms3htpRE+hL4NVrD+kL6Rvq+5SI9I5zX2w FswvNCUwck8XnAgYXsTyQK/XHucVd+gb8cksvr8fpvMnx0o803N5va2nxq7Oz24Dmfl0reDCs10l4tB+ xYa885H81naxR9AXiq7Pyst+tAZftd56gTMAlkD/Ann-Marie [file] jwsW2SicRKM0I4klGnQ9hcL1WdMxXnFyeLEMMzZhYT+I2luWvUrdW5L6j1O+Two Dot/ObFkBVvrQNQ5SzCn [file] Nf31/XMbb0PwK+z28Rf4aR5rzebYqXGn+C3NcHBT35UY/facility service associate/66Tv+hg7hk1q620A7EUknSqmqoqyQ3u JkbtSNF/Veronica/bHQ2T9k4Z6mk/cgN14/9qdsDcin4T7 [file] P8Zn6DdxXnVACvULAMGt3Oy042TPTaJZQGSgc+GtablBBwuXbcNRIOJBNlOSIMGFBXF8F= ID Date Data Source [id number] 02/04/2020 09:34:55 AM EDT [facility] Name Value Range Interpretation Code Description Data Ntia rce(s) Supporting Document(s) EKG [facility] ZTLPWx8iRmHUXnWes1SpSvSrCGQuNB9wvek6P3X0iKSjJ0JaxVPgb9vdH8KvB0DlVEYwXGBQKX4BiSYr jb2 [file] h0ltroAIfI5EPD5fs6vhsZ2sZsV3+0Bna0VppKg6BItvWe0hWyWscbfO+Zo7tQVdwGE9pkoIogjH/Roslyn vaoy+AK+gD/Bn+Lmi73Pt400bg6oL3/CFrcDq0b0Sz RdBn+Mb2HS0Awfgoo7iCGVF02+6afy86CGvaeHdYATM9QF0MF4ntESi8UhkQgpOJq/x/B/A9/Bd9QT/d M6iima71y7gd+3DP4B/zR/R3/kVZtzd72wLi24MwWZ/ElmCKbJcxWesAuTG8wCmOzdAeVp1LOO9+Bv8A /4p/kH/T0P+BJ6Tq034Z21U1F+5oMy+Hi+B8/34Pke PN+D53sc/AX+An+Dv8E/4J+PE6RrMGQvCaVRgiNSxYg3CG/An+JK8JF9Wp/AN/B7/zS6NX5iGB/pMvgb /A3+Af80P/WrW/5QIWo92tkXY/AF/An+BF/BV/ANfAMf/R3o74j+YuQ49Vjtsh3qW//n4P+n+nS1GQl2 Fp8KrVjpNtJHtuann2O+ivb9i+H/Bn2J66vw7DtE7a 3CUwUJ0Z5yzcT/0/k0NCoLf/N8PQ5qdpHk1RaGEenGunEg9Sw5Fn3A96vstNxiSH9xJb+D3/Q5znp31J t3ScDQG+TV5REaLlE/GmJGCV1K74vpmrLaWpQ/1sB1ibXgiCkdj4m+usE/4Xm9YtI3ubpeLj4x9mziog /h+Rqer+T4Nn9f1rhnji/h+Rqer+V3Vd2s5elhxl/h +Rqer+N6XhTx7hq3y8G/yrnpmL/a87XWp9M1G9RxjT3P4Ser77KyRr94BoyY8QAKjiZn2Nm1PYA0ReoM MI0ug7/EI75qfo5m0qK/Pf3/1Fp3bqTuuAjiy3UUF4JD/5/4f/R35n/0QRn/N/zf8H/H/UdEZv8TL92M kQpp9W5Xqra7LzxJQ4832oevW1ifvtVCs7vA3ttFOi AF/An+BF+xcnSSo9Hx0/GZ+nMcf95KvzH4aIJ/kr3x/5K9T6z23T+H1lyeqGmSp7H/umXwJ/itL4hfP7 rlvs/Ba8083hlkjE0saQ/Nu4jbjiDL7S/wN+o5qOd8/Sc64K1BZ5Pg2Oh0Ka7yh/Components Engineer/Xk+Cr6Cb+Ab+I 77e45j9dlife76E2/SLH/r6oR+FREVNRcioKLmUcRT 3GzfgBIM7TqkAzq1QjBE0L1csER/39FZz/zsIRFJUd/mEUhR3+8RR/WQ4zd6cKBsDI3gzg/nf+J7v+4t 7TlPlru/oV+t7FfoV/5k+a4azdq3Nz3ODoVPiicVKIJ+41f9oV+Nnf95n+/I+kO/JeDDk8yDpTU/f5+v nArPaCdYdDbY5NMIrT/TnuFBsomIdB2TMi9wB7hINk Xw8omjydb4da0/fb6e8g/5ir32jyB3y8wgA8ru+w2xxxrA18+d16Z+lf2dGM+zv4/mxHieGM+z16s5+/ urfd8B7nA+XnDftamxI8Kr/u/gO/urD14Gy9tI1Ta0NIFW/t/65NR+/059wB/gD/AFfPnW/4b1FccpG+ kTBYguWBdD93W54F36q36guyi4xwU/ulHP+jR6fspT llO/uuX+v7W+MVO/qrKAL+Cjv4b+Gvpr6K/198K0/e4K9qI7/e6qw4NiUEzb741b3wwwD/QqdsCfs6r+ gD/AH+AL+AL+BL/g3gMa7r4Fe2swSo3jg/8dfAd/cW8YiqveX5n/ijmb+eIs0jwZuYZrsCxZ6sMPZAwf T1oiap36e57lzrS+dcufHXKutk/J2F9m5C10Qubc8A 7Y0y4ug9dnF6dpQ6Thc3UHb/Lj3G260/9c2SKCKDd0uYNda6sOISEsTiOH/srJH5+cOdZFuDruIF66Wg IEkj9l2IoiPlS7Q/twBC/ru2YXt35yiQnxnIjbuS8YMo3UUB/t/g9q68IXB1WT5cYiaOEUcJ+G8QO9wr p/0cIRFGi8oeFqzX13cnVTGs/DNi1WyPpf67EIwz73 +uc3Y6Ckv4e47txnh7gRvx5s5/3zIzsjDE7Rf1a+G8v1Z7ofJ+apnJ2m5ultA7qxfB74vZixb7yGjQxC LGlR6mSBD3lthUmS7ouTBMXZcQbXeAEJEGr9wiCdxeoENJPWSf6gUsdTSLDLfkuRY6d0P+JS5I3I6Sur eX/qZjSN8AKR+Wn0gF1z8+Az9CC8TA06Edza13wy/T 0S9kCqkf6VM5/v6+whbH8EokLy6Gb3J/wF/ga/p4066Dm8VHI+nODn5dYI+1WV+0xUyj4FTER9zl4r4r l7rEp/X6ecnnA/0/qzSuvPmvarWwa/9WeV/d6Y3v6BCnhLnY/+291ECzo4VvKg2RbjK/GZdEi6N5+6Zf AVfAU/+itZT/S3yg6+g7/AX+Cp8Fu8G/zT/NSvbhn8 Af7o+4p06iiTE40Z/RK8Y3Puus+Tci7QtlZ2Js5p8su8CqA2Baoi/A3+Ab/5SCt41F8ET4plvh1SBRVl wJ/gYzwbxrMp+Aa+ge/gt/8Kmp4Tjq3qL5e0flbD/+D/bd9Qb/uk+gM+5q9j/znohah8dh1Ni8ykpmAs 2Cv8Uy3HT5u19Wf/R38d/WKyJ697czAiDpfMY/1d6O 1Kiyg6u9Mvwdn83WmNqe/V4134jqdSd+H5pn+qnfyP7C2e/IMK/3VCY9ytW3wum2LT1L84LguapCgX5p nrdxuH7787YX7HwlEq8Sw6Mp7E966zf2KxFp8SI8166/qAbkPE49VxO6RMdFZo8uK8MdV+QYX9Sg/eR2 m/xxIzvm0Zg2Y28vD/B/250L9Np37Zq+119vTztecB f4A/wBfwBfx+fta7339t/eqWwTfw+/na46i/3UX26Tq3S7U/wd/gH/Q7JBjg3rwIN/4AH/4o6U2Xbio1 U3i4JoyEsbO6f0N+Yckwhj2utRp/6FWvJefu5b7vxkthp8B0/+qWwT/gn+bn/qtbBn+VBu5250Q/VfEF /5+ffmu5/8sLDc1Ws+Ab+K07NaSde8Fwchu38LLd70 WCf5RS1U/l5EwHHPwvetz0111niQ/vf6uon7FoJWq2UM/Gi64GcdTabmwaF/6/UM8Cv/UrK/4bq404xr yBp32rsO8fH7wo7dN3cxR5zf/EI028h5ktx71QzWV/6XqG3Gws1f++/4EzDjngv1+V//q1kmPjs10Tn/ 9+i8WG+h7HZ0Mh3Si9Ux5mmtI/iu9BS/3qlvs+U7+6 ZfzfUY+j/re/e1e5+uE70e6Djs4C6m/1Yho1EpXmG+b8t2Goy9lA1GvLcC5mOkj+dh5L+7JuO1ai2zi2 3uCJcEJ08Qn8WZoQe05+NtTXfrnYT/32dbP2vg3WqMk+2q7UAwq/hGQiGLjX4u/fg98o7Z1SL8Gz+pUl P/MpbfPVb2ruYHsy39ENrEf8jh0JUsi3aV4A5/PNb/ XKXp2os9IxlkcESQhVj+7Bi+3gBp0s731+ly6U1zWII/83H/Li5eivQf+InfOhsL/l9/hpyl7Ks2GkYg k3IDo33Mz/UyrjHkK/Juzo5S09oftLb6k1/0Tu3VGw4Rwr14kIjpdl2U++svV/WBw8x8hc60uuqcso1X 9uGfwF/gJ/38tuSN851gfc85E1jQ2tN/pDUjcy9Q0v XzzR6lo+NZIf8/kZfCwlDCpT96Nc9J/wN/qy67Ltr91xm7b//jzgD/DHJzdP/XpeL8kUM/kCel26mgQ+ Q/0Gfq/P/rQ+6U/7f/1Z4G/w2x/qT9s3/Gn7ho/eX+yNg8i4GmsJlah8vJ/B/6bc9QIAa+Ar+IZ6Wp/0 4q5QGakjTpq/gb/F42fxpZ0+/nXp/Hsm5kqwL/B7v5 mn/Phhrn82Xr16F0vArqRjH/vcUY1Sz+I0VccxZ86te45NO0+lBl1uK6Eoy6bp/D32t6c/12N/e9pFPf p6t97HZ7796oO87jue9qqE/e1p2/kB0769gA/97fl+8ssjno8Yk/4hyuF25D5LT61V/mr83Mnop8/br0 /65cK30Q/Pfdoe+6ahCe0WlAx61W/R48LN0b/tsb89 /bke+4glntZun03Ccj5246Oh+9vzHeexv/0rf/Ztj/8iW4tgYshkt/tXBr/93a7t7/bc3/7/qTpjZQta XHbd7nf+8MHyqMNDOoStRu8NkPsle1/pz8QinRYxvs2kuyGmUUMAV7n/ZqP+fv/uim+z2mjC79rbhngz 1Tkk46T/EN++M749+7zi2+/tTuf0tzs7RLzxtQij73 fdcb7GrZrmOlXR9f++P80146Gw4ea+2Rnfns/SDf1mN49b0tYm0O90/uBO/2BOgioq7uuUfu714/Bf7d 3f+3v39/2xFN69wt/x9scd2m4n2Bq/yrZvrM/dw3nke754+q+kr6ttx6atf37b34/7hsZT1CE2h+9rX3 3l1l/42rx4Wk89378/Vd5D+a4aNggR/YR+iD9cMev+ h7raboV+7OSbD/D7e0fjqFDSxuw2oCy2dupRhn9muVoe1mu2u/GFim041KL969gidJN9Cr5LE6Al2J/P HttpX+V9xA45tyGi0Gd9St3Du/Ze++qVD/Sn9de++srQC/QC/B9f5k40o6hHr54Ir+LaV6+8oF/QG/QG /r8tzT1l974g76X2M3q03xi65DO996Y1wk++sr2x5N e++srQK/T6jUO/0tDTat2Vu3p6nry8n502biWzqh77fK51s48n2kP7m5iJ6MKNpG603Tn/55WfrkNH2G v0Ar1+drtLz1+Xnr8uE/oF/bK+1lCPQb+v73sRh6/TfqoRxiB2F/39Uu9gv+PjV6WMhGaxlkwh3lwnZ+ ey7Hj6XC/J37P4R75O4/e+K9qraK/2+kyiJK0o/uqV Wz/MLBu2cAlxIH6nq50+5d2J1r1+MkJR03z+F/QGvUG/od+o31G/Qx+3i8C1vi6l92g1lJ5Lk31Flx5M +3N8tT/Hl0I/oZ/QYzwvjOfV/hxf/x95vea6Ws3lbPd1DZuWL/ioJE7dE//VLcN/5bk/mPUYxrNh/hrm r2H+wn/lhvlraK+hkySlkkC6nyKnox/h+BkasdQ8Gk 3BfZ7+3435uzF/O9hnhpVysC/d37+e9pVW+tny0Q0zv588/6z69p619hbm+4OO84O++/yR7z5/5DugD+ gP9H3+rE6UM1y0yM54p6+4d/yGe5+XdO/zku4T+ls3qu6aReM/Gu6nzx+0d67s2IikPP/r3t+/jv1B9z 5P57k/mO+v3B/UKvfzCjzfwPocGM+M3CsIa3J3P6d/ IxMgWTyY8ckCgsYchvc/Nv9I7xlM+yjw/oX/bfy97Anq09AX7IS01f99/Fd+Jn4/2pmF86E2Iec/HryP 0r7K/jl4H53+QrKW5pm+8D46eB+d/l7w0+nhpU7dg+ccFKs3JFFwUhvlTYbizcZ6ay+e6XuyJ3/4vaGe jfvZuJ9+/6rn3IwZ++sC9lWU/yp/0/u/WD0VBTQbXb K+eYQ1745R1qIyMB4/CRri7IC7s0YUW54oLuj2xsbv74ywUsa2HUW9VyZLH+7+9RlA1h4VFTR/f0Lc/U Gp+w/c/6+9vlL/a6/vdF4Dpxt7lsvndMS8MoopfSnV8b121hGgOwVpcq/87iVe1mr8BuE1e0C/E9e+kr nCncCj6z8C090Xz19g+4fxxW36eeUyv+drM//393yt yuE6sgcGy5ndqaw7f9/8HI0K8obd3U+462SkfZXtSvsq+j29InQ0mD4VPtE+2eobpDV9F5s/KGbbkzF7 /yimQd/rVcC+irmhd+gd+eJ4nfrE8Fn/n/uDrwx9+67X5CrC/Fifi/tThJv9Gp/1zjpd5S8nDh/h97w/G 3kQakXy4ka/yzXWTleiZ8W/k8r9nhTA/la2oOpuf/w 2d34LvVi5Qm8N9qYfJl8jIQjcS+j6/EDg/GLahd+gd+j3UWtOenF9f4/3x4P3R0urdq/32ax7eiF0ukU U7eitHW/oJ/frsikB+esy4eqU5Mq+m4398Jmtp+HS4oe69o/QV7pk0kZgrYRJ4q5Ozau21nOKw29P30W 1iZMc2eCWlf4luQQyU+cEqQ7+sJ8Hp0faWwW+v8v78 lpHnB6/vDvQ7RH0aqA7b1tPQ717f7PFk6DyaG402w6qDg+a0rJl0NTdT354pPTBtv7JmekDRezb3/l6/ eOnI+PZRZXs+6vd69ngrM+49Mr79+znt7zyte6Mvx8HQv5k1wkb5icAYzgfqjlS3k9NlQ581kGC0b52G Gd/+yl/ce2R8e/XA5woK3l5A+Stephanie+PYqQ7+gX1/8fG R8+caUq6vwc39/8o0ltExj03FmAk91lag36mWk44jU5j4RwXsvd1/ijPHZA+fGt2fc+xl3fsFDre8a67 bbJYiN028p/Qytk22ee1tcHA2t2RF5+33fnYxvv+/gM3t8i6nrQ2m6pp4jdTdjvA4/5W8+xlmeI7F+5v VB/quD+PaD+PZT+Foc3OyiV/mALcNoZCE4Z4YtEcOg WQzwA2Nm63Iek00j5Z691x921K57QzX0cTtJikc36ePoZrn7Kk0ySqko/dCjCn2/f4/29+/Rjn8+2vHP R3v/96T/SlO/B8rQO/WVyHDr58+Shalom/Y678WSma862uOtcFwhKKxVusS/+65fgkvjlg8utsR83lD+OrCv WozbT9FwmI2ymTrkrAslpB+d1d+/p+LbsyzQC/QKvU KP9iK+/SC+/SC+/HlUdt1pW/ehSN35hM4yP1uwE8tbV2qwC7clH1zyIU+3jNIk64hPjw0fkXCroxf+r9 SDfv1cI+Huh6D9ck1pVxeFh3Qy/NeUExYXuQUp9Bl7O/rT+xFvHsi3uQ7wY+ixXsG+CvCrvkV3qfMcqC O+z+Mc+H2P1hiTzucl+oA+tLu0T0nayX+vpC11Ys/V Qf6rU/mvsoznm/6rKi/oF/TMgr2ypqJC4F8H54M9A2ursTpeQ8y598AF5Mq+kZQ7XQ34ngOwXkJoY/p7 4SC+/mTO0lux4xENJ/A+CryPAu+jwPsoHPqAPqA/0Pd+5lech0IO3l/B/E0j56AtLwpW/YR+QY/2HrT3 4PkePN+X23vap5i5ck/qIP/VOQe/7+p7B424F/4J3x 74Rz1xi7JWyPeMQIAEHjeiwHgxAyDlP3kVlVfYSKQR5SNti3YM2SPiC+H7+voT+hj0T/i+s/4E/Q4i/o RFbunT7ste8LT+W/HZyWUuedvxkovM0GWhC7Gn1BGzsI4tEPaJmWQomPkRBuuBzLYq5wt0Kas/BBkUiC fMUFCF8Gzmd7Nsx6t+nCA09o9EsE3ADq7fIcQiC/ann-marie [file] w4gHefjGSZFdoyntenJt1L+SWEEPER DRIVER+H7btQx+koAV3mRTlvklXThoJctdqg4aL2ffJS0DnpwIX/1hJoIyYF0 [file] UgMDAwMDAgbiAKMDAwMDAwMTYwOSAwMDAwMCBuIAow SZYmHWQyVnU8YNBnQHYdRC6vAzLzLBAyMUN3PMIzZSHeVRIkhbAKKGHvJWMgQKOdLCL5TREnGJJsSMz2 raFycLMzGxi8Ev1IrYqaLJR7La2LlrDeHZEkXGCVDm3Nv324UFQfXYGNEln+PgpzdGFydHhyZWYKOTgz JlhSRSQTU8Y= ID Date Data Source [id number] 02/04/2020 08:17:48 AM EDT [facility] NT INFORMATIONPatient MRN Name Date of Age Gend*PT [id number] Manasa Calle 1930 89 years F OBSPT Location Admission Date/Time Visit ID Attending [id number] 02/04/20 0023 --- Patria Cormier MD([id number]) EPI ID CSN Admitting Provider [id number] Missael Mcnulty MD([id number])Inpatient History & PhysicalManasa WintersMRN: [id number] and Plan:Principal Problem: Chest discomfortActive Problems: Hypertensive [...] had been medically managed for moderate multi-vessel samish CAD CATH 02/2019Chicken vs EggIs worse CAD [...] and hersymptoms resolved.She sees Dr. Ba in [place] for cardiology.She denies lapse in her medications.She [...] nursing/triage staff and I havereviewed. Official pharmacy informatics manager consult requested.Allergies:Patient has no known drug [...] OldRecords Reviewed.Significant findings: Results for MANASA CALLE ([id number]) as of 02/04/2020 06:238 00:42Sodium: 133 (L)Potassium: [...] rce(s) Supporting Document(s) ID Date Data Source [id number] 02/04/2020 07:40:01 AM EDT [address] [address]Bo[place]jq[place] Name: MANASA WINTERSDOB: 1930Sex: FOrdering Provider: EUGENIO CAMERONOAuthorijose Prov: EUGENIO CAMERONOReferring Provider: Procedure Performed: XR CHEST PA AND LATERALExam Date: 02/04/2020 01:40MRN: [id number] Number: [id number] Class: EmergencyAccount #: [id number] for Exam: CP/SOBTechnique: AP and lateral views [...] VIVEK BORDEN On 02/04/2020 7:40 AMWorkstation ID: [id number] Name Value Range Interpretation Code Description Data Nita rce(s) Supporting Document(s) ID Date Data Source [id number] 02/04/2020 06:22:01 AM EDT [facility] NT INFORMATIONPatient MRN Name Date of Age Gend*PT [id number] Manasa Calle 1930 89 years F EDPT Location Admission Date/Time Visit ID Attending [id number] 02/04/20 0023 --- Eugenio Kaufman MD([id number]) EPI ID CSN Admitting Provider [id number] ---Provider in Triage NotesNo notes on fileHistory of Present IllnessChief ComplaintPatient presents with Chest Pain around 2200 experienced sharp pain between shoulder blades, mid sternal. [id number] ASA, pain resolved prior to EMS. Reports [...] than 2 seconds.Nursing note and vitals reviewed.ED [id number] years female seen and evaluated in the [...] rce(s) Supporting Document(s) ID Date Data Source [id number] 02/04/2020 04:37:00 AM EDT [facility] Name Value Range Interpretation Code Description Data Nita rce(s) Supporting Document(s) SARS coronavirus 2 RNA [Presence] in Res piratory specimen by YADIEL with probe detection [facility] This lab was reported by [facility]. ID Date Data Source [id number] 02/04/2020 07:09:19 AM EDT [facility] Name Value Range Interpretation Code Description Data Nita rce(s) Supporting Document(s) SPECIMEN DESCRIPTION [facility] COVID19 RESULT (NDET) Lab [facility] THIS ASSAY AMPLIFIES AND DETECTSTHE TARG ET RNA USING REAL-TIME PCR.NEGATIVE 2019_NCOV RT-PCR RESULTS DONOT PRECLUDE 2019_NCOV INFECTION ANDSHOULD NOT BE USED THE SOLE BASISFOR PATIENT MANAGEMENT DECISIONS. COMMENT [facility] UNDER AN EMERGENCY USE AUTHORIZATION(EUA ) FOR THE DETECTION AND/OR DIAGNOSISOF THE VIRUS THAT CAUSES COVID-19.RESULT EMAILED TO [facility] IC AT 0706 ON 02/04/20 42222. ID Date Data Source [id number] 02/04/2020 04:39:55 AM EDT [facility] Name Value Range Interpretation Code Description Data Nita rce(s) Supporting Document(s) POC CTNI <0.01 ng/mL (0.01-0.07) L [facility] Less than 0.08: Myocardial injury unlike lyGreater than or equal to 0.08: Highlysuggestive of myocardial injuryCorrelation with rise and/or fall ofserial troponins, clinical symptoms,and ECG changes is necessary.PERFORMED BY [facility] CLINICAL STAFF ID Date Data Source [id number] 02/04/2020 03:52:19 AM EDT [address] [address]Wvdnshe Name: Manasa LeijaOB: 1930Sex: FOrdering Provider: EUGENIO CAMERONOAuthorijose Prov: EUGENIO BENITESECOReferring Provider: Procedure Performed: CT ANGIOGRAM CHESTExam Date: 02/04/2020 03:07MRN: [id number] Number: [id number] Class: INFORMATION: Exam: CT Angiography Chest With [...] rce(s) Supporting Document(s) ID Date Data Source [id number] 02/04/2020 01:03:22 AM EDT [facility] [place] Name Value Range Interpretation Code Description Data Nita rce(s) Supporting Document(s) POC CTNI 0.01 ng/mL (0.01-0.07) [facility] [place] Less than 0.08: Myocardial injury unlike lyGreater than or equal to 0.08: Highlysuggestive of myocardial injuryCorrelation with rise and/or fall ofserial troponins, clinical symptoms,and ECG changes is necessary.PERFORMED BY [facility] CLINICAL STAFF ID Date Data Source [id number] 02/05/2020 05:09:55 PM EDT [facility] [place] Name Value Range Interpretation Code Description Data Nita rce(s) Supporting Document(s) FREE THYROXINE @ 1.05 ng/dL (0.76-1.46) [facility] [place] PERFORMED AT [address] [place] [address] N Y [address] ID Date Data Source [id number] 02/05/2020 05:09:55 PM EDT [facility] [place] Name Value Range Interpretation Code Description Data Nita rce(s) Supporting Document(s) TSH,ULTRASENSITIVE @ 3.520 mIU/L (0.360-4.170) [facility] [place] PERFORMED AT [address] [place] [address] N Y [address] ID Date Data Source [id number] 02/04/2020 08:44:16 AM EDT [facility] [place] Name Value Range Interpretation Code Description Data Nita rce(s) Supporting Document(s) APTT 17.1 s (22.0-34.3) L [facility] [place] Y PERFORMED BY ALTERNATE METHOD. REFERENCE RANGE = 24.7 - 33.3 ID Date Data Source [id number] 02/04/2020 08:44:16 AM EDT [facility] [place] Name Value Range Interpretation Code Description Data Nita rce(s) Supporting Document(s) PT 10.2 s (9.2-11.9) [facility] [place] INR 0.97 [facility] [place] SUGGESTED THERAPEUTIC RANGES USING INR F ORSTABILIZED ANTICOAGULATED PATIENTS:STANDARD DOSE THERAPY INR 2.0-3.0 DVT, PE, PREVENT DVT OR EMBOLISMHIGH DOSE THERAPY INR 2.5-3.5 PREVENT EMBOLISM FROM MECHANICAL HEART VALVE ID Date Data Source [id number] 02/04/2020 08:01:17 AM EDT [facility] [place] Name Value Range Interpretation Code Description Data Nita rce(s) Supporting Document(s) HEMOGLOBIN A1C @ 6.8 % (4.0-6.0) H [facility] [place] Performed using Siemens Harned immunoassa y.Care must be taken when interpreting LuN2tngyspxj in patients with a hemoglobin variantor decreased erythrocyte lifespan. Values 5.7 - 6.4% suggest prediabetes.Values >=6.5% are diagnostic for diabetes.REFERENCE: DIABETES CARE 2018: 41(S13-S27).PERFORMED AT [address] [place] [address] [place] [address] EST AVERAGE GLUCOSE 148 mg/dL [facility] [place] ID Date Data Source [id number] 02/04/2020 04:50:55 AM EDT [facility] [place] Name Value Range Interpretation Code Description Data Nita rce(s) Supporting Document(s) TROPONIN I <0.05 ng/mL (<0.05) [facility] [place] Less than 0.05: Myocardial injury unlike lyGreater than or equal to 0.05: Highly suggestive of myocardial injuryCorrelation with rise and/or fall ofserial troponins, clinical symptomsand ECG changes is necessary. ID Date Data Source [id number] 02/04/2020 01:47:08 AM EDT [facility] [place] Name Value Range Interpretation Code Description Data Nita rce(s) Supporting Document(s) NT PRO BNP 385 pg/mL (0-450) [facility] [place] ID Date Data Source [id number] 02/04/2020 01:47:08 AM EDT [facility] [place] Name Value Range Interpretation Code Description Data Nita rce(s) Supporting Document(s) TOTAL PROTEIN 7.8 g/dL (6.4-8.2) [facility] [place] ALBUMIN 3.7 g/dL (3.2-4.5) [facility] [place] GLOBULIN 4.1 g/dL (2.7-4.3) [facility] [place] ALB/GLOB RATIO 0.9 RATIO [facility] BILIRUBIN,TOTAL 0.3 mg/dL (0.0-1.0) [facility] [place] PLEASE NOTE:Total bilirubin results may be falselyelevated in patients taking Eltrombopag. BILIRUBIN,CONJUGATED <0.1 mg/dL (0.0-0.3) [facility] BILIRUBIN,UNCONJ. (0.0-0.7) [facility] ALKALINE PHOSPHATASE 170 U/L (45-117) H [facility] AST (SGOT) 28 U/L (11-39) [facility] ALT (SGPT) 28 U/L (12-78) [facility] ID Date Data Source [id number] 02/04/2020 01:44:14 AM EDT [facility] Name Value Range Interpretation Code Description Data Nita rce(s) Supporting Document(s) MAGNESIUM 2.2 mg/dL (1.7-2.4) [facility] ID Date Data Source [id number] 02/04/2020 01:44:14 AM EDT [facility] Name Value Range Interpretation Code Description Data Nita rce(s) Supporting Document(s) LIPASE 65 U/L (65-230) [facility] ID Date Data Source [id number] 02/04/2020 01:44:14 AM EDT [facility] Name Value Range Interpretation Code Description Data Nita rce(s) Supporting Document(s) SODIUM 133 mmol/L (136-145) L [facility] POTASSIUM 4.3 mmol/L (3.6-5.2) [facility] CHLORIDE 102 mmol/L (100-108) [facility] CO2 27 mmol/L (22-31) [facility] ANION GAP 4 mmol/L (7-16) L [facility] UREA NITROGEN 14 mg/dL (7-24) [facility] CREATININE 0.95 mg/dL (0.60-1.00) [facility] BUN/CREAT RATIO 14.7 RATIO (10.0-20.0) [facility] GLUCOSE 139 mg/dL (70-99) H [facility] CALCIUM 8.9 mg/dL (8.4-10.2) [facility] GFR 56 ml/min/1.73m2 (>59) L [facility] GFR ( AMER) >60 ml/min/1.73m2 (>59) [facility] GFR INTERPRETATION [facility] --NORMAL KIDNEY FUNCTION OR MILD DISEASE - GFR >OR= 60CHRONIC KIDNEY DISEASE - GFR 15 - 59RENAL FAILURE - GFR <15 Est. GFR calculation based on the MDRDstudy equation, which assumes a steadystate for creatinine. Est. GFR should notbe used for medication dosing. ID Date Data Source [id number] 02/04/2020 01:33:58 AM EDT [facility] [place] Name Value Range Interpretation Code Description Data Nita rce(s) Supporting Document(s) WBC 6.6 10*3/uL (4.1-11.0) [facility] [place] RBC 3.47 10*6/uL (4.00-5.40) L [facility] HGB 11.3 g/dL (12.0-16.0) L [facility] HCT 33.3 % (36.0-47.0) L [facility] MCV 96.1 fL (80.0-95.0) H [facility] MCH 32.6 pg (27.0-32.0) H [facility] MCHC 34.0 g/dL (32.0-36.0) [facility] RDW 14.2 % (10.5-14.5) [facility] PLT 331 10*3/uL (150-450) [facility] MPV 6.6 fL (7.1-10.7) L [facility] NEUT % 57.2 % (35.0-75.0) [facility] LYMPH % 26.9 % (16.0-52.0) [facility] MONO % 10.8 % (0.0-8.0) H [facility] EOS % 4.2 % (0.0-5.0) [facility] BASO % 0.9 % (0.0-4.0) [facility] NEUT # 3.8 10*3/uL (1.8-7.7) [facility] LYMPH # 1.8 10*3/uL (1.2-4.8) [facility] MONO # 0.7 10*3/uL (0.0-0.8) [facility] Eosinophils [#/volume] in Blood by Automated count 0.3 10*3/uL (0.0-0 .5) [facility] BASO # 0.1 10*3/uL (0.0-0.2) [facility] Procedure Social History Code Duration Value Status Description Data Source(s ) 02/14/2021 03:34:54 PM EDT Never Smoker completed Never S [facility] 02/14/2021 03:34:54 PM EDT Cigarettes completed Cigarette s [employer] [facility] 02/14/2021 03:34:54 PM EDT Never Smoker completed Never [facility] 02/14/2021 03:34:54 PM EDT Cigarettes completed Cigarette s [employer] [facility] 02/14/2021 03:34:00 PM EDT Never smoked tobacco (findi ng) completed Never smoked tobacco (finding) [facility] 02/08/2021 01:58:21 PM EDT Never Smoker completed Never S [employer] [facility] 02/08/2021 01:58:21 PM EDT Cigarettes completed Cigarette s [facility] 02/08/2021 01:58:21 PM EDT Never Smoker completed Never [facility] 02/08/2021 01:58:21 PM EDT Cigarettes completed Cigarette s [employer] Smoking 02/08/2021 01:58:00 PM EDT Never smoked tobacco (findi ng) completed Never smoked tobacco (finding) [facility] 01/14/2021 10:41:20 AM EDT Cigarettes completed [facility] 01/14/2021 10:41:20 AM EDT Cigarettes completed [facility] 01/14/2021 10:23:52 AM EDT Never Smoker completed Never S moker [facility] 01/14/2021 10:23:52 AM EDT Never Smoker completed Never S [facility] Smoking 01/14/2021 10:23:00 AM EDT Never smoked tobacco (findi ng) completed Never smoked tobacco (finding) [facility] Smoking 11/02/2020 12:00:00 AM EDT Patient has never smoked co mpleted Patient has never smoked [facility] ([facility] Alcohol intake 02/04/2020 12:00:00 AM EDT Not Currently completed [facility] Smoking 02/04/2020 12:00:00 AM EDT Never smoker completed Never s [facility] Vital Signs ID Date Data Source UNK Name Value Range Interpretation Code Description Data Source(s) Body temperature 98.2 [degF] 97.6-99.6 98.2 [degF] [facility] Body weight 52.61 kg 52.61 kg [facility] Oxygen saturation in Arterial blood by Pulse oximetry 95 % 95-1 00 95 % [facility] Body height 142.24 cm 142.24 cm [facility] Heart rate 60 /min 60-100 60 /min [facility] Systolic blood pressure 166 mm[Hg] 90-139 166 mm[Hg] [facility] Diastolic blood pressure 68 mm[Hg] 50-89 68 mm[Hg] [facility] Body mass index (BMI) [Ratio] 25.9 kg/m2 25.9 k g/m2 [facility] Systolic blood pressure 190 mm[Hg] 90-139 190 mm[Hg] [facility] Diastolic blood pressure 72 mm[Hg] 50-89 72 mm[Hg] [facility] Respiratory rate 16 /min 12-20 16 /min [facility] Body temperature 98.0 [degF] 97.6-99.6 98.0 [degF] [facility] Heart rate 58 /min 60-100 58 /min [facility] Oxygen saturation in Arterial blood by Pulse oximetry 98 % 95-1 00 98 % [facility] Body weight 51.70 kg 51.70 kg [facility] Body height 142.24 cm 142.24 cm [facility] Body mass index (BMI) [Ratio] 25.5 kg/m2 25.5 k g/m2 [facility] Systolic blood pressure 228 mm[Hg] 90-139 228 mm[Hg] [facility] Diastolic blood pressure 78 mm[Hg] 50-89 78 mm[Hg] [facility] Diastolic blood pressure 82 mm[Hg] 50-89 82 mm[Hg] [facility] Body height 142.24 cm 142.24 cm [facility] Body weight 58.05 kg 58.05 kg [facility] Body temperature 98.1 [degF] 97.6-99.6 98.1 [degF] [facility] Heart rate 82 /min 60-100 82 /min [facility] Oxygen saturation in Arterial blood by Pulse oximetry 94 % 95-1 00 94 % [facility] Systolic blood pressure 134 mm[Hg] 90-139 134 mm[Hg] [facility] Body mass index (BMI) [Ratio] 28.7 kg/m2 28.7 k g/m2 [facility] Systolic blood pressure 142 mm[Hg] 142 mm[Hg] [facility] ([facility]) Body weight 113.00 [lb_av] 113.00 [lb_av] [facility] T ([facility]) Body height 59 [in_i] 59 [in_i] [facility] ([facility]) 4'11" Body mass index (BMI) [Ratio] 22.8 kg/m2 22.8 k g/m2 [facility] ([facility]) Oxygen saturation in Arterial blood by Pulse oximetry 99 % 99 % [facility] ([facility]) Heart rate 82 /min 82 /min [facility] ([facility]) Body temperature 97.6 [degF] 97.6 [degF] [facility] ([facility]) Diastolic blood pressure 70 mm[Hg] 70 mm[Hg] [facility] ([facility]) Diastolic blood pressure 68 mm[Hg] 68 mm[Hg] [facility] ([facility]) Heart rate 78 /min 78 /min [facility] ([facility]) Systolic blood pressure 128 mm[Hg] 128 mm[Hg] M [facility] ([facility]) Body weight 114.00 [lb_av] 114.00 [lb_av] [facility] T ([facility]) Body height 59 [in_i] 59 [in_i] [facility] ([facility]) 4'11" Body mass index (BMI) [Ratio] 23.0 kg/m2 23.0 k g/m2 [facility] ([facility]) Oxygen saturation in Arterial blood by Pulse oximetry 97 % 97 % [facility] ([facility]) Body temperature 97.3 [degF] 97.3 [degF] [facility] ([facility]) Heart rate 76 /min 76 /min [facility] ([facility]) Body height 59 [in_i] 59 [in_i] [facility] ([facility]) 4'11" Body temperature 97.4 [degF] 97.4 [degF] [facility] ([facility]) Systolic blood pressure 124 mm[Hg] 124 mm[Hg] M [facility] ([facility]) Body weight 122.50 [lb_av] 122.50 [lb_av] [facility] T ([facility]) Body mass index (BMI) [Ratio] 24.7 kg/m2 24.7 k g/m2 [facility] ([employer] [facility]) Oxygen saturation in Arterial blood by Pulse oximetry 95 % 95 % [facility] ([facility]) Diastolic blood pressure 58 mm[Hg] 58 mm[Hg] [facility] ([facility]) Body height 59 [in_i] 59 [in_i] [facility] ([facility]) 4'11" Heart rate 62 /min 62 /min [facility] ([facility]) Systolic blood pressure 120 mm[Hg] 120 mm[Hg] M [facility] ([facility]) Diastolic blood pressure 70 mm[Hg] 70 mm[Hg] [facility] ([facility]) Oxygen saturation in Arterial blood by Pulse oximetry 98 % 98 % [facility]) Body weight 122.00 [lb_av] 122.00 [lb_av] [facility] T ([facility]) Body mass index (BMI) [Ratio] 24.6 kg/m2 24.6 k g/m2 [facility] ([facility]) Body temperature 96.7 [degF] 96.7 [degF] [facility] ([facility]) Systolic blood pressure 145 mm[Hg] 145 mm[Hg] [facility] Diastolic blood pressure 78 mm[Hg] 78 mm[Hg] [facility] Heart rate 67 /min 67 /min [facility] Oxygen saturation in Arterial blood by Pulse oximetry 91 % 91 % [facility] Respiratory rate 17 /min 17 /min [facility] Body temperature 36.[address] [facility] Body height 152.4 cm 152.4 cm [facility] Body weight 54.432 kg 54.432 kg [facility] Body mass index (BMI) [Ratio] 23.44 kg/m2 23.44 kg/m2 [facility] ID Date Data Source [id number] 03/12/2020 03:28:41 PM EDT [facility] Name Value Range Interpretation Code Description Data Source(s) WEIGHT RECORDED 122 lb 122 lb [facility] Patient Treatment Plan of Care Planned Activity Planned Date Details Description Data Source (s) Clonidine Hydrochloride 0.1 MG Oral Tablet 02/06/2020 12:00:00 AM E DT [facility] carvedilol 12.5 MG Oral Tablet 02/06/2020 12:00:00 AM EDT [facility] meloxicam 7.5 MG Oral Tablet [facility] Insulin Glargine 100 UNT/ML Injectable Solution [facility] Docusate Sodium 100 MG Oral Capsule [facility] Zolpidem tartrate 5 MG Oral Tablet [facility] carvedilol 12.5 MG Oral Tablet [facility]
--- NOTE | 2021-04-01 20:08 | HPEPDOC ---
[facility] Medical History & Physical Date of Admission Apr 01, 2021 Date of Service: Apr 01, 2021 Attending Physician: AMERICA LYNN MD History and Physical CHIEF COMPLAINT: [89 y/o female c/o erythema, pain of rle x2-3 days] HISTORY OF PRESENT ILLNESS: [This is an 89 y/o female with a pmh of cad, sarah ia, hld, htn, iddm2, afib on coumadin hypothyroidism who presents to our ED with her daughter in law for evaluation of edema, erythema and severe pain of the RLE below the knee that began 2-3 days ago. Patient tells me that her symptoms began suddenly and denies any recent falls or injuries to the leg. Patient states that she is concerned because the leg is painful to the point where she has been having issues walking on it. Patient has never had issues with redness like this before. Patient does state that she has had similar pain in her left leg before, but was told that it was d/t her sciatica and that it resolved on its own, and was never associated with swelling or redness. Patient, at the time of my exam, denies any subjective fevers, chills, abd pain, n/v/d/c, chest pain, sob, paresthesias, paralysis, dysuria, recent falls. ] PAST MEDICAL HISTORY: 1. [See HPI PAST SURGICAL HISTORY: 1. [Cardiac cath]. 2. [Appendectomy]. 3. [Cholecystectomy 4. Breast biopsy 5. Hysterectomy 6. Bladder sling]. SOCIAL HISTORY: Tobacco use:[Denies] ETOH: [Denies] Illicit drug use: [Denies] FAMILY HISTORY: Reviewed - none pertinent ALLERGIES: Please see below. REVIEW OF SYSTEMS: CONSTITUTIONAL: [Denies fevers, chills]. HEENT: [Denies uri sx]. CARDIOVASCULAR: [Denies chest pain, palpitations]. RESPIRATORY: [Denies sob, cough]. GASTROINTESTINAL: [Denies abd pain, n/v/d/c]. GENITOURINARY: [Denies dysuria]. SKIN: [See HPI]. MUSCULOSKELETAL: [Denies acute joint/back pain]. NEUROLOGICAL: [Denies syncope, paresthesias]. ENDOCRINE: [Hx of iddm]. HEMATOLOGIC/LYMPHATIC: [Denies hx of vte]. HOME MEDICATIONS: Please see below. PHYSICAL EXAMINATION: VITAL SIGNS: Please see below. GENERAL APPEARANCE: [This is a pleasant HARD OF HEARING 89 y/o female who is alert and oriented to all questioning. She does not appear to be in any acute distress]. HEENT: [No mass or lesion. EOMI. No scleral icterus. Nares patent. Oral mucosa moist]. CARDIOVASCULAR: [Regular rate, rhythm. No murmurs, rubs, gallops]. LUNGS: [good air flow b/l. No wheezing, rales, rhonchi]. ABDOMEN: [Soft, nontender]. MUSCULOSKELETAL: [No joint deformity]. EXTREMITIES: [The b/l lower extermities show chronic skin changes consistent with chronic venous stasis. The right lower extremity has erythema spreading from below the knee to just above the ankle with noticeable edema. The entire area is tender to palpation. The patient is able to move all joints of the area freely without pain. I am unable to manually find peripheral pulses. Toes of b/l feet appear adequately perfused with good cap refill]. NEUROLOGICAL: [Sensation intact. Speech clear. A+Ox3. No focal deficits]. PSYCHIATRIC: [Mood and affect appear appropriate]. LABORATORY DATA: See below. IMAGING: [Lower US DVT: FINDINGS: Ultrasound examination of the right lower extremity deep venous structures from the common femoral vein through the calf/ankle to include the tibial veins demonstrates normal compressibility flow and wave patterns in response to respiration and augmentation. There is no evidence for deep venous thrombosis. Contralateral CFV is patent and normal. IMPRESSION: No evidence for deep venous thrombosis.] MICROBIOLOGY: Please see below. ASSESSMENT: [his is an 89 y/o female with a pmh of cad, dementia, hld, htn, iddm2, afib on coumadin hypothyroidism who presents to our ED with her daughter in law for evaluation of edema, erythema and severe pain of the RLE below the knee that began 2-3 days ago.]. . PLAN: 1. [RLE Cellulitis - Patient acutely meeting sirs criteria in our ED with fever of 101.6, wbc of 16 and notable erythema of RLE - DVT ruled out in the ED with duplex US - D/t patients complaining of extreme pain of extremity, will order cta of lower extremity and cpk to assess for possible compartment syndrome or deep lying abscess that could be causing this patients pain - Will began vancomycin for abx coverage - MRSA pcr ordered - Morphine for pain control - admit to med surg for tx 2. DM - continue at home basal insulin - sliding scale coverage - hypoglycemic protocol - continue gabapentin 3. AFib - pt rate controlled in the ED - continue carvedilol, warfarin - daily inr 4. CAD - continue asa 5. HTN - continue torsemide, hydralazine, clonidine, benazepril, amlodipine 6. GERD - med rec appear to show patient taking 2 ppi medications? - will continue protonix, hold omeprazole 7. Hypothyroidism - continue synthroid 8. HLD - continue atorvastatin 9. Overactive bladder - continue oxybutynin 10. Dementia - continue nightly trazodone, donepezil - monitor behaviors DVT prophylaxis - warfarin]. 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 Discussed c/w Dr. Hdez, vascular surgery, who states that no urgent intervention is necessary at this time at patient is still perfusing the foot with collateral flow. Recommended pain control, treatment of cellulitis and patient can f/u with outpatient vascular clinic on discharge. Also recommended reaching out to vascular for official consult if ischemia becomes a concern. Musa james leave day team to decide need for official consult. Vital Signs Vital Signs Date Time Temp Pulse Resp B/P (MAP) Pulse Ox O2 Delivery O2 Flow Rate FiO2 04/01/21 16:59 101.6 04/01/21 13:09 66 18 146/74 (98) 98 Room Air Laboratory Data Labs 24H Laboratory Tests 2 04/01/21 16:50: Bedside Glucose (Misc Panel) 142H 04/01/21 16:52: Immature Granulocyte % (Auto) 0.5, Neutrophils (%) (Auto) 82.9H, Lymphocytes (%) (Auto) 7.2L, Monocytes (%) (Auto) 8.9H, Eosinophils (%) (Auto) 0.2, Basophils (%) (Auto) 0.3, Neutrophils # (Auto) 13.3H, Lymphocytes # (Auto) 1.2L, Monocytes # (Auto) 1.4H, Eosinophils # (Auto) 0.0, Basophils # (Auto) 0.1, Nucleated Red Blood Cells % (auto) 0.0, Prothrombin Time 20.4H, Prothromb Time International Ratio 1.70, Activated Partial Thromboplast Time 35.0, Anion Gap 6L, Glomerular Filtration Rate 57.0, Calcium Level 8.5L, Total Bilirubin 0.4, Aspartate Amino Transf (AST/SGOT) 25, Alanine Aminotransferase (ALT/SGPT) 27, Alkaline Ibis sphatase 132H, C-Reactive Protein, Quantitative 2.43H, Total Protein 6.7, Albumin 3.4, Albumin/Globulin Ratio 1.0L 04/01/21 17:07: Lactic Acid Level 1.3 04/01/21 18:08: Coronavirus (COVID-19)(PCR) NEGATIVE 04/01/21 19:25: CBC/BMP Laboratory Tests 04/01/21 16:52 Microbiology Microbiology 04/01/21 Blood Culture, Received Pending 04/01/21 Blood Culture, Received Pending Home Medications Scheduled Amlodipine Besylate (Norvasc) 5 Mg Tablet, 5 MG PO DAILY Aspirin (Aspirin EC) 81 Mg Tab, 81 MG PO DAILY Atorvastatin Calcium (Atorvastatin Calcium) 40 Mg Tab, 40 MG PO QHS Benazepril HCl (Benazepril HCl) 40 Mg Tab, 40 MG PO QHS Calcium Carbonate/Vitamin D3 (Calcium 600-Vit D3 400 Tablet) 1 Each Tablet, 1 TAB PO DAILY Carvedilol (Carvedilol) 12.5 Mg Tab, 12.5 MG PO BID Clonidine Hcl (Clonidine HCl) 0.1 Mg Tablet, 0.1 MG PO QPM Donepezil Hcl (Donepezil HCl Odt) 10 Mg Tab, 10 MG PO DAILY Gabapentin (Gabapentin) 100 Mg Capsule, 100 MG PO TID Hydralazine HCl (Hydralazine HCl) 10 Mg Tablet, 10 MG PO TID Insulin Detemir (Levemir Flextouch) 100 Unit/Ml Inj, 10 UNIT SC DAILY Insulin Human Lispro (Novolog) 100 U/Ml Inj, 1 DOSE SC AC PER SLIDING SCALE Levothyroxine Sodium (Synthroid) 50 Mcg Tablet, 50 MCG PO DAILY Multivitamins (Thera M Plus Tablet) 1 Each Tablet, 1 TAB PO DAILY Omeprazole (Omeprazole) 20 Mg Cap, 20 MG PO DAILY Oxybutynin Chloride (Oxybutynin Chloride) 5 Mg Tab, 5 MG PO BID Pantoprazole Sodium (Pantoprazole Sodium) 40 Mg Tablet.dr, 40 MG PO DAILY Torsemide (Torsemide) 10 Mg Tablet, 10 MG PO DAILY Trazodone HCl (Trazodone HCl) 50 Mg Tablet, 50 MG PO QHS Warfarin Sodium (Warfarin Sodium) 3 Mg Tablet, 3 MG PO QPM Scheduled PRN Docusate Sodium (Docusate Sodium) 100 Mg Capsule, 100 MG PO DAILY PRN for CONSTIPATION Tramadol HCl (Tramadol HCl) 50 Mg Tablet, 50 MG PO Q6H PRN for PAIN LEVEL 1-5 Allergies Coded Allergies: No Known Allergies (Unverified , 12/11/12) A-FIB/CHADSVASC A-FIB History Current/History of A-Fib/PAF?: Yes Current PO Anticoag Therapy: Yes JIMENA RUSS Apr 01, 2021 20:08
[2021-04-01] MEDS ORDERED: GABA-1171 PO (20:56)
[2021-04-01] MEDS ORDERED: SYNT50TA PO (20:56)
[2021-04-01] MEDS ORDERED: DOCU100C16 PO (20:56)
[2021-04-01] MEDS ORDERED: CALC1TAB63 PO (20:57)
[2021-04-01] MEDS ORDERED: HOME MED LIST COMPLETE! XX SCH (21:00)
[2021-04-01] MEDS ORDERED: VANCOMYCIN HCL 1,000 MG, VIAL MATE ADAPTER 1 EACH in NS 250 ML IV ONE (21:00)
--- NOTE | 2021-04-01 21:10 | REPVR ---
PROCEDURE INFORMATION: Exam: CTA Right Lower Extremity With Contrast Exam date and time: 04/01/2021 7:42 PM Age: 89 years old Clinical indication: Edema; Location not specified; Additional info: Rle erythema, edema, dvt ruled out TECHNIQUE: Imaging protocol: CTA images of the Right lower extremity with intravenous contrast using CT angiography protocol. 3D rendering (Not supervised by radiologist): MIP and/or 3D reconstructed images were created by the technologist. Radiation optimization: All CT scans at this facility use at least one of these dose optimization techniques: automated exposure control; mA and/or kV adjustment per patient size (includes targeted exams where dose is matched to clinical indication); or iterative reconstruction. Contrast material: ISOVUE 370; Contrast volume: 100 ml; Contrast route: INTRAVENOUS (IV); COMPARISON: US Duplex, Ext,LOWER veins,unilat 04/01/2021 5:25 PM FINDINGS: Aorta: There is mild calcification of the abdominal aorta with extension into the iliac arteries. No distal abdominal aortic aneurysm or dissection. Right iliac arteries: The right iliac arteries are adequately patent. Right femoral/popliteal arteries: Plaque in the right common femoral artery with no significant stenosis. The right profunda artery and branches appear normal. The right superficial femoral artery is adequately patent. The right popliteal artery is adequately patent. Right infrapopliteal arteries: In the right calf, there are high-grade stenoses of the proximal anterior tibial artery which she ventrally occludes by the distal 3rd. The posterior tibial and peroneal arteries are small but extend through the calf. The posterior tibial extends into the hindfoot. The peroneal artery appears to send collaterals anteriorly with reconstitution of the dorsalis pedis. Reproductive: Status post hysterectomy. Bones/joints: The osseous structures are intact. Soft tissues: Slight subcutaneous edema of the distal calf and about the ankle. IMPRESSION: 1. 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 The posterior tibial and peroneal arteries are small but patent. The posterior tibial artery extends into the hindfoot and the peroneal artery appears to send collaterals anteriorly with reconstitution of the dorsalis pedis. 2. Slight subcutaneous edema of the right calf and about the ankle which is nonspecific. 3. Otherwise negative CTA right lower extremity. Electronically signed by: Moy Vick On 04/01/2021 21:09:26 PM
[2021-04-01] MEDS: cloNIDine 0.1MG TABLET PO SCH (22:08)
[2021-04-01] MEDS: **hydrALAZINE** 10 MG TAB PO SCH (22:08)
[2021-04-01] MEDS: DOCUSATE SODIUM 100MG CAPSULE PO SCH (22:08)
[2021-04-01] MEDS: CARVedilol 12.5 MG TAB PO SCH (22:09)
[2021-04-01] MEDS: traZODone 50 MG TAB PO SCH (22:09)
[2021-04-01] MEDS: ATORVASTATIN 20 MG TAB PO SCH (22:09)
[2021-04-01] MEDS: GABAPENTIN 100 MG CAP PO SCH (22:09)
[2021-04-01] MEDS: HumaLOG INSULIN (NovoLOG) PER UNIT SC SCH (22:41)
[2021-04-01] MEDS: WARFARIN SOD 3MG TAB PO SCH (22:57)
[2021-04-01] MEDS: oxyBUTYnin 5 MG TAB PO SCH (22:57)
[2021-04-01 23:56] VITALS: BP 133/67
[2021-04-02] MEDS: LEVOTHYROXINE 50MCG TABLET (0.05MG) PO SCH (06:07)
[2021-04-02 06:22] VITALS: BP 131/67
[2021-04-02 08:12] LABS: BASO # 0.1 10^3/uL (0.0-0.2); BASO % 0.4 % (0.0-1.0); EOS # 0.1 10^3/uL (0.0-0.5); EOS % 0.6 % (0.0-3.0); HEMATOCRIT 28.2 % (36.0-47.0); HEMOGLOBIN 9.4 g/dl (12.0-15.5); LYMPH # 1.5 10^3/uL (1.5-5.0); LYMPH % 13.5 % (24.0-44.0); MEAN CORPUSCULAR HEMOGLOBIN 32.8 pg (27.0-33.0); MEAN CORPUSCULAR HGB CONC 33.3 g/dl (32.0-36.5); MEAN CORPUSCULAR VOLUME 98.3 fl (80.0-96.0); MONO # 1.1 10^3/uL (0.0-0.8); MONO % 9.7 % (2.0-8.0); NEUTROPHILS # 8.5 10^3/uL (1.5-8.5); NEUTROPHILS % 75.4 % (36.0-66.0); PLATELET COUNT, AUTOMATED 277 10^3/uL (150-450); RED BLOOD COUNT 2.87 10^6/uL (4.00-5.40); WHITE BLOOD COUNT 11.3 10^3/uL (4.0-10.0)
[2021-04-02] MEDS: LEVEMIR (INSULIN DETEMIR) 1 UNITS/0.01ML SC SCH (08:14)
[2021-04-02] MEDS: oxyBUTYnin 5 MG TAB PO SCH ×2 (08:15→21:15)
[2021-04-02] MEDS: HumaLOG INSULIN (NovoLOG) PER UNIT SC SCH ×4 (08:15→21:00)
[2021-04-02] MEDS: DOCUSATE SODIUM 100MG CAPSULE PO SCH ×2 (08:16→21:15)
[2021-04-02] MEDS: **hydrALAZINE** 10 MG TAB PO SCH ×3 (08:16→21:16)
[2021-04-02] MEDS: DONEPEZIL 5 MG TAB PO SCH (08:16)
[2021-04-02] MEDS: GABAPENTIN 100 MG CAP PO SCH ×3 (08:16→21:14)
[2021-04-02] MEDS: CARVedilol 12.5 MG TAB PO SCH ×2 (08:16→21:15)
[2021-04-02] MEDS: ASPIRIN 81MG ENTERIC TABLET PO SCH (08:16)
[2021-04-02] MEDS: PANTOPRAZOLE 40MG TAB (PROTONIX) PO SCH (08:16)
[2021-04-02] MEDS: TORSEMIDE 10 MG TABLET PO SCH (08:16)
[2021-04-02] MEDS: amLODIPine 5 MG TAB PO SCH (08:17)
[2021-04-02 08:28] LABS: INR 2.04; PROTHROMBIN TIME 23.4 SECONDS (12.7-14.5)
[2021-04-02] MEDS ORDERED: VANCOMYCIN HCL 500 MG in D5W MINI-BAG PLUS 100 ML IV SCH (09:00)
[2021-04-02] MEDS ORDERED: OMEPRAZOLE 20 MG CAP PO SCH (09:00)
[2021-04-02] MEDS ORDERED: MAG SULF 1GM/100ML (MAG RUN) 1 GM in IV 1 EA IV ONE (09:45)
--- NOTE | 2021-04-02 13:15 | IPNPDOC ---
Text Note Date of Service The patient was seen on 04/02/21. NOTE SUBJECTIVE: -Reports that her leg pain is better PHYSICAL EXAMINATION: VITAL SIGNS: Please see below. GENERAL APPEARANCE: Elderly, pleasant, NAD HEEN: EOMI. No scleral icterus. Nares patent. Oral mucosa moist CARDIOVASCULAR:Regular rate, rhythm. No murmurs, rubs, gallops LUNGS: CTAB, No wheezing, rales, rhonchi ABDOMEN: Normoactive sounds, soft, NTND EXTREMITIES: b/l lower extremities w/ chronic venous stasis w/ chronic skin changes, however right lower extremity w/ erythema below the knee to just above the ankle with noticeable edema. The entire area is tender to palpation. The patient is able to move all joints of the area freely without pain. <2sec cap refill in toes bilaterally. NEUROLOGICAL:Sensation intact. Speech clear. A+Ox3. No focal deficits. PSYCHIATRIC:AOx3 LABORATORY DATA: Reviewed WBC 11.3 hgb 9.4 platelets 277 na 135 K 4 Cr 0.98 mag 1.6 IMAGING: Lower US DVT: FINDINGS: Ultrasound examination of the right lower extremity deep venous structures from the common femoral vein through the calf/ankle to include the tibial veins demonstrates normal compressibility flow and wave patterns in response to respiration and augmentation. There is no evidence for deep venous thrombosis. Contralateral CFV is patent and normal. IMPRESSION: No evidence for deep venous thrombosis. CTA RLE: Aorta: There is mild calcification of the abdominal aorta with extension into the iliac arteries. No distal abdominal aortic aneurysm or dissection. Right iliac arteries: The right iliac arteries are adequately patent. Right femoral/popliteal arteries: Plaque in the right common femoral artery with no significant stenosis. The right profunda artery and branches appear normal. The right superficial femoral artery is adequately patent. The right popliteal artery is adequately patent. Right infrapopliteal arteries: In the right calf, there are high-grade stenoses of the proximal anterior tibial artery which she ventrally occludes by the distal 3rd. The posterior tibial and peroneal arteries are small but extend through the calf. The posterior tibial extends into the hindfoot. The peroneal artery appears to send collaterals anteriorly with reconstitution of the dorsalis pedis. Reproductive: Status post hysterectomy. Bones/joints: The osseous structures are intact. Soft tissues: Slight subcutaneous edema of the distal calf and about the ankle. IMPRESSION: 1. 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 The posterior tibial and peroneal arteries are small but patent. The posterior tibial artery extends into the hindfoot and the peroneal artery appears to send collaterals anteriorly with reconstitution of the dorsalis pedis. 2. Slight subcutaneous edema of the right calf and about the ankle which is nonspecific. 3. Otherwise negative CTA right lower extremity. MICROBIOLOGY: Please see below. ASSESSMENT:89 y/o W with cad, dementia, hld, htn, iddm2, afib on coumadin, hypothyroidism who presented to our ED with her daughter in law for evaluation of edema, erythema and severe pain of the RLE below the knee that began 2-3 days prior and was admitted for RLE cellulitis. . PLAN: 1. Sepsis 2/2 RLE Cellulitis - Patient acutely met sirs criteria in our ED with fever of 101.6, wbc of 16 and notable erythema of RLE - DVT ruled out in the ED with duplex US - D/t patients complaining of extreme pain of extremity, hot cta of lower extremity that showed some disease but no acute occlusion with limb ischemia, was reviewed by vascular and recommended outpatient vascular follow up. - Currently on vancomycin for abx coverage., MRSA negative, will de-escalate to keflex - pain control with tramadol PRN 2. DM - continue at home basal insulin - sliding scale coverage - hypoglycemic protocol - continue gabapentin 3. AFib - pt rate controlled in the ED - continue carvedilol, warfarin - daily inr 4. CAD - continue asa 5. HTN - continue torsemide, hydralazine, clonidine, benazepril, amlodipine 6. GERD - med rec appear to show patient taking 2 ppi medications? - will continue protonix, hold omeprazole 7. Hypothyroidism - continue synthroid 8. HLD - continue atorvastatin 9. Overactive bladder - continue oxybutynin 10. Dementia - continue nightly trazodone, donepezil - monitor behaviors DVT prophylaxis - warfarin VS,Fishbone, I+O VS, Fishbone, I+O Laboratory Tests 04/01/21 16:52 04/02/21 07:57 Vital Signs Date Time Temp Pulse Resp B/P (MAP) Pulse Ox O2 Delivery O2 Flow Rate FiO2 04/02/21 08:16 78 130/70 04/02/21 06:22 97.8 19 98 Room Air I&O- Last 24 Hours up to 6 AM 04/02/21 06:00 Intake Total 0 ml Balance 0 ml JESU HOFFMANN MD Apr 02, 2021 09:47
[2021-04-02] MEDS: CEPHALEXIN 500 MG CAP PO SCH ×2 (13:46→17:46)
[2021-04-02 14:00] VITALS: BP 132/63
[2021-04-02] MEDS: WARFARIN SOD 3MG TAB PO SCH (16:11)
[2021-04-02] MEDS ORDERED: BENAZEPRIL 20 MG TAB PO SCH (21:00)
[2021-04-02] MEDS: traMADol 50 MG TAB PO PRN (21:14)
[2021-04-02] MEDS: cloNIDine 0.1MG TABLET PO SCH (21:15)
[2021-04-02] MEDS: ATORVASTATIN 20 MG TAB PO SCH (21:16)
[2021-04-02] MEDS: traZODone 50 MG TAB PO SCH (21:16)
[2021-04-02 22:06] VITALS: BP 162/64
[2021-04-03] MEDS: CEPHALEXIN 500 MG CAP PO SCH ×3 (00:54→12:23)
[2021-04-03 06:00] VITALS: BP 156/64
[2021-04-03] MEDS: LEVOTHYROXINE 50MCG TABLET (0.05MG) PO SCH (06:11)
[2021-04-03] MEDS: traMADol 50 MG TAB PO PRN (06:11)
[2021-04-03 07:36] LABS: BASO # 0.1 10^3/uL (0.0-0.2); BASO % 0.6 % (0.0-1.0); EOS # 0.2 10^3/uL (0.0-0.5); EOS % 2.2 % (0.0-3.0); HEMATOCRIT 27.4 % (36.0-47.0); HEMOGLOBIN 9.2 g/dl (12.0-15.5); LYMPH # 1.2 10^3/uL (1.5-5.0); LYMPH % 14.9 % (24.0-44.0); MEAN CORPUSCULAR HEMOGLOBIN 32.9 pg (27.0-33.0); MEAN CORPUSCULAR HGB CONC 33.6 g/dl (32.0-36.5); MEAN CORPUSCULAR VOLUME 97.9 fl (80.0-96.0); MONO % 12.7 % (2.0-8.0); NEUTROPHILS # 5.6 10^3/uL (1.5-8.5); NEUTROPHILS % 69.2 % (36.0-66.0); PLATELET COUNT, AUTOMATED 245 10^3/uL (150-450)
[2021-04-03 07:48] LABS: INR 1.73; PROTHROMBIN TIME 20.7 SECONDS (12.7-14.5)
[2021-04-03] MEDS: LEVEMIR (INSULIN DETEMIR) 1 UNITS/0.01ML SC SCH (08:22)
[2021-04-03] MEDS: HumaLOG INSULIN (NovoLOG) PER UNIT SC SCH (08:22)
[2021-04-03] MEDS: GABAPENTIN 100 MG CAP PO SCH (08:23)
[2021-04-03] MEDS: PANTOPRAZOLE 40MG TAB (PROTONIX) PO SCH (08:23)
[2021-04-03] MEDS: DONEPEZIL 5 MG TAB PO SCH (08:23)
[2021-04-03] MEDS: ASPIRIN 81MG ENTERIC TABLET PO SCH (08:23)
[2021-04-03] MEDS: DOCUSATE SODIUM 100MG CAPSULE PO SCH (08:23)
[2021-04-03 08:24] VITALS: BP 151/64
[2021-04-03] MEDS: TORSEMIDE 10 MG TABLET PO SCH (08:24)
[2021-04-03] MEDS: CARVedilol 12.5 MG TAB PO SCH (08:24)
[2021-04-03] MEDS: oxyBUTYnin 5 MG TAB PO SCH (08:24)
[2021-04-03] MEDS: **hydrALAZINE** 10 MG TAB PO SCH (08:24)
[2021-04-03] MEDS: amLODIPine 5 MG TAB PO SCH (08:25)
[2021-04-03] MEDS ORDERED: CEPH500C PO (12:07)
--- NOTE | 2021-04-03 12:33 | IPNPDOC ---
Text Note Date of Service The patient was seen on 04/03/21. NOTE SUBJECTIVE: -Reports that her leg pain is better and we discussed importance of working with given the reports that she declined. PHYSICAL EXAMINATION: VITAL SIGNS: Please see below. GENERAL APPEARANCE: Elderly, pleasant, NAD HEENT EOMI. No scleral icterus. Nares patent. Oral mucosa moist CARDIOVASCULAR:Regular rate, rhythm. No murmurs, rubs, gallops LUNGS: CTAB, No wheezing, rales, rhonchi ABDOMEN: Normoactive sounds, soft, NTND EXTREMITIES: b/l lower extremities w/ chronic venous stasis w/ chronic skin changes, however right lower extremity w/ much improving erythema below the knee to above the ankle NEUROLOGICAL:Sensation intact. Speech clear. A+Ox3. No focal deficits. PSYCHIATRIC:AOx3 LABORATORY DATA: Reviewed WBC 8 hgb 9.2 platelets 245 mag 1.9 IMAGING: Lower US DVT: FINDINGS: Ultrasound examination of the right lower extremity deep venous structures from the common femoral vein through the calf/ankle to include the tibial veins demonstrates normal compressibility flow and wave patterns in response to respiration and augmentation. There is no evidence for deep venous thrombosis. Contralateral CFV is patent and normal. IMPRESSION: No evidence for deep venous thrombosis. CTA RLE: Aorta: There is mild calcification of the abdominal aorta with extension into the iliac arteries. No distal abdominal aortic aneurysm or dissection. Right iliac arteries: The right iliac arteries are adequately patent. Right femoral/popliteal arteries: Plaque in the right common femoral artery with no significant stenosis. The right profunda artery and branches appear normal. The right superficial femoral artery is adequately patent. The right popliteal artery is adequately patent. Right infrapopliteal arteries: In the right calf, there are high-grade stenoses of the proximal anterior tibial artery which she ventrally occludes by the distal 3rd. The posterior tibial and peroneal arteries are small but extend through the calf. The posterior tibial extends into the hindfoot. The peroneal artery appears to send collaterals anteriorly with reconstitution of the dorsalis pedis. Reproductive: Status post hysterectomy. Bones/joints: The osseous structures are intact. Soft tissues: Slight subcutaneous edema of the distal calf and about the ankle. IMPRESSION: 1. 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 The posterior tibial and peroneal arteries are small but patent. The posterior tibial artery extends into the hindfoot and the peroneal artery appears to send collaterals anteriorly with reconstitution of the dorsalis pedis. 2. Slight subcutaneous edema of the right calf and about the ankle which is nonspecific. 3. Otherwise negative CTA right lower extremity. MICROBIOLOGY: Please see below. ASSESSMENT:89 y/o W with cad, dementia, hld, htn, iddm2, afib on coumadin, hypothyroidism who presented to our ED with her daughter in law for evaluation of edema, erythema and severe pain of the RLE below the knee that began 2-3 days prior and was admitted for RLE cellulitis. . PLAN: 1. Sepsis 2/2 RLE Cellulitis; resolved sepsis, improving cellulitis - Patient acutely met sirs criteria in our ED with fever of 101.6, wbc of 16 and notable erythema of RLE - DVT ruled out in the ED with duplex US - D/t patients complaining of extreme pain of extremity, hot cta of lower extremity that showed some disease but no acute occlusion with limb ischemia, was reviewed by vascular and recommended outpatient vascular follow up. -Day 2 of antibiotics, on keflex, improving. MRSA negative - pain control with tramadol PRN. PT/OT 2. DM - continue at home basal insulin - sliding scale coverage - hypoglycemic protocol - continue gabapentin 3. AFib - pt rate controlled in the ED - continue carvedilol, warfarin - daily inr 4. CAD - continue asa 5. HTN - continue torsemide, hydralazine, clonidine, benazepril, amlodipine 6. GERD - med rec appear to show patient taking 2 ppi medications? - will continue protonix, hold omeprazole 7. Hypothyroidism - continue synthroid 8. HLD - continue atorvastatin 9. Overactive bladder - continue oxybutynin 10. Dementia - continue nightly trazodone, donepezil - monitor behaviors DVT prophylaxis - warfarin VS,Fishbone, I+O VS, Fishbone, I+O Laboratory Tests 04/03/21 07:26 Vital Signs Date Time Temp Pulse Resp B/P (MAP) Pulse Ox O2 Delivery O2 Flow Rate FiO2 04/03/21 06:41 18 Room Air 04/03/21 06:00 97.6 78 156/64 (94) 98 I&O- Last 24 Hours up to 6 AM 04/03/21 06:00 Intake Total 1090 ml Balance 1090 ml [id number],JESU V. MD Apr 03, 2021 08:13
--- NOTE | 2021-04-03 12:33 | DS.PDOC ---
Discharge Summary General Date of Admission Apr 01, 2021 at 18:56 Date of Discharge 04/03/2021 Attending Physician: JESU HOFFMANN MD Discharge Summary PROCEDURES PERFORMED DURING STAY: None ADMITTING DIAGNOSES: Sepsis 2/2/ cellulitis DISCHARGE DIAGNOSES: Sepsis 2/2 RLE cellulitis PVD cad dementia hld htn iddm2 afib on coumadin hypothyroidism COMPLICATIONS/CHIEF COMPLAINT: Cellulitis. HISTORY OF PRESENT ILLNESS: 89 y/o W with a pmh of cad, dementia, hld, htn, iddm2, afib on coumadin hypothyroidism who presented to our ED with her daughter in law for evaluation of edema, erythema and severe pain of the RLE below the knee that began 2-3 days prior to presentation. Patient reported that her symptoms began suddenly and denied any recent falls or injuries to the leg. Patient reported that she became concerned because the leg was painful to the point where she had issues walking on it. Patient had never had issues with redness like this before. She otherwise denied any subjective fevers, chills, abd pain, n/v/d/c, chest pain, sob, paresthesias, paralysis, dysuria, recent falls. HOSPITAL COURSE: Patient presented hemodynamically stable but met sirs criteria with fever of 101.6, had wbc of 16 and notable erythema of RLE. The possibility of a lower extremity DVT was ruled out in the ED with duplex US that was negative, and due to patient's complaining of extreme pain of extremity, she had a cta of lower extremity that showed some disease but no acute occlusion with limb ischemia that was reviewed by vascular and recommended outpatient vascular follow up and we are referring at discharge and will need PCP to follow up on that referral. In the meantime, she was diagnosed with RLE cellulitis and was initially placed on vancomycin that was de-escalated to keflex after nasal MRSA PCR was negative, with continued improvement in pain, leukocytosis and erythema. She worked with PT and they recommended interim use of walker, which she confirmed to have at home, instead of her cane. She expressed understanding of this and it was communicated to the daughter as well. She is now being discharged home to complete her course of keflex and follow up with her PCP within 7d and with a referral to vascular surgery for PVD. DISCHARGE MEDICATIONS: Please see below. ALLERGIES: Please see below. PHYSICAL EXAMINATION ON DISCHARGE: VITAL SIGNS: Please see below. GENERAL APPEARANCE: Elderly, pleasant, NAD, dressed in regular street clothing HEEN: EOMI. No scleral icterus. Nares patent. Oral mucosa moist CARDIOVASCULAR:Regular rate, rhythm. No murmurs, rubs, gallops LUNGS: CTAB, No wheezing, rales, rhonchi ABDOMEN: Normoactive sounds, soft, NTND EXTREMITIES: b/l lower extremities w/ chronic skin changes, right lower extremity erythema has improved a lot. She still has some mild tenderness to palpation. The patient is able to move all joints of the area freely without pain. <2sec cap refill in toes bilaterally. NEUROLOGICAL:Sensation intact. Speech clear. A+Ox3. No focal deficits. PSYCHIATRIC:AOx3 LABORATORY DATA: Please see below IMAGING: Lower US DVT: FINDINGS: Ultrasound examination of the right lower extremity deep venous structures from the common femoral vein through the calf/ankle to include the tibial veins demonstrates normal compressibility flow and wave patterns in response to respiration and augmentation. There is no evidence for deep venous thrombosis. Contralateral CFV is patent and normal. IMPRESSION: No evidence for deep venous thrombosis. CTA RLE: Aorta: There is mild calcification of the abdominal aorta with extension into the iliac arteries. No distal abdominal aortic aneurysm or dissection. Right iliac arteries: The right iliac arteries are adequately patent. Right femoral/popliteal arteries: Plaque in the right common femoral artery with no significant stenosis. The right profunda artery and branches appear normal. The right superficial femoral artery is adequately patent. The right popliteal artery is adequately patent. Right infrapopliteal arteries: In the right calf, there are high-grade stenoses of the proximal anterior tibial artery which she ventrally occludes by the distal 3rd. The posterior tibial and peroneal arteries are small but extend through the calf. The posterior tibial extends into the hindfoot. The peroneal artery appears to send collaterals anteriorly with reconstitution of the dorsalis pedis. Reproductive: Status post hysterectomy. Bones/joints: The osseous structures are intact. Soft tissues: Slight subcutaneous edema of the distal calf and about the ankle. IMPRESSION: 1. 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 The posterior tibial and peroneal arteries are small but patent. The posterior tibial artery extends into the hindfoot and the peroneal artery appears to send collaterals anteriorly with reconstitution of the dorsalis pedis. 2. Slight subcutaneous edema of the right calf and about the ankle which is nonspecific. 3. Otherwise negative CTA right lower extremity. MICROBIOLOGY: Please see below. PROGNOSIS: Good ACTIVITY: As tolerated DIET: consistent carb, 2g sodium DISCHARGE PLAN: Home with 5 more days of keflex for cellulitis DISPOSITION: Home DISCHARGE INSTRUCTIONS: Home with 5 more days of keflex for cellulitis. To see PCP within 7d. referral to vascular surgery for PVD. ITEMS TO FOLLOWUP ON ON OUTPATIENT: Resolution of cellulitis referral to vascular surgery for PVD. DISCHARGE CONDITION: Stable TIME SPENT ON DISCHARGE: 40 minutes. Vital Signs/I&Os Vital Signs Date Time Temp Pulse Resp B/P (MAP) Pulse Ox O2 Delivery O2 Flow Rate FiO2 04/03/21 08:24 151/64 04/03/21 06:41 18 Room Air 04/03/21 06:00 97.6 78 98 I&O- Last 24 Hours up to 6 AM 04/03/21 06:00 Intake Total 1090 ml Balance 1090 ml Laboratory Data Labs 24H Laboratory Tests 2 04/02/21 17:15: Bedside Glucose (Misc Panel) 207H 04/02/21 20:42: Bedside Glucose (Misc Panel) 191H 04/03/21 07:26: Immature Granulocyte % (Auto) 0.4, Neutrophils (%) (Auto) 69.2H, Lymphocytes (%) (Auto) 14.9L, Monocytes (%) (Auto) 12.7H, Eosinophils (%) (Auto) 2.2, Basophils (%) (Auto) 0.6, Neutrophils # (Auto) 5.6, Lymphocytes # (Auto) 1.2L, Monocytes # (Auto) 1.0H, Eosinophils # (Auto) 0.2, Basophils # (Auto) 0.1, Nucleated Red Blood Cells % (auto) 0.0, Prothrombin Time 20.7H, Prothromb Time International Ratio 1.73, Magnesium Level 1.9 04/03/21 08:00: Bedside Glucose (Misc Panel) 130H CBC/BMP Laboratory Tests 04/03/21 07:26 FSBS Laboratory Tests Test 04/02/21 17:15 04/02/21 20:42 04/03/21 08:00 Range/Units Bedside Glucose (Misc Panel) 207 191 130 83-110 MG/DL Microbiology Microbiology 04/01/21 Blood Culture - Preliminary, Resulted No growth after 24 hours . All specim... 04/01/21 Blood Culture - Preliminary, Resulted No growth after 24 hours . All specim... Discharge Medications Scheduled Amlodipine Besylate (Norvasc) 5 Mg Tablet, 5 MG PO DAILY, (Reported) Aspirin (Aspirin EC) 81 Mg Tab, 81 MG PO DAILY, (Reported) Atorvastatin Calcium (Atorvastatin Calcium) 40 Mg Tab, 40 MG PO QHS, (Reported) Benazepril HCl (Benazepril HCl) 40 Mg Tab, 40 MG PO QHS, (Reported) Calcium Carbonate/Vitamin D3 (Calcium 600-Vit D3 400 Tablet) 1 Each Tablet, 1 TAB PO DAILY, (Reported) Carvedilol (Carvedilol) 12.5 Mg Tab, 12.5 MG PO BID, (Reported) Cephalexin (Cephalexin) 500 Mg Capsule, 500 MG PO Q6H Clonidine Hcl (Clonidine HCl) 0.1 Mg Tablet, 0.1 MG PO QPM, (Reported) Donepezil Hcl (Donepezil HCl Odt) 10 Mg Tab, 10 MG PO DAILY, (Reported) Gabapentin (Gabapentin) 100 Mg Capsule, 100 MG PO TID, (Reported) Hydralazine HCl (Hydralazine HCl) 10 Mg Tablet, 10 MG PO TID, (Reported) Insulin Detemir (Levemir Flextouch) 100 Unit/Ml Inj, 10 UNIT SC DAILY, (Reported) Insulin Human Lispro (Novolog) 100 U/Ml Inj, 1 DOSE SC AC, (Reported) PER SLIDING SCALE Levothyroxine Sodium (Synthroid) 50 Mcg Tablet, 50 MCG PO DAILY, (Reported) Multivitamins (Thera M Plus Tablet) 1 Each Tablet, 1 TAB PO DAILY, (Reported) Omeprazole (Omeprazole) 20 Mg Cap, 20 MG PO DAILY, (Reported) Oxybutynin Chloride (Oxybutynin Chloride) 5 Mg Tab, 5 MG PO BID, (Reported) Pantoprazole Sodium (Pantoprazole Sodium) 40 Mg Tablet.dr, 40 MG PO DAILY, (Reported) Torsemide (Torsemide) 10 Mg Tablet, 10 MG PO DAILY, (Reported) Trazodone HCl (Trazodone HCl) 50 Mg Tablet, 50 MG PO QHS, (Reported) Warfarin Sodium (Warfarin Sodium) 3 Mg Tablet, 3 MG PO QPM, (Reported) Scheduled PRN Docusate Sodium (Docusate Sodium) 100 Mg Capsule, 100 MG PO DAILY PRN for CONSTIPATION, (Reported) Tramadol HCl (Tramadol HCl) 50 Mg Tablet, 50 MG PO Q6H PRN for PAIN LEVEL 1-5, (Reported) Allergies Coded Allergies: No Known Allergies (Unverified , 12/11/12) JESU HOFFMANN MD Apr 03, 2021 12:33
[2021-04-03] MEDS ORDERED: WARFARIN SOD 3MG TAB PO ONE (17:00)
== END 2021-04-03 12:25 | disposition home health service (06) | DRG 872 ==
LOC: M ED 13:08 → M ED INP 18:56 → M MS5PR 23:50
PROVIDERS: ADMIT Internal Medicine; ATTEND Internal Medicine
DX: A41.9 Sepsis, unspecified organism (principal); L03.115 Cellulitis of right lower limb; F03.90 Unspecified dementia, unspecified severity, without behavioral disturbance, psychotic disturbance, mood disturbance, and anxiety; I25.10 Atherosclerotic heart disease of native coronary artery without angina pectoris; E11.51 Type 2 diabetes mellitus with diabetic peripheral angiopathy without gangrene; I10 Essential (primary) hypertension; I48.91 Unspecified atrial fibrillation; Z79.01 Long term (current) use of anticoagulants; E03.9 Hypothyroidism, unspecified; Z79.82 Long term (current) use of aspirin; Z79.899 Other long term (current) drug therapy; Z79.4 Long term (current) use of insulin; Z95.2 Presence of prosthetic heart valve; K21.9 Gastro-esophageal reflux disease without esophagitis; N32.81 Overactive bladder